=== PATIENT | female | born 1940 | race Caucasian/White ===

== ENCOUNTER 2018-07-15 16:09 | Inpatient (IN) ==
[2018-07-15] MEDS ORDERED: GLUCOSE 40% GEL 15 GM TUBE PO PRN (19:30)
[2018-07-15] MEDS ORDERED: GLUCAGON FOR INJ 1 MG VIAL IM PRN (19:30)
[2018-07-15] MEDS ORDERED: DEXTROSE 50% 50 ML SYRINGE IV PRN (19:30)
[2018-07-15] MEDS ORDERED: PATIENT'S ALLERGY INFO NEEDS ENTERED SCH (19:30)
[2018-07-15] MEDS ORDERED: PATIENT'S HEIGHT AND/OR WEIGHT NEEDED SCH (19:30)
[2018-07-15] MEDS ORDERED: GLUCOSE 10 TABS/TUBE PO PRN (19:30)
[2018-07-15] MEDS ORDERED: CARBOHYDRATES FOR HYPOGLYCEMIA PO PRN (19:30)
--- NOTE | 2018-07-15 19:50 | History & Physical Report ---
Date of Service July 15, 2018 Assessment & Plan (1) Shortness of breath: 78 y/o F Hx CKD V - recent fistula placement in prep for dialysis, IDDM, CAD, HTN, HLD, hypothyroid, GERD. She was evaluated at [facility] for SOB earlier in the day which was thought due to new onset of CHF or volume overload related to her renal status. She was declined admission to [facility] as they do not have a patients transporter press set up person, although it was not reported that her renal function had significantly changed. She is not anuric. The pt then arrives as a direct transfer from [facility]. She is mildly hypoxic, describes a cough, and was febrile with a temp of 37.6 on arrival to the telemetry floor. She denies any CP or rigors and was not aware that she had a fever. The pt had a fistula placed in her L arm 06/2018 in preparation for dialysis which has not matured yet. 1) SOB - this was suspected due to volume overload either due to CHF or related to her renal function. Due to her fever and cough and an exam that is not consistent with CHF, I currently suspect PNM. She will be sent for a CT chest without contrast as her CXR report was not helpful in this regard. I have started her on Doxy, 02 and PRN nebs. 2) CKD V - should it be determined that she has volume overload, an echo may be in order or a nephrology consult. We will monitor daily weights an I/O. 3) DM - placed on a SS 4) CAD - EKG shows a NSR - no evidence of ACS - cont ASA, plavix, carvedilol, Imdur, statin 5) GERD - cont Protonix, Famotidine Full code - Heparin prophylaxis Total time for this admit including review of labs, meds, imaging, records - discussion with pt and ER attending - 45 min Further evaluation to follow pending additional lab/imaging results Present on Admission?: Yes History of Present Illness Chief Complaint: Cough, SOB Primary Care Provider: NO PCP 78 y/o F Hx CKD V - recent fistula placement in prep for dialysis, IDDM, CAD, HTN, HLD, hypothyroid, GERD. She was evaluated at [facility] for SOB earlier in the day which was thought due to new onset of CHF or volume overload related to her renal status. She was declined admission to [facility] as they do not have a patients transporter press set up person, although it was not reported that her renal function had significantly changed. She is not anuric. The pt then arrives as a direct transfer from [facility]. She is mildly hypoxic, describes a cough, and was febrile with a temp of 37.6 on arrival to the telemetry floor. She denies any CP or rigors and was not aware that she had a fever. The pt had a fistula placed in her L arm 06/2018 in preparation for dialysis which has not matured yet. PMH: 1) CKD V - pre-dialysis 2) CAD - history of 3 stents 3) HTN 4) HLD 5) DM II 6) Hypothyroidism 7) GERD Surgical: Denies aside form dialysis and cardiac cath Social: No history of smoking or drinking Family: States that both parents due to "old age" Allergies Allergy/AdvReac Type Severity Reaction Status Date / Time amoxicillin Allergy Hives Verified 07/15/18 19:49 propofol AdvReac Nausea Verified 07/15/18 19:49 Home Medications Home Medications Medication Instructions Recorded Confirmed Type amlodipine 5 mg PO BID 07/15/18 07/15/18 History aspirin 81 mg PO DAILY 07/15/18 07/15/18 History carvedilol 6.25 mg PO BID 07/15/18 07/15/18 History clopidogrel 75 mg PO DAILY 07/15/18 07/15/18 History docusate sodium [Colace] 2 cap PO QAM PRN 07/15/18 07/15/18 History famotidine 20 mg PO BID 07/15/18 07/15/18 History ferrous sulfate 325 mg PO BID 07/15/18 07/15/18 History glimepiride 4 mg PO QAM 07/15/18 07/15/18 History hydralazine 25 mg PO BID 07/15/18 07/15/18 History insulin glargine [Lantus Solostar 18 unit SUBCUT DAILY 07/15/18 07/15/18 History U-100 Insulin] isosorbide mononitrate 60 mg PO DAILY 07/15/18 07/15/18 History levothyroxine 100 mcg PO QAM 07/15/18 07/15/18 History pantoprazole 40 mg PO DAILY 07/15/18 07/15/18 History pravastatin 10 mg PO DAILY 07/15/18 07/15/18 History psyllium husk [Metamucil] 0.4 g PO Q OTHER DAY 07/15/18 07/15/18 History Review of Systems Gen: Did not report fevers, night sweats, rigors, fatigue, malaise, weight loss/gain ENT: Denies congestion, throat pain, hearing loss Eyes: Denies acute visual changes CV: Denies CP, palpitations Pulmonary: SOB, productive cough GI: Denies N/V, diarrhea, constipation Neuro: Denies acute or unilateral weakness, acute gait impairment, headache or acute visual changes Musculoskeletal: Denies joint pain, inflammation Endocrine: Denies polydipsia, polyuria Skin: Denies acute rashes or ulcers Physical Exam Vital Signs (Past 24 Hours): Last Vital Signs Temp 37.6 C H 07/15/18 18:17 Pulse 81 07/15/18 18:41 Resp 22 07/15/18 18:17 BP 144/54 H 07/15/18 18:17 Pulse Ox 96 07/15/18 18:17 Physical Exam: General: AAO x 3, no distress ENT: No erythema or exudates, no thrush Eyes: VIN, EOMI Head and neck: Normocephalic, atraumatic, No JVD, neck is supple. Chest/heart: Nontender, S1,2, RRR, no murmurs, no gallops Lungs: CTAB - cannot hear any wheezing or crackles Abdomen: Nontender, nondistended, BS+ Neuro: AAO x 3, speech is clear, no unilateral weakness or loss of sensation, coordination intact Musculoskeletal: No joint inflammation, muscle tenderness, FROM Skin: No acute rashes or ulcers Extremities: No clubbing, cyanosis, edema - there is a fistula with sutures in the LUE
[2018-07-15] MEDS ORDERED: ALBUT/IPRATROP 3MG/0.5MG NEB 3 ML VIAL NEB PRN (20:01)
[2018-07-15 20:20] LABS: Basophils # (auto) 0.03 K/uL (0-0.2); Basophils % (auto) 0.2 %; Eosinophils # (auto) 0.07 K/uL (0-0.5); Eosinophils % (auto) 0.5 %; Hematocrit (blood only) 25.5 % (37-47); Hemoglobin 7.9 g/dL (12.0-16.0); Immature Granulocytes # (auto) 0.06 K/uL (0.00-0.02); Immature Granulocytes % (auto) 0.4 %; Lymphocytes # (auto) 1.34 K/uL (1.2-3.4); Lymphocytes % (auto) 9.5 %; Mean Platelet Volume 9.4 fL (7.4-10.4); Monocytes # (auto) 1.02 K/uL (0.11-0.59); Monocytes % (auto) 7.2 %; Neutrophils # (auto) 11.65 K/uL (1.4-6.5); Neutrophils % (auto) 82.2 %; Platelet Count 390 K/uL (130-400); RDW Coefficient of Variation 16.3 % (11.5-14.5); RDW Standard Deviation 49.4 fL (36.4-46.3); Red Blood Count 3.11 M/uL (4.2-5.4); White Blood Count 14.17 K/uL (4.8-10.8)
[2018-07-15 20:37] LABS: Hypochromasia Present
--- NOTE | 2018-07-15 20:37 | CT Scan Report ---
CT SCAN OF THE CHEST WITHOUT IV CONTRAST CLINICAL HISTORY: Dyspnea. COMPARISON STUDY: No priors. TECHNIQUE: CT scan of the thorax was performed from the thoracic inlet to the upper abdomen. Images are reviewed in the axial, sagittal, and coronal planes. IV contrast was not administered for this ex amination as per the referring clinician. A dose lowering technique was utilized adhering to the arthur Peralta. CT DOSE: 233.25 mGy.cm FINDINGS: Thyroid: Imaged portions of the thyroid gland are normal in size and heterogeneous in attenuation. Thoracic aorta: There is atherosclerotic calcification of the thoracic aorta, which is normal in demario jeanmarie and demonstrates bovine variant arch anatomy. Heart: The heart is enlarged and without pericardial effusion. The coronary arteries, aortic valve le aflets, and mitral annulus are densely calcified. Dilatation of the main pulmonary arteries suggests pulmonary artery hypertension. Lungs and pleural spaces: There are small to moderate pleural effusions with bibasilar consolidation. There is diffuse intralobular septal thickening indication of congestive failure. The trachea and c entral airways are clear. There are scattered calcified granulomas. Mediastinum: There are mildly enlarged mediastinal lymph nodes. A prevascular node on image #91 measu res 12 mm short axis. A pretracheal node on image #81 measures 15 mm short axis. Marivel: Not well assessed without IV contrast. Axillae: There is no axillary lymphadenopathy. Upper abdomen: There is a small to moderate hiatal hernia. Partially visualized upper abdominal visce ra is otherwise grossly unremarkable. Skeletal structures: The skeletal structures are osteopenic. Degenerative change and hyperkyphosis ar e noted in the thoracic spine. No lytic or blastic bony lesions are seen. IMPRESSION: 1. Cardiomegaly with evidence of congestive failure. Radiographic follow-up to resolution is recommen ded. 2. Small to moderate pleural effusions with bibasilar consolidation. This likely represents atelectas is. 3. Mildly enlarged mediastinal lymph nodes are nonspecific. 4. Hiatal hernia. 5. Additional findings as above. Electronically signed by: Josh Riley M.D. 07/15/2018 8:36 PM
[2018-07-15 20:41] LABS: BUN Creatinine Ratio 10.3 (10-20); Calcium 8.8 mg/dl (8.5-10.1); Creatinine Clr Calc Pharmacy 13.3 ml/min; Est GFR (African American) 16.1; Est GFR (Non-African American) 13.9; Potassium 4.3 mmol/L (3.5-5.1)
[2018-07-15] MEDS: INSULIN ASPART 100 UNITS/ML 3 ML PEN SC SCH (20:47)
[2018-07-15] MEDS: DOXYCYCLINE HYCLATE 100 MG in DEXTROSE 5% 100 ML IV SCH (21:46)
[2018-07-15] MEDS: FAMOTIDINE 20 MG TAB PO SCH (21:51)
[2018-07-15] MEDS: CARVEDILOL 6.25 MG TAB PO SCH (21:51)
[2018-07-16] MEDS: LEVOTHYROXINE SODIUM 100 MCG TABLET PO SCH (06:37)
[2018-07-16] MEDS: ASPIRIN 81 MG ECTAB PO SCH (08:30)
[2018-07-16] MEDS: CLOPIDOGREL BISULFATE 75 MG TAB PO SCH (08:30)
[2018-07-16] MEDS: ISOSORBIDE MONO EXTENDED REL 60 MG TABCR PO SCH (08:31)
[2018-07-16] MEDS: PANTOprazole 40 MG TAB PO SCH (08:31)
[2018-07-16] MEDS: AMLODIPINE BESYLATE 5 MG TAB PO SCH (08:32)
[2018-07-16] MEDS: CARVEDILOL 6.25 MG TAB PO SCH ×2 (08:32→20:38)
[2018-07-16] MEDS: EZETIMIBE 10 MG TABLET PO SCH (08:33)
[2018-07-16] MEDS: INSULIN ASPART 100 UNITS/ML 3 ML PEN SC SCH ×4 (08:33→20:50)
[2018-07-16] MEDS: DOXYCYCLINE HYCLATE 100 MG in DEXTROSE 5% 100 ML IV SCH ×2 (08:44→20:38)
[2018-07-16] MEDS ORDERED: FERROUS SULFATE 325 MG TAB PO SCH (08:45)
[2018-07-16 08:50] LABS: Basophils # (auto) 0.03 K/uL (0-0.2); Basophils % (auto) 0.2 %; Eosinophils # (auto) 0.24 K/uL (0-0.5); Eosinophils % (auto) 1.7 %; Hematocrit (blood only) 25.2 % (37-47); Hemoglobin 7.8 g/dL (12.0-16.0); Immature Granulocytes # (auto) 0.06 K/uL (0.00-0.02); Immature Granulocytes % (auto) 0.4 %; Lymphocytes # (auto) 1.47 K/uL (1.2-3.4); Lymphocytes % (auto) 10.4 %; Mean Corpuscular Volume 83.7 fL (80-100); Mean Platelet Volume 9.7 fL (7.4-10.4); Monocytes # (auto) 1.07 K/uL (0.11-0.59); Monocytes % (auto) 7.6 %; Neutrophils # (auto) 11.26 K/uL (1.4-6.5); Neutrophils % (auto) 79.7 %; Platelet Count 395 K/uL (130-400); RDW Coefficient of Variation 16.4 % (11.5-14.5); RDW Standard Deviation 50.4 fL (36.4-46.3); Red Blood Count 3.01 M/uL (4.2-5.4); White Blood Count 14.13 K/uL (4.8-10.8)
[2018-07-16 09:07] LABS: Anisocytosis Present
[2018-07-16 09:11] LABS: BUN Creatinine Ratio 10.6 (10-20); Calcium 8.6 mg/dl (8.5-10.1); Creatinine Clr Calc Pharmacy 12.3 ml/min; Est GFR (African American) 14.7; Est GFR (Non-African American) 12.7; Magnesium 2.1 mg/dl (1.8-2.4); Potassium 4.2 mmol/L (3.5-5.1)
[2018-07-16 09:20] LABS: Folate (Folic Acid) 15.39 ng/ml (>5.38)
[2018-07-16 09:22] LABS: Ferritin 467.2 ng/ml (8-388); Phosphorus 4.3 mg/dl (2.5-4.9)
[2018-07-16] MEDS ORDERED: EPOETIN ALFA 20,000 UNITS/ML VIAL SQ ONE (10:16)
--- NOTE | 2018-07-16 11:10 | Nephrology Consultation ---
Date of Consultation July 16, 2018 Assessment & Plan (1) Chronic kidney disease, stage IV (severe): Jessenia has stage 4/5 chronic kidney disease, baseline creatinine has been around 3, has left brachiocephalic AV fistula of, not ready yet. Admitted to the hospital with progressive dyspnea for 4 days, cough, fever and leukocytosis. Concern for acute congestive heart failure however clinically does not seem to be significantly volume overloaded, although she did receive 1 dose of diuretics in outside hospital. Dyspnea could be combination of pneumonia and volume overload which currently seems to be better. She has been non-oliguric. Creatinine slightly worsened to 3.4 however not significantly off from her baseline. Has metabolic acidosis. Has chronic anemia with iron deficiency. --recommend 2D echo to assess EF with prior history of coronary artery disease --no need for diuretics at this time as patient does not seem significantly volume overloaded on exam and there was slight change in creatinine since admission however considering advanced stage CKD, she may need some diuretics on going, if any sign of volume overload or patient have worsening shortness of breath would start on Bumex 1 milligram twice a day --start on Venofer and hold oral iron for now --give 1 dose of Epogen 34044 units x1 --start on sodium bicarbonate 650 milligram twice a day --no acute indication for dialysis at this time, monitor renal function closely while fistula is getting ready Will follow Thank you for allowing me to participate in your patient's care. It was a pleasure to see Jessenia (2) Metabolic acidosis: (3) Anemia: (4) Dyspnea: History of Present Illness Reason for Consultation: Evaluation management for advanced CKD, volume overload, metabolic acidosis. Attending Physician: Armida Lipscomb MD History of Present Illness Jessenia Ricci is a 78-year-old female with past medical history significant for stage IV CKD, hypertension, diabetes admitted to the hospital with pneumonia and possible CHF. Nephrology consult was requested to manage advanced CKD, electrolyte abnormality and volume overload. Electronic medical records are reviewed in detail during patient's visit. Patient's daughter was at bedside during the visit. Jessenia presented to [facility] yesterday with progressive shortness of breath over last few days. She was also having cough and low-grade fever at home. She was found to have a volume overload, pulmonary congestion and transferred to [facility] for further evaluation. She did receive 1 dose of Lasix at outside hospital. On admission CTA showed pulmonary vascular condition however clinically she was not significantly volume overloaded. Lab showed leukocytosis. Her blood pressure seems to be well controlled. Respiratory status seems to have improved. She was started on antibiotic empirically for possible pneumonia. She has stage 4 chronic kidney disease baseline creatinine has been around 3, she had left brachiocephalic AV fistula placement and at end of June in preparation for [facility] in near future. She has been non- oliguric. Has metabolic acidosis. Has anemia with no history of active bleeding, hemoglobin around 7.5-7.6, she has been on oral iron at home. On admission creatinine was 3.1 which is slightly worsened to 3.4 this morning. She has history of coronary artery disease, previously had PTCA and stent. No history of prior congestive heart failure or issues with volume overload. She has not been on diuretics at home. Shortness of breath seems to have improved, she is currently afebrile. The Allergies Allergy/AdvReac Type Severity Reaction Status Date / Time amoxicillin Allergy Hives Verified 07/15/18 19:49 propofol AdvReac Nausea Verified 07/15/18 19:49 Home Medications Home Medications Medication Instructions Recorded Confirmed Type amlodipine 5 mg PO BID 07/15/18 07/15/18 History aspirin 81 mg PO DAILY 07/15/18 07/15/18 History carvedilol 6.25 mg PO BID 07/15/18 07/15/18 History clopidogrel 75 mg PO DAILY 07/15/18 07/15/18 History docusate sodium [Colace] 2 cap PO QAM PRN 07/15/18 07/15/18 History famotidine 20 mg PO BID 07/15/18 07/15/18 History ferrous sulfate 325 mg PO BID 07/15/18 07/15/18 History glimepiride 4 mg PO QAM 07/15/18 07/15/18 History hydralazine 25 mg PO BID 07/15/18 07/15/18 History insulin glargine [Lantus Solostar 18 unit SUBCUT DAILY 07/15/18 07/15/18 History U-100 Insulin] isosorbide mononitrate 60 mg PO DAILY 07/15/18 07/15/18 History levothyroxine 100 mcg PO QAM 07/15/18 07/15/18 History pantoprazole 40 mg PO DAILY 07/15/18 07/15/18 History pravastatin 10 mg PO DAILY 07/15/18 07/15/18 History psyllium husk [Metamucil] 0.4 g PO Q OTHER DAY 07/15/18 07/15/18 History Patient History Medical History Chronic kidney disease Diabetes mellitus, type 2 Hypertension Hypothyroidism Surgical History History of heart artery stent History of vascular access device Social History Preferred Language: Sami Communication Ability: Effective [employer] Required: No Beliefs That Will Affect Care: Ep[employer]opalian Current Living Situation: Family Other Information That Helps Us Care for You: No Feels Safe at Home: Yes Safety Concerns: Feels Safe At This Time Smoking Status: Never smoker Hx Alcohol Use: No Hx Substance Use: No Review of Systems Detailed review of system was otherwise unremarkable except pertinent positive and negative findings mention above in history of present illness. Physical Exam Vital Signs (Past 24 Hours): Last Vital Signs Temp 36.9 C 07/16/18 07:12 Pulse 71 07/16/18 07:12 Resp 20 07/16/18 07:12 BP 130/57 L 07/16/18 07:12 Pulse Ox 92 07/16/18 07:12 Physical Exam: GENERAL: Elderly female, AAA x 3, pleasant, healthy-appearing, not in any distress. HEENT: Atraumatic, normocephalic. NECK: Supple, no JVD, no carotid bruit appreciated. ENT: No sinus tenderness MOUTH and THROAT: Moist oral mucosa, RESPIRATORY: Normal breathing efforts, clear to auscultation bilaterally, no wheezes or rales. CARDIOVASCULAR: S1, S2 normal, rate rhythm regular. ABDOMEN: Soft, nontender, positive bowel sound. MUSCULOSKELETAL: No CVA tenderness. No joint swelling, erythema or tenderness. Normal range of motion. SKIN: No skin rash EXTREMITY: Trace bilateral lower extremity edema NEURO: No gross focal neurological deficit, speech fluent. PSYCHIATRY: Normal mood and judgment
[2018-07-16] MEDS: IRON SUCROSE 100 MG in 0.9 % SODIUM CHLORIDE 100 ML IV SCH (11:43)
[2018-07-16] MEDS ORDERED: ONDANSETRON INJ 2 MG/ML 2 ML VIAL IV PRN (12:36)
[2018-07-16] MEDS ORDERED: ONDANSETRON INJ 2 MG/ML 2 ML VIAL ONE (12:50)
[2018-07-16] MEDS: CYANOCOBALAMIN 1000 MCG/ML VIAL IM SCH (13:41)
[2018-07-16] MEDS: PRAVASTATIN SOD 20 MG TAB PO SCH (17:38)
--- NOTE | 2018-07-16 18:32 | Hospitalist Progress Note ---
Date of Service July 16, 2018 Assessment & Plan (1) Shortness of breath: This patient is in 78 y/o F Hx CKD IV - recent fistula placement in prep for dialysis, IDDM, CAD, HTN, HLD, hypothyroid, GERD. She was evaluated at an outside hospital for SOB earlier in the day which was thought due to new onset of CHF or volume overload related to her renal status. She was declined admission to that hospital as they do not have a oracle database architect reconciliation clerk, although it was not reported that her renal function had significantly changed. She is not anuric. On arrival from outside hospital, she was mildly hypoxic, describes a cough, and was febrile with a temp of 37.6 on arrival to the telemetry floor. She denies any CP or rigors and was not aware that she had a fever. The pt had a fistula placed in her L arm 06/2018 in preparation for dialysis which has not matured yet. SOB -likely secondary to small to moderate bilateral pleural effusions likely to volume overload from renal failure -Check echocardiogram for LV function -No diuretics for now-appreciate nephrology recommendations CT of the chest shows congestive heart failure but no pneumonia But given low-grade temps and cough, will treat with Doxy for acute bronchitis -Continue supplemental 02 and PRN nebs (2) Acute respiratory failure with hypoxia: Secondary to pleural effusions and perhaps acute bronchitis -Supplemental O2 as needed to keep pulse ox greater than 90% -PRN nebulizers (3) Nausea vomiting and diarrhea: Possibly a viral gastroenteritis There is no abdominal pain, no evidence of obstruction She does have a leukocytosis that persist today at 14,000. She had low-grade fevers here -Continue antiemetics -Check C. difficile and if negative, can give loperamide as needed -will hold off on IV fluids given volume overload with CKD stage IV (4) Pleural effusion: Moderate effusions bilaterally, with cough and hypoxia -Consider thoracic surgery consultation in the morning to see about thoracentesis (5) Anemia: Severely anemic with hemoglobin 7.8, microcytic Iron studies today consistent with anemia of chronic disease, B12 severely low at 159, folate normal, TSH mildly elevated at 5.97 -Start B12 supplementation -Giving IV Venofer and holding oral iron as per nephrology -Giving erythropoietin (6) Metabolic acidosis: Bicarbonate down to 16, could be some GI losses from diarrhea but also from renal failure -Starting sodium bicarbonate tablets today as per nephrology -Follow BMP in the morning (7) Vitamin B12 deficiency (dietary) anemia: -Starting B12 1000 mcg IM once daily times 7 days, then once weekly, then once monthly (8) CAD (coronary artery disease), [place] coronary artery: With history of stents in the past - EKG shows a NSR - no evidence of ACS - cont ASA, plavix, carvedilol, Imdur, statin (9) Mediastinal lymphadenopathy: Unclear etiology, reactive versus autoimmune or lymphoma? -Consulting thoracic surgery in the morning (10) Diabetes mellitus: Blood sugars within normal limits here Hemoglobin A1c is pending Holding home glimepiride and Lantus -Sliding scale insulin as needed (11) HTN (hypertension), benign: Controlled -Continue hydralazine, amlodipine, carvedilol (12) Hyperlipidemia: -Continue pravastatin (13) Hypothyroidism: TSH mildly elevated here at 5.97 but is also acutely ill -Recommend following up with a repeat TSH in 3-4 weeks -Continue current dose of levothyroxine 100 mcg daily (14) GERD (gastroesophageal reflux disease): Stable -- cont Protonix, Famotidine (15) Sinus pause: Had a 2.2 and a 3.2-second sinus pauses on telemetry in the last 24 hours Is on carvedilol Could be vagal response to nausea and vomiting today -Continue monitoring on telemetry -Continue same dose of Coreg for now (16) Chronic kidney disease, stage IV (severe): Baseline creatinine around 3.0, mildly elevated today at 3.4 and did receive IV Lasix at the outside hospital prior to admission -Nephrology following -Renally dose medications -Avoid nephrotoxins -Starting sodium bicarbonate as above (17) DVT prophylaxis: We will add on heparin SQ Disposition-remain on telemetry Subjective Patient developed nausea and vomiting, as well as diarrhea today that is now somewhat relieved with Zofran. She denies blood in her vomit or stool. She denies abdominal pains. No further fevers today. She is still requiring 5 L of oxygen via mask. She denies any recent sick contacts. She reports that she has been feeling short of breath for about 3 days, then developed the fever on the day of admission. Telemetry with normal sinus rhythm with rates in the 70s with a 2.2-second pause overnight and another 3.2-second pause today on the setting of nausea and vomiting. Review of Systems All systems reviewed & are unremarkable except as noted in HPI & below (Denies chest pain, headache, sore throat) Physical Exam Vital Signs (Past 24 Hours): Last Vital Signs Temp 37.2 C 07/16/18 15:08 Pulse 76 07/16/18 16:00 Resp 20 07/16/18 15:08 BP 120/51 L 07/16/18 15:08 Pulse Ox 95 07/16/18 16:00 Constitutional: WD/WN, vitals as above Eyes: PERRL, conjunctivae normal, anicteric sclerae ENMT: external ear and nose normal, oropharynx normal Neck: trachea midline, no thyromegaly Respiratory: normal respiratory effort (With nasal cannula in place) Auscultation: + diminished lung sounds (Bibasilar); no wheezes Cardiovascular: RRR, no murmur, no edema Gastrointestinal (Abdomen): normal bowel sounds, soft, nontender, no hepatosplenomegaly Musculoskeletal: Extremities: extremities normal to inspection; no cyanosis and no clubbing Skin: no rashes, warm and dry Neurologic: moves all extremities and awake; no focal motor deficits Psychiatric: A+Ox3, euthymic affect Results & Data Laboratory Results 07/16/18 07/16/18 07/16/18 Range/Units 16:07 11:56 08:28 WBC (4.8-10.8) K/uL RBC (4.2-5.4) M/uL Hgb (12.0-16.0) g/dL Hct (37-47) % MCV (80-100) fL MCH (25-34) pg MCHC (32-36) g/dL RDW Std Deviation (36.4-46.3) fL RDW Coeff of Sathya (11.5-14.5) % Plt Count (130-400) K/uL MPV (7.4-10.4) fL Immature Gran % (Auto) % Neut % (Auto) % Lymph % (Auto) % [place] % (Auto) % Eos % (Auto) % Baso % (Auto) % Immature Gran # (Auto) (0.00-0.02) K/uL Neut # (Auto) (1.4-6.5) K/uL Lymph # (Auto) (1.2-3.4) K/uL [place] # (Auto) (0.11-0.59) K/uL Eos # (Auto) (0-0.5) K/uL Baso # (Auto) (0-0.2) K/uL Hypochromasia Anisocytosis Sodium (136-145) mmol/L Potassium (3.5-5.1) mmol/L Chloride (98-107) mmol/L Carbon Dioxide (21-32) mmol/L Anion Gap (3-11) BUN (7-18) mg/dl Creatinine (0.6-1.2) mg/dl Est Cr Clr Drug Dosing ml/min Est GFR ( Amer) Est GFR (Non-Af Amer) BUN/Creatinine Ratio (10-20) Glucose (70-99) mg/dl POC Glucose 97 89 (70-99) Estimat Average Glucose Hemoglobin A1c Calcium (8.5-10.1) mg/dl Phosphorus (2.5-4.9) mg/dl Magnesium (1.8-2.4) mg/dl Iron 20 L (35-150) mcg/dl TIBC (250-450) mcg/dl Transferrin (200-360) mg/dl Transferrin % Sat (15-50) % Ferritin (8-388) ng/ml Vitamin B12 (211-911) pg/ml Folate (>5.38) ng/ml TSH (0.300-4.500) uIu/ml 07/16/18 07/16/18 07/16/18 Range/Units 08:28 08:28 08:28 WBC 14.13 H (4.8-10.8) K/uL RBC 3.01 L (4.2-5.4) M/uL Hgb 7.8 L (12.0-16.0) g/dL Hct 25.2 L (37-47) % MCV 83.7 (80-100) fL MCH 25.9 (25-34) pg MCHC 31.0 L (32-36) g/dL RDW Std Deviation 50.4 H (36.4-46.3) fL RDW Coeff of Sathya 16.4 H (11.5-14.5) % Plt Count 395 (130-400) K/uL MPV 9.7 (7.4-10.4) fL Immature Gran % (Auto) 0.4 % Neut % (Auto) 79.7 % Lymph % (Auto) 10.4 % [place] % (Auto) 7.6 % Eos % (Auto) 1.7 % Baso % (Auto) 0.2 % Immature Gran # (Auto) 0.06 H (0.00-0.02) K/uL Neut # (Auto) 11.26 H (1.4-6.5) K/uL Lymph # (Auto) 1.47 (1.2-3.4) K/uL [place] # (Auto) 1.07 H (0.11-0.59) K/uL Eos # (Auto) 0.24 (0-0.5) K/uL Baso # (Auto) 0.03 (0-0.2) K/uL Hypochromasia Anisocytosis Present Sodium (136-145) mmol/L Potassium (3.5-5.1) mmol/L Chloride (98-107) mmol/L Carbon Dioxide (21-32) mmol/L Anion Gap (3-11) BUN (7-18) mg/dl Creatinine (0.6-1.2) mg/dl Est Cr Clr Drug Dosing ml/min Est GFR ( Amer) Est GFR (Non-Af Amer) BUN/Creatinine Ratio (10-20) Glucose (70-99) mg/dl POC Glucose (70-99) Estimat Average Glucose Pending Hemoglobin A1c Pending Calcium (8.5-10.1) mg/dl Phosphorus (2.5-4.9) mg/dl Magnesium (1.8-2.4) mg/dl Iron (35-150) mcg/dl TIBC (250-450) mcg/dl Transferrin (200-360) mg/dl Transferrin % Sat (15-50) % Ferritin (8-388) ng/ml Vitamin B12 159 L (211-911) pg/ml Folate 15.39 (>5.38) ng/ml TSH (0.300-4.500) uIu/ml 07/16/18 07/16/18 07/16/18 Range/Units 08:28 08:06 07:39 WBC (4.8-10.8) K/uL RBC (4.2-5.4) M/uL Hgb (12.0-16.0) g/dL Hct (37-47) % MCV (80-100) fL MCH (25-34) pg MCHC (32-36) g/dL RDW Std Deviation (36.4-46.3) fL RDW Coeff of Sathya (11.5-14.5) % Plt Count (130-400) K/uL MPV (7.4-10.4) fL Immature Gran % (Auto) % Neut % (Auto) % Lymph % (Auto) % [place] % (Auto) % Eos % (Auto) % Baso % (Auto) % Immature Gran # (Auto) (0.00-0.02) K/uL Neut # (Auto) (1.4-6.5) K/uL Lymph # (Auto) (1.2-3.4) K/uL [place] # (Auto) (0.11-0.59) K/uL Eos # (Auto) (0-0.5) K/uL Baso # (Auto) (0-0.2) K/uL Hypochromasia Anisocytosis Sodium 138 (136-145) mmol/L Potassium 4.2 (3.5-5.1) mmol/L Chloride 112 H (98-107) mmol/L Carbon Dioxide 16 L (21-32) mmol/L Anion Gap 11.0 (3-11) BUN 35 H (7-18) mg/dl Creatinine 3.27 H (0.6-1.2) mg/dl Est Cr Clr Drug Dosing 12.3 ml/min Est GFR ( Amer) 14.7 Est GFR (Non-Af Amer) 12.7 BUN/Creatinine Ratio 10.6 (10-20) Glucose 103 H (70-99) mg/dl POC Glucose 71 49 L* (70-99) Estimat Average Glucose Hemoglobin A1c Calcium 8.6 (8.5-10.1) mg/dl Phosphorus 4.3 (2.5-4.9) mg/dl Magnesium 2.1 (1.8-2.4) mg/dl Iron 19 L (35-150) mcg/dl TIBC 150 L (250-450) mcg/dl Transferrin 124 L (200-360) mg/dl Transferrin % Sat 11 L (15-50) % Ferritin 467.2 H (8-388) ng/ml Vitamin B12 (211-911) pg/ml Folate (>5.38) ng/ml TSH 5.790 H (0.300-4.500) uIu/ml 07/16/18 07/15/18 07/15/18 Range/Units 07:38 20:45 20:07 WBC (4.8-10.8) K/uL RBC (4.2-5.4) M/uL Hgb (12.0-16.0) g/dL Hct (37-47) % MCV (80-100) fL MCH (25-34) pg MCHC (32-36) g/dL RDW Std Deviation (36.4-46.3) fL RDW Coeff of Sathya (11.5-14.5) % Plt Count (130-400) K/uL MPV (7.4-10.4) fL Immature Gran % (Auto) % Neut % (Auto) % Lymph % (Auto) % [place] % (Auto) % Eos % (Auto) % Baso % (Auto) % Immature Gran # (Auto) (0.00-0.02) K/uL Neut # (Auto) (1.4-6.5) K/uL Lymph # (Auto) (1.2-3.4) K/uL [place] # (Auto) (0.11-0.59) K/uL Eos # (Auto) (0-0.5) K/uL Baso # (Auto) (0-0.2) K/uL Hypochromasia Anisocytosis Sodium 139 (136-145) mmol/L Potassium 4.3 (3.5-5.1) mmol/L Chloride 113 H (98-107) mmol/L Carbon Dioxide 17 L (21-32) mmol/L Anion Gap 10.0 (3-11) BUN 31 H (7-18) mg/dl Creatinine 3.03 H (0.6-1.2) mg/dl Est Cr Clr Drug Dosing 13.3 ml/min Est GFR ( Amer) 16.1 Est GFR (Non-Af Amer) 13.9 BUN/Creatinine Ratio 10.3 (10-20) Glucose 83 (70-99) mg/dl POC Glucose 50 L* 81 (70-99) Estimat Average Glucose Hemoglobin A1c Calcium 8.8 (8.5-10.1) mg/dl Phosphorus (2.5-4.9) mg/dl Magnesium (1.8-2.4) mg/dl Iron (35-150) mcg/dl TIBC (250-450) mcg/dl Transferrin (200-360) mg/dl Transferrin % Sat (15-50) % Ferritin (8-388) ng/ml Vitamin B12 (211-911) pg/ml Folate (>5.38) ng/ml TSH (0.300-4.500) uIu/ml 07/15/18 Range/Units 20:07 WBC (4.8-10.8) K/uL RBC (4.2-5.4) M/uL Hgb (12.0-16.0) g/dL Hct (37-47) % MCV (80-100) fL MCH (25-34) pg MCHC (32-36) g/dL RDW Std Deviation (36.4-46.3) fL RDW Coeff of Sathya (11.5-14.5) % Plt Count (130-400) K/uL MPV (7.4-10.4) fL Immature Gran % (Auto) % Neut % (Auto) % Lymph % (Auto) % [place] % (Auto) % Eos % (Auto) % Baso % (Auto) % Immature Gran # (Auto) (0.00-0.02) K/uL Neut # (Auto) (1.4-6.5) K/uL Lymph # (Auto) (1.2-3.4) K/uL [place] # (Auto) (0.11-0.59) K/uL Eos # (Auto) (0-0.5) K/uL Baso # (Auto) (0-0.2) K/uL Hypochromasia Present Anisocytosis Sodium (136-145) mmol/L Potassium (3.5-5.1) mmol/L Chloride (98-107) mmol/L Carbon Dioxide (21-32) mmol/L Anion Gap (3-11) BUN (7-18) mg/dl Creatinine (0.6-1.2) mg/dl Est Cr Clr Drug Dosing ml/min Est GFR ( Amer) Est GFR (Non-Af Amer) BUN/Creatinine Ratio (10-20) Glucose (70-99) mg/dl POC Glucose (70-99) Estimat Average Glucose Hemoglobin A1c Calcium (8.5-10.1) mg/dl Phosphorus (2.5-4.9) mg/dl Magnesium (1.8-2.4) mg/dl Iron (35-150) mcg/dl TIBC (250-450) mcg/dl Transferrin (200-360) mg/dl Transferrin % Sat (15-50) % Ferritin (8-388) ng/ml Vitamin B12 (211-911) pg/ml Folate (>5.38) ng/ml TSH (0.300-4.500) uIu/ml
[2018-07-16] MEDS: FAMOTIDINE 20 MG TAB PO SCH (20:39)
[2018-07-16] MEDS: SODIUM BICARBONATE 650 MG TAB PO SCH (20:39)
[2018-07-16 21:46] LABS: INR 1.1 (0.9-1.1)
[2018-07-16] MEDS: HEPARIN SOD 5,000 UNIT/0.5 ML VIAL SQ SCH (23:53)
[2018-07-17] MEDS: HEPARIN SOD 5,000 UNIT/0.5 ML VIAL SQ SCH ×3 (05:52→22:05)
[2018-07-17] MEDS: LEVOTHYROXINE SODIUM 100 MCG TABLET PO SCH (05:52)
[2018-07-17 07:08] LABS: Hematocrit (blood only) 25.4 % (37-47); Mean Corpuscular Hgb Conc 31.5 g/dL (32-36); Mean Corpuscular Volume 82.5 fL (80-100); Mean Platelet Volume 9.8 fL (7.4-10.4); Platelet Count 396 K/uL (130-400); RDW Coefficient of Variation 16.3 % (11.5-14.5); RDW Standard Deviation 48.7 fL (36.4-46.3); Red Blood Count 3.08 M/uL (4.2-5.4); White Blood Count 13.12 K/uL (4.8-10.8)
[2018-07-17 07:25] LABS: Estimated Average Glucose 177 mg/dl; Hemoglobin A1C 7.8 % (4.5-5.6)
[2018-07-17 07:27] LABS: Albumin Level 2.4 gm/dl (3.4-5.0); BUN Creatinine Ratio 10.5 (10-20); Calcium 8.5 mg/dl (8.5-10.1); Creatinine Clr Calc Pharmacy 10.1 ml/min; Est GFR (African American) 11.6; Phosphorus 4.6 mg/dl (2.5-4.9); Potassium 4.1 mmol/L (3.5-5.1)
[2018-07-17] MEDS: INSULIN ASPART 100 UNITS/ML 3 ML PEN SC SCH ×4 (08:00→22:06)
[2018-07-17] MEDS: DOXYCYCLINE HYCLATE 100 MG in DEXTROSE 5% 100 ML IV SCH (08:02)
[2018-07-17] MEDS: CLOPIDOGREL BISULFATE 75 MG TAB PO SCH (08:07)
[2018-07-17] MEDS: CARVEDILOL 6.25 MG TAB PO SCH (08:08)
[2018-07-17] MEDS: AMLODIPINE BESYLATE 5 MG TAB PO SCH (08:08)
[2018-07-17] MEDS: CYANOCOBALAMIN 1000 MCG/ML VIAL IM SCH (08:09)
[2018-07-17] MEDS: PANTOprazole 40 MG TAB PO SCH (08:09)
[2018-07-17] MEDS: ASPIRIN 81 MG ECTAB PO SCH (08:09)
[2018-07-17] MEDS: ISOSORBIDE MONO EXTENDED REL 60 MG TABCR PO SCH (08:09)
[2018-07-17] MEDS: SODIUM BICARBONATE 650 MG TAB PO SCH ×2 (08:09→22:04)
[2018-07-17] MEDS ORDERED: PERFLUTREN LIPID MICROSPHERE (DEFINITY) IV ONE (08:28)
[2018-07-17] MEDS: EZETIMIBE 10 MG TABLET PO SCH (09:50)
--- NOTE | 2018-07-17 09:56 | Nephrology Progress Note ---
Date of Service July 17, 2018 Assessment & Plan (1) Chronic kidney disease, stage IV (severe): -- Baseline creatinine ~3 mg/dL (CKD IV-V) -- Superimposed worsening noted -- Volume status noted -- No emergent need for PRESSURE STEAMER TENDER -- Medications appropriate for kidney function -- Symptoms improving -- Encourage oral fluids -- Document I/O's and repeat metabolic profile tomorrow AM -- Hold additional diuretics -- AVF not ready for use (2) Metabolic acidosis: -- NaHCO3 650 mg BID -- Repeat metabolic profile tomorrow AM (3) Anemia: -- Venofer 200 mg daily -- Epogen 86299 units provided yesterday (4) Dyspnea: -- Improving Subjective No acute events overnight. September is feeling slightly better this morning. Abdominal discomfort significant improved. Mild nausea persists. Loose bowel movement this morning but denies persistent diarrhea. No vomiting. No fevers or chills. Breathing comfortably. No cough. Appetite fair. Review of Systems All systems reviewed & are unremarkable except as noted in HPI & below Physical Exam Vital Signs (Past 24 Hours): Last Vital Signs Temp 36.9 C 07/17/18 07:30 Pulse 68 07/17/18 07:30 Resp 17 07/17/18 07:30 BP 120/62 07/17/18 07:30 Pulse Ox 93 07/17/18 07:30 Constitutional: well developed and + frail appearing; not ill appearing and not edematous Eyes: no scleral abnormality and no corneal abnormality ENMT: Mouth: no oral mucosal abnormality and oral mucous membranes not dry Neck: normal visual inspection and trachea midline Respiratory: no respiratory distress Auscultation: lungs clear to auscultation bilaterally and + diminished lung sounds; no rales and no rhonchi Cardiovascular: Heart Sounds: normal S1 and normal S2; no gallop and no cardiac rub Extremities: + AV fistula Gastrointestinal (Abdomen): Inspection/Auscultation: normal bowel sounds Percussion/Palpation: abdomen soft; abdomen nontender Musculoskeletal: Extremities: no cyanosis and no clubbing Skin: + turgor decreased; no rashes Neurologic: Motor/Sensory: no tremor and no asterixis Psychiatric: Affect: euthymic affect Results & Data Laboratory Results Laboratory Results - last 24 hr 07/16/18 07/16/18 07/16/18 08:28 11:56 16:07 WBC RBC Hgb Hct MCV MCH MCHC RDW Std Deviation RDW Coeff of Sathya Plt Count MPV PT INR Sodium Potassium Chloride Carbon Dioxide Anion Gap BUN Creatinine Est Cr Clr Drug Dosing Est GFR ( Amer) Est GFR (Non-Af Amer) BUN/Creatinine Ratio Glucose POC Glucose 89 97 Estimat Average Glucose 177 Hemoglobin A1c 7.8 H Calcium Phosphorus Albumin 07/16/18 07/16/18 07/17/18 20:11 20:54 06:07 WBC 13.12 H RBC 3.08 L Hgb 8.0 L Hct 25.4 L MCV 82.5 MCH 26.0 MCHC 31.5 L RDW Std Deviation 48.7 H RDW Coeff of Sathya 16.3 H Plt Count 396 MPV 9.8 PT 11.0 INR 1.1 Sodium Potassium Chloride Carbon Dioxide Anion Gap BUN Creatinine Est Cr Clr Drug Dosing Est GFR ( Amer) Est GFR (Non-Af Amer) BUN/Creatinine Ratio Glucose POC Glucose 110 H Estimat Average Glucose Hemoglobin A1c Calcium Phosphorus Albumin 07/17/18 07/17/18 06:07 07:46 WBC RBC Hgb Hct MCV MCH MCHC RDW Std Deviation RDW Coeff of Sathya Plt Count MPV PT INR Sodium 137 Potassium 4.1 Chloride 109 H Carbon Dioxide 20 L Anion Gap 8.0 BUN 42 H Creatinine 3.99 H D Est Cr Clr Drug Dosing 10.1 Est GFR ( Amer) 11.6 Est GFR (Non-Af Amer) 10.0 BUN/Creatinine Ratio 10.5 Glucose 80 POC Glucose 107 H Estimat Average Glucose Hemoglobin A1c Calcium 8.5 Phosphorus 4.6 Albumin 2.4 L
--- NOTE | 2018-07-17 10:05 | XRay Report ---
XR chest 1V portable CLINICAL HISTORY: Hypoxia, pleural effusions. COMPARISON STUDY: CT scan dated 07/15/2018 FINDINGS: The heart is enlarged. There is radiographic evidence of mild congestive failure/fluid over load. There are nonspecific left basilar opacities, statistically atelectatic. A superimposed infecti ous/inflammatory process could appear similar IMPRESSION: 1. Radiographic evidence of mild congestive failure/fluid overload 2. Nonspecific left basilar opacities, statistically atelectatic Electronically signed by: Abdulaziz Posey M.D. 07/17/2018 10:03 AM
--- NOTE | 2018-07-17 10:54 | Cardiology Consultation ---
Date of Consultation July 17, 2018 Assessment & Plan (1) Sinus pause: Mrs. Ricci is an 78 year old female with a history of Insulin Requiring Type 2 Diabetes Mellitus, CKD s/p AV Fistula Creation, Secondary Hyperparathyroidism, Hypertension, Dyslipidemia, Anemia, Hypothyroidism, and CAD s/p Intracoronary Stents x 2 in 2016 (details unknown) -- who was transferred to [facility] from [facility] for treatment of her suspected CHF / Management of Volume Status, and in case the initiation of dialysis was necessary (according to nephrology -- emergent hemodialysis is not needed currently). She has demonstrated Sinus Pauses with the longest pause being 3.7 seconds and several shorter pauses. Rod alvarez have been asymptomatic since being in our facility -- but she has been in bed. One episode of profound near syncope in recent months that she attributed to hypoglycemia -- but she has never had a syncopal event or loss of consciousness. She most likely has underlying Sinus Node Dysfunction -- but by the same token is on a negative chronotrope and is in a hypothyroid state. Recommend the following: -- Stop Carvedilol. -- Increase Levothyroxine dose. -- Continue telemetry monitoring for the next 24 to 48 hours to see if pauses resolve or improve. -- At some point the patient may require pacemaker placement. Present on Admission?: Yes (2) CAD (coronary artery disease), [place] coronary artery: Her CAD s/p Intracoronary Stents x 2 is asymptomatic. Continue the following: -- Aspirin 81 mg daily. -- Plavix 75 mg daily. -- Imdur 60 mg daily. -- Pravastatin 10 mg daily. -- Amlodipine 10 mg daily. Present on Admission?: Yes Supervising Physician Co-Signing Physician Notes Patient seen in examined. Agree with above. Reviewed with Jc Patel. Mian Carrasquillo MD History of Present Illness Reason for Consultation: -- Sinus Pauses up to 3.7 seconds. -- Sinus Node Dysfunction. Requesting Physician: Armida Lipscomb MD Attending Physician: Mian Carrasquillo MD History of Present Illness Mrs. Ricci is an 78 year old female with a history of Insulin Requiring Type 2 Diabetes Mellitus, CKD s/p AV Fistula Creation, Secondary Hyperparathyroidism, Hypertension, Dyslipidemia, Anemia, Hypothyroidism, and CAD s/p Intracoronary Stents x 2 in 2016 (details unknown) -- who presented to [facility] ER on 07/15/2018 with Increasing SOB, Malaise, and Chills without a reported fever. She was noted to have an elevated Pro-BNP, CHF pattern on CXR -- so she was transferred to [facility] 07/15/2018 for ongoing care and in case initiation of dialysis was necessary. Since she has been here -- she has had recurrent sinus pauses lasting up to 3.7 seconds and several shorter pauses. She admits to one episode of profound near syncope in the past which caused her to "go down" -- but she denies any history of syncope or loss of consciousness. She attributed this episode to hypoglycemia. Patient offers no other complaints. She is able to perform her usual ADL's without any exertional angina pectoris. She denies any exertional chest pain, heaviness, tightness, pressure, or discomfort. She denies any palpitations. No orthopnea or pnd. Thus far -- patient has no evidence of an acute coronary syndrome. Her CXR and Chest CT scan consistent with pulmonary edema and atelectasis. She is markedly anemic and has an elevated WBC count with a leftward shift. Additionally, her TSH is elevated which may indicated inadequate replacement therapy. Allergies Allergy/AdvReac Type Severity Reaction Status Date / Time amoxicillin Allergy Hives Verified 07/15/18 19:49 propofol AdvReac Nausea Verified 07/15/18 19:49 Home Medications Home Medications Medication Instructions Recorded Confirmed Type amlodipine 5 mg PO BID 07/15/18 07/15/18 History aspirin 81 mg PO DAILY 07/15/18 07/15/18 History carvedilol 6.25 mg PO BID 07/15/18 07/15/18 History clopidogrel 75 mg PO DAILY 07/15/18 07/15/18 History docusate sodium [Colace] 2 cap PO QAM PRN 07/15/18 07/15/18 History famotidine 20 mg PO BID 07/15/18 07/15/18 History ferrous sulfate 325 mg PO BID 07/15/18 07/15/18 History glimepiride 4 mg PO QAM 07/15/18 07/15/18 History hydralazine 25 mg PO BID 07/15/18 07/15/18 History insulin glargine [Lantus Solostar 18 unit SUBCUT DAILY 07/15/18 07/15/18 History U-100 Insulin] isosorbide mononitrate 60 mg PO DAILY 07/15/18 07/15/18 History levothyroxine 100 mcg PO QAM 07/15/18 07/15/18 History pantoprazole 40 mg PO DAILY 07/15/18 07/15/18 History pravastatin 10 mg PO DAILY 07/15/18 07/15/18 History psyllium husk [Metamucil] 0.4 g PO Q OTHER DAY 07/15/18 07/15/18 History Patient History Medical History Chronic kidney disease Diabetes mellitus, type 2 Hypertension Hypothyroidism Surgical History History of heart artery stent History of vascular access device Social History Preferred Language: Korean Beliefs That Will Affect Care: Congregational Current Living Situation: Family Other Information That Helps Us Care for You: No Feels Safe at Home: Yes Safety Concerns: Feels Safe At This Time Smoking Status: Never smoker Hx Alcohol Use: No Hx Substance Use: No Physical Exam Vital Signs (Past 24 Hours): Last Vital Signs Temp 36.9 C 07/17/18 07:30 Pulse 66 07/17/18 08:00 Resp 17 07/17/18 07:30 BP 120/62 07/17/18 07:30 Pulse Ox 93 07/17/18 07:30 Physical Exam: General: Patient in no acute distress, complexion is pale. HEENT: Head is atraumatic, normocephalic. EOMs intact. Sclerae anicteric. Facies symmetric. No perioral cyanosis. Neck: No JVD. Carotid upstrokes +2 bilaterally without obvious bruits. JVP is at the level of the clavicle sitting upright. Chest and Lungs: Decreased breath sounds in bilateral bases but clear. CVS: S1 and S2 are regular without obvious murmurs, gallops, or rubs. PMI is nondisplaced. No lifts, heaves, or thrills. No abdominal aortic or renal bruits. Abdominal Exam: Bowel sounds present. Extremities: No clubbing or cyanosis. No edema. Intact radial pulses bilaterally. LUE AV fistula is present. Neurologic Exam: Patient is awake, alert, and oriented. Pleasant and cooperative. Answers questions appropriately. Speech is clear. Results & Data Laboratory Results Laboratory Results - last 24 hr 07/16/18 07/16/18 07/16/18 08:28 11:56 16:07 WBC RBC Hgb Hct MCV MCH MCHC RDW Std Deviation RDW Coeff of Sathya Plt Count MPV PT INR Sodium Potassium Chloride Carbon Dioxide Anion Gap BUN Creatinine Est Cr Clr Drug Dosing Est GFR ( Amer) Est GFR (Non-Af Amer) BUN/Creatinine Ratio Glucose POC Glucose 89 97 Estimat Average Glucose 177 Hemoglobin A1c 7.8 H Calcium Phosphorus Albumin 07/16/18 07/16/18 07/17/18 20:11 20:54 06:07 WBC 13.12 H RBC 3.08 L Hgb 8.0 L Hct 25.4 L MCV 82.5 MCH 26.0 MCHC 31.5 L RDW Std Deviation 48.7 H RDW Coeff of Sathya 16.3 H Plt Count 396 MPV 9.8 PT 11.0 INR 1.1 Sodium Potassium Chloride Carbon Dioxide Anion Gap BUN Creatinine Est Cr Clr Drug Dosing Est GFR ( Amer) Est GFR (Non-Af Amer) BUN/Creatinine Ratio Glucose POC Glucose 110 H Estimat Average Glucose Hemoglobin A1c Calcium Phosphorus Albumin 07/17/18 07/17/18 06:07 07:46 WBC RBC Hgb Hct MCV MCH MCHC RDW Std Deviation RDW Coeff of Sathya Plt Count MPV PT INR Sodium 137 Potassium 4.1 Chloride 109 H Carbon Dioxide 20 L Anion Gap 8.0 BUN 42 H Creatinine 3.99 H D Est Cr Clr Drug Dosing 10.1 Est GFR ( Amer) 11.6 Est GFR (Non-Af Amer) 10.0 BUN/Creatinine Ratio 10.5 Glucose 80 POC Glucose 107 H Estimat Average Glucose Hemoglobin A1c Calcium 8.5 Phosphorus 4.6 Albumin 2.4 L Medications Administered Active Medications Generic Name Dose Route Start Last Admin Trade Name Freq PRN Reason Stop Dose Admin Albuterol 3 ml 07/15/18 20:01 Duoneb NEB 08/14/18 20:14 Q6H PRN shortness of breath Amlodipine Besylate 5 mg 07/16/18 09:00 07/17/18 08:08 Norvasc PO 08/15/18 08:59 5 mg QAM ALEX Administration Aspirin 81 mg 07/16/18 09:00 07/17/18 08:09 Ecotrin Ectab PO 08/15/18 08:59 81 mg QAM ALEX Administration Clopidogrel Bisulfate 75 mg 07/16/18 09:00 07/17/18 08:07 Plavix PO 08/15/18 08:59 75 mg QAM ALEX Administration Cyanocobalamin 1,000 mcg 07/16/18 12:45 07/17/18 08:09 Vitamin B-12 IM 08/15/18 12:44 1,000 mcg DAILY ALEX Administration Dextrose 25 - 50 ml 07/15/18 19:30 Dextrose 50% IV 08/14/18 19:29 UD PRN Hypoglycemia Protocol Protocol Ezetimibe 10 mg 07/16/18 09:00 07/17/18 09:50 Zetia PO 08/15/18 08:59 10 mg QAM ALEX Administration Famotidine 20 mg 07/15/18 21:00 07/16/18 20:39 Pepcid PO 08/14/18 20:59 20 mg HS ALEX Administration Glucagon 1 mg 07/15/18 19:30 Glucagen IM 08/14/18 19:29 UD PRN Hypoglycemia Protocol Protocol Glucose 15 - 30 gm 07/15/18 19:30 Glucose 40% PO 08/14/18 19:29 UD PRN Hypoglycemia Protocol Protocol Glucose 4 - 8 tabs 07/15/18 19:30 Dex4 Glucose PO 08/14/18 19:29 UD PRN Hypoglycemia Protocol Protocol Heparin Sodium (Porcine) 5,000 units 07/16/18 22:00 07/17/18 05:52 Heparin Sodium (Porcine) SQ 08/15/18 21:59 5,000 units Q8 ALEX Administration Hydralazine HCl 25 mg 07/15/18 21:00 07/17/18 08:07 Apresoline PO 08/14/18 20:59 25 mg BID ALEX Administration Doxycycline Hyclate 100 mg/ 110 mls @ 50 mls/hr 07/15/18 20:00 07/17/18 08:02 Dextrose IV 07/22/18 19:59 50 mls/hr Q12H ALEX Administration Iron Sucrose 100 mg/ Sodium 105 mls @ 420 mls/hr 07/16/18 11:00 07/16/18 12:00 Chloride IV 08/15/18 10:59 Infused DAILY ALEX Infusion Insulin Aspart 0 units 07/15/18 21:00 07/17/18 08:00 Novolog Flexpen SC 08/14/18 20:59 Not Given ACHS ALEX Isosorbide Mononitrate 60 mg 07/16/18 09:00 07/17/18 08:09 Imdur Extended Rel PO 08/15/18 08:59 60 mg QAM ALEX Administration Levothyroxine Sodium 100 mcg 07/16/18 06:30 07/17/18 05:52 Synthroid PO 08/15/18 06:29 100 mcg DAILYBB ALEX Administration Miscellaneous 15 - 30 gm 07/15/18 19:30 07/16/18 07:50 Carbohydrates For Hypoglycemia PO 08/14/18 19:29 15 gm UD PRN Administration Hypoglycemia Treatment Ondansetron HCl 4 mg 07/16/18 12:36 Zofran IV 08/15/18 12:35 Q6H PRN Nausea Pantoprazole Sodium 40 mg 07/16/18 09:00 07/17/18 08:09 Protonix PO 08/15/18 08:59 40 mg QAM ALEX Administration Pravastatin Sodium 20 mg 07/16/18 17:00 07/16/18 17:38 Pravachol PO 08/15/18 16:59 20 mg DAILY@1700 ALEX Administration Sodium Bicarbonate 650 mg 07/16/18 21:00 07/17/18 08:09 Sodium Bicarbonate PO 08/15/18 20:59 650 mg BID ALEX Administration
[2018-07-17] MEDS: IRON SUCROSE 100 MG in 0.9 % SODIUM CHLORIDE 100 ML IV SCH (11:05)
--- NOTE | 2018-07-17 14:27 | Hospitalist Progress Note ---
Date of Service July 17, 2018 Assessment & Plan (1) Shortness of breath: This patient is in 78 y/o F Hx CKD IV - recent fistula placement in prep for dialysis, IDDM, CAD, HTN, HLD, hypothyroid, GERD. She was evaluated at an outside hospital for SOB earlier in the day which was thought due to new onset of CHF or volume overload related to her renal status. She was declined admission to that hospital as they do not have a security systems integrator nutritional services cook, although it was not reported that her renal function had significantly changed. She is not anuric. On arrival from outside hospital, she was mildly hypoxic, describes a cough, and was febrile with a temp of 37.6 on arrival to the telemetry floor. She denies any CP or rigors and was not aware that she had a fever. The pt had a fistula placed in her L arm 06/2018 in preparation for dialysis which has not matured yet. SOB -likely secondary to small to moderate bilateral pleural effusions likely to volume overload from renal failure and acute on chronic diastolic CHF -Her echocardiogram is with normal LV function, but with grade 2 diastolic dysfunction, mild mitral stenosis -No diuretics for now-appreciate nephrology recommendations CT of the chest shows congestive heart failure but no pneumonia But given low-grade temps and cough, was initially treated with Doxy-given her previous history of vomiting and report of possibility of a side effect of doxycycline as per her son-in-law, will discontinue doxycycline at this time for acute bronchitis -Continue supplemental 02 and PRN nebs, wean down as tolerated (2) Acute respiratory failure with hypoxia: Secondary to pleural effusions and perhaps acute bronchitis although more likely due to acute on chronic diastolic CHF -Supplemental O2 as needed to keep pulse ox greater than 90% -PRN nebulizers doing-suspect she will need oxygen upon discharge home (3) Nausea vomiting and diarrhea: Possibly a viral gastroenteritis given leukocytosis There is no abdominal pain, no evidence of obstruction She does have a leukocytosis that is improving today down to 13,000. She had low-grade fevers here are now resolved Nausea vomiting diarrhea now completely resolved she is tolerating regular diet -Continue antiemetics as needed (4) Pleural effusion: Moderate effusions bilaterally, with cough and hypoxia -Consider thoracic surgery consultation if increased but chest x-ray today does not appear to require thoracentesis (5) Anemia: Severely anemic with hemoglobin 7.8-8.0, microcytic Iron studies here are consistent with anemia of chronic disease, B12 severely low at 159, folate normal, TSH mildly elevated at 5.97 -Start B12 supplementation with IM B12 supplementation 1000 mcg daily times 1 week, then once a week times 4 weeks, then once monthly -Giving IV Venofer and holding oral iron as per nephrology -Achieved 1 dose of erythropoietin here (6) Metabolic acidosis: Bicarbonate down to 16 upon admission and now improving to 20, could be some GI losses from diarrhea but also from renal failure -Continue sodium bicarbonate tablets today as per nephrology -Follow BMP in the morning (7) Vitamin B12 deficiency (dietary) anemia: -Starting B12 1000 mcg IM once daily times 7 days, then once weekly, then once monthly (8) CAD (coronary artery disease), [place] coronary artery: With history of stents in the past - EKG shows a NSR - no evidence of ACS - cont ASA, plavix, carvedilol, Imdur, statin (9) Mediastinal lymphadenopathy: Unclear etiology, reactive versus autoimmune or lymphoma? -She will need follow-up imaging on this in consultation with thoracic surgery or pulmonology if persists (10) Diabetes mellitus: Blood sugars within normal limits here has not eaten much until today Hemoglobin A1c is 7.8% Holding home glimepiride and Lantus -Sliding scale insulin as needed (11) HTN (hypertension), benign: Controlled -Continue hydralazine, amlodipine -Now holding carvedilol for bradycardia as below (12) Hyperlipidemia: -Continue pravastatin (13) Hypothyroidism: TSH mildly elevated here at 5.97 but is also acutely ill -Recommend following up with a repeat TSH in 3-4 weeks, but given bradycardia, will increase levothyroxine 112 mcg (14) GERD (gastroesophageal reflux disease): Stable -- cont Protonix, Famotidine (15) Sinus pause: Has had multiple 2-3.7 -second sinus pauses on telemetry that is been asymptomatic over the last 48 hours Is on carvedilol Could be vagal response to nausea and vomiting? Versus sick sinus syndrome -Appreciate cardiology consultation -Discontinue Coreg and continue to monitor on telemetry -May end up needing a pacemaker (16) Chronic kidney disease, stage IV (severe): With acute kidney injury on CKD stage IV Baseline creatinine around 3.0, mildly elevated today at 3.99 and did receive IV Lasix at the outside hospital prior to admission Other electrolytes acceptable except for bicarbonate low as above, mild volume overload -Nephrology following -Renally dose medications -Avoid nephrotoxins -Started sodium bicarbonate as above (17) Acute on chronic diastolic heart failure: With grade 2 diastolic dysfunction on echocardiogram and pleural effusions with CHF and hypoxia as above -With CKD stage IV with acute kidney injury as above also -No diuretics for now -Continue to monitor (18) DVT prophylaxis: heparin SQ Disposition-remain on telemetry Subjective Feeling much better today. No further nausea or vomiting is feeling hungry. Denies shortness of breath or chest pain. No abdominal pain. She is afebrile today She has not been out of bed much except to the bathroom and does feel fairly steady on her feet Her son-in-law at the bedside said that she always gets nauseated and vomits if she gets doxycycline even if it is IV She denies cough Telemetry with normal sinus rhythm with rates in the 60s, another 3.7-second pause, PACs Review of Systems All systems reviewed & are unremarkable except as noted in HPI & below Physical Exam Vital Signs (Past 24 Hours): Last Vital Signs Temp 36.8 C 07/17/18 11:00 Pulse 70 07/17/18 11:00 Resp 18 07/17/18 11:00 BP 138/63 07/17/18 11:00 Pulse Ox 95 07/17/18 11:00 Constitutional: WD/WN, vitals as above Eyes: PERRL, conjunctivae normal, anicteric sclerae Neck: trachea midline, no thyromegaly Respiratory: normal respiratory effort (With nasal cannula in place) Auscultation: + diminished lung sounds (Bibasilar); no wheezes Cardiovascular: RRR, no murmur, no edema Gastrointestinal (Abdomen): normal bowel sounds, soft, nontender, no hepatosplenomegaly Musculoskeletal: Extremities: extremities normal to inspection; no cyanosis and no clubbing Skin: no rashes, warm and dry Neurologic: moves all extremities and awake; no focal motor deficits Psychiatric: A+Ox3, euthymic affect Results & Data Laboratory Results 07/17/18 07/17/18 07/17/18 Range/Units 20:35 16:41 11:41 WBC (4.8-10.8) K/uL RBC (4.2-5.4) M/uL Hgb (12.0-16.0) g/dL Hct (37-47) % MCV (80-100) fL MCH (25-34) pg MCHC (32-36) g/dL RDW Std Deviation (36.4-46.3) fL RDW Coeff of Sathya (11.5-14.5) % Plt Count (130-400) K/uL MPV (7.4-10.4) fL Sodium (136-145) mmol/L Potassium (3.5-5.1) mmol/L Chloride (98-107) mmol/L Carbon Dioxide (21-32) mmol/L Anion Gap (3-11) BUN (7-18) mg/dl Creatinine (0.6-1.2) mg/dl Est Cr Clr Drug Dosing ml/min Est GFR ( Amer) Est GFR (Non-Af Amer) BUN/Creatinine Ratio (10-20) Glucose (70-99) mg/dl POC Glucose 199 H 201 H 175 H (70-99) Estimat Average Glucose mg/dl Hemoglobin A1c (4.5-5.6) % Calcium (8.5-10.1) mg/dl Phosphorus (2.5-4.9) mg/dl Albumin (3.4-5.0) gm/dl 07/17/18 07/17/18 07/17/18 Range/Units 07:46 06:07 06:07 WBC 13.12 H (4.8-10.8) K/uL RBC 3.08 L (4.2-5.4) M/uL Hgb 8.0 L (12.0-16.0) g/dL Hct 25.4 L (37-47) % MCV 82.5 (80-100) fL MCH 26.0 (25-34) pg MCHC 31.5 L (32-36) g/dL RDW Std Deviation 48.7 H (36.4-46.3) fL RDW Coeff of Sathya 16.3 H (11.5-14.5) % Plt Count 396 (130-400) K/uL MPV 9.8 (7.4-10.4) fL Sodium 137 (136-145) mmol/L Potassium 4.1 (3.5-5.1) mmol/L Chloride 109 H (98-107) mmol/L Carbon Dioxide 20 L (21-32) mmol/L Anion Gap 8.0 (3-11) BUN 42 H (7-18) mg/dl Creatinine 3.99 H D (0.6-1.2) mg/dl Est Cr Clr Drug Dosing 10.1 ml/min Est GFR ( Amer) 11.6 Est GFR (Non-Af Amer) 10.0 BUN/Creatinine Ratio 10.5 (10-20) Glucose 80 (70-99) mg/dl POC Glucose 107 H (70-99) Estimat Average Glucose mg/dl Hemoglobin A1c (4.5-5.6) % Calcium 8.5 (8.5-10.1) mg/dl Phosphorus 4.6 (2.5-4.9) mg/dl Albumin 2.4 L (3.4-5.0) gm/dl 07/16/18 Range/Units 08:28 WBC (4.8-10.8) K/uL RBC (4.2-5.4) M/uL Hgb (12.0-16.0) g/dL Hct (37-47) % MCV (80-100) fL MCH (25-34) pg MCHC (32-36) g/dL RDW Std Deviation (36.4-46.3) fL RDW Coeff of Sathya (11.5-14.5) % Plt Count (130-400) K/uL MPV (7.4-10.4) fL Sodium (136-145) mmol/L Potassium (3.5-5.1) mmol/L Chloride (98-107) mmol/L Carbon Dioxide (21-32) mmol/L Anion Gap (3-11) BUN (7-18) mg/dl Creatinine (0.6-1.2) mg/dl Est Cr Clr Drug Dosing ml/min Est GFR ( Amer) Est GFR (Non-Af Amer) BUN/Creatinine Ratio (10-20) Glucose (70-99) mg/dl POC Glucose (70-99) Estimat Average Glucose 177 mg/dl Hemoglobin A1c 7.8 H (4.5-5.6) % Calcium (8.5-10.1) mg/dl Phosphorus (2.5-4.9) mg/dl Albumin (3.4-5.0) gm/dl Diagnostic Findings Chest x-ray image personally reviewed by me and agree with the following report: XR chest 1V portable CLINICAL HISTORY: Hypoxia, pleural effusions. COMPARISON STUDY: CT scan dated 07/15/2018 FINDINGS: The heart is enlarged. There is radiographic evidence of mild congestive failure/fluid overload. There are nonspecific left basilar opacities, statistically atelectatic. A superimposed infectious/inflammatory process could appear similar IMPRESSION: 1. Radiographic evidence of mild congestive failure/fluid overload 2. Nonspecific left basilar opacities, statistically atelectatic
[2018-07-17] MEDS: SACCHAROMYCES BOULARDII 250 MG CAP PO SCH (16:48)
[2018-07-17] MEDS: PRAVASTATIN SOD 20 MG TAB PO SCH (16:49)
[2018-07-17] MEDS: FAMOTIDINE 20 MG TAB PO SCH (22:04)
[2018-07-18] MEDS: LEVOTHYROXINE SODIUM 112 MCG TABLET PO SCH (06:29)
[2018-07-18] MEDS: HEPARIN SOD 5,000 UNIT/0.5 ML VIAL SQ SCH ×3 (06:29→21:00)
[2018-07-18 08:16] LABS: Basophils # (auto) 0.03 K/uL (0-0.2); Basophils % (auto) 0.3 %; Eosinophils # (auto) 0.47 K/uL (0-0.5); Hematocrit (blood only) 24.3 % (37-47); Hemoglobin 7.7 g/dL (12.0-16.0); Immature Granulocytes # (auto) 0.19 K/uL (0.00-0.02); Immature Granulocytes % (auto) 1.6 %; Lymphocytes # (auto) 1.33 K/uL (1.2-3.4); Lymphocytes % (auto) 11.3 %; Mean Corpuscular Hgb Conc 31.7 g/dL (32-36); Mean Corpuscular Volume 83.5 fL (80-100); Mean Platelet Volume 10.2 fL (7.4-10.4); Monocytes # (auto) 0.83 K/uL (0.11-0.59); Neutrophils # (auto) 8.94 K/uL (1.4-6.5); Neutrophils % (auto) 75.8 %; Platelet Count 377 K/uL (130-400); RDW Coefficient of Variation 16.4 % (11.5-14.5); RDW Standard Deviation 50.3 fL (36.4-46.3); Red Blood Count 2.91 M/uL (4.2-5.4); White Blood Count 11.79 K/uL (4.8-10.8)
[2018-07-18 08:45] LABS: BUN Creatinine Ratio 10.7 (10-20); Calcium 8.8 mg/dl (8.5-10.1); Creatinine Clr Calc Pharmacy 9.5 ml/min; Est GFR (African American) 10.7; Est GFR (Non-African American) 9.2; Potassium 4.2 mmol/L (3.5-5.1)
[2018-07-18 08:58] LABS: RBC Morphology Unremarkable
--- NOTE | 2018-07-18 09:00 | Cardiology Progress Note ---
Date of Service July 18, 2018 Assessment & Plan (1) Sinus pause: Mrs. Ricci is an 78 year old female with a history of Insulin Requiring Type 2 Diabetes Mellitus, CKD s/p AV Fistula Creation, Secondary Hyperparathyroidism, Hypertension, Dyslipidemia, Anemia, Hypothyroidism, CAD s/p Intracoronary Stents x 2 in 2016, Grade II LV Diastolic Dysfunction, and Hyperdynamic LV Systolic Function (LVEF 65% to 70%) who was noted to have Sinus Pauses (longest pause 3.7 seconds on 07/17/2018 at 6:04 am). Therefore her Coreg was stopped on 07/17/2018 -- and she has not had any further sinus pauses, cardiac pauses, or any bradycardia. She is maintaining a normal sinus rhythm in the 60s and 70s. Recommend the following: -- Remain off of Carvedilol and other negative chronotropes. -- Consider increasing Levothyroxine dose. -- Her cardiac / sinus pauses have resolved off of Coreg. (2) CAD (coronary artery disease), upper [place] coronary artery: Her CAD s/p Intracoronary Stents x 2 is asymptomatic. Continue the following: -- Aspirin 81 mg daily. -- Plavix 75 mg daily. -- Imdur 60 mg daily. -- Pravastatin 10 mg daily. -- Amlodipine 10 mg daily. Supervising Physician Co-Signing Physician Notes Agree with above. Patient seen and examined. Improving with reduction in AV joon blockers. Mian Carrasquillo MD Subjective Mrs. Ricci is an 78 year old female with a history of Insulin Requiring Type 2 Diabetes Mellitus, CKD s/p AV Fistula Creation, Secondary Hyperparathyroidism, Hypertension, Dyslipidemia, Anemia, Hypothyroidism, CAD s/p Intracoronary Stents x 2 in 2016, Grade II LV Diastolic Dysfunction, and Hyperdynamic LV Systolic Function (LVEF 65% to 70%) who was noted to have Sinus Pauses (longest pause 3.7 seconds on 07/17/2018 at 6:04 am). This prompted us to stop her Coreg as of yesterday morning. Since that time, she has not had any further pauses, and her rate has been in the 60s and 70s overnight and so far today. From a respiratory standpoint, patient's symptoms are improving. Her breathing is still not baseline, but is better than was yesterday. She denies any chest pain, heaviness, tightness, pressure, or discomfort. She denies any exertional neck, jaw, back, or arm pain. No orthopnea. No PND. She denies any palpitations, syncope, or near syncope. Physical Exam Vital Signs (Past 24 Hours): Last Vital Signs Temp 36.5 C 07/18/18 07:10 Pulse 73 07/18/18 07:10 Resp 18 07/18/18 07:10 BP 144/65 H 07/18/18 07:10 Pulse Ox 97 07/18/18 07:10 Physical Exam: General: Patient in no acute distress, complexion is pale. HEENT: Head is atraumatic, normocephalic. EOMs intact. Sclerae anicteric. Facies symmetric. No perioral cyanosis. Neck: No JVD. Carotid upstrokes +2 bilaterally without obvious bruits. JVP is at the level of the clavicle sitting upright. Chest and Lungs: Improved breath sounds in bilateral bases, no crackles or rales. CVS: S1 and S2 are regular without obvious murmurs, gallops, or rubs. PMI is nondisplaced. No lifts, heaves, or thrills. No abdominal aortic or renal bruits. Abdominal Exam: Bowel sounds present. Extremities: No clubbing or cyanosis. No edema. Intact radial pulses bilaterally. LUE AV fistula is present. Neurologic Exam: Patient is awake, alert, and oriented. Pleasant and cooperative. Answers questions appropriately. Speech is clear. TELEMETRY: -- NSR with rates in the 60's and 70's overnight and today. -- No further sinus pauses or bradycardia noted. ECHOCARDIOGRAM 07/17/2018: -- Normal LV size and systolic function. -- LVEF 65% to 70%, No RWMA's. -- Mild MR and MS. -- Aortic valve sclerosis without stenosis. -- Grade II LV diastolic dysfunction. -- Normal RV size and systolic function. Results & Data Laboratory Results Laboratory Results - last 24 hr 07/17/18 07/17/18 07/17/18 11:41 16:41 20:35 WBC RBC Hgb Hct MCV MCH MCHC RDW Std Deviation RDW Coeff of Sathya Plt Count MPV Immature Gran % (Auto) Neut % (Auto) Lymph % (Auto) [place] % (Auto) Eos % (Auto) Baso % (Auto) Immature Gran # (Auto) Neut # (Auto) Lymph # (Auto) [place] # (Auto) Eos # (Auto) Baso # (Auto) RBC Morphology Sodium Potassium Chloride Carbon Dioxide Anion Gap BUN Creatinine Est Cr Clr Drug Dosing Est GFR ( Amer) Est GFR (Non-Af Amer) BUN/Creatinine Ratio Glucose POC Glucose 175 H 201 H 199 H Calcium 07/18/18 07/18/18 07/18/18 07:21 07:21 07:47 WBC 11.79 H RBC 2.91 L Hgb 7.7 L Hct 24.3 L MCV 83.5 MCH 26.5 MCHC 31.7 L RDW Std Deviation 50.3 H RDW Coeff of Sathya 16.4 H Plt Count 377 MPV 10.2 Immature Gran % (Auto) 1.6 Neut % (Auto) 75.8 Lymph % (Auto) 11.3 [place] % (Auto) 7.0 Eos % (Auto) 4.0 Baso % (Auto) 0.3 Immature Gran # (Auto) 0.19 H Neut # (Auto) 8.94 H Lymph # (Auto) 1.33 [place] # (Auto) 0.83 H Eos # (Auto) 0.47 Baso # (Auto) 0.03 RBC Morphology Unremarkable Sodium 136 Potassium 4.2 Chloride 109 H Carbon Dioxide 16 L Anion Gap 12.0 H BUN 46 H Creatinine 4.27 H Est Cr Clr Drug Dosing 9.5 Est GFR ( Amer) 10.7 Est GFR (Non-Af Amer) 9.2 BUN/Creatinine Ratio 10.7 Glucose 139 H POC Glucose 151 H Calcium 8.8 Medications Administered Active Medications Generic Name Dose Route Start Last Admin Trade Name Freq PRN Reason Stop Dose Admin Albuterol 3 ml 07/15/18 20:01 Duoneb NEB 08/14/18 20:14 Q6H PRN shortness of breath Amlodipine Besylate 5 mg 07/16/18 09:00 07/18/18 09:19 Norvasc PO 08/15/18 08:59 5 mg QAM ALEX Administration Aspirin 81 mg 07/16/18 09:00 07/18/18 09:20 Ecotrin Ectab PO 08/15/18 08:59 81 mg QAM ALEX Administration Clopidogrel Bisulfate 75 mg 07/16/18 09:00 07/18/18 09:20 Plavix PO 08/15/18 08:59 75 mg QAM ALEX Administration Cyanocobalamin 1,000 mcg 07/16/18 12:45 07/18/18 09:21 Vitamin B-12 IM 08/15/18 12:44 1,000 mcg DAILY ALEX Administration Dextrose 25 - 50 ml 07/15/18 19:30 Dextrose 50% IV 08/14/18 19:29 UD PRN Hypoglycemia Protocol Protocol Ezetimibe 10 mg 07/16/18 09:00 07/18/18 09:20 Zetia PO 08/15/18 08:59 10 mg QAM ALEX Administration Famotidine 20 mg 07/15/18 21:00 07/17/18 22:04 Pepcid PO 08/14/18 20:59 20 mg HS ALEX Administration Glucagon 1 mg 07/15/18 19:30 Glucagen IM 08/14/18 19:29 UD PRN Hypoglycemia Protocol Protocol Glucose 15 - 30 gm 07/15/18 19:30 Glucose 40% PO 08/14/18 19:29 UD PRN Hypoglycemia Protocol Protocol Glucose 4 - 8 tabs 07/15/18 19:30 Dex4 Glucose PO 08/14/18 19:29 UD PRN Hypoglycemia Protocol Protocol Heparin Sodium (Porcine) 5,000 units 07/16/18 22:00 07/18/18 06:29 Heparin Sodium (Porcine) SQ 08/15/18 21:59 5,000 units Q8 ALEX Administration Hydralazine HCl 25 mg 07/15/18 21:00 07/18/18 09:19 Apresoline PO 08/14/18 20:59 25 mg BID ALEX Administration Iron Sucrose 100 mg/ Sodium 105 mls @ 420 mls/hr 07/16/18 11:00 07/18/18 10:00 Chloride IV 08/15/18 10:59 Infused DAILY ALEX Infusion Insulin Aspart 0 units 07/15/18 21:00 07/18/18 09:18 Novolog Flexpen SC 08/14/18 20:59 Not Given ACHS ALEX Isosorbide Mononitrate 60 mg 07/16/18 09:00 07/18/18 09:19 Imdur Extended Rel PO 08/15/18 08:59 60 mg QAM ALEX Administration Levothyroxine Sodium 112 mcg 07/18/18 06:30 07/18/18 06:29 Synthroid PO 08/17/18 06:29 112 mcg DAILYBB ALEX Administration Miscellaneous 15 - 30 gm 07/15/18 19:30 07/16/18 07:50 Carbohydrates For Hypoglycemia PO 08/14/18 19:29 15 gm UD PRN Administration Hypoglycemia Treatment Ondansetron HCl 4 mg 07/16/18 12:36 Zofran IV 08/15/18 12:35 Q6H PRN Nausea Pantoprazole Sodium 40 mg 07/16/18 09:00 07/18/18 09:19 Protonix PO 08/15/18 08:59 40 mg QAM ALEX Administration Pravastatin Sodium 20 mg 07/16/18 17:00 07/17/18 16:49 Pravachol PO 08/15/18 16:59 20 mg DAILY@1700 ALEX Administration Saccharomyces Boulardii 250 mg 07/17/18 14:15 07/18/18 09:19 Florastor PO 08/16/18 14:14 250 mg DAILY ALEX Administration Sodium Bicarbonate 1,300 mg 07/18/18 21:00 Sodium Bicarbonate PO 08/17/18 20:59 BID ALEX
[2018-07-18] MEDS: INSULIN ASPART 100 UNITS/ML 3 ML PEN SC SCH ×4 (09:18→20:59)
[2018-07-18] MEDS: ISOSORBIDE MONO EXTENDED REL 60 MG TABCR PO SCH (09:19)
[2018-07-18] MEDS: SODIUM BICARBONATE 650 MG TAB PO SCH ×2 (09:19→20:57)
[2018-07-18] MEDS: AMLODIPINE BESYLATE 5 MG TAB PO SCH (09:19)
[2018-07-18] MEDS: PANTOprazole 40 MG TAB PO SCH (09:19)
[2018-07-18] MEDS: SACCHAROMYCES BOULARDII 250 MG CAP PO SCH (09:19)
[2018-07-18] MEDS: ASPIRIN 81 MG ECTAB PO SCH (09:20)
[2018-07-18] MEDS: CLOPIDOGREL BISULFATE 75 MG TAB PO SCH (09:20)
[2018-07-18] MEDS: EZETIMIBE 10 MG TABLET PO SCH (09:20)
[2018-07-18] MEDS: IRON SUCROSE 100 MG in 0.9 % SODIUM CHLORIDE 100 ML IV SCH (09:20)
[2018-07-18] MEDS: CYANOCOBALAMIN 1000 MCG/ML VIAL IM SCH (09:21)
--- NOTE | 2018-07-18 09:37 | Nephrology Progress Note ---
Date of Service July 18, 2018 Assessment & Plan (1) Chronic kidney disease, stage IV (severe): -- Baseline creatinine ~3 mg/dL (CKD IV-V) -- Superimposed worsening persists -- UOP not accurately documented -- Check UA/microscopy today -- Volume status acceptable at this time, defer additional diuretics -- No emergent need for [employer], unfortunately creatinine continues to rise and HCO3 remains low -- AVF not mature and will require transposition -- Discussed with vascular surgery possible TDC placement later this month -- Will ask that patient information be transmitted to [facility] for possible need for HD on discharge -- Medications appropriate for kidney function -- Encourage oral fluids -- Increase NaHCO3 to 1300 BID -- Document I/O's and repeat metabolic profile tomorrow AM (2) Metabolic acidosis: -- NaHCO3 increased to 1300 mg BID -- Repeat metabolic profile tomorrow AM (3) Anemia: -- Venofer 200 mg daily -- Epogen 66832 units provided 07/16/18 (4) Sinus pause: -- Carvedilol DC'd -- Improving Subjective No acute events overnight. Jessenia feels well this morning. Appetite is good. She is breathing comfortably. She denies chest pain or palpitations. She denies fevers or chills. No syncope or presyncope. No additional sinus pauses noted. Review of Systems All systems reviewed & are unremarkable except as noted in HPI & below Physical Exam Vital Signs (Past 24 Hours): Last Vital Signs Temp 36.5 C 07/18/18 07:10 Pulse 73 07/18/18 07:10 Resp 18 07/18/18 07:10 BP 144/65 H 07/18/18 07:10 Pulse Ox 97 07/18/18 07:10 Constitutional: well developed; not ill appearing and not edematous Eyes: no scleral abnormality and no corneal abnormality ENMT: Mouth: no oral mucosal abnormality and oral mucous membranes not dry Neck: normal visual inspection and trachea midline Respiratory: no respiratory distress Auscultation: lungs clear to auscultation bilaterally and + diminished lung sounds; no rales and no rhonchi Cardiovascular: Heart Sounds: normal S1 and normal S2; no gallop and no cardiac rub Extremities: + AV fistula Gastrointestinal (Abdomen): Inspection/Auscultation: normal bowel sounds Percussion/Palpation: abdomen soft; abdomen nontender Musculoskeletal: Extremities: no cyanosis and no clubbing Skin: + turgor decreased; no rashes Neurologic: Motor/Sensory: no tremor and no asterixis Psychiatric: Affect: euthymic affect Results & Data Laboratory Results Laboratory Results - last 24 hr 07/17/18 07/17/18 07/17/18 11:41 16:41 20:35 WBC RBC Hgb Hct MCV MCH MCHC RDW Std Deviation RDW Coeff of Sathya Plt Count MPV Immature Gran % (Auto) Neut % (Auto) Lymph % (Auto) [place] % (Auto) Eos % (Auto) Baso % (Auto) Immature Gran # (Auto) Neut # (Auto) Lymph # (Auto) [place] # (Auto) Eos # (Auto) Baso # (Auto) RBC Morphology Sodium Potassium Chloride Carbon Dioxide Anion Gap BUN Creatinine Est Cr Clr Drug Dosing Est GFR ( Amer) Est GFR (Non-Af Amer) BUN/Creatinine Ratio Glucose POC Glucose 175 H 201 H 199 H Calcium 07/18/18 07/18/18 07/18/18 07:21 07:21 07:47 WBC 11.79 H RBC 2.91 L Hgb 7.7 L Hct 24.3 L MCV 83.5 MCH 26.5 MCHC 31.7 L RDW Std Deviation 50.3 H RDW Coeff of Sathya 16.4 H Plt Count 377 MPV 10.2 Immature Gran % (Auto) 1.6 Neut % (Auto) 75.8 Lymph % (Auto) 11.3 [place] % (Auto) 7.0 Eos % (Auto) 4.0 Baso % (Auto) 0.3 Immature Gran # (Auto) 0.19 H Neut # (Auto) 8.94 H Lymph # (Auto) 1.33 [place] # (Auto) 0.83 H Eos # (Auto) 0.47 Baso # (Auto) 0.03 RBC Morphology Unremarkable Sodium 136 Potassium 4.2 Chloride 109 H Carbon Dioxide 16 L Anion Gap 12.0 H BUN 46 H Creatinine 4.27 H Est Cr Clr Drug Dosing 9.5 Est GFR ( Amer) 10.7 Est GFR (Non-Af Amer) 9.2 BUN/Creatinine Ratio 10.7 Glucose 139 H POC Glucose 151 H Calcium 8.8
--- NOTE | 2018-07-18 10:13 | Consultation ---
Date of Consultation July 18, 2018 Assessment & Plan (1) Chronic kidney disease, stage IV (severe): Pt with worsening renal fxn and with matured LUE AVF that will not be accessible until she undergoes her second stage transposition. Will plan for permcath insertion possibly later this week, if renal fxn continues to decline and HD is required. Will await final recs from nephrology before scheduling. Present on Admission?: Yes History of Present Illness Reason for Consultation: ESRD Attending Physician: Armida Lipscomb MD History of Present Illness 78 yo f with hx of CKD IV, HTN, DMII, hyperlipidemia, hypothyroidism, CAD, admitted with acute respiratory failure, hypoxia, and acute on chronic heart failure, seen in consultation today for permcath insertion d/t worsening renal fxn. Pt states she had a LUE AVF placed at [facility] by Dr Wong last month, but will require a second surgery before it will be usable. [facility] is scheduled for that second stage surgery on 08/08/18. States feeling significantly improved since admission, but remains fatigued. Per nephrology, Cr continues to rise. Pt admits ANDRADE and mild edema. Pt denies MEZA, fever, chills, chest pain, SOB at rest, abd pain, N/V presently, rest pain, claudication, other complaints. Allergies Allergy/AdvReac Type Severity Reaction Status Date / Time amoxicillin Allergy Hives Verified 07/15/18 19:49 propofol AdvReac Nausea Verified 07/15/18 19:49 Home Medications Home Medications Medication Instructions Recorded Confirmed Type amlodipine 5 mg PO BID 07/15/18 07/15/18 History aspirin 81 mg PO DAILY 07/15/18 07/15/18 History carvedilol 6.25 mg PO BID 07/15/18 07/15/18 History clopidogrel 75 mg PO DAILY 07/15/18 07/15/18 History docusate sodium [Colace] 2 cap PO QAM PRN 07/15/18 07/15/18 History famotidine 20 mg PO BID 07/15/18 07/15/18 History ferrous sulfate 325 mg PO BID 07/15/18 07/15/18 History glimepiride 4 mg PO QAM 07/15/18 07/15/18 History hydralazine 25 mg PO BID 07/15/18 07/15/18 History insulin glargine [Lantus Solostar 18 unit SUBCUT DAILY 07/15/18 07/15/18 History U-100 Insulin] isosorbide mononitrate 60 mg PO DAILY 07/15/18 07/15/18 History levothyroxine 100 mcg PO QAM 07/15/18 07/15/18 History pantoprazole 40 mg PO DAILY 07/15/18 07/15/18 History pravastatin 10 mg PO DAILY 07/15/18 07/15/18 History psyllium husk [Metamucil] 0.4 g PO Q OTHER DAY 07/15/18 07/15/18 History Patient History Medical History Chronic kidney disease Diabetes mellitus, type 2 Hypertension Hypothyroidism Surgical History History of heart artery stent History of vascular access device Social History Preferred Language: Yoruba Beliefs That Will Affect Care: Anabaptism Current Living Situation: Family Other Information That Helps Us Care for You: No Feels Safe at Home: Yes Safety Concerns: Feels Safe At This Time Smoking Status: Never smoker Hx Alcohol Use: No Hx Substance Use: No Review of Systems Constitutional: + fatigue and + malaise; no fever, no chills, no sweats and no weight loss Eyes: no blind spots and no problem reported Ear, Nose, Mouth, Throat: no hearing loss and no sore throat Respiratory: + dyspnea on exertion; no cough, no dyspnea and no hemoptysis Cardiovascular: + edema; no chest pain, no palpitations, no syncope, no claudication and no problem reported Gastrointestinal: no abdominal pain, no early satiety, no nausea, no vomiting, no cramping, no change in bowel habits, no diarrhea/loose stools and no blood in stools Musculoskeletal: no back pain, no joint pain, no swelling and no muscle weakness Integumentary: no rash, no non-healing lesions, no skin ulcer, no wounds and no erythema Neurologic: no localized weakness, no generalized weakness, no paralysis, no loss of sensation, no tingling, no numbness, no paresthesia, no seizure-like activity, no syncope, no headache(s) and no confusion Psychiatric: as per Subjective / HPI Hematologic / Lymphatic: no easy bleeding, no easy bruising, no coagulopathy, no night sweats and no unexplained weight loss Physical Exam Vital Signs (Past 24 Hours): Last Vital Signs Temp 36.5 C 07/18/18 07:10 Pulse 73 07/18/18 07:10 Resp 18 07/18/18 07:10 BP 144/65 H 07/18/18 07:10 Pulse Ox 97 07/18/18 07:10 Constitutional: WD/WN, vitals as above well developed, well nourished, + ill appearing (mildly), well groomed, cooperative and comfortable; not in distress Eyes: PERRL, conjunctivae normal, anicteric sclerae EOM intact bilaterally ENMT: external ear and nose normal, oropharynx normal Ears: no hearing impairment Nose: no nasal discharge Neck: trachea midline, no thyromegaly no tracheal deviation, no neck crepitus and neck nontender Respiratory: normal respiratory effort and able to speak in complete sentences; does not use accessory muscles, no cough, not tachypneic and no audible wheezes Auscultation: + diminished lung sounds and + crackles; no rhonchi and no wheezes Cardiovascular: Rate/Rhythm: regular rate and regular rhythm Heart Sounds: no gallop and no murmur Vessels: femoral pulses present, posterior tibial pulses present, dorsalis pedis pulses present, brachial pulses present and radial pulses present; no carotid bruit, no femoral bruit and + abnormal peripheral pulses Extremities: normal capillary refill, + pedal edema (trace), + edema (trace) and + AV fistula (LUE brachiobasilic AVF with + thrill/bruit, matured); no varicosities Chest (Breasts): Chest: normal inspection of chest Gastrointestinal (Abdomen): normal bowel sounds, soft, nontender, no hepatosplenomegaly Inspection/Auscultation: abdomen normal to inspection and normal bowel sounds; abdomen not distended Percussion/Palpation: abdomen soft; abdomen nontender, no guarding, abdomen not rigid and no abdominal mass Musculoskeletal: no cyanosis or clubbing, extremities motor strength 5/5 Head/Neck/Chest: normocephalic, head atraumatic and neck supple Extremities: extremities normal to inspection and strength 5/5 throughout; full ROM of extremities and no clubbing Skin: no rashes, warm and dry + incision (L AC incision C/D/I); no rashes, no lesions, no ulcers, no dry skin, no erythema, no excoriations and no mottling Neurologic: moves all extremities and awake; no focal motor deficits and not confused Speech / Cognition: no expressive aphasia and no receptive aphasia Motor/Sensory: no tremor and no sensory deficit Cranial Nerves: EOM intact bilaterally, normal facial strength and tongue midline Psychiatric: Orientation: alert, oriented x 3 and cooperative Apperance: appropriately dressed, appropriately groomed and appeared stated age Affect: euthymic affect and + anxious affect Thought Process: goal directed thought process, linear/logical thought process and clear/coherent thought process Cognition: recent memory grossly intact, remote memory grossly intact, attention grossly intact and language grossly intact Estimated Intelligence: average estimated intelligence
[2018-07-18] MEDS: PRAVASTATIN SOD 20 MG TAB PO SCH (17:33)
[2018-07-18] MEDS ORDERED: FUROSEMIDE 40 MG/4 ML VIAL IV STA (18:48)
[2018-07-18] MEDS ORDERED: FUROSEMIDE 40 MG in SYRINGE 0 ML IV STA (19:04)
--- NOTE | 2018-07-18 20:15 | Hospitalist Progress Note ---
Date of Service July 18, 2018 Assessment & Plan (1) Shortness of breath: This patient is in 78 y/o F Hx CKD IV - recent fistula placement in prep for dialysis, IDDM, CAD, HTN, HLD, hypothyroid, GERD. She was evaluated at an outside hospital for SOB earlier in the day which was thought due to new onset of CHF or volume overload related to her renal status. She was declined admission to that hospital as they do not have a product managent intern apron operator, although it was not reported that her renal function had significantly changed. She is not anuric. On arrival from outside hospital, she was mildly hypoxic, describes a cough, and was febrile with a temp of 37.6 on arrival to the telemetry floor. She denies any CP or rigors and was not aware that she had a fever. The pt had a fistula placed in her L arm 06/2018 in preparation for dialysis which has not matured yet. SOB -likely secondary to small to moderate bilateral pleural effusions likely to volume overload from renal failure and acute on chronic diastolic CHF -Her echocardiogram is with normal LV function, but with grade 2 diastolic dysfunction, mild mitral stenosis -Now we will likely add daily Lasix p.o. as per nephrology recommendations CT of the chest shows congestive heart failure but no pneumonia But given low-grade temps and cough, was initially treated with Doxy-given her previous history of vomiting and report of possibility of a side effect of doxycycline as per her son-in-law, the doxycycline was discontinued -Continue supplemental 02 as needed to keep pulse ox greater than 90% -Continue PRN nebs (2) Acute respiratory failure with hypoxia: Secondary to pleural effusions and perhaps acute bronchitis although more likely due to acute on chronic diastolic CHF and volume overload from renal failure -Supplemental O2 as needed to keep pulse ox greater than 90% -PRN nebulizers doing-suspect she will need oxygen upon discharge home (3) Nausea vomiting and diarrhea: Possibly a viral gastroenteritis given leukocytosis upon admission which is now resolving There is no abdominal pain, no evidence of obstruction She had low-grade fevers here are now resolved Nausea vomiting diarrhea now completely resolved she is tolerating regular diet (4) Pleural effusion: Moderate effusions bilaterally, with cough and hypoxia -Consider thoracic surgery consultation if increased but repeat chest x-ray does not appear to require thoracentesis -Starting diuretics (5) Anemia: Severely anemic with hemoglobin 7.8-8.0, microcytic Iron studies here are consistent with anemia of chronic disease, B12 severely low at 159, folate normal, TSH mildly elevated at 5.97 -Start B12 supplementation with IM B12 supplementation 1000 mcg daily times 1 w [place], then once a week times 4 weeks, then once monthly -Giving IV Venofer and holding oral iron as per nephrology -Achieved 1 dose of erythropoietin here (6) Metabolic acidosis: Bicarbonate again at 16 secondary to renal failure -Continue sodium bicarbonate tablets and increased dose today as per nephrology -Follow BMP in the morning (7) Vitamin B12 deficiency (dietary) anemia: -Starting B12 1000 mcg IM once daily times 7 days-today day #3, then once weekly, then once monthly (8) CAD (coronary artery disease), [place] coronary artery: With history of stents in the past - EKG shows a NSR - no evidence of ACS - cont ASA, plavix, Imdur, statin -Her carvedilol has been discontinued due to bradycardia (9) Mediastinal lymphadenopathy: Unclear etiology, reactive versus autoimmune or lymphoma? -She will need follow-up imaging on this in consultation with thoracic surgery or pulmonology if persists (10) Diabetes mellitus: Blood sugars within normal limits here Hemoglobin A1c is 7.8% Holding home glimepiride and Lantus -Sliding scale insulin as needed (11) HTN (hypertension), benign: Controlled -Continue hydralazine, amlodipine -Now holding carvedilol for bradycardia as below (12) Hyperlipidemia: -Continue pravastatin (13) Hypothyroidism: TSH mildly elevated here at 5.97 but is also acutely ill -Recommend following up with a repeat TSH in 3-4 weeks, but given bradycardia, did increase levothyroxine to 112 mcg (14) GERD (gastroesophageal reflux disease): Stable -- cont Protonix, Famotidine (15) Sinus pause: She had multiple 2-3.7 -second sinus pauses on telemetry that were asymptomatic over a 2-day. Here No further sinus pauses since being on carvedilol Could be vagal response to nausea and vomiting? Versus sick sinus syndrome -Appreciate cardiology consultation -continue to monitor on telemetry -Does not seem to need a pacemaker at this time is resolved with holding her AV joon blocking agent (16) Chronic kidney disease, stage IV (severe): With acute kidney injury on CKD stage IV Baseline creatinine around 3.0, further increased today at 4.2 Other electrolytes acceptable except for bicarbonate low as above, with volume overload with pleural effusions and abdominal distention -Nephrology following and considering starting dialysis this admission -Renally dose medications -Avoid nephrotoxins -Continue sodium bicarbonate as above -If renal failure continues to worsen, will place permanent tunneled cath for dialysis while here and plan on outpatient dialysis -Starting Lasix as per nephrology (17) Acute on chronic diastolic heart failure: With grade 2 diastolic dysfunction on echocardiogram and pleural effusions with CHF and hypoxia as above -With CKD stage IV with acute kidney injury as above also -Adding Lasix -Continue to monitor (18) DVT prophylaxis: heparin SQ Disposition-remain on telemetry Subjective Patient had her oxygen weaned off today but she is feeling short of breath again now. Denies chest pain. She ambulated around the halls 2 times today without oxygen but did feel short of breath with it. She denies any further nausea, vomiting, or diarrhea. She is having formed bowel movements. Telemetry with no further pauses or bradycardia Review of Systems All systems reviewed & are unremarkable except as noted in HPI & below Physical Exam Vital Signs (Past 24 Hours): Last Vital Signs Temp 36.5 C 07/18/18 19:42 Pulse 81 07/18/18 19:42 Resp 20 07/18/18 19:42 BP 165/67 H 07/18/18 19:42 Pulse Ox 90 07/18/18 19:42 Constitutional: WD/WN, vitals as above Eyes: PERRL, conjunctivae normal, anicteric sclerae ENMT: external ear and nose normal, oropharynx normal Neck: trachea midline, no thyromegaly Respiratory: normal respiratory effort Auscultation: + diminished lung sounds ([place]) and + crackles (In the middle lung brown bilaterally); no wheezes Cardiovascular: RRR, no murmur, no edema Gastrointestinal (Abdomen): normal bowel sounds, soft, nontender, no hepatosplenomegaly Musculoskeletal: Extremities: extremities normal to inspection; no cyanosis and no clubbing Skin: no rashes, warm and dry Neurologic: moves all extremities and awake; no focal motor deficits Psychiatric: A+Ox3, euthymic affect Results & Data Laboratory Results 07/19/18 07/19/18 07/18/18 Range/Units 02:45 02:45 21:10 WBC 12.11 H (4.8-10.8) K/uL RBC 2.98 L (4.2-5.4) M/uL Hgb 7.8 L (12.0-16.0) g/dL Hct 24.3 L (37-47) % MCV 81.5 (80-100) fL MCH 26.2 (25-34) pg MCHC 32.1 (32-36) g/dL RDW Std Deviation 48.3 H (36.4-46.3) fL RDW Coeff of Sathya 16.2 H (11.5-14.5) % Plt Count 405 H (130-400) K/uL MPV 10.0 (7.4-10.4) fL Immature Gran % (Auto) % Neut % (Auto) % Lymph % (Auto) % [place] % (Auto) % Eos % (Auto) % Baso % (Auto) % Immature Gran # (Auto) (0.00-0.02) K/uL Neut # (Auto) (1.4-6.5) K/uL Lymph # (Auto) (1.2-3.4) K/uL [place] # (Auto) (0.11-0.59) K/uL Eos # (Auto) (0-0.5) K/uL Baso # (Auto) (0-0.2) K/uL RBC Morphology Sodium (136-145) mmol/L Potassium (3.5-5.1) mmol/L Chloride (98-107) mmol/L Carbon Dioxide (21-32) mmol/L Anion Gap (3-11) BUN (7-18) mg/dl Creatinine (0.6-1.2) mg/dl Est Cr Clr Drug Dosing ml/min Est GFR ( Amer) Est GFR (Non-Af Amer) BUN/Creatinine Ratio (10-20) Glucose (70-99) mg/dl POC Glucose (70-99) Calcium (8.5-10.1) mg/dl Troponin I < 0.015 < 0.015 (0-0.045) ng/ml Urine Color Urine Appearance (Clear) Urine pH (4.5-7.5) Ur Specific [place] (1.000-1.030) Urine Protein (Negative) Urine Glucose (UA) (Negative) Urine Ketones (Negative) Urine Blood (Negative) Urine Nitrite (Negative) Urine Bilirubin (Negative) Urine Urobilinogen (Negative) Ur Leukocyte Esterase (Negative) Urine WBC (Auto) (0-5) /hpf Urine RBC (Auto) (0-4) /hpf U Hyaline Cast (Auto) (0-5) /lpf U Epithel Cells (Auto) (0-5) /lpf Urine Bacteria (Auto) (Negative) Stool Occult Bld Scrn Stl C. diff Tox B Gene 07/18/18 07/18/18 07/18/18 Range/Units 20:30 20:18 17:25 WBC (4.8-10.8) K/uL RBC (4.2-5.4) M/uL Hgb (12.0-16.0) g/dL Hct (37-47) % MCV (80-100) fL MCH (25-34) pg MCHC (32-36) g/dL RDW Std Deviation (36.4-46.3) fL RDW Coeff of Sathya (11.5-14.5) % Plt Count (130-400) K/uL MPV (7.4-10.4) fL Immature Gran % (Auto) % Neut % (Auto) % Lymph % (Auto) % [place] % (Auto) % Eos % (Auto) % Baso % (Auto) % Immature Gran # (Auto) (0.00-0.02) K/uL Neut # (Auto) (1.4-6.5) K/uL Lymph # (Auto) (1.2-3.4) K/uL [place] # (Auto) (0.11-0.59) K/uL Eos # (Auto) (0-0.5) K/uL Baso # (Auto) (0-0.2) K/uL RBC Morphology Sodium (136-145) mmol/L Potassium (3.5-5.1) mmol/L Chloride (98-107) mmol/L Carbon Dioxide (21-32) mmol/L Anion Gap (3-11) BUN (7-18) mg/dl Creatinine (0.6-1.2) mg/dl Est Cr Clr Drug Dosing ml/min Est GFR ( Amer) Est GFR (Non-Af Amer) BUN/Creatinine Ratio (10-20) Glucose (70-99) mg/dl POC Glucose 162 H (70-99) Calcium (8.5-10.1) mg/dl Troponin I (0-0.045) ng/ml Urine Color Yellow Urine Appearance Clear (Clear) Urine pH 5.0 (4.5-7.5) Ur Specific [place] 1.016 (1.000-1.030) Urine Protein 2+ H (Negative) Urine Glucose (UA) Negative (Negative) Urine Ketones Negative (Negative) Urine Blood Negative (Negative) Urine Nitrite Negative (Negative) Urine Bilirubin Negative (Negative) Urine Urobilinogen Negative (Negative) Ur Leukocyte Esterase Negative (Negative) Urine WBC (Auto) 1-5 (0-5) /hpf Urine RBC (Auto) 5-10 H (0-4) /hpf U Hyaline Cast (Auto) 1-5 (0-5) /lpf U Epithel Cells (Auto) >30 H (0-5) /lpf Urine Bacteria (Auto) Negative (Negative) Stool Occult Bld Scrn Stl C. diff Tox B Gene TNP 07/18/18 07/18/18 07/18/18 Range/Units 17:25 16:37 11:43 WBC (4.8-10.8) K/uL RBC (4.2-5.4) M/uL Hgb (12.0-16.0) g/dL Hct (37-47) % MCV (80-100) fL MCH (25-34) pg MCHC (32-36) g/dL RDW Std Deviation (36.4-46.3) fL RDW Coeff of Sathya (11.5-14.5) % Plt Count (130-400) K/uL MPV (7.4-10.4) fL Immature Gran % (Auto) % Neut % (Auto) % Lymph % (Auto) % [place] % (Auto) % Eos % (Auto) % Baso % (Auto) % Immature Gran # (Auto) (0.00-0.02) K/uL Neut # (Auto) (1.4-6.5) K/uL Lymph # (Auto) (1.2-3.4) K/uL [place] # (Auto) (0.11-0.59) K/uL Eos # (Auto) (0-0.5) K/uL Baso # (Auto) (0-0.2) K/uL RBC Morphology Sodium (136-145) mmol/L Potassium (3.5-5.1) mmol/L Chloride (98-107) mmol/L Carbon Dioxide (21-32) mmol/L Anion Gap (3-11) BUN (7-18) mg/dl Creatinine (0.6-1.2) mg/dl Est Cr Clr Drug Dosing ml/min Est GFR ( Amer) Est GFR (Non-Af Amer) BUN/Creatinine Ratio (10-20) Glucose (70-99) mg/dl POC Glucose 138 H 182 H (70-99) Calcium (8.5-10.1) mg/dl Troponin I (0-0.045) ng/ml Urine Color Urine Appearance (Clear) Urine pH (4.5-7.5) Ur Specific [place] (1.000-1.030) Urine Protein (Negative) Urine Glucose (UA) (Negative) Urine Ketones (Negative) Urine Blood (Negative) Urine Nitrite (Negative) Urine Bilirubin (Negative) Urine Urobilinogen (Negative) Ur Leukocyte Esterase (Negative) Urine WBC (Auto) (0-5) /hpf Urine RBC (Auto) (0-4) /hpf U Hyaline Cast (Auto) (0-5) /lpf U Epithel Cells (Auto) (0-5) /lpf Urine Bacteria (Auto) (Negative) Stool Occult Bld Scrn Cancelled Stl C. diff Tox B Gene 07/18/18 07/18/18 07/18/18 Range/Units 07:47 07:21 07:21 WBC 11.79 H (4.8-10.8) K/uL RBC 2.91 L (4.2-5.4) M/uL Hgb 7.7 L (12.0-16.0) g/dL Hct 24.3 L (37-47) % MCV 83.5 (80-100) fL MCH 26.5 (25-34) pg MCHC 31.7 L (32-36) g/dL RDW Std Deviation 50.3 H (36.4-46.3) fL RDW Coeff of Sathya 16.4 H (11.5-14.5) % Plt Count 377 (130-400) K/uL MPV 10.2 (7.4-10.4) fL Immature Gran % (Auto) 1.6 % Neut % (Auto) 75.8 % Lymph % (Auto) 11.3 % [place] % (Auto) 7.0 % Eos % (Auto) 4.0 % Baso % (Auto) 0.3 % Immature Gran # (Auto) 0.19 H (0.00-0.02) K/uL Neut # (Auto) 8.94 H (1.4-6.5) K/uL Lymph # (Auto) 1.33 (1.2-3.4) K/uL [place] # (Auto) 0.83 H (0.11-0.59) K/uL Eos # (Auto) 0.47 (0-0.5) K/uL Baso # (Auto) 0.03 (0-0.2) K/uL RBC Morphology Unremarkable Sodium 136 (136-145) mmol/L Potassium 4.2 (3.5-5.1) mmol/L Chloride 109 H (98-107) mmol/L Carbon Dioxide 16 L (21-32) mmol/L Anion Gap 12.0 H (3-11) BUN 46 H (7-18) mg/dl Creatinine 4.27 H (0.6-1.2) mg/dl Est Cr Clr Drug Dosing 9.5 ml/min Est GFR ( Amer) 10.7 Est GFR (Non-Af Amer) 9.2 BUN/Creatinine Ratio 10.7 (10-20) Glucose 139 H (70-99) mg/dl POC Glucose 151 H (70-99) Calcium 8.8 (8.5-10.1) mg/dl Troponin I (0-0.045) ng/ml Urine Color Urine Appearance (Clear) Urine pH (4.5-7.5) Ur Specific [place] (1.000-1.030) Urine Protein (Negative) Urine Glucose (UA) (Negative) Urine Ketones (Negative) Urine Blood (Negative) Urine Nitrite (Negative) Urine Bilirubin (Negative) Urine Urobilinogen (Negative) Ur Leukocyte Esterase (Negative) Urine WBC (Auto) (0-5) /hpf Urine RBC (Auto) (0-4) /hpf U Hyaline Cast (Auto) (0-5) /lpf U Epithel Cells (Auto) (0-5) /lpf Urine Bacteria (Auto) (Negative) Stool Occult Bld Scrn Stl C. diff Tox B Gene
[2018-07-18 20:54] LABS: Appearance Urine Clear (Clear); Bacteria Urine Automated Negative (Negative); Bilirubin Urine Negative (Negative); Blood Urine Negative (Negative); Color Urine Yellow; Epithelial Cell Urine Auto >30 /lpf (0-5); Glucose Urine UA Negative (Negative); Ketones Urine Negative (Negative); Leukocyte Esterase Urine Negative (Negative); Nitrite Urine Negative (Negative); Protein Urine 2+ (Negative); Specific Gravity Urine 1.016 (1.000-1.030); Urobilinogen Urine Negative (Negative)
[2018-07-18] MEDS: FAMOTIDINE 20 MG TAB PO SCH (20:57)
--- NOTE | 2018-07-18 21:02 | Progress Note ---
Date of Service July 18, 2018 Assessment & Plan (1) Chest heaviness: S; Patient had chest heaviness this evening. Occurred when trying to wean o2, sats at the time were below 90%. Occurred at rest in bed. Lasted 15 minutes and was relieved once O2 was increased back up. No radiation. The patient has known CAD s/p stents. Following increasing the O2 the patient was able to walk and use the bathroom without symptoms. O; vitals reviewed, stable. EKG reviewed, no acute changes AP; Angina sx, no EKG changes. Considering risk factors, will trend troponin. Text page with abnormal values. Physical Exam Vital Signs (Past 24 Hours): Last Vital Signs Temp 36.5 C 07/18/18 19:42 Pulse 81 07/18/18 19:42 Resp 20 07/18/18 19:42 BP 165/67 H 07/18/18 19:42 Pulse Ox 90 07/18/18 19:42
[2018-07-19 03:05] LABS: Hematocrit (blood only) 24.3 % (37-47); Hemoglobin 7.8 g/dL (12.0-16.0); Mean Corpuscular Hgb Conc 32.1 g/dL (32-36); Mean Corpuscular Volume 81.5 fL (80-100); Platelet Count 405 K/uL (130-400); RDW Coefficient of Variation 16.2 % (11.5-14.5); RDW Standard Deviation 48.3 fL (36.4-46.3); Red Blood Count 2.98 M/uL (4.2-5.4); White Blood Count 12.11 K/uL (4.8-10.8)
[2018-07-19] MEDS: LEVOTHYROXINE SODIUM 112 MCG TABLET PO SCH (05:30)
[2018-07-19] MEDS: HEPARIN SOD 5,000 UNIT/0.5 ML VIAL SQ SCH ×3 (05:31→21:13)
[2018-07-19 06:46] LABS: Albumin Level 2.4 gm/dl (3.4-5.0); BUN Creatinine Ratio 11.6 (10-20); Blood Urea Nitrogen 47 mg/dl (7-18); Calcium 8.5 mg/dl (8.5-10.1); Carbon Dioxide 19 mmol/L (21-32); Chloride 111 mmol/L (98-107); Est GFR (African American) 11.4; Est GFR (Non-African American) 9.8; Glucose 121 mg/dl (70-99); Potassium 4.1 mmol/L (3.5-5.1); Sodium 138 mmol/L (136-145)
[2018-07-19 06:51] LABS: Phosphorus 4.7 mg/dl (2.5-4.9); Troponin I < 0.015 ng/ml (0-0.045)
[2018-07-19] MEDS: CYANOCOBALAMIN 1000 MCG/ML VIAL IM SCH (08:15)
[2018-07-19] MEDS: INSULIN ASPART 100 UNITS/ML 3 ML PEN SC SCH ×4 (08:15→21:12)
[2018-07-19] MEDS: ISOSORBIDE MONO EXTENDED REL 60 MG TABCR PO SCH (08:16)
[2018-07-19] MEDS: ASPIRIN 81 MG ECTAB PO SCH (08:16)
[2018-07-19] MEDS: AMLODIPINE BESYLATE 5 MG TAB PO SCH (08:16)
[2018-07-19] MEDS: EZETIMIBE 10 MG TABLET PO SCH (08:16)
[2018-07-19] MEDS: PANTOprazole 40 MG TAB PO SCH (08:16)
[2018-07-19] MEDS: CLOPIDOGREL BISULFATE 75 MG TAB PO SCH (08:16)
[2018-07-19] MEDS: SODIUM BICARBONATE 650 MG TAB PO SCH ×2 (08:16→21:09)
[2018-07-19] MEDS: SACCHAROMYCES BOULARDII 250 MG CAP PO SCH (08:16)
[2018-07-19] MEDS: IRON SUCROSE 100 MG in 0.9 % SODIUM CHLORIDE 100 ML IV SCH (08:18)
--- NOTE | 2018-07-19 09:25 | Nephrology Progress Note ---
Date of Service July 19, 2018 Assessment & Plan (1) Chronic kidney disease, stage IV (severe): -- Baseline creatinine ~3 mg/dL (CKD IV-V) -- CAESAR seems to have plateaued with creatinine 4 mg this morning -- UOP not accurately documented but non-oliguric per report -- UA.micro yesterday without acute findings -- Additional 60 mg IV furosemide this AM -- No emergent need for PROBATION AGENT, will defer TDC placement at this time pending additional monitoring -- AVF not mature and will require transposition -- Appreciate vascular surgery consultation -- Medications appropriate for kidney function -- Encourage oral fluids -- Continue NaHCO3 1300 BID -- Document I/O's and repeat metabolic profile tomorrow AM (2) Metabolic acidosis: -- NaHCO3 1300 mg BID -- Repeat metabolic profile tomorrow AM (3) Anemia: -- Venofer 200 mg daily -- Epogen [id number] units provided 07/16/18 (4) Sinus pause: -- Carvedilol DC'd -- Cardiology following Subjective Review of Systems All systems reviewed & are unremarkable except as noted in HPI & below Jessenia experienced some chest heaviness overnight. No events on tele. Symptoms have resolved this AM. O2 was weaned off and restarted to aid in symptom control. She is breathing more comfortably this morning. Jessenia reports good urine output with IV furosemide overnight. She denies chest pain or palpitations this morning. She denies fevers or chills. No syncope or presyncope. Physical Exam Vital Signs (Past 24 Hours): Last Vital Signs Temp 36.4 C L 07/19/18 07:10 Pulse 75 07/19/18 07:33 Resp 18 07/19/18 07:10 BP 157/64 H 07/19/18 07:10 Pulse Ox 97 07/19/18 07:10 Constitutional: well developed; not ill appearing and not edematous Eyes: no scleral abnormality and no corneal abnormality ENMT: Mouth: no oral mucosal abnormality and oral mucous membranes not dry Neck: normal visual inspection and trachea midline Respiratory: no respiratory distress Auscultation: lungs clear to auscultation bilaterally and + diminished lung sounds; no rales and no rhonchi Cardiovascular: Heart Sounds: normal S1 and normal S2; no gallop and no cardiac rub Extremities: + AV fistula Gastrointestinal (Abdomen): Inspection/Auscultation: normal bowel sounds Percussion/Palpation: abdomen soft; abdomen nontender Musculoskeletal: Extremities: no cyanosis and no clubbing Skin: + turgor decreased; no rashes Neurologic: Motor/Sensory: no tremor and no asterixis Psychiatric: Affect: euthymic affect Results & Data Laboratory Results Laboratory Results - last 24 hr 07/18/18 07/18/18 07/18/18 11:43 16:37 17:25 WBC RBC Hgb Hct MCV MCH MCHC RDW Std Deviation RDW Coeff of Sathya Plt Count MPV Sodium Potassium Chloride Carbon Dioxide Anion Gap BUN Creatinine Est Cr Clr Drug Dosing Est GFR ( Amer) Est GFR (Non-Af Amer) BUN/Creatinine Ratio Glucose POC Glucose 182 H 138 H Calcium Phosphorus Troponin I Albumin Urine Color Urine Appearance Urine pH Ur Specific [place] Urine Protein Urine Glucose (UA) Urine Ketones Urine Blood Urine Nitrite Urine Bilirubin Urine Urobilinogen Ur Leukocyte Esterase Urine WBC (Auto) Urine RBC (Auto) U Hyaline Cast (Auto) U Epithel Cells (Auto) Urine Bacteria (Auto) Stool Occult Bld Scrn Cancelled Stl C. diff Tox B Gene 07/18/18 07/18/18 07/18/18 17:25 20:18 20:30 WBC RBC Hgb Hct MCV MCH MCHC RDW Std Deviation RDW Coeff of Sathya Plt Count MPV Sodium Potassium Chloride Carbon Dioxide Anion Gap BUN Creatinine Est Cr Clr Drug Dosing Est GFR ( Amer) Est GFR (Non-Af Amer) BUN/Creatinine Ratio Glucose POC Glucose 162 H Calcium Phosphorus Troponin I Albumin Urine Color Yellow Urine Appearance Clear Urine pH 5.0 Ur Specific [place] 1.016 Urine Protein 2+ H Urine Glucose (UA) Negative Urine Ketones Negative Urine Blood Negative Urine Nitrite Negative Urine Bilirubin Negative Urine Urobilinogen Negative Ur Leukocyte Esterase Negative Urine WBC (Auto) 1-5 Urine RBC (Auto) 5-10 H U Hyaline Cast (Auto) 1-5 U Epithel Cells (Auto) >30 H Urine Bacteria (Auto) Negative Stool Occult Bld Scrn Stl C. diff Tox B Gene TNP 07/18/18 07/19/18 07/19/18 21:10 02:45 02:45 WBC 12.11 H RBC 2.98 L Hgb 7.8 L Hct 24.3 L MCV 81.5 MCH 26.2 MCHC 32.1 RDW Std Deviation 48.3 H RDW Coeff of Sathya 16.2 H Plt Count 405 H MPV 10.0 Sodium Potassium Chloride Carbon Dioxide Anion Gap BUN Creatinine Est Cr Clr Drug Dosing Est GFR ( Amer) Est GFR (Non-Af Amer) BUN/Creatinine Ratio Glucose POC Glucose Calcium Phosphorus Troponin I < 0.015 < 0.015 Albumin Urine Color Urine Appearance Urine pH Ur Specific [place] Urine Protein Urine Glucose (UA) Urine Ketones Urine Blood Urine Nitrite Urine Bilirubin Urine Urobilinogen Ur Leukocyte Esterase Urine WBC (Auto) Urine RBC (Auto) U Hyaline Cast (Auto) U Epithel Cells (Auto) Urine Bacteria (Auto) Stool Occult Bld Scrn Stl C. diff Tox B Gene 07/19/18 07/19/18 06:05 07:54 WBC RBC Hgb Hct MCV MCH MCHC RDW Std Deviation RDW Coeff of Sathya Plt Count MPV Sodium 138 Potassium 4.1 Chloride 111 H Carbon Dioxide 19 L Anion Gap 8.0 BUN 47 H Creatinine 4.04 H Est Cr Clr Drug Dosing 10.0 Est GFR ( Amer) 11.4 Est GFR (Non-Af Amer) 9.8 BUN/Creatinine Ratio 11.6 Glucose 121 H POC Glucose 133 H Calcium 8.5 Phosphorus 4.7 Troponin I < 0.015 Albumin 2.4 L Urine Color Urine Appearance Urine pH Ur Specific [place] Urine Protein Urine Glucose (UA) Urine Ketones Urine Blood Urine Nitrite Urine Bilirubin Urine Urobilinogen Ur Leukocyte Esterase Urine WBC (Auto) Urine RBC (Auto) U Hyaline Cast (Auto) U Epithel Cells (Auto) Urine Bacteria (Auto) Stool Occult Bld Scrn Stl C. diff Tox B Gene
[2018-07-19] MEDS ORDERED: FUROSEMIDE 60 MG in SYRINGE 0 ML IV ONE (09:30)
--- NOTE | 2018-07-19 16:33 | Cardiology Progress Note ---
Date of Service July 19, 2018 Assessment & Plan (1) Chest heaviness: She was having some chest discomfort and she does have these, it is conceivable this was anginal. If this continues we could consider going up on her antianginals, avoiding beta blockade if possible. If we have to use beta blockade will have to deal with her bradycardia. (2) CAD (coronary artery disease), [place] coronary artery: She has known coronary artery disease although I am not sure that these current symptoms are due to her coronary disease. She should remain on risk factor modification and antianginals. (3) Sinus pause: She has had no further pauses off of beta-blockade. If we have to put her back on beta-blockade for her coronary artery disease we may be forced to consider pacemaker implantation. (4) HTN (hypertension), benign: She does have hypertension, it has trended up the last day or 2. It would probably be a good idea to try to get her blood pressure under control, if possible without using beta-blockade or Cardizem or verapamil. Subjective She was having some chest discomfort yesterday, I am not sure it was anginal although it is possible, today she is not having symptoms. Physical Exam Physical Exam: Constitutional: Alert, cooperative and in no distress. Pulmonary: Clear to auscultation bilaterally. Cardiac: Regular rhythm with no murmur, gallop or rub. Abdomen: Soft, nontender with normal bowel sounds. Extremities: No edema. Skin: No rash, ecchymoses or petechiae. Results & Data Vital Signs (Past 12 Hours) Vital Signs Temp Pulse Pulse Resp BP BP Pulse Ox 07/19/18 15:09 37.1 C 74 18 151/63 H 94 07/19/18 10:59 36.9 C 74 18 148/57 H 96 07/19/18 07:33 75 07/19/18 07:10 36.4 C L 72 18 157/64 H 97 07/19/18 04:51 37 C 79 18 157/66 H 96 Diagnostic Findings Telemetry: Sinus rhythm with a well-controlled heart rate, no significant tachycardia. Frequent premature ventricular beats.
[2018-07-19] MEDS: PRAVASTATIN SOD 20 MG TAB PO SCH (17:32)
[2018-07-19] MEDS: FAMOTIDINE 20 MG TAB PO SCH (21:09)
--- NOTE | 2018-07-19 21:11 | Hospitalist Progress Note ---
Date of Service July 19, 2018 Assessment & Plan (1) Shortness of breath: This patient is in 78 y/o F Hx CKD IV - recent fistula placement in prep for dialysis, IDDM, CAD, HTN, HLD, hypothyroid, GERD. She was evaluated at an outside hospital for SOB earlier in the day which was thought due to new onset of CHF or volume overload related to her renal status. 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 She is not anuric. On arrival from outside hospital, she was mildly hypoxic, describes a cough, and was febrile with a temp of 37.6 on arrival to the telemetry floor. She denies any CP or rigors and was not aware that she had a fever. The pt had a fistula placed in her L arm 06/2018 in preparation for dialysis which has not matured yet. SOB -likely secondary to small to moderate bilateral pleural effusions likely to volume overload from renal failure and acute on chronic diastolic CHF -Her echocardiogram is with normal LV function, but with grade 2 diastolic dysfunction, mild mitral stenosis Improved now with IV diuresis and improvement of renal function CT of the chest shows congestive heart failure and effusions but no pneumonia But given low-grade temps and cough, was initially treated with Doxy-but then discontinued as I do not believe she has an infectious bronchitis -Continue supplemental 02 as needed to keep pulse ox greater than 90%-add humidification for dry cough to see if helps -Continue PRN nebs (2) Acute respiratory failure with hypoxia: Secondary to pleural effusions and acute on chronic diastolic CHF and volume overload from renal failure -Continue supplemental O2 as needed to keep pulse ox greater than 90% -PRN nebulizers doing-suspect she will need oxygen upon discharge home (3) Nausea vomiting and diarrhea: Possibly a viral gastroenteritis given leukocytosis upon admission which is now completely resolved There is no abdominal pain, no evidence of obstruction She had low-grade fevers here are now resolved (4) Pleural effusion: Moderate effusions bilaterally, with cough and hypoxia -Consider thoracic surgery consultation if increased but repeat chest x-ray does not appear to require thoracentesis -Shortness of breath is improving now with IV diuresis -Follow chest x-ray in the morning (5) Anemia: Severely anemic with hemoglobin 7.8-8.0, microcytic but stable from previous Iron studies here are consistent with anemia of chronic disease, B12 severely low at 159, folate normal, TSH mildly elevated at 5.97 -Started B12 supplementation with IM B12 supplementation 1000 mcg daily times 1 week, then once a week times 4 weeks, then once monthly -Continue IV Venofer-has received 4 doses so far -holding oral iron as per nephrology -Received 1 dose of erythropoietin here on 07/16 (6) Metabolic acidosis: Bicarb improved today to 19, metabolic acidosis secondary to renal failure -Continue sodium bicarbonate tablets 1300 mg p.o. twice daily -Follow BMP in the morning (7) Vitamin B12 deficiency (dietary) anemia: -Continue B12 1000 mcg IM once daily times 7 days-today day #4, then once weekly, then once monthly (8) CAD (coronary artery disease), [place] coronary artery: With history of stents in the past. With chest pressure last night but troponin negative x2 afterwards and ECG without ischemic changes. 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 -She will need follow-up imaging on this in consultation with thoracic surgery or pulmonology if persists (10) Diabetes mellitus: Blood sugars are well controlled here Hemoglobin A1c is 7.8% Holding home glimepiride and Lantus -Sliding scale insulin as needed (11) HTN (hypertension), benign: Controlled -Continue hydralazine, amlodipine -Now holding carvedilol for bradycardia as below (12) Hyperlipidemia: -Continue pravastatin (13) Hypothyroidism: TSH mildly elevated here at 5.97 but was acutely ill when the level was checked -Given her bradycardia, did increase levothyroxine 112 mcg -Recommend following up with a repeat TSH in 3-4 weeks (14) GERD (gastroesophageal reflux disease): Stable -- cont Protonix, Famotidine (15) Sinus pause: She had multiple 2-3.7 -second sinus pauses on telemetry that were asymptomatic over a 2-day period No further sinus pauses since being off carvedilol, rhythm is now normal sinus with rates in the 70s-80s Could have been a vagal response to nausea and vomiting at the time it occurred? Versus sick sinus syndrome -Appreciate cardiology consultation -continue to monitor on telemetry -Does not seem to need a pacemaker at this time is resolved with holding her AV joon blocking agent (16) Chronic kidney disease, stage IV (severe): With acute kidney injury on CKD stage IV Baseline creatinine around 3.0, peaked at 4.2 and is finally now improving today to 4.04, metabolic acidosis is also improving as above -With volume overload with pleural effusions and abdominal distention now improving with IV Lasix -Nephrology following and considering starting dialysis this admission, although will likely hold off for now as renal function seems to be improving -Renally dose medications -Avoid nephrotoxins -Continue sodium bicarbonate as above -If renal failure continues to worsen, will place permanent tunneled cath for dialysis while here and plan on outpatient dialysis -Dosing Lasix day by day-has now received a dose on 07/18 and 07/19 -Document I's and O's, daily weights (17) Acute on chronic diastolic heart failure: With grade 2 diastolic dysfunction on echocardiogram and pleural effusions with CHF and hypoxia as above -With CKD stage IV with acute kidney injury as above also -Now dosing IV Lasix on a day by day basis -Continue to monitor I's and O's, daily weights (18) DVT prophylaxis: heparin SQ Disposition-remain on telemetry Subjective Patient had chest pressure last night that was relieved with putting her oxygen back on. She has not had a recurrence since then. She is actually feeling much better today, less short of breath. She is making plenty of urine. She is ambulating around the room without difficulty. She does still complain of a dry cough and wonders if it is from the oxygen. Telemetry with normal sinus rhythm with rates in the 70s-80s. Review of Systems Review of Systems: All systems reviewed & are unremarkable except as noted in HPI & below Physical Exam Constitutional: WD/WN, vitals as above Eyes: PERRL, conjunctivae normal, anicteric sclerae Neck: trachea midline, no thyromegaly Respiratory: normal respiratory effort Auscultation: + diminished lung sounds (Bibasilar but improved from yesterday); no crackles and no wheezes Cardiovascular: RRR, no murmur, no edema Gastrointestinal (Abdomen): normal bowel sounds, soft, nontender, no hepatosplenomegaly Musculoskeletal: Extremities: extremities normal to inspection; no cyanosis and no clubbing Skin: no rashes, warm and dry Neurologic: moves all extremities and awake; no focal motor deficits Psychiatric: A+Ox3, euthymic affect Results & Data Vital Signs (Past 12 Hours) Vital Signs Temp Pulse Pulse Resp BP Pulse Ox 07/19/18 19:54 36.8 C 80 18 155/67 H 94 07/19/18 16:00 75 07/19/18 15:09 37.1 C 74 18 151/63 H 94 07/19/18 10:59 36.9 C 74 18 148/57 H 96 Laboratory Results 07/19/18 07/19/18 07/19/18 Range/Units 18:45 11:43 07:54 WBC (4.8-10.8) K/uL RBC (4.2-5.4) M/uL Hgb (12.0-16.0) g/dL Hct (37-47) % MCV (80-100) fL MCH (25-34) pg MCHC (32-36) g/dL RDW Std Deviation (36.4-46.3) fL RDW Coeff of Sathya (11.5-14.5) % Plt Count (130-400) K/uL MPV (7.4-10.4) fL Sodium (136-145) mmol/L Potassium (3.5-5.1) mmol/L Chloride (98-107) mmol/L Carbon Dioxide (21-32) mmol/L Anion Gap (3-11) BUN (7-18) mg/dl Creatinine (0.6-1.2) mg/dl Est Cr Clr Drug Dosing ml/min Est GFR ( Amer) Est GFR (Non-Af Amer) BUN/Creatinine Ratio (10-20) Glucose (70-99) mg/dl POC Glucose 159 H 133 H (70-99) Calcium (8.5-10.1) mg/dl Phosphorus (2.5-4.9) mg/dl Troponin I (0-0.045) ng/ml Albumin (3.4-5.0) gm/dl Stool Occult Bld Scrn Negative (Negative) 07/19/18 07/19/18 07/19/18 Range/Units 06:05 02:45 02:45 WBC 12.11 H (4.8-10.8) K/uL RBC 2.98 L (4.2-5.4) M/uL Hgb 7.8 L (12.0-16.0) g/dL Hct 24.3 L (37-47) % MCV 81.5 (80-100) fL MCH 26.2 (25-34) pg MCHC 32.1 (32-36) g/dL RDW Std Deviation 48.3 H (36.4-46.3) fL RDW Coeff of Sathya 16.2 H (11.5-14.5) % Plt Count 405 H (130-400) K/uL MPV 10.0 (7.4-10.4) fL Sodium 138 (136-145) mmol/L Potassium 4.1 (3.5-5.1) mmol/L Chloride 111 H (98-107) mmol/L Carbon Dioxide 19 L (21-32) mmol/L Anion Gap 8.0 (3-11) BUN 47 H (7-18) mg/dl Creatinine 4.04 H (0.6-1.2) mg/dl Est Cr Clr Drug Dosing 10.0 ml/min Est GFR ( Amer) 11.4 Est GFR (Non-Af Amer) 9.8 BUN/Creatinine Ratio 11.6 (10-20) Glucose 121 H (70-99) mg/dl POC Glucose (70-99) Calcium 8.5 (8.5-10.1) mg/dl Phosphorus 4.7 (2.5-4.9) mg/dl Troponin I < 0.015 < 0.015 (0-0.045) ng/ml Albumin 2.4 L (3.4-5.0) gm/dl Stool Occult Bld Scrn (Negative) 07/18/18 Range/Units 21:10 WBC (4.8-10.8) K/uL RBC (4.2-5.4) M/uL Hgb (12.0-16.0) g/dL Hct (37-47) % MCV (80-100) fL MCH (25-34) pg MCHC (32-36) g/dL RDW Std Deviation (36.4-46.3) fL RDW Coeff of Sathya (11.5-14.5) % Plt Count (130-400) K/uL MPV (7.4-10.4) fL Sodium (136-145) mmol/L Potassium (3.5-5.1) mmol/L Chloride (98-107) mmol/L Carbon Dioxide (21-32) mmol/L Anion Gap (3-11) BUN (7-18) mg/dl Creatinine (0.6-1.2) mg/dl Est Cr Clr Drug Dosing ml/min Est GFR ( Amer) Est GFR (Non-Af Amer) BUN/Creatinine Ratio (10-20) Glucose (70-99) mg/dl POC Glucose (70-99) Calcium (8.5-10.1) mg/dl Phosphorus (2.5-4.9) mg/dl Troponin I < 0.015 (0-0.045) ng/ml Albumin (3.4-5.0) gm/dl Stool Occult Bld Scrn (Negative)
[2018-07-20] MEDS: HEPARIN SOD 5,000 UNIT/0.5 ML VIAL SQ SCH ×3 (05:53→22:20)
[2018-07-20] MEDS: LEVOTHYROXINE SODIUM 112 MCG TABLET PO SCH (05:54)
[2018-07-20 07:05] LABS: Albumin Level 2.4 gm/dl (3.4-5.0); BUN Creatinine Ratio 11.6 (10-20); Calcium 8.9 mg/dl (8.5-10.1); Creatinine Clr Calc Pharmacy 10.4 ml/min; Est GFR (Non-African American) 10.3; Potassium 4.1 mmol/L (3.5-5.1)
[2018-07-20 07:11] LABS: Phosphorus 3.9 mg/dl (2.5-4.9)
[2018-07-20] MEDS: PANTOprazole 40 MG TAB PO SCH (08:05)
[2018-07-20] MEDS: ISOSORBIDE MONO EXTENDED REL 60 MG TABCR PO SCH (08:05)
[2018-07-20] MEDS: SACCHAROMYCES BOULARDII 250 MG CAP PO SCH (08:05)
[2018-07-20] MEDS: SODIUM BICARBONATE 650 MG TAB PO SCH ×2 (08:06→20:02)
[2018-07-20] MEDS: CYANOCOBALAMIN 1000 MCG/ML VIAL IM SCH (08:06)
[2018-07-20] MEDS: AMLODIPINE BESYLATE 5 MG TAB PO SCH (08:06)
[2018-07-20] MEDS: ASPIRIN 81 MG ECTAB PO SCH (08:06)
[2018-07-20] MEDS: EZETIMIBE 10 MG TABLET PO SCH (08:06)
[2018-07-20] MEDS: CLOPIDOGREL BISULFATE 75 MG TAB PO SCH (08:06)
[2018-07-20] MEDS: INSULIN ASPART 100 UNITS/ML 3 ML PEN SC SCH ×4 (08:07→22:23)
[2018-07-20] MEDS: IRON SUCROSE 100 MG in 0.9 % SODIUM CHLORIDE 100 ML IV SCH (08:12)
--- NOTE | 2018-07-20 08:15 | XRay Report ---
XR chest 1V portable HISTORY: Follow-up pleural effusions COMPARISON: Chest 07/17/2018. FINDINGS: The heart remains mildly enlarged. Mild interstitial pulmonary edema persists. No pneumotho rax. Small bilateral pleural effusions and left basilar densities remain unchanged. Surgical clips ag ain noted within the right neck base. IMPRESSION: No change in the mild pulmonary edema, small bilateral pleural effusions, and left basilar densities. Electronically signed by: Harry Mccann M.D. 07/20/2018 8:14 AM
--- NOTE | 2018-07-20 09:41 | Nephrology Progress Note ---
Date of Service July 20, 2018 Assessment & Plan (1) Chronic kidney disease, stage IV (severe): -- Baseline creatinine ~3 mg/dL (CKD IV-V) -- CAESAR seems to have plateaued with creatinine slightly improved at 3.8 mg/dL this morning -- UOP not accurately documented but non-oliguric per report -- Furosemide 40 mg PO provided this morning -- No emergent need for INTERNIST, will defer TDC placement -- Medications appropriate for kidney function -- Encourage nutrition -- Continue NaHCO3 1300 BID -- Document I/O's and repeat metabolic profile tomorrow AM (2) Metabolic acidosis: -- NaHCO3 1300 mg BID -- Repeat metabolic profile tomorrow AM (3) Anemia: -- Venofer 200 mg daily -- Epogen 25184 units provided 07/16/18 (4) Sinus pause: -- Carvedilol DC'd -- Cardiology following (5) HTN (hypertension), benign: -- BP remains elevated despite staring Imdur, amlodipine, and hydralazine -- Amlodipine increased to 10 mg daily pending cardiology input Subjective No acute events overnight. Jessenia feels well this morning. No chest pain, chest heaviness, dyspnea, or palpitations. Ambulating in room. No lightheadedness or dizziness. Activity tolerance fair. Appetite decreased. No constipation. Denies nausea. Review of Systems Review of Systems: All systems reviewed & are unremarkable except as noted in HPI & below Physical Exam Constitutional: well developed; not ill appearing and not edematous Eyes: no scleral abnormality and no corneal abnormality ENMT: Mouth: no oral mucosal abnormality and oral mucous membranes not dry Neck: normal visual inspection and trachea midline Respiratory: no respiratory distress Auscultation: lungs clear to auscultation bilaterally and + diminished lung sounds; no rales and no rhonchi Cardiovascular: Heart Sounds: normal S1 and normal S2; no gallop and no cardiac rub Extremities: + AV fistula Gastrointestinal (Abdomen): Inspection/Auscultation: normal bowel sounds Percussion/Palpation: abdomen soft; abdomen nontender Musculoskeletal: Extremities: no cyanosis and no clubbing Skin: + turgor decreased; no rashes Neurologic: Motor/Sensory: no tremor and no asterixis Psychiatric: Affect: euthymic affect Results & Data Vital Signs (Past 12 Hours) Vital Signs Temp Pulse Pulse Resp BP Pulse Ox 07/20/18 07:17 77 07/20/18 07:03 37.2 C 64 16 160/54 H 95 07/20/18 04:00 36.8 C 78 20 147/55 H 92 07/20/18 00:00 86 07/19/18 23:44 37.1 C 87 24 188/73 H 93 Laboratory Results Laboratory Results - last 24 hr 07/19/18 07/19/18 07/19/18 11:43 16:54 18:45 Sodium Potassium Chloride Carbon Dioxide Anion Gap BUN Creatinine Est Cr Clr Drug Dosing Est GFR ( Amer) Est GFR (Non-Af Amer) BUN/Creatinine Ratio Glucose POC Glucose 159 H 153 H Calcium Phosphorus Albumin Stool Occult Bld Scrn Negative 07/19/18 07/20/18 07/20/18 20:06 06:28 07:37 Sodium 140 Potassium 4.1 Chloride 110 H Carbon Dioxide 19 L Anion Gap 11.0 BUN 45 H Creatinine 3.88 H Est Cr Clr Drug Dosing 10.4 Est GFR ( Amer) 12.0 Est GFR (Non-Af Amer) 10.3 BUN/Creatinine Ratio 11.6 Glucose 140 H POC Glucose 185 H 150 H Calcium 8.9 Phosphorus 3.9 Albumin 2.4 L Stool Occult Bld Scrn
[2018-07-20] MEDS: FUROSEMIDE 40 MG TAB PO SCH (10:50)
--- NOTE | 2018-07-20 11:20 | Hospitalist Progress Note ---
Date of Service July 20, 2018 Assessment & Plan (1) Shortness of breath: This patient is in 78 y/o F Hx CKD IV - recent fistula placement in prep for dialysis, IDDM, CAD, HTN, HLD, hypothyroid, GERD. She was evaluated at an outside hospital for SOB earlier in the day which was thought due to new onset of CHF or volume overload related to her renal status. 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 She is not anuric. On arrival from outside hospital, she was mildly hypoxic, describes a cough, and was febrile with a temp of 37.6 on arrival to the telemetry floor. She denies any CP or rigors and was not aware that she had a fever. The pt had a fistula placed in her L arm 06/2018 in preparation for dialysis which has not matured yet. SOB -likely secondary to small to moderate bilateral pleural effusions likely to volume overload from renal failure and acute on chronic diastolic CHF -Her echocardiogram is with normal LV function, but with grade 2 diastolic dysfunction, mild mitral stenosis Is significantly improved now with IV diuresis and improvement of renal function CT of the chest shows congestive heart failure and effusions but no pneumonia But given low-grade temps and cough, was initially treated with Doxy-but then discontinued as I do not believe she has an infectious bronchitis -Continue supplemental 02 as needed to keep pulse ox greater than 90%-added humidification for dry cough to see if helps -Continue PRN nebs (2) Acute respiratory failure with hypoxia: Secondary to pleural effusions and acute on chronic diastolic CHF and volume overload from renal failure- improving -Continue supplemental O2 as needed to keep pulse ox greater than 90% -PRN nebulizers doing-suspect she will need oxygen upon discharge home (3) Nausea vomiting and diarrhea: Possibly a viral gastroenteritis given leukocytosis upon admission which is now completely resolved There is no abdominal pain, no evidence of obstruction She had low-grade fevers here which are now resolved (4) Pleural effusion: Moderate effusions bilaterally, with cough and hypoxia, secondary to volume overload as above Repeat chest x-ray on 07/20 and significantly improved with decreased size of effusions after IV diuresis (5) Anemia: Severely anemic with hemoglobin 7.8-8.0, microcytic but stable from previous Iron studies here are consistent with anemia of chronic disease, B12 severely low at 159, folate normal, TSH mildly elevated at 5.97 -Started B12 supplementation with IM B12 supplementation 1000 mcg daily times 1 week, then once a week times 4 weeks, then once monthly -Continue IV Venofer-has received 5 doses so far -holding oral iron as per nephrology -Received 1 dose of erythropoietin here on 07/16 (6) Metabolic acidosis: Bicarb improved and stable today and 19, metabolic acidosis secondary to renal failure -Continue sodium bicarbonate tablets 1300 mg p.o. twice daily -Follow BMP in the morning (7) Vitamin B12 deficiency (dietary) anemia: -Continue B12 1000 mcg IM once daily times 7 days-today day #5, then once weekly, then once monthly (8) CAD (coronary artery disease), [place] coronary artery: With history of stents in the past. With chest pressure on one evening here, but troponin negative x2 afterwards and ECG without ischemic changes. 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 -She will need follow-up imaging on this in consultation with thoracic surgery or pulmonology if persists (10) Diabetes mellitus: Blood sugars are well controlled here Hemoglobin A1c is 7.8% Holding home glimepiride and Lantus -Sliding scale insulin as needed (11) HTN (hypertension), benign: Blood pressure is elevated here now that carvedilol has been discontinued -Continue hydralazine 25 mg p.o. twice daily, isosorbide 60 mg once daily, amlodipine and increased today to 10 mg daily -Started furosemide 40 mg daily as per nephrology -Discontinued carvedilol for bradycardia as below (12) Hyperlipidemia: -Continue pravastatin, Zetia (13) Hypothyroidism: TSH mildly elevated here at 5.97 but was acutely ill when the level was checked -Given her bradycardia, did increase levothyroxine 112 mcg -Recommend following up with a repeat TSH in 3-4 weeks (14) GERD (gastroesophageal reflux disease): Stable -- cont Protonix, Famotidine (15) Sinus pause: She had multiple 2-3.7 -second sinus pauses on telemetry that were asymptomatic over a 2-day period No further sinus pauses since being off carvedilol, rhythm continues to be normal sinus with rates in the 70s-80s Could have been a vagal response to nausea and vomiting at the time it occurred? Versus sick sinus syndrome -Appreciate cardiology consultation -continue to monitor on telemetry -Does not seem to need a pacemaker at this time is resolved with holding her AV joon blocking agent (16) Chronic kidney disease, stage IV (severe): With acute kidney injury on CKD stage IV Baseline creatinine around 3.0, peaked at 4.2 and is finally continues to improve today to 3.88, metabolic acidosis is also improved and stable -With volume overload with pleural effusions and abdominal distention now much improved with IV Lasix -Nephrology following and was previously considering starting dialysis this admission, although will likely hold off for now as renal function seems to be improving -Renally dose medications -Avoid nephrotoxins -Continue sodium bicarbonate as above -Now started on Lasix 40 mg once daily -Document I's and O's, daily weights (17) Acute on chronic diastolic heart failure: With grade 2 diastolic dysfunction on echocardiogram and pleural effusions with CHF and hypoxia as above -With CKD stage IV with acute kidney injury as above also -P.o. Lasix 40 mg daily -Continue to monitor I's and O's, daily weights (18) DVT prophylaxis: heparin SQ Disposition-remain on telemetry, improved, if renal function and volume overload continues to improve, could likely DC home the next 1 to 2 days Subjective Patient feeling much better today, less short of breath. No further nausea but does feel like her appetite is not 100%. No diarrhea. Telemetry with normal sinus rhythm, rates in the 70s to 80s, PACs and PVCs Review of Systems Review of Systems: All systems reviewed & are unremarkable except as noted in HPI & below Physical Exam Constitutional: WD/WN, vitals as above Eyes: PERRL, conjunctivae normal, anicteric sclerae ENMT: external ear and nose normal, oropharynx normal Neck: trachea midline, no thyromegaly Respiratory: normal respiratory effort Auscultation: + diminished lung sounds (Bibasilar but improved from yesterday); no crackles and no wheezes Cardiovascular: RRR, no murmur, no edema Gastrointestinal (Abdomen): normal bowel sounds, soft, nontender, no hepatosplenomegaly Musculoskeletal: Extremities: extremities normal to inspection; no cyanosis and no clubbing Skin: no rashes, warm and dry Neurologic: moves all extremities and awake; no focal motor deficits Psychiatric: A+Ox3, euthymic affect Results & Data Vital Signs (Past 12 Hours) Vital Signs Temp Pulse Pulse Resp BP Pulse Ox 07/20/18 07:17 77 07/20/18 07:03 37.2 C 64 16 160/54 H 95 07/20/18 04:00 36.8 C 78 20 147/55 H 92 07/20/18 00:00 86 07/19/18 23:44 37.1 C 87 24 188/73 H 93 Laboratory Results 07/20/18 07/20/18 07/20/18 Range/Units 16:56 12:00 07:37 Sodium (136-145) mmol/L Potassium (3.5-5.1) mmol/L Chloride (98-107) mmol/L Carbon Dioxide (21-32) mmol/L Anion Gap (3-11) BUN (7-18) mg/dl Creatinine (0.6-1.2) mg/dl Est Cr Clr Drug Dosing ml/min Est GFR ( Amer) Est GFR (Non-Af Amer) BUN/Creatinine Ratio (10-20) Glucose (70-99) mg/dl POC Glucose 161 H 146 H 150 H (70-99) Calcium (8.5-10.1) mg/dl Phosphorus (2.5-4.9) mg/dl Albumin (3.4-5.0) gm/dl Stool Occult Bld Scrn (Negative) 07/20/18 07/19/18 07/19/18 Range/Units 06:28 20:06 18:45 Sodium 140 (136-145) mmol/L Potassium 4.1 (3.5-5.1) mmol/L Chloride 110 H (98-107) mmol/L Carbon Dioxide 19 L (21-32) mmol/L Anion Gap 11.0 (3-11) BUN 45 H (7-18) mg/dl Creatinine 3.88 H (0.6-1.2) mg/dl Est Cr Clr Drug Dosing 10.4 ml/min Est GFR ( Amer) 12.0 Est GFR (Non-Af Amer) 10.3 BUN/Creatinine Ratio 11.6 (10-20) Glucose 140 H (70-99) mg/dl POC Glucose 185 H (70-99) Calcium 8.9 (8.5-10.1) mg/dl Phosphorus 3.9 (2.5-4.9) mg/dl Albumin 2.4 L (3.4-5.0) gm/dl Stool Occult Bld Scrn Negative (Negative) 07/19/18 Range/Units 16:54 Sodium (136-145) mmol/L Potassium (3.5-5.1) mmol/L Chloride (98-107) mmol/L Carbon Dioxide (21-32) mmol/L Anion Gap (3-11) BUN (7-18) mg/dl Creatinine (0.6-1.2) mg/dl Est Cr Clr Drug Dosing ml/min Est GFR ( Amer) Est GFR (Non-Af Amer) BUN/Creatinine Ratio (10-20) Glucose (70-99) mg/dl POC Glucose 153 H (70-99) Calcium (8.5-10.1) mg/dl Phosphorus (2.5-4.9) mg/dl Albumin (3.4-5.0) gm/dl Stool Occult Bld Scrn (Negative) Diagnostic Findings Chest x-ray image personally reviewed by me and agree with the following report: XR chest 1V portable HISTORY: Follow-up pleural effusions COMPARISON: Chest 07/17/2018. FINDINGS: The heart remains mildly enlarged. Mild interstitial pulmonary edema persists. No pneumothorax. Small bilateral pleural effusions and left basilar densities remain unchanged. Surgical clips again noted within the right neck base. IMPRESSION: No change in the mild pulmonary edema, small bilateral pleural effusions, and left basilar densities.
--- NOTE | 2018-07-20 17:07 | Cardiology Progress Note ---
Date of Service July 20, 2018 Assessment & Plan (1) Chest heaviness: She has not been having difficulty with chest discomfort recently, she is relatively inactive and her blood pressure remains elevated as does her pulse at times. She may need an increase in her antianginals blood pressure medications. (2) CAD (coronary artery disease), [place] coronary artery: She has known coronary artery disease although I am not sure that these current symptoms are due to her coronary disease. She should remain on risk factor modification and antianginals. (3) Sinus pause: She has had no further pauses off of beta-blockade. If we have to put her back on beta-blockade for her coronary artery disease we may be forced to consider pacemaker implantation. (4) HTN (hypertension), benign: She does have hypertension, it has fluctuated quite a bit over the last several days being high at times in normal to slightly low at other times. Subjective She is currently feeling well, she denies chest discomfort today and has no shortness of breath, lightheadedness or dizziness. Physical Exam Physical Exam: Constitutional: Alert, cooperative and in no distress. Pulmonary: Clear to auscultation bilaterally. Cardiac: Regular rhythm with no murmur, gallop or rub. Abdomen: Soft, nontender with normal bowel sounds. Extremities: No edema. Skin: No rash, ecchymoses or petechiae. Results & Data Vital Signs (Past 12 Hours) Vital Signs Temp Pulse Pulse Resp BP Pulse Ox 07/20/18 16:00 37.3 C 96 H 21 153/71 H 96 07/20/18 11:44 36.6 C 77 16 148/68 H 97 07/20/18 07:17 77 07/20/18 07:03 37.2 C 64 16 160/54 H 95 Diagnostic Findings Telemetry: Sinus rhythm, no significant bradycardia.
[2018-07-20] MEDS: PRAVASTATIN SOD 20 MG TAB PO SCH (17:18)
[2018-07-20] MEDS: FAMOTIDINE 20 MG TAB PO SCH (20:03)
[2018-07-21] MEDS: HEPARIN SOD 5,000 UNIT/0.5 ML VIAL SQ SCH ×2 (05:32→12:10)
[2018-07-21] MEDS: LEVOTHYROXINE SODIUM 112 MCG TABLET PO SCH (05:33)
[2018-07-21 06:25] LABS: Albumin Level 2.5 gm/dl (3.4-5.0); BUN Creatinine Ratio 11.8 (10-20); Calcium 8.5 mg/dl (8.5-10.1); Creatinine Clr Calc Pharmacy 11.2 ml/min; Est GFR (Non-African American) 11.2; Potassium 3.8 mmol/L (3.5-5.1)
[2018-07-21 06:29] LABS: Phosphorus 3.3 mg/dl (2.5-4.9)
[2018-07-21] MEDS: PANTOprazole 40 MG TAB PO SCH (07:48)
[2018-07-21] MEDS: EZETIMIBE 10 MG TABLET PO SCH (07:48)
[2018-07-21] MEDS: CLOPIDOGREL BISULFATE 75 MG TAB PO SCH (07:48)
[2018-07-21] MEDS: FUROSEMIDE 40 MG TAB PO SCH (07:49)
[2018-07-21] MEDS: CYANOCOBALAMIN 1000 MCG/ML VIAL IM SCH (07:49)
[2018-07-21] MEDS: IRON SUCROSE 100 MG in 0.9 % SODIUM CHLORIDE 100 ML IV SCH (07:49)
[2018-07-21] MEDS: SACCHAROMYCES BOULARDII 250 MG CAP PO SCH (07:49)
[2018-07-21] MEDS: ISOSORBIDE MONO EXTENDED REL 60 MG TABCR PO SCH (07:49)
[2018-07-21] MEDS: ASPIRIN 81 MG ECTAB PO SCH (07:49)
[2018-07-21] MEDS: SODIUM BICARBONATE 650 MG TAB PO SCH (07:50)
[2018-07-21] MEDS: INSULIN ASPART 100 UNITS/ML 3 ML PEN SC SCH ×2 (08:00→12:10)
[2018-07-21] MEDS ORDERED: AMLODIPINE BESYLATE 5 MG TAB PO SCH (09:00)
--- NOTE | 2018-07-21 09:35 | Nephrology Progress Note ---
Date of Service July 21, 2018 Assessment & Plan (1) Chronic kidney disease, stage IV (severe): -- Baseline creatinine ~3 mg/dL (CKD IV-V) -- CAESAR seems to have plateaued with creatinine slightly improved at 3.6 mg/dL this morning -- Continue Furosemide 40 mg PO daily -- No emergent need for FORGING ENGINEER -- AVF maturing - transposition scheduled for August [address] Wong -- Medications appropriate for kidney function -- Continue NaHCO3 1300 BID -- Repeat metabolic profile next week (fax results to my office at [phone]) -- I will arrange follow up in the nephrology clinic with me in the next 2 weeks (likely July 31 at [facility]) (2) Metabolic acidosis: -- NaHCO3 1300 mg BID -- Repeat metabolic profile tomorrow AM (3) Anemia: -- Venofer 200 mg daily completed today -- Epogen 71414 units provided 07/16/18 (4) Sinus pause: -- Carvedilol DC'd -- Cardiology following (5) HTN (hypertension), benign: -- Amlodipine increased to 10 mg daily yesterday Subjective No acute events overnight. Jessenia feels well this morning. She is breathing comfortably. Activity tolerance continues to improve. Appetite remains fair. No other GI symptoms at this time. Review of Systems Review of Systems: All systems reviewed & are unremarkable except as noted in HPI & below Physical Exam Constitutional: well developed; not ill appearing and not edematous Eyes: no scleral abnormality and no corneal abnormality ENMT: Mouth: no oral mucosal abnormality and oral mucous membranes not dry Neck: normal visual inspection and trachea midline Respiratory: no respiratory distress Auscultation: lungs clear to auscultation bilaterally and + diminished lung sounds; no rales and no rhonchi Cardiovascular: Heart Sounds: normal S1 and normal S2; no gallop and no cardiac rub Extremities: + AV fistula Gastrointestinal (Abdomen): Inspection/Auscultation: normal bowel sounds Percussion/Palpation: abdomen soft; abdomen nontender Musculoskeletal: Extremities: no cyanosis and no clubbing Skin: + turgor decreased; no rashes Neurologic: Motor/Sensory: no tremor and no asterixis Psychiatric: Affect: euthymic affect Results & Data Vital Signs (Past 12 Hours) Vital Signs Temp Pulse Pulse Resp BP Pulse Ox 07/21/18 07:28 36.9 C 82 18 167/62 H 96 07/21/18 04:00 36.9 C 83 18 174/62 H 94 07/21/18 00:53 90 Laboratory Results Laboratory Results - last 24 hr 07/20/18 07/20/18 07/20/18 12:00 16:56 22:22 Sodium Potassium Chloride Carbon Dioxide Anion Gap BUN Creatinine Est Cr Clr Drug Dosing Est GFR ( Amer) Est GFR (Non-Af Amer) BUN/Creatinine Ratio Glucose POC Glucose 146 H 161 H 163 H Calcium Phosphorus Albumin 07/21/18 07/21/18 05:31 07:56 Sodium 139 Potassium 3.8 Chloride 109 H Carbon Dioxide 23 Anion Gap 7.0 BUN 43 H Creatinine 3.62 H Est Cr Clr Drug Dosing 11.2 Est GFR ( Amer) 13.0 Est GFR (Non-Af Amer) 11.2 BUN/Creatinine Ratio 11.8 Glucose 148 H POC Glucose 151 H Calcium 8.5 Phosphorus 3.3 Albumin 2.5 L
--- NOTE | 2018-07-27 04:42 | Discharge Summary ---
Date of Service date of admission - July 16, 2018 date of discharge - July 21, 2018 Admission HPI Per Admitting Provider 78 y/o female with history of CKD V - recent fistula placement in prep for dialysis - T2DM, CAD, HTN, hypothyroidism, GERD. She was evaluated at [facility] for SOB earlier in the day which was thought due to new onset of CHF or volume overload related to her renal status. She was declined admission to [facility] as they do not have a law firm partner chief information officer, although it was not reported that her renal function had significantly changed. She is not anuric. The pt was then transferred from [facility] as a direct admission. She was mildly hypoxic, described a cough, and was febrile with a temp of 37.6 on arrival to the telemetry floor. She denied any CP or rigors and was not aware that she had a fever. The pt had a fistula placed in her L arm 06/2018 in preparation for dialysis which has not matured yet. Principal Diagnosis volume overload 2nd to CKD stage 5 Discharge Exam Constitutional well developed and well nourished; no acute distress ENMT external ear and nose normal, oropharynx normal Respiratory normal respiratory effort, lungs clear to auscultation Cardiovascular Rate/Rhythm: regular rate and regular rhythm Heart Sounds: normal S1, normal S2 and + murmur (1/6 WEN LSB) Vessels: posterior tibial pulses present and dorsalis pedis pulses present; no JVD Extremities: + AV fistula (left arm - with bruit/thrill); no edema Gastrointestinal (Abdomen) normal bowel sounds, soft, nontender, no hepatosplenomegaly Psychiatric A+Ox3, euthymic affect Discharge Data Allergies Allergy/AdvReac Type Severity Reaction Status Date / Time amoxicillin Allergy Hives Verified 07/15/18 19:49 propofol AdvReac Nausea Verified 07/15/18 19:49 Consultations Nephrology - Sharon Casas MD Cardiology - Mian Carrasquillo MD Vascular Surgery - John Musa MD PT, OT Ordered Studies 1. CT chest: IMPRESSION: 1. Cardiomegaly with evidence of congestive failure. Radiographic follow-up to resolution is recommended. 2. Small to moderate pleural effusions with bibasilar consolidation. This likely represents atelectasis. 3. Mildly enlarged mediastinal lymph nodes are nonspecific. 4. Hiatal hernia. 2. echocardiogram: * EF 65-70% * grade 2 diastolic dysfunction * mild mitral stenosis * other valves within normal limits Hospital Course (1) Volume overload: The patient's presenting symptoms/signs were consistent with volume overload in the setting of CKD stage 5, acute kidney injury, +/- chronic diastolic CHF. She was seen in consult by nephrology and cardiology and was diuresed. At discharge she will take 40mg of lasix daily. Close outpatient follow-up with nephrology and cardiology was advised. She will need repeat BMP to ensure stability of creatinine. (2) Acute kidney injury: Creatinine upon admission was 3, rising to 4.2, then falling to 3.6 at discharge. She will need a repeat BMP within 1 week of discharge to ensure stability. She will likely have this drawn at [facility] with results to her PCP and [facility]. (3) Chronic kidney disease, stage V: Baseline CrCl is <15 with baseline creatinine about 3. She was initiated on bicarbonate therapy and will take such at home. (4) Acute respiratory failure with hypoxia: 2nd to volume overload. Improved, and O2 sats stable in room air at rest & with walking on day of discharge. (5) Acute on chronic diastolic heart failure: Most of her volume overload was felt to be due to her advanced CKD but difficult to determine if her chronic diastolic CHF plays a role as well. (6) Sinus pause: The patient had sinus pauses on telemetry monitoring. Seen by drywall applicator Dr Mian Carrasquillo who advised discontinuation of her COREG. After coreg was stopped she did not have recurrent pauses. (7) Mediastinal lymphadenopathy: Uncertain etiology. Seen on CT chest. Advise repeat chest CT in 6 weeks to ensure the lymphadenopathy has resolved. (8) CAD (coronary artery disease), [place] coronary artery: No evidence of ACS while here. She will continue regimen of aspirin, plavix, imdur, and statin. Again her coreg was stopped. (9) Vitamin B12 deficiency (dietary) anemia: Vitamin B12 level was 159. She received several IM injections while here and was asked to take oral B12 1000mcg daily after discharge. She will need repeat level in a few weeks to ensure the level is improving. Admission hemoglobin was 7.8. Discharge hemoglobin was 7.9. In addition to vitamin B12 she received at least 3 doses of IV venofer (iron). When she has BMP within 1 week advise repeat CBC at that time for stability. (10) Diabetes mellitus: Well-controlled during the stay. In light of CKD stage 5 and risk of hypoglycemia we recommended she STOP her sulfonylurea. We also reduced her dose of lantus while here. (11) HTN (hypertension), benign: Labile during her admission but readings largely acceptable on home medication regimen. (12) Hyperlipidemia: Continue statin therapy. (13) Hypothyroidism: TSH was 5.7. Levothyroxine dose was increased from 100mcg daily to 112mcg daily. Repeat TSH in 6 weeks advised. (14) GERD (gastroesophageal reflux disease): Continue PPI. (15) Nausea vomiting and diarrhea: Patient developed these symptoms mid-way through the stay. Etiology was not certain. Symptoms were quite transient as symptoms stopped quite quickly. She was eating/drinking fine without any GI symptoms prior to discharge. Total Time Total Time Spent Total Time Spent (In Minutes): 50 Total Time Includes: Examination of the Patient, Discharge Planning, Medication Reconciliation and Communication With Other Providers Discharge Plan Discharge Items Patient Disposition: Home - Self-Care Reason For Visit: shortness of breath due to volume overload Discharge Diagnosis: shortness of breath due to volume overload (excess fluid in the lungs due to kidney disease and congestive heart failure) -- improved. Discharge Goals: Diagnostic testing and Therapeutic intervention Activity: Resume your previous activity Non-emergency contact: Primary Care Provider and Practice Director Call non-emergency contact if: you have any medication questions, your symptoms worsen and your temperature is above 100.5 Follow-up/Referrals: Antelmo Beltran DO [Physician Medical Planner] - (Please, follow up with Dr. Beltran. A nurse from this office will call you with the appointment information. *If you have any questions, call the office at [phone].) Duy Lang [Primary Care Provider] - (Please, follow up with Dr. Lang. A nurse from this office will call you to coordinate this appointment. *If you have any questions, call the office at [phone].) Diet: Carb Consistent or DM2 and Dialysis Renal Fluids: 1800ml (7 cups) Other Ambulatory Orders: Basic Metabolic Panel (Routine) Timeframe: 5 Days Location: Determined by Patient Ordered By: Earle Robertson Complete Blood Count no Diff (Routine) Timeframe: 5 Days Location: Determined by Patient Ordered By: Earle Robertson Addtl Provider Instructions: From Earle Robertson - Hospitalist: You were admitted for shortness of breath. Your chest x-rays along with CAT scan of the lungs showed fluid retention. This was due to your kidney disease as well as a form of congestive heart failure. You improved with diuretics (water pills) and your oxygen was weaned off during the stay. We made several adjustments/changes in your medications as follows - 1. please start furosemide (this is a water pill) 40mg once daily; take every morning. Start the AM of 07/22/18. 2. STOP your coreg (carvedilol). 3. STOP your glimepiride diabetes pill. 4. LOWER your lantus to 10 units once a day. 5. ADD sodium bicarbonate 1300mg twice a day every day. 6. INCREASE your levothyroxine to 112mcg once daily. Start this TOMORROW morning. Please obtain a repeat thyroid blood test (TSH) in 6 weeks. 7. START vitamin b12 (cyanocobalamin) 1000mcg once daily for your vitamin B12 deficiency. Your family doctor may elect to put you on shots as well. 8. Please go to [facility] in about 5 days to have blood work. Take the blood order sheets with you. These results will need to go to Dr. Beltran for his review. 9. Please restrict your salt and potassium consumption in your diet. Limit salt intake to no more than 2 grams a day. Limit fluid intake to about 1800cc each day (a little less than 2 literss per day). 10. Weight yourself every morning on the same scale. If you gain more than 2-3 pounds in 1-2 days please call your doctors right away as this may be a sign of fluid retention. 11. follow-up - * see Dr. Lang within 5-7 days * see Dr. Beltran, [facility], in 1-2 weeks 12. Return to any hospital if - * you have fevers over 100.5 degrees * you are having worsening shortness of breath * you are concerned about fluid retention * any other concerns 13. Other - * your CAT scan of the lungs showed mildly swollen glands in the chest * I would suggest a repeat CAT scan of the lungs in 2-3 months to ensure that the swollen glands have resolved Call 911 and go to the Emergency Room if: * You have tightness or pain in your chest that does not go away with rest or Nitroglycerin * You are very short of breath even with rest Call your doctor if any of the following symptoms or problems start or get worse: * Shortness of breath or difficulty breathing * Wake up at night short of breath * Chest pain * Cough * Swelling of your hands, fee, or legs * More fatigued or tired with your normal activity * Palpitations - sudden fast heart beats WEIGHT * Weigh yourself every morning after using the bathroom. * Use the same scale. * Wear the same amount of clothing. * Write your weight down on your chart. * Call your doctor if you gain more than 2-3 pounds in 1-2 days. MEDICATIONS * Use this discharge instruction sheet for instructions. * Take your medications at the time your doctor ordered. * Do not skip a dose of your medicines. * If you miss a dose of medicine, take as soon as possible, but DO NOT DOUBLE A DOSE. * Read your medicine information when you get home. * Know all of the side effects of your medicine. * Call your doctor's office if you have any side effects. * Be sure all of your doctors know what medicine and herbs you take (including cold, flu, and herbal medicine). * Pain Medicine: If you do not get relief from your pain, please call your doctor for help. Take the following with you to your follow-up doctor appointments: * Weight Chart * Medication List * List of questions Do not drink excessive alcohol, beer or wine. Prescriptions: New sodium bicarbonate 650 mg Tablet 1,300 mg PO BID Qty: 120 RF: 2 furosemide 40 mg Tablet 40 mg PO QAM Qty: 30 RF: 5 cyanocobalamin (vitamin B-12) 1,000 mcg tablet 1,000 mcg PO DAILY Qty: 90 RF: 3 levothyroxine 112 mcg capsule 112 mcg PO QAM Qty: 30 RF: 5 Continued hydralazine 25 mg tablet 25 mg PO BID RF: 0 clopidogrel 75 mg tablet 75 mg PO DAILY RF: 0 amlodipine 5 mg tablet 5 mg PO BID RF: 0 aspirin 81 mg Tablet,Delayed Release (Dr/Ec) 81 mg PO DAILY RF: 0 isosorbide mononitrate 60 mg tablet extended release 24 hr 60 mg PO DAILY RF: 0 pravastatin 10 mg tablet 10 mg PO DAILY RF: 0 pantoprazole 40 mg Tablet,Delayed Release (Dr/Ec) 40 mg PO DAILY RF: 0 ferrous sulfate 325 mg (65 mg iron) tablet 325 mg PO BID RF: 0 docusate sodium [Colace] 100 mg Capsule 2 cap PO QAM PRN (Reason: Constipation) RF: 0 psyllium husk [Metamucil] 0.4 gram Capsule 0.4 g PO Q OTHER DAY RF: 0 Changed famotidine 20 mg tablet 20 mg PO HS Qty: 30 RF: 0 Lantus Solostar U-100 Insulin 100 unit/mL (3 mL) insulin pen 10 unit subcut DAILY Qty: 1 RF: 0 Discontinued carvedilol 6.25 mg tablet 6.25 mg PO BID RF: 0 glimepiride 4 mg tablet 4 mg PO QAM RF: 0 Stand-Alone Forms: [facility] Discharge Orders: Discharge Order (Routine); Ordered 07/21/18 Ordered By: Earle Robertson Admission Data Admit Date/Time: 07/15/18 18:15 Attending Provider: Earle Robertson Admit Provider: Mejia Peacock Primary Care Provider: Duy Lang Other Providers: Sharon Casas ; John Musa ; Mian Carrasquillo Service: Telemetry Medical Other Interventions: Discharge Summary Assessment (RN) Last Done: 07/21/18 12:30 Pending Studies at Discharge: No DC Date/Time DO NOT enter until pt leaves facility: 07/21/18 14:50
== END 2018-07-21 14:50 | disposition home or self-care (01) | DRG 291 ==
LOC: 2N 18:15 → SUATTDRO 18:15
DX: J96.01 Acute respiratory failure with hypoxia; Z79.82 Long term (current) use of aspirin; E87.2 Acidosis; J20.9 Acute bronchitis, unspecified; Z79.899 Other long term (current) drug therapy; D63.8 Anemia in other chronic diseases classified elsewhere; E78.5 Hyperlipidemia, unspecified; I13.2 Hypertensive heart and chronic kidney disease with heart failure and with stage 5 chronic kidney disease, or end stage renal disease; E11.22 Type 2 diabetes mellitus with diabetic chronic kidney disease; E03.9 Hypothyroidism, unspecified; A08.4 Viral intestinal infection, unspecified; I50.33 Acute on chronic diastolic (congestive) heart failure; I25.10 Atherosclerotic heart disease of native coronary artery without angina pectoris; K21.9 Gastro-esophageal reflux disease without esophagitis; I49.5 Sick sinus syndrome; E53.8 Deficiency of other specified B group vitamins; N18.5 Chronic kidney disease, stage 5; N17.9 Acute kidney failure, unspecified; R59.0 Localized enlarged lymph nodes; Z79.4 Long term (current) use of insulin

== ENCOUNTER 2018-11-18 18:07 | Inpatient (IN) ==
[2018-11-18 21:27] LABS: Basophils # (auto) 0.02 K/uL (0-0.2); Basophils % (auto) 0.1 %; Eosinophils # (auto) 0.02 K/uL (0-0.5); Eosinophils % (auto) 0.1 %; Hematocrit (blood only) 28.4 % (37-47); Hemoglobin 9.2 g/dL (12.0-16.0); Immature Granulocytes # (auto) 0.12 K/uL (0.00-0.02); Immature Granulocytes % (auto) 0.7 %; Lymphocytes # (auto) 2.01 K/uL (1.2-3.4); Lymphocytes % (auto) 11.3 %; Mean Corpuscular Hemoglobin 27.3 pg (25-34); Mean Corpuscular Volume 84.3 fL (80-100); Mean Platelet Volume 9.7 fL (7.4-10.4); Monocytes # (auto) 1.86 K/uL (0.11-0.59); Monocytes % (auto) 10.4 %; Neutrophils # (auto) 13.83 K/uL (1.4-6.5); Neutrophils % (auto) 77.4 %; Platelet Count 378 K/uL (130-400); RDW Coefficient of Variation 16.2 % (11.5-14.5); RDW Standard Deviation 49.6 fL (36.4-46.3); Red Blood Count 3.37 M/uL (4.2-5.4); White Blood Count 17.86 K/uL (4.8-10.8)
[2018-11-18 21:31] LABS: Mean Corpuscular Hgb Conc 32.4 g/dL (32-36)
[2018-11-18] MEDS ORDERED: DOCUSATE SODIUM 100 MG CAP PO PRN (21:36)
[2018-11-18 21:39] LABS: Partial Thromboplastin Time 25.9 Seconds (21.0-31.0); Prothrombin Time 10.6 Seconds (9.0-12.0)
[2018-11-18 21:44] LABS: BUN Creatinine Ratio 13.1 (10-20); Blood Urea Nitrogen 50 mg/dl (7-18); Carbon Dioxide 23 mmol/L (21-32); Chloride 105 mmol/L (98-107); Creatinine Clr Calc Pharmacy 10.6 ml/min; Est GFR (African American) 12.2; Est GFR (Non-African American) 10.6; Glucose 163 mg/dl (70-99); Potassium 4.5 mmol/L (3.5-5.1); Sodium 136 mmol/L (136-145)
[2018-11-18 21:49] LABS: Troponin I < 0.015 ng/ml (0-0.045)
[2018-11-18] MEDS ORDERED: Heparin IV Standard *NO* Bolus IV ONE (21:56)
[2018-11-18] MEDS ORDERED: DEXTROSE 50% 50 ML SYRINGE IV PRN (21:59)
[2018-11-18] MEDS ORDERED: GLUCAGON FOR INJ 1 MG VIAL SQ PRN (21:59)
[2018-11-18] MEDS ORDERED: CARBOHYDRATES FOR HYPOGLYCEMIA PO PRN (21:59)
[2018-11-18] MEDS ORDERED: GLUCOSE 40% GEL 15 GM TUBE PO PRN (21:59)
[2018-11-18] MEDS ORDERED: GLUCOSE 10 TABS/TUBE PO PRN (21:59)
[2018-11-18] MEDS ORDERED: HEPARIN SODIUM/DEXTROSE 25,000 UNITS/500 ML BAG IV SCH (22:00)
[2018-11-18] MEDS ORDERED: PSYLLIUM 58.6% POWDER PACKET PO PRN (22:00)
[2018-11-18] MEDS ORDERED: ALBUTEROL 0.083% NEBU SOLN 3 ML VIAL NEB PRN (22:03)
[2018-11-18] MEDS: MoRPHine SULFATE 2 MG/ML CARP IV PRN (23:01)
--- NOTE | 2018-11-18 23:31 | History & Physical Report ---
Date of Service November 18, 2018 Assessment & Plan (1) Chest heaviness: 78-year-old female was admitted as a direct transfer from [facility] (i.e. OSH) for further evaluation of her chest pain. Chest pain, history of CAD with stents: Central chest heaviness radiating to her back with associated SOB. On arrival here, patient was on nitroglycerin paste and heparin drip. She states that her pain has been resolved since transfer around 7 PM. - At OSH, WBC 21. Hemoglobin 9.7. Troponin at 1450 was negative. EKG was NSR with rate of 100. Two view chest x-ray read as no acute process. Looks like she was switched from pravastatin 10 mg to atorvastatin 20 mg. - On arrival here, afebrile, not tachycardic or hypertensive, with 97% SpO2 on 2 L nasal cannula. WBC 17. Troponin negative. EKG NSR 79, sinus arrhythmia. - Will consult cardiology. Recheck troponin and EKG in the morning. Keep on heparin. Nitropaste ongoing. Continue home medications with exception of home imdur while on NTG paste. CKD stage IV: At OSH creatinine 3.9. Patient was seen by nephrology. They noted she has CKD stage 45 and may need hemodialysis if she undergoes a cardiac cath. They also noted mild anemia so checked iron studies, B12, and folate levels. Finally, they noted she was mildly acidotic (anion gap 16) and was started on sodium bicarb orally. - On arrival here, BUN 50, creatinine 3.1. Anion gap of 9. - Will consult nephrology. Kept on oral sodium bicarb. Question of UTI: Though it is unclear, patient seems to have been placed on cefepime 1 gm daily for possible UTI. Patient says she had a recent fever but denies any abdominal pain, dysuria, or hematuria. OSH 17Aug urine and blood cultures are pending (after calling their lab this evening). - Ordered repeat UA on arrival here. Holding on antibiotics for now. Ongoing medical issues: - Hypertension, hyperlipidemia: Continue home amlodipine, aspirin, Coreg, Plavix, hydralazine, Imdur. - Insulin-dependent type 2 diabetes: Last reported A1c was 8.7. At home is on glimepiride and Lantus 18 units in the evening. --- Will continue her Lantus and add insulin sliding scale. - Hypothyroidism: Continue home levothyroxine. - CHF: OSH record said "echo done recently showed preserved EF". OSH BNP 512. July 2018 echo here was EF 65-70% with mild valve issues (see full report). - GERD: Continue home pantoprazole and famotidine. - Iron deficiency anemia: On admit here hemoglobin 9.2. At OSH, TIBC was 195 and ferritin was 915. OSH Stool occult blood pending. Continue home iron. Code status: Patient wishes to have CPR and other ACLS therapies but does not wish to be intubated. Diet: Renal. DVT prophy: On heparin drip. PT/OT: Ordered. Disbo: Admit to [facility]. (2) CAD (coronary artery disease): (3) Chronic kidney disease, stage IV (severe): (4) HTN (hypertension), benign: (5) Hyperlipidemia: (6) Diabetes mellitus: (7) Hypothyroidism: (8) CHF (congestive heart failure): (9) GERD (gastroesophageal reflux disease): (10) Iron deficiency anemia: History of Present Illness Primary Care Provider: Duy Lang 78-year-old female was transferred from [facility] this evening for chest pain. On arrival, the patient seems quite tired but is quickly and easily arousable, answers questions clearly and appropriately, but quickly seems to want to go back to sleep. Therefore the majority of the history comes from her outside record. At present, she denies any plaints at all to include any chest pain, difficulty breathing, abdominal pain, or other acute concerns. She does mention that she thinks the morphine helped more with her chest pain and the nitroglycerin. She also notes she has a history of frequent UTIs but denies any urinary symptoms recently. She does think that she has had a fever recently but timing and severity is unclear. Per outside records, patient woke up around 5 AM earlier today with central chest heaviness that radiated towards her back. Associated shortness of breath, diaphoresis, and nausea without vomiting. She tried some nitroglycerin at home without any relief. She was transferred via EMS to [facility] where she underwent her initial evaluation and admission. At that time her symptoms seem to improve more with morphine than nitroglycerin. However, the patient was then transferred here because of the patient's cardiac care is apparently through this facility. - Past medical history includes hypertension, hyperlipidemia, insulin-dependent diabetes, CKD stage IV-V, GERD, Hypothyroidism, CAD, carotid stenosis, iron deficiency anemia, diverticulitis. - Past surgical history includes coronary stents x2, tonsillectomy, carotid endarterectomy in April 2018. - Social history includes denying previous tobacco use. Denies alcohol use. Lives at home with her son. Allergies Allergy/AdvReac Type Severity Reaction Status Date / Time amoxicillin Allergy Hives Verified 07/15/18 19:49 propofol AdvReac Nausea Verified 07/15/18 19:49 Home Medications Home Medications Medication Instructions Recorded Confirmed Type amlodipine 5 mg PO BID 07/15/18 11/18/18 History aspirin 81 mg PO DAILY 07/15/18 11/18/18 History clopidogrel 75 mg PO DAILY 07/15/18 11/18/18 History docusate sodium [Colace] 2 cap PO QAM PRN 07/15/18 11/18/18 History ferrous sulfate 325 mg PO BID 07/15/18 11/18/18 History hydralazine 25 mg PO BID 07/15/18 11/18/18 History isosorbide mononitrate 60 mg PO DAILY 07/15/18 11/18/18 History pantoprazole 40 mg PO DAILY 07/15/18 11/18/18 History pravastatin 10 mg PO DAILY 07/15/18 11/18/18 History psyllium husk [Metamucil] 1 g PO Q OTHER DAY PRN 07/15/18 11/18/18 History famotidine 20 mg PO HS #30 tab 07/21/18 11/18/18 Rx gabapentin 100 mg capsule 300 mg PO HS #30 cap 11/13/18 11/13/18 History Lantus Solostar U-100 Insulin 18 unit SUBCUT HS 11/18/18 11/18/18 History carvedilol 6.25 mg PO BID 11/18/18 11/18/18 History glimepiride 4 mg PO DAILY 11/18/18 11/18/18 History levothyroxine 100 mcg PO QAM 11/18/18 11/18/18 History nitroglycerin [Nitrostat] 0.4 mg SUBLINGUAL ONCE PRN 11/18/18 11/18/18 History Past Med/Surg History Social History Preferred Language: Frisian Communication Ability: Effective Business Office Director Required: No Beliefs That Will Affect Care: None Current Living Situation: Family Other Information That Helps Us Care for You: No Feels Safe at Home: Yes Safety Concerns: Feels Safe At This Time Smoking Status: Never smoker Second Hand Exposure: No ; Hx Alcohol Use: No Hx Substance Use: No Review of Systems Review of Systems: ROS presently limited due to the patient's fatigue. However, she denies any present chest pain, shortness of breath, abdominal pain, recent nausea or vomiting, dysuria, hematuria, or difficulty with urination. Physical Exam Physical Exam: GENERAL: Appears overall somnolent, however awakes easily to voice, easily conversational, and does not appear in any acute distress. HENT: Normocephalic, atraumatic. Oropharynx unremarkable. EYES: Normal conjunctiva. Sclera non-icteric. NECK: Inspection normal. Supple. No nuchal rigidity. CARDIAC: +S1S2 RRR, 2/6 systolic murmur. Nitropaste on chest. Has a left AV fistula. RESPIRATORY: Clear to auscultation. No wheezes or rales. Normal respiratory effort. Nasal cannula oxygen in place. GI: +BS, soft, non-distended. No tenderness to palpation. No rebound or guarding. EXTREMITIES: No pedal edema or calf tenderness. NEURO: No gross neuro deficits. Results & Data Vital Signs (Past 12 Hours) Vital Signs Temp Pulse Resp BP Pulse Ox 11/18/18 23:16 36.9 C 83 18 107/52 L 95 11/18/18 20:45 36.9 C 85 18 111/55 L 97 Laboratory Results 11/18/18 11/18/18 11/18/18 Range/Units 21:21 21:17 21:15 WBC (4.8-10.8) K/uL RBC (4.2-5.4) M/uL Hgb (12.0-16.0) g/dL Hct (37-47) % MCV (80-100) fL MCH (25-34) pg MCHC (32-36) g/dL RDW Std Deviation (36.4-46.3) fL RDW Coeff of Sathya (11.5-14.5) % Plt Count (130-400) K/uL MPV (7.4-10.4) fL Immature Gran % (Auto) % Neut % (Auto) % Lymph % (Auto) % [place] % (Auto) % Eos % (Auto) % Baso % (Auto) % Immature Gran # (Auto) (0.00-0.02) K/uL Neut # (Auto) (1.4-6.5) K/uL Lymph # (Auto) (1.2-3.4) K/uL [place] # (Auto) (0.11-0.59) K/uL Eos # (Auto) (0-0.5) K/uL Baso # (Auto) (0-0.2) K/uL PT 10.6 (9.0-12.0) Seconds INR 1.0 (0.9-1.1) APTT 25.9 (21.0-31.0) Seconds PTT Ratio 1.0 Sodium 136 (136-145) mmol/L Potassium 4.5 (3.5-5.1) mmol/L Chloride 105 (98-107) mmol/L Carbon Dioxide 23 (21-32) mmol/L Anion Gap 9.0 (3-11) BUN 50 H (7-18) mg/dl Creatinine 3.81 H (0.6-1.2) mg/dl Est Cr Clr Drug Dosing 10.6 ml/min Est GFR ( Amer) 12.2 Est GFR (Non-Af Amer) 10.6 BUN/Creatinine Ratio 13.1 (10-20) Glucose 163 H (70-99) mg/dl POC Glucose 154 H (70-99) Calcium 9.0 (8.5-10.1) mg/dl Troponin I < 0.015 (0-0.045) ng/ml 11/18/18 Range/Units 21:15 WBC 17.86 H (4.8-10.8) K/uL RBC 3.37 L (4.2-5.4) M/uL Hgb 9.2 L (12.0-16.0) g/dL Hct 28.4 L (37-47) % MCV 84.3 (80-100) fL MCH 27.3 (25-34) pg MCHC 32.4 (32-36) g/dL RDW Std Deviation 49.6 H (36.4-46.3) fL RDW Coeff of Sathya 16.2 H (11.5-14.5) % Plt Count 378 (130-400) K/uL MPV 9.7 (7.4-10.4) fL Immature Gran % (Auto) 0.7 % Neut % (Auto) 77.4 % Lymph % (Auto) 11.3 % [place] % (Auto) 10.4 % Eos % (Auto) 0.1 % Baso % (Auto) 0.1 % Immature Gran # (Auto) 0.12 H (0.00-0.02) K/uL Neut # (Auto) 13.83 H (1.4-6.5) K/uL Lymph # (Auto) 2.01 (1.2-3.4) K/uL [place] # (Auto) 1.86 H (0.11-0.59) K/uL Eos # (Auto) 0.02 (0-0.5) K/uL Baso # (Auto) 0.02 (0-0.2) K/uL PT (9.0-12.0) Seconds INR (0.9-1.1) APTT (21.0-31.0) Seconds PTT Ratio Sodium (136-145) mmol/L Potassium (3.5-5.1) mmol/L Chloride (98-107) mmol/L Carbon Dioxide (21-32) mmol/L Anion Gap (3-11) BUN (7-18) mg/dl Creatinine (0.6-1.2) mg/dl Est Cr Clr Drug Dosing ml/min Est GFR ( Amer) Est GFR (Non-Af Amer) BUN/Creatinine Ratio (10-20) Glucose (70-99) mg/dl POC Glucose (70-99) Calcium (8.5-10.1) mg/dl Troponin I (0-0.045) ng/ml Medications Administered Heparin Sodium/Dextrose (Heparin Sodium/Dextrose) 25,000 units in 500 mls @ 20 mls/hr IV .Q24H [facility]; Protocol Stop: 12/18/18 21:59 Last Admin: 11/18/18 22:31 Dose: 1,000 units/hr, 20 mls/hr Documented by: [id number] Cosigned by: [id number] Morphine Sulfate (Morphine Sulfate) 2 mg IV Q2H PRN PRN Reason: Chest Pain Stop: 12/02/18 21:42 Last Admin: 11/18/18 23:01 Dose: 2 mg Documented by: [id number] Discontinued Medications Heparin Sodium/Dextrose () 1 ea IV ONE ONE; Protocol Stop: 11/18/18 21:57 Last Admin: 11/18/18 22:33 Dose: 1 ea Documented by: [id number] Code Status & VTE Plan Code Status Patient wishes to have CPR and other ACLS therapies but does not wish to be intubated. VTE Prophylaxis Plan VTE Prophylaxis will be ordered: Yes Supervising Physician Co-Signing Physician Notes Pt seen/examined following resident MD Lazaro Lyons. Orders and plan of admission formulated with resident. Orders and plan of admission formulated with resident. 78 y/o F Hx CAD, ESRD - pre-dialysis, anemia, HTN, HLD, hypothyroidism. The pt was transferred from [facility] due to persistent CP. She had been evaluated by nephrology and they were of the opinion that if she required a catheterization, she may need dialysis. Transfer was then requested as her lap layer is at [facility]. OE: Eldelry F who c/o CP, AAO x 3 S1,2 Irr CTAB NT, ND + edema No deficits P: Persistent pain may be noncardiac and she does state that she recently had shingles in the same area. She willl be evaluated by cardiology - cont ASA, Plavix, statin, Coreg - NTG or morphine for CP. Placed on a SS for DM Cont home meds as prescribed ESRD - cont PG Care Time/CCT Total # of Minutes Spent Total Time Spent with Patient: Total time spent is greater than 50% in coordin ation of care (as documented) at patient's floor/unit and/or counseling patient: Resident Activity Tracking Resident Involvement: Resident Care Provided Care Provided: Adult Hospital Medicine
[2018-11-19] MEDS: NITROGLYCERIN 2% OINTMENT 30GM TUBE EXT SCH ×3 (00:34→12:34)
[2018-11-19 05:02] LABS: Basophils # (auto) 0.02 K/uL (0-0.2); Basophils % (auto) 0.1 %; Eosinophils # (auto) 0.06 K/uL (0-0.5); Eosinophils % (auto) 0.4 %; Hematocrit (blood only) 29.6 % (37-47); Hemoglobin 9.6 g/dL (12.0-16.0); Immature Granulocytes % (auto) 0.7 %; Lymphocytes # (auto) 1.62 K/uL (1.2-3.4); Lymphocytes % (auto) 10.6 %; Mean Corpuscular Hemoglobin 27.4 pg (25-34); Mean Corpuscular Hgb Conc 32.4 g/dL (32-36); Mean Corpuscular Volume 84.6 fL (80-100); Mean Platelet Volume 10.1 fL (7.4-10.4); Monocytes # (auto) 1.76 K/uL (0.11-0.59); Monocytes % (auto) 11.6 %; Neutrophils # (auto) 11.66 K/uL (1.4-6.5); Neutrophils % (auto) 76.6 %; Platelet Count 362 K/uL (130-400); RDW Coefficient of Variation 16.3 % (11.5-14.5); RDW Standard Deviation 50.4 fL (36.4-46.3); White Blood Count 15.22 K/uL (4.8-10.8)
[2018-11-19 05:21] LABS: Partial Thromboplastin Ratio 2.2
[2018-11-19 05:23] LABS: Partial Thromboplastin Time 59.8 Seconds (21.0-31.0)
[2018-11-19 05:25] LABS: Magnesium 2.2 mg/dl (1.8-2.4); Phosphorus 6.3 mg/dl (2.5-4.9); Troponin I < 0.015 ng/ml (0-0.045)
[2018-11-19] MEDS: ONDANSETRON INJ 2 MG/ML 2 ML VIAL IV PRN ×2 (05:39→14:44)
[2018-11-19] MEDS: MoRPHine SULFATE 2 MG/ML CARP IV PRN (06:02)
[2018-11-19 06:10] LABS: Appearance Urine Cloudy (Clear); Bacteria Urine Automated Negative (Negative); Bilirubin Urine Negative (Negative); Blood Urine Negative (Negative); Color Urine Yellow; Epithelial Cell Urine Auto >30 /lpf (0-5); Glucose Urine UA Negative (Negative); Ketones Urine Negative (Negative); Leukocyte Esterase Urine 1+ (Negative); Nitrite Urine Negative (Negative); Protein Urine 2+ (Negative); RBC Urine Automated 0-4 /hpf (0-4); Specific Gravity Urine 1.021 (1.000-1.030); Urobilinogen Urine Negative (Negative)
[2018-11-19 06:22] LABS: Renal Epithelial Cells Urine 0-5 /lpf (0-5)
[2018-11-19] MEDS: INSULIN ASPART 100 UNITS/ML 3 ML PEN SC SCH ×4 (08:03→20:48)
[2018-11-19] MEDS: LEVOTHYROXINE SODIUM 100 MCG TABLET PO SCH (08:03)
[2018-11-19] MEDS ORDERED: AMLODIPINE BESYLATE 5 MG TAB PO SCH (09:00)
[2018-11-19] MEDS ORDERED: ISOSORBIDE MONO EXTENDED REL 60 MG TABCR PO SCH (09:00)
[2018-11-19] MEDS ORDERED: CARVEDILOL 6.25 MG TAB PO SCH (09:00)
[2018-11-19] MEDS ORDERED: SODIUM CHLORIDE 0.9% 1000ML 1,000 ML IV SCH ×2 (09:15→18:15)
[2018-11-19] MEDS: PANTOprazole 40 MG TAB PO SCH (10:08)
[2018-11-19] MEDS: SODIUM BICARBONATE 650 MG TAB PO SCH ×3 (10:09→20:52)
[2018-11-19] MEDS: CLOPIDOGREL BISULFATE 75 MG TAB PO SCH (10:09)
[2018-11-19] MEDS: ASPIRIN 81 MG ECTAB PO SCH (10:09)
[2018-11-19] MEDS: ATORVASTATIN 20 MG TAB PO SCH (10:09)
[2018-11-19] MEDS: FERROUS SULFATE 325 MG TAB PO SCH ×2 (10:10→18:01)
--- NOTE | 2018-11-19 10:50 | Nephrology Consultation ---
Date of Consultation November 19, 2018 Assessment & Plan (1) Chronic kidney disease, stage IV (severe): -- AVF mature for use -- No emergent indication to start dialysis at this time -- Electrolytes acceptable -- Volume status controlled -- Medications are appropriately dosed for kidney function (2) Chest heaviness: -- Cardiology consult pending -- Troponin negative -- CXR without acute abnormality -- EKG without acute changes -- Remains on tele monitor -- No obvious signs of pericarditis and symptoms atypical -- Suspect at least a component of MSK etiology and post-herpetic neuralgia (3) CAD (coronary artery disease): (4) HTN (hypertension), benign: (5) Diabetes mellitus: (6) CHF (congestive heart failure): -- Appears slightly dry on exam -- Diuretics held -- Encourage oral fluids -- Renal diet (7) Iron deficiency anemia: -- Iron profile acceptable -- Chronic, stable -- Once ACS protocol complete, Epogen can be provided History of Present Illness Reason for Consultation: CKD Requesting Physician: Milana Albert DO Attending Physician: Milana Albert DO History of Present Illness Mrs. Jessenia Ricci is an 78-year-old female with CKD IV-V A3 who I follow in the nephrology clinic in [place]. I recently saw Jessenia in the clinic on October 12. Jessenia has undergone preparations for dialysis but thankfully has not required the treatment for management of her kidney dysfunction. She is interested in in-center hemodialysis at the [facility] unit in [facility]. Jessenia completed pre-dialysis TOPS education. AVF placement was performed by Dr. Wong. Pre operative cardiac clearance notable for significant carotid stenosis. Endarterectomy was performed on the right in April 2017. AVF transposition was performed by Dr. Wong on August 07. There were no complications. Within 1 week, she developed shingles involving the left arm. She was started on Valcyte and prednisone. Jessenia was then admitted to [facility] with a UTI. Culture notable for ESBL E coli. Symptoms inlcuded confusion. She was discharged within 48 hours. Jessenia was admitted to [facility] July 15- with volume overload. She was discharged on furosemide 40 mg daily. Volume status has been managed with this medication. She was also started on NaHCO3 650 mg BID and an iron supplement. Medical history is notable for an atrophic right kidney. 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 Medical history is notable for longstanding arterial hypertension, diabetes mellitus II, coronary artery disease, carotid artery disease, chronic anemia and chronic kidney disease. Jessenia has a history of metabolic acidosis. She was previously maintained on NaHCO3 but stopped the medication when metabolic acidosis improved. She has had hyperkalemia which she manages with diet. She has not been able to tolerate EDIE/ARB due to high potassium. She has secondary hyperparathyroidism and was on calcitriol in the past. The medication was stopped several months ago. Jessenia was hospitalized at [facility] in June with UTI, C Diff colitis and pneumonia. Blood pressure has been well controlled by patient's home assessment. She does monitor infrequently at home. She denies any edema of fluid retention. She does have a history of CHF. Appetite is fair. Weight remains stable. Activity tolerance is fair. She denies any anginal symptoms. Diabetes mellitus was initially diagnosed 8 years ago. The patient does not have associated nephropathy or retinopathy. She is tolerating insulin well. She denies any significant hypoglycemic events. She monitors blood glucose twice daily. Jessenia follows with DAIJA Walton in the gastroenterology clinic regarding chronic anemia. Prior evaluation has not documented a specific source of GI blood loss. She follows with Dr. Villeda in the cardiology clinic in [place]. Dr. Villeda placed 2 stents in 2016. Jessenia presented to [facility] yesterday with sudden onset of chest heaviness that started at rest. She describes pressure through her chest to her back. Symptoms lasted for >30 minutes. She did not experience relief with NTG SL. She has not had similar symptoms in the past. She has had some persistent chest tenderness and discomfort attributed to recent shingles. She was managing this pain with gabapentin but stopped the medication because it was causing her to become increasingly sleepy. Evaluation did not reveal any elevation of troponin or acute EKG changes. Pain control has been provided with morphine. She continues to experience intermittent symptoms of chest pressure. She is breathing comfortable. The discomfort is not positional. Allergies Allergy/AdvReac Type Severity Reaction Status Date / Time amoxicillin Allergy Hives Verified 07/15/18 19:49 propofol AdvReac Nausea Verified 07/15/18 19:49 Home Medications Home Medications Medication Instructions Recorded Confirmed Type amlodipine 5 mg PO BID 07/15/18 11/18/18 History aspirin 81 mg PO DAILY 07/15/18 11/18/18 History clopidogrel 75 mg PO DAILY 07/15/18 11/18/18 History docusate sodium [Colace] 2 cap PO QAM PRN 07/15/18 11/18/18 History ferrous sulfate 325 mg PO BID 07/15/18 11/18/18 History hydralazine 25 mg PO BID 07/15/18 11/18/18 History isosorbide mononitrate 60 mg PO DAILY 07/15/18 11/18/18 History pantoprazole 40 mg PO DAILY 07/15/18 11/18/18 History pravastatin 10 mg PO DAILY 07/15/18 11/18/18 History psyllium husk [Metamucil] 1 g PO Q OTHER DAY PRN 07/15/18 11/18/18 History famotidine 20 mg PO HS #30 tab 07/21/18 11/18/18 Rx gabapentin 100 mg capsule 300 mg PO HS #30 cap 11/13/18 11/13/18 History Lantus Solostar U-100 Insulin 18 unit SUBCUT HS 11/18/18 11/18/18 History carvedilol 6.25 mg PO BID 11/18/18 11/18/18 History glimepiride 4 mg PO DAILY 11/18/18 11/18/18 History levothyroxine 100 mcg PO QAM 11/18/18 11/18/18 History nitroglycerin [Nitrostat] 0.4 mg SUBLINGUAL ONCE PRN 11/18/18 11/18/18 History Patient History Medical History Chronic kidney disease Diabetes mellitus, type 2 Hypertension Hypothyroidism Surgical History History of heart artery stent History of vascular access device Social History Preferred Language: Mauritanian Communication Ability: Effective Roll On Worker Required: No Beliefs That Will Affect Care: None Current Living Situation: Family Other Information That Helps Us Care for You: No Feels Safe at Home: Yes Safety Concerns: Feels Safe At This Time Smoking Status: Never smoker Second Hand Exposure: No ; Hx Alcohol Use: No Hx Substance Use: No Review of Systems Review of Systems: All systems reviewed & are unremarkable except as noted in HPI & below Physical Exam Constitutional: Appears slightly uncomfortable but not in acute distress. Elderly but not frail appearing. Eyes: no scleral abnormality and no corneal abnormality ENMT: Mouth: + dry oral mucous membranes; no oral mucosal abnormality Neck: normal visual inspection and trachea midline Respiratory: normal respiratory effort; no labored breathing Auscultation: + rales (few basilar) Cardiovascular: Heart Sounds: normal S1, normal S2 and + murmur; no cardiac rub Extremities: + AV fistula; no edema Chest (Breasts): Additional Comments: mild tenderness along the sternum to palpation Gastrointestinal (Abdomen): Percussion/Palpation: abdomen soft; abdomen nontender Musculoskeletal: Extremities: no cyanosis and no clubbing Skin: normal turgor; no rashes Neurologic: Motor/Sensory: no tremor and no asterixis Psychiatric: Orientation: alert and oriented x 3 Results & Data Vital Signs (Past 12 Hours) Vital Signs Temp Pulse Pulse Resp BP Pulse Ox 11/19/18 10:19 69 11/19/18 07:28 36.5 C 73 16 105/56 L 94 11/19/18 06:38 89/46 L 11/19/18 06:02 105/50 L 11/19/18 03:42 36.6 C 71 17 131/50 L 97 11/18/18 23:16 36.9 C 83 18 107/52 L 95 11/18/18 22:46 85 Laboratory Results Laboratory Results - last 24 hr 11/18/18 11/18/18 11/18/18 21:15 21:15 21:17 WBC 17.86 H RBC 3.37 L Hgb 9.2 L Hct 28.4 L MCV 84.3 MCH 27.3 MCHC 32.4 RDW Std Deviation 49.6 H RDW Coeff of Sathya 16.2 H Plt Count 378 MPV 9.7 Immature Gran % (Auto) 0.7 Neut % (Auto) 77.4 Lymph % (Auto) 11.3 [place] % (Auto) 10.4 Eos % (Auto) 0.1 Baso % (Auto) 0.1 Immature Gran # (Auto) 0.12 H Neut # (Auto) 13.83 H Lymph # (Auto) 2.01 [place] # (Auto) 1.86 H Eos # (Auto) 0.02 Baso # (Auto) 0.02 PT 10.6 INR 1.0 APTT 25.9 PTT Ratio 1.0 Sodium 136 Potassium 4.5 Chloride 105 Carbon Dioxide 23 Anion Gap 9.0 BUN 50 H Creatinine 3.81 H Est Cr Clr Drug Dosing 10.6 Est GFR ( Amer) 12.2 Est GFR (Non-Af Amer) 10.6 BUN/Creatinine Ratio 13.1 Glucose 163 H POC Glucose Calcium 9.0 Phosphorus Magnesium Troponin I < 0.015 Urine Color Urine Appearance Urine pH Ur Specific [place] Urine Protein Urine Glucose (UA) Urine Ketones Urine Blood Urine Nitrite Urine Bilirubin Urine Urobilinogen Ur Leukocyte Esterase Urine WBC (Auto) Urine RBC (Auto) U Hyaline Cast (Auto) U Epithel Cells (Auto) Urine Bacteria (Auto) Ur Renal Epithelial Cell Urine Yeast 11/18/18 11/19/18 11/19/18 21:21 04:18 04:18 WBC RBC Hgb Hct MCV MCH MCHC RDW Std Deviation RDW Coeff of Sathya Plt Count MPV Immature Gran % (Auto) Neut % (Auto) Lymph % (Auto) [place] % (Auto) Eos % (Auto) Baso % (Auto) Immature Gran # (Auto) Neut # (Auto) Lymph # (Auto) [place] # (Auto) Eos # (Auto) Baso # (Auto) PT INR APTT 59.8 H* PTT Ratio 2.2 Sodium Potassium Chloride Carbon Dioxide Anion Gap BUN Creatinine Est Cr Clr Drug Dosing Est GFR ( Amer) Est GFR (Non-Af Amer) BUN/Creatinine Ratio Glucose POC Glucose 154 H Calcium Phosphorus 6.3 H Magnesium 2.2 Troponin I < 0.015 Urine Color Urine Appearance Urine pH Ur Specific [place] Urine Protein Urine Glucose (UA) Urine Ketones Urine Blood Urine Nitrite Urine Bilirubin Urine Urobilinogen Ur Leukocyte Esterase Urine WBC (Auto) Urine RBC (Auto) U Hyaline Cast (Auto) U Epithel Cells (Auto) Urine Bacteria (Auto) Ur Renal Epithelial Cell Urine Yeast 11/19/18 11/19/18 11/19/18 04:18 05:35 07:30 WBC 15.22 H RBC 3.50 L Hgb 9.6 L Hct 29.6 L MCV 84.6 MCH 27.4 MCHC 32.4 RDW Std Deviation 50.4 H RDW Coeff of Sathya 16.3 H Plt Count 362 MPV 10.1 Immature Gran % (Auto) 0.7 Neut % (Auto) 76.6 Lymph % (Auto) 10.6 [place] % (Auto) 11.6 Eos % (Auto) 0.4 Baso % (Auto) 0.1 Immature Gran # (Auto) 0.10 H Neut # (Auto) 11.66 H Lymph # (Auto) 1.62 [place] # (Auto) 1.76 H Eos # (Auto) 0.06 Baso # (Auto) 0.02 PT INR APTT PTT Ratio Sodium Potassium Chloride Carbon Dioxide Anion Gap BUN Creatinine Est Cr Clr Drug Dosing Est GFR ( Amer) Est GFR (Non-Af Amer) BUN/Creatinine Ratio Glucose POC Glucose 203 H Calcium Phosphorus Magnesium Troponin I Urine Color Yellow Urine Appearance Cloudy A Urine pH 5.0 Ur Specific [place] 1.021 Urine Protein 2+ H Urine Glucose (UA) Negative Urine Ketones Negative Urine Blood Negative Urine Nitrite Negative Urine Bilirubin Negative Urine Urobilinogen Negative Ur Leukocyte Esterase 1+ H Urine WBC (Auto) 10-30 H Urine RBC (Auto) 0-4 U Hyaline Cast (Auto) 1-5 U Epithel Cells (Auto) >30 H Urine Bacteria (Auto) Negative Ur Renal Epithelial Cell 0-5 Urine Yeast Not Reportable PG Care Time/CCT Total # of Minutes Spent Total Time Spent with Patient: Total time spent is greater than 50% in coordination of care (as documented) at patient's floor/unit and/or counseling patient: 45 minutes
--- NOTE | 2018-11-19 14:52 | Cardiology Consultation ---
Date of Consultation November 19, 2018 Assessment & Plan (1) Chest heaviness: According to the daughter, the patient has been experiencing chest discomfort since yesterday morning at 7 a.m.. Fortunately, there are no acute changes on her EKG, and her troponin I levels were undetectable. Her symptoms do not represent coronary ischemia. Other etiologies such as musculoskeletal discomfort and a post herpetic neuralgia could be considered. (2) CAD (coronary artery disease): The patient has a history of 2 intracoronary stents placed in 2016. Details are not known. (3) Chronic diastolic CHF (congestive heart failure): Diuretic management per Dr. Beltran. (4) Mitral valve disorder: Echocardiogram in July 2018 noted mild mitral regurgitation and mild mitral stenosis. (5) Hyperlipidemia: Continue pravastatin. History of Present Illness Attending Physician: Milana Albert DO History of Present Illness Mrs. Ricci is an 78-year-old female transferred from [facility] yesterday with a chest pain syndrome. This consultation was ordered to assist in her management. Of note, the patient was followed by Dr. Carrasquillo during her hospitalization in July. Unfortunately, the patient is quite somnolent today. Her history was obtained from her daughter who is at the bedside. The patient is currently living with her daughter and son-in-law. The patient awoke her daughter approximately 7 a.m. yesterday complaining of chest discomfort radiating to her back, shortness of breath, nausea, and diaphoresis. She presented to the emergency room at [facility] receive sublingual nitroglycerin with no effect. She was then given intravenous morphine and improved. 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 According to the daughter, the patient's discomfort has been persistent since yesterday. She does get relief with intravenous morphine, however, becomes quite somnolent. Of note, she has recently recovered from a bout of shingles involving her left shoulder. She was hospitalized back in July in seen by Jc Patel PA-C and Dr. Carrasquillo. She was experiencing significant pauses on the monitor. Her carvedilol was discontinued and her sinus pauses resolved. She was eventually started on low- dose carvedilol. She does carry a cardiac history in that 2 intracoronary stents replaced in 2015 in [place]. Unfortunately, details are not available. Currently, patient is resting in bed and appears comfortable. Past medical and surgical history 1. Coronary artery disease-see above 2. Hypertension 3. Hypercholesterolemia 4. Mild mitral regurgitation-July 2018 5. Mild mitral stenosis-July 2018 6. Diabetes mellitus 7. Chronic renal failure 8. Left upper extremity AV fistula-June 2018 9. Hypothyroidism 10. Chronic UTIs Social history , lives with her daughter and son-in-law No tobacco or alcohol. Family history Noncontributory Review of systems A 10 point review of systems was negative except for that described above. Allergies Allergy/AdvReac Type Severity Reaction Status Date / Time amoxicillin Allergy Hives Verified 07/15/18 19:49 propofol AdvReac Nausea Verified 07/15/18 19:49 Home Medications Home Medications Medication Instructions Recorded Confirmed Type amlodipine 5 mg PO BID 07/15/18 11/18/18 History aspirin 81 mg PO DAILY 07/15/18 11/18/18 History clopidogrel 75 mg PO DAILY 07/15/18 11/18/18 History docusate sodium [Colace] 2 cap PO QAM PRN 07/15/18 11/18/18 History ferrous sulfate 325 mg PO BID 07/15/18 11/18/18 History hydralazine 25 mg PO BID 07/15/18 11/18/18 History isosorbide mononitrate 60 mg PO DAILY 07/15/18 11/18/18 History pantoprazole 40 mg PO DAILY 07/15/18 11/18/18 History pravastatin 10 mg PO DAILY 07/15/18 11/18/18 History psyllium husk [Metamucil] 1 g PO Q OTHER DAY PRN 07/15/18 11/18/18 History famotidine 20 mg PO HS #30 tab 07/21/18 11/18/18 Rx gabapentin 100 mg capsule 300 mg PO HS #30 cap 11/13/18 11/13/18 History Lantus Solostar U-100 Insulin 18 unit SUBCUT HS 11/18/18 11/18/18 History carvedilol 6.25 mg PO BID 11/18/18 11/18/18 History glimepiride 4 mg PO DAILY 11/18/18 11/18/18 History levothyroxine 100 mcg PO QAM 11/18/18 11/18/18 History nitroglycerin [Nitrostat] 0.4 mg SUBLINGUAL ONCE PRN 11/18/18 11/18/18 History Patient History Medical History Chronic kidney disease Diabetes mellitus, type 2 Hypertension Hypothyroidism Surgical History History of heart artery stent History of vascular access device Social History Preferred Language: Korean Communication Ability: Effective Spinning Doffer Required: No Beliefs That Will Affect Care: None Current Living Situation: Family Other Information That Helps Us Care for You: No Feels Safe at Home: Yes Safety Concerns: Feels Safe At This Time Smoking Status: Never smoker Second Hand Exposure: No ; Hx Alcohol Use: No Hx Substance Use: No Physical Exam Physical Exam: In general is well-developed well-nourished white female no acute distress. HEENT exam is negative. Neck is supple with full carotid upstrokes. No obvious bruits. Jugular venous pressure is difficult to assess. Cardiovascular exam reveals a regular rhythm with a normal S1 and S2. Prominent opening snap is noted. There are no murmurs. Lungs are clear without rales, rhonchi, wheezes. Abdomen is soft without bruits. Extremities reveal a left upper extremity fistula with associated thrill and bruit. There is no peripheral edema. Results & Data Vital Signs (Past 12 Hours) Vital Signs Temp Pulse Pulse Resp BP Pulse Ox 11/19/18 11:56 36.6 C 63 16 93/48 L 96 11/19/18 10:19 69 11/19/18 07:28 36.5 C 73 16 105/56 L 94 11/19/18 06:38 89/46 L 11/19/18 06:02 105/50 L 11/19/18 03:42 36.6 C 71 17 131/50 L 97 Laboratory Results CBC notes hemoglobin of 9.6, hematocrit 29.6, white count 15.2, and platelet count of 422623. Electrolytes notice sodium 136, potassium 4.5, chloride 105, bicarb 23, BUN 50, creatinine 3.3, glucose of 163. Two troponin I levels are undetectable less than 0.015. Diagnostic Findings EKG notes normal sinus rhythm and left ventricular hypertrophy by voltage criteria. desk monitor is benign. Chest x-ray shows cardiomegaly and mild congestive changes. PG Care Time/CCT Total # of Minutes Spent Total Time Spent with Patient: Total time spent is greater than 50% in coordination of care (as documented) at patient's floor/unit and/or counseling patient:
[2018-11-19] MEDS ORDERED: PROMETHAZINE HCL INJ 25 MG/ML 1 ML VIAL IM ONE (16:27)
[2018-11-19] MEDS ORDERED: MoRPHine SULFATE 2 MG/ML CARP IV PRN (16:29)
[2018-11-19] MEDS ORDERED: IMIPENEM/CILASTATIN SODIUM 500 MG in DEXTROSE 5% 100 ML IV SCH (16:30)
--- NOTE | 2018-11-19 16:35 | Family Medicine Progress Note ---
Date of Service November 19, 2018 Assessment & Plan (1) Complicated UTI (urinary tract infection): Hx of ESBL E. Coli, treating with Ertapenem 500 mg IV Q24 H while waiting for cultures to grow, per pharmacy recommendations and following renal dosing precautions. Pt denies burning with urination, pain or irritation, but has been extremely nauseous requiring zofran and phenergan. UA showed cloudy urine with 2+ protein, 1+ LE, 10-30 WBC, >30 epithelium. Culture ordered 11/19 here, pending. Culture done on 11/18 at OSH, will need to contact tomorrow regarding growth and retrieval of records for prior ESBL infection. Present on Admission?: Yes (2) Chest heaviness: Presenting complaint to [facility]. Cardiac workup including multiple EKGs and troponins negative for cardiac origin of pain per cardiology consult. Likely secondary to MSK etiology vs post-herpetic neuralgia (had zoster of the left arm/shoulder in June) Present on Admission?: Yes (3) CAD (coronary artery disease): Hx CAD with 2 stents placed Maintained on aspirin 81mg and clopidogrel 75 mg. Present on Admission?: Yes (4) Chronic kidney disease, stage V: Not yet qualified for hemodialysis but may in near future. Follows with Dr. Beltran. Per his note, Cr and electrolytes currently stable. Received 1 unit of NS fluids. (5) Chronic diastolic CHF (congestive heart failure): Echo in 07/2018 showed LVEF 65-70%, mod pulm regurg, mod bruno regurg, Grade II diastolic dysfunction. Aortic atherosclerosis without stenosis. Present on Admission?: Yes (6) HTN (hypertension), benign: Pt has had runs of hypotension during stay here. Hydralazine dose of 25 mg TID cut in half to 12.5 mg TID. Held amlodipine. Will hold carvedilol if pressures continue to stay low. Present on Admission?: Yes (7) Anemia of chronic disease: Consider EPO once complicated UTI and kidney function stabilize. OSH iron studies show TIBC of 195, Ferritin 915. patient's RBC # and Hg have been low here, with a normal MCV and elevated RDW. Consider B12 and folate levels to assess mixed iron deficiency/ACD. Present on Admission?: Yes (8) GERD (gastroesophageal reflux disease): Continue on home pantoprazole and famotidine. (9) Hyperlipidemia: continue atorvastatin Present on Admission?: Yes (10) Hypothyroidism: continue levothyroxine Present on Admission?: Yes Supervising Physician Co-Signing Physician Notes Patient seen and examined with PGY-1 Dr. Patel. Agree with history, exam findings, assessment and plan of care as outlined with the following updates: In brief, Ms. Ricci is an 78 year old female with hx of HFpEF (Echo in July with EF 65-70%), CAD with stents x 2, CKD with anemia, HTN and DM on insulin transferred from an outside hospital for ongoing chest pain at the request of the family. 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 Chest pain: EKGs are reassuring and serial troponin are negative. Chest pain is reproducible with palpation to the sternum and costochondral junctions bilaterally. With zoster on the left shoulder/arm in june, ? post-herpetic neuralgia. Started low dose gabapentin for possible post-herpetic neuralgia. D/c'ed heparin gtt and nitro paste. Spaced out morphine. Continue home ASA and plavix. Urinary tract infection. Received cefepime at OSH, but antibiotics were not continued here. UA here is dirty appearing. She has a hx of ESBL at other facilities. Started ertapenem with renal dosing. Appreciate ID and pharmacy assistance with antibiotic management and dosing. A culture is pending at [facility]. No report available today. Will need to call again tomorrow to follow up on culture. In the meantime, a culture is pending here as well. Blood cultures x 2 were ordered here. Hypotension. She has had soft BPs since this morning but still received amlodipine, hydralazine, and her coreg. We have d/c'ed the amlodipine and coreg. Decreased the dose of hydralazine, but included parameters for administration. Suspect that she is becoming septic. Lactate pending. And starting NS boluses. Continue tele monitoring. If she does not respond to fluid boluses, will need to transfer to ICU for pressors. Altered mental status. Slightly more lethargic in the late afternoon compared to early this morning when she was first seen. Neuro exam is nonfocal although she appears to have pinpoint pupils despite only one dose of morphine at 6am (12 hours ago) on re-examination. Cranial nerves are in tact and speech is clear, although she needs encouragement to keep her eyes open. Head CT obtained--no signs of bleed. CKD. Appreciate nephrology recommendations. At this point, we will need to watch her renal function carefully with her hypotension. She does have a fistula in the event that she requires dialysis. HTN. Holding antihypertensives due to low blood pressures. Anemia. Anemia of chronic disease, likely from CKD. hgb 9.6 today. Monitor. Dispo: pending clinical improvement. Subjective 78 yo F w/ extensive cardiac hx including CAD with stent placement x2, CHF with Stage 2 diastolic dysfunction, CKD stage 4, HTN, HLD, hypothyroidism, recurrent UTIs who was transferred here last night after presenting to [facility] for chest pain. EKG and troponins were negative for acute myocardial process. Pt endorses chest pain whenever morphine wears off. Described symptoms of chest pain and shortness of breath while exercising and gardening the day before admission to the ED. Also is recently recovering from a shingles infection. Denied any symptoms of frequency of urination, pain or burning with urination. Per daughter, has frequent UTIs, every other month or so and they are usually asymptomatic. Last infection was in August 2018 and was ESBL E. Coli. Review of Systems Constitutional: no fever, no chills, no body aches and no fatigue Respiratory: no cough and no dyspnea Cardiovascular: + chest pain and + chest pain at rest; no dyspnea and no edema Gastrointestinal: + nausea and + vomiting; no abdominal pain, no constipation and no diarrhea/loose stools Genitourinary: no dysuria, no urinary frequency and no urinary urgency Physical Exam Constitutional: + acute distress, + thin, + frail appearing, cooperative and + lethargic; not ill appearing Tired appearing but A&Ox3 Neck: normal visual inspection Respiratory: normal respiratory effort and able to speak in complete sentences; no respiratory distress, no labored breathing, no retractions, no cough and no audible wheezes Auscultation: lungs clear to auscultation bilaterally; no crackles, no rales, no rhonchi and no wheezes Cardiovascular: Rate/Rhythm: regular rate and regular rhythm Heart Sounds: normal S1 and normal S2; no gallop, no murmur and no cardiac rub Vessels: no JVD Extremities: no calf tenderness, no pedal edema and no edema Gastrointestinal (Abdomen): Inspection/Auscultation: abdomen normal to inspection and normal bowel sounds; abdomen not distended Percussion/Palpation: abdomen soft; abdomen nontender, no guarding, abdomen not rigid and no abdominal mass Musculoskeletal: Tender to palpation of costochondral and costosternal junct ions on both left and right sides. Skin: + turgor decreased and + dry skin Results & Data Vital Signs (Past 12 Hours) Vital Signs Temp Pulse Pulse Resp BP Pulse Ox 11/19/18 11:56 36.6 C 63 16 93/48 L 96 11/19/18 10:19 69 11/19/18 07:28 36.5 C 73 16 105/56 L 94 11/19/18 06:38 89/46 L 11/19/18 06:02 105/50 L Laboratory Results WBC 15.22 K/uL (4.8-10.8) H 11/19/18 04:18 RBC 3.50 M/uL (4.2-5.4) L 11/19/18 04:18 Hgb 9.6 g/dL (12.0-16.0) L 11/19/18 04:18 Hct 29.6 % (37-47) L 11/19/18 04:18 MCV 84.6 fL (80-100) 11/19/18 04:18 MCH 27.4 pg (25-34) 11/19/18 04:18 MCHC 32.4 g/dL (32-36) 11/19/18 04:18 RDW Std Deviation 50.4 fL (36.4-46.3) H 11/19/18 04:18 RDW Coeff of Sathya 16.3 % (11.5-14.5) H 11/19/18 04:18 Plt Count 362 K/uL (130-400) 11/19/18 04:18 MPV 10.1 fL (7.4-10.4) 11/19/18 04:18 Immature Gran % (Auto) 0.7 % 11/19/18 04:18 Neut % (Auto) 76.6 % 11/19/18 04:18 Lymph % (Auto) 10.6 % 11/19/18 04:18 [place] % (Auto) 11.6 % 11/19/18 04:18 Eos % (Auto) 0.4 % 11/19/18 04:18 Baso % (Auto) 0.1 % 11/19/18 04:18 Immature Gran # (Auto) 0.10 K/uL (0.00-0.02) H 11/19/18 04:18 Neut # (Auto) 11.66 K/uL (1.4-6.5) H 11/19/18 04:18 Lymph # (Auto) 1.62 K/uL (1.2-3.4) 11/19/18 04:18 [place] # (Auto) 1.76 K/uL (0.11-0.59) H 11/19/18 04:18 Eos # (Auto) 0.06 K/uL (0-0.5) 11/19/18 04:18 Baso # (Auto) 0.02 K/uL (0-0.2) 11/19/18 04:18 PT 10.6 Seconds (9.0-12.0) 11/18/18 21:17 INR 1.0 (0.9-1.1) 11/18/18 21:17 APTT 59.8 Seconds (21.0-31.0) H* 11/19/18 04:18 PTT Ratio 2.2 11/19/18 04:18 Sodium 136 mmol/L (136-145) 11/18/18 21:15 Potassium 4.5 mmol/L (3.5-5.1) 11/18/18 21:15 Chloride 105 mmol/L (98-107) 11/18/18 21:15 Carbon Dioxide 23 mmol/L (21-32) 11/18/18 21:15 Anion Gap 9.0 (3-11) 11/18/18 21:15 BUN 50 mg/dl (7-18) H 11/18/18 21:15 Creatinine 3.81 mg/dl (0.6-1.2) H 11/18/18 21:15 Est Cr Clr Drug Dosing 10.6 ml/min 11/18/18 21:15 Est GFR ( Amer) 12.2 11/18/18 21:15 Est GFR (Non-Af Amer) 10.6 11/18/18 21:15 BUN/Creatinine Ratio 13.1 (10-20) 11/18/18 21:15 Glucose 163 mg/dl (70-99) H 11/18/18 21:15 POC Glucose 195 (70-99) H 11/19/18 16:04 Calcium 9.0 mg/dl (8.5-10.1) 11/18/18 21:15 Phosphorus 6.3 mg/dl (2.5-4.9) H 11/19/18 04:18 Magnesium 2.2 mg/dl (1.8-2.4) 11/19/18 04:18 Troponin I < 0.015 ng/ml (0-0.045) 11/19/18 04:18 Urine Color Yellow 11/19/18 05:35 Urine Appearance Cloudy (Clear) A 11/19/18 05:35 Urine pH 5.0 (4.5-7.5) 11/19/18 05:35 Ur Specific [place] 1.021 (1.000-1.030) 11/19/18 05:35 Urine Protein 2+ (Negative) H 11/19/18 05:35 Urine Glucose (UA) Negative (Negative) 11/19/18 05:35 Urine Ketones Negative (Negative) 11/19/18 05:35 Urine Blood Negative (Negative) 11/19/18 05:35 Urine Nitrite Negative (Negative) 11/19/18 05:35 Urine Bilirubin Negative (Negative) 11/19/18 05:35 Urine Urobilinogen Negative (Negative) 11/19/18 05:35 Ur Leukocyte Esterase 1+ (Negative) H 11/19/18 05:35 Urine WBC (Auto) 10-30 /hpf (0-5) H 11/19/18 05:35 Urine RBC (Auto) 0-4 /hpf (0-4) 11/19/18 05:35 U Hyaline Cast (Auto) 1-5 /lpf (0-5) 11/19/18 05:35 U Epithel Cells (Auto) >30 /lpf (0-5) H 11/19/18 05:35 Urine Bacteria (Auto) Negative (Negative) 11/19/18 05:35 Ur Renal Epithelial Cell 0-5 /lpf (0-5) 11/19/18 05:35 Urine Yeast Not Reportable 11/19/18 05:35 PG Care Time/CCT Total # of Minutes Spent Total Time Spent with Patient: Total time spent is greater than 50% in coordination of care (as documented) at patient's floor/unit and/or counseling patient: Resident Activity Tracking Resident Involvement: Resident Care Provided Care Provided: Adult [facility]
[2018-11-19] MEDS ORDERED: PROMETHAZINE HCL 25 MG in SODIUM CHLORIDE 0.9% 50 ML IV PRN (16:50)
[2018-11-19] MEDS ORDERED: PROMETHAZINE HCL 25 MG in SODIUM CHLORIDE 0.9% 50 ML IV ONE (17:00)
[2018-11-19] MEDS: ERTAPENEM SODIUM 500 MG in SODIUM CHLORIDE 0.9% 50 ML IV SCH (17:59)
--- NOTE | 2018-11-19 18:19 | CT Scan Report ---
CT head/brain wo con CT DOSE: 818.51 mGy.cm HISTORY: Mental status change. Visual change. pinpoint pupils, GCS 8 TECHNIQUE: Multiaxial CT images of the head were performed without the use of intravenous contrast. A dose lowering technique was utilized adhering to the principles of ALARA. Comparison: None. Findings: The paranasal sinuses and mastoid air cells are clear. The calvarium and skull base are int act. The ventricles and sulci are within normal limits. There is no mass, hematoma, midline shift, or acute infarct. Impression: No acute intracranial abnormality. The above report was generated using voice recognition software. It may contain grammatical, syntax or spelling errors. Electronically signed by: Oscar Izaguirre M.D. 11/19/2018 6:18 PM
[2018-11-19] MEDS: INSULIN GLARGINE SOLOSTAR 100 UNITS/ML 3 ML PEN SQ SCH (20:49)
[2018-11-19] MEDS: FAMOTIDINE 20 MG TAB PO SCH (20:52)
[2018-11-19] MEDS ORDERED: GABAPENTIN 100 MG CAP PO SCH (21:00)
[2018-11-20 05:39] LABS: Basophils # (auto) 0.03 K/uL (0-0.2); Basophils % (auto) 0.2 %; Eosinophils # (auto) 0.13 K/uL (0-0.5); Eosinophils % (auto) 1.1 %; Hematocrit (blood only) 23.5 % (37-47); Hemoglobin 7.6 g/dL (12.0-16.0); Immature Granulocytes # (auto) 0.06 K/uL (0.00-0.02); Immature Granulocytes % (auto) 0.5 %; Lymphocytes # (auto) 2.19 K/uL (1.2-3.4); Lymphocytes % (auto) 18.1 %; Mean Corpuscular Hemoglobin 27.3 pg (25-34); Mean Corpuscular Hgb Conc 32.3 g/dL (32-36); Mean Corpuscular Volume 84.5 fL (80-100); Mean Platelet Volume 9.9 fL (7.4-10.4); Monocytes % (auto) 9.9 %; Neutrophils # (auto) 8.48 K/uL (1.4-6.5); Neutrophils % (auto) 70.2 %; Platelet Count 339 K/uL (130-400); RDW Coefficient of Variation 16.6 % (11.5-14.5); RDW Standard Deviation 51.1 fL (36.4-46.3); Red Blood Count 2.78 M/uL (4.2-5.4); White Blood Count 12.09 K/uL (4.8-10.8)
[2018-11-20 06:01] LABS: RBC Morphology Unremarkable
[2018-11-20] MEDS: LEVOTHYROXINE SODIUM 100 MCG TABLET PO SCH (06:11)
[2018-11-20 06:16] LABS: Albumin Globulin Ratio 0.6 (0.9-2); Albumin Level 2.2 gm/dl (3.4-5.0); BUN Creatinine Ratio 13.9 (10-20); Bilirubin,Total 0.7 mg/dl (0.2-1); Calcium 8.1 mg/dl (8.5-10.1); Est GFR (African American) 10.1; Est GFR (Non-African American) 8.7; Globulin 3.8 gm/dl (2.5-4.0); Potassium 4.6 mmol/L (3.5-5.1); Thyroid Stimulating Hormone 0.295 uIu/ml (0.300-4.500)
[2018-11-20 06:34] LABS: Lyme Ab IgG w/WB Rflx Negative (Negative); Lyme Ab IgM w/WB Rflx Negative (Negative)
[2018-11-20] MEDS: INSULIN ASPART 100 UNITS/ML 3 ML PEN SC SCH ×4 (08:10→21:14)
[2018-11-20] MEDS: PANTOprazole 40 MG TAB PO SCH (08:16)
[2018-11-20] MEDS: ATORVASTATIN 20 MG TAB PO SCH (08:17)
[2018-11-20] MEDS: CLOPIDOGREL BISULFATE 75 MG TAB PO SCH (08:18)
[2018-11-20] MEDS: SODIUM BICARBONATE 650 MG TAB PO SCH ×3 (08:20→20:14)
[2018-11-20] MEDS: ASPIRIN 81 MG ECTAB PO SCH (08:20)
[2018-11-20] MEDS: FERROUS SULFATE 325 MG TAB PO SCH ×2 (08:21→16:22)
[2018-11-20] MEDS: SODIUM CHLORIDE 0.9% 1000ML 1,000 ML IV SCH (08:21)
[2018-11-20] MEDS ORDERED: SODIUM CHLORIDE 0.9% 250 ML IV PRN (09:41)
--- NOTE | 2018-11-20 09:52 | Nephrology Progress Note ---
Date of Service November 20, 2018 Assessment & Plan (1) Chronic kidney disease, stage IV (severe): -- AVF mature for use -- I discussed indications for initiation of dialysis in detail with Jessenia today and she is agreeable once discussion with her daughter -- Volume status controlled, NS@60 ml/hr started today -- Medications are appropriately dosed for kidney function (2) Chest heaviness: -- Plan of care discussed with Dr. Godoy -- Suspect this is non cardiac -- Suspect at least a component of MSK etiology and post-herpetic neuralgia (3) CAD (coronary artery disease): (4) HTN (hypertension), benign: (5) Diabetes mellitus: (6) CHF (congestive heart failure): -- Appears slightly dry on exam -- Diuretics held -- Encourage oral fluids -- Renal diet (7) Iron deficiency anemia: -- H/H dropped notably overnight -- No evidence of GI bleed -- Consent for PRBC obtained today, plan 2 units today -- Chronic, stable Subjective No acute events overnight. Pain improved. Appetite is poor. Noted constipation. Some nausea overnight. Treated with Phenergan. Remains somnolent from medications. BP acceptable. Breathing comfortably. Review of Systems Review of Systems: All systems reviewed & are unremarkable except as noted in HPI & below Physical Exam Eyes: no scleral abnormality and no corneal abnormality ENMT: Mouth: + dry oral mucous membranes; no oral mucosal abnormality Neck: normal visual inspection and trachea midline Respiratory: normal respiratory effort; no labored breathing Auscultation: + rales (few basilar) Cardiovascular: Heart Sounds: normal S1, normal S2 and + murmur; no cardiac rub Extremities: + AV fistula; no edema Gastrointestinal (Abdomen): Percussion/Palpation: abdomen soft; abdomen nontender Musculoskeletal: Extremities: no cyanosis and no clubbing Skin: normal turgor; no rashes Neurologic: Motor/Sensory: no tremor and no asterixis Psychiatric: Orientation: alert and oriented x 3 Results & Data Vital Signs (Past 12 Hours) Vital Signs Temp Pulse Pulse Resp BP Pulse Ox 11/20/18 08:01 36.6 C 58 L 19 127/51 L 94 11/20/18 02:52 36.6 C 63 18 112/51 L 93 11/19/18 23:34 36.4 C L 58 L 16 102/44 L 93 11/19/18 22:48 60 Laboratory Results Laboratory Results - last 24 hr 11/19/18 11/19/18 11/19/18 11:22 16:04 18:40 WBC RBC Hgb Hct MCV MCH MCHC RDW Std Deviation RDW Coeff of Sathya Plt Count MPV Immature Gran % (Auto) Neut % (Auto) Lymph % (Auto) [place] % (Auto) Eos % (Auto) Baso % (Auto) Immature Gran # (Auto) Neut # (Auto) Lymph # (Auto) [place] # (Auto) Eos # (Auto) Baso # (Auto) RBC Morphology Sodium Potassium Chloride Carbon Dioxide Anion Gap BUN Creatinine Est Cr Clr Drug Dosing Est GFR ( Amer) Est GFR (Non-Af Amer) BUN/Creatinine Ratio Glucose POC Glucose 224 H 195 H Lactate 1.2 Calcium Total Bilirubin AST ALT Alkaline Phosphatase Total Protein Albumin Globulin Albumin/Globulin Ratio TSH Anaplasma Smear Lyme Disease IgG Ab Lyme Disease IgM Ab 11/19/18 11/20/18 11/20/18 20:13 05:23 05:23 WBC 12.09 H RBC 2.78 L Hgb 7.6 L Hct 23.5 L MCV 84.5 MCH 27.3 MCHC 32.3 RDW Std Deviation 51.1 H RDW Coeff of Sathya 16.6 H Plt Count 339 MPV 9.9 Immature Gran % (Auto) 0.5 Neut % (Auto) 70.2 Lymph % (Auto) 18.1 [place] % (Auto) 9.9 Eos % (Auto) 1.1 Baso % (Auto) 0.2 Immature Gran # (Auto) 0.06 H Neut # (Auto) 8.48 H Lymph # (Auto) 2.19 [place] # (Auto) 1.20 H Eos # (Auto) 0.13 Baso # (Auto) 0.03 RBC Morphology Unremarkable Sodium 137 Potassium 4.6 Chloride 105 Carbon Dioxide 20 L Anion Gap 12.0 H BUN 62 H Creatinine 4.48 H D Est Cr Clr Drug Dosing 9.0 Est GFR ( Amer) 10.1 Est GFR (Non-Af Amer) 8.7 BUN/Creatinine Ratio 13.9 Glucose 109 H POC Glucose 192 H Lactate Calcium 8.1 L Total Bilirubin 0.7 AST 5 L ALT 8 L Alkaline Phosphatase 89 Total Protein 6.0 L Albumin 2.2 L Globulin 3.8 Albumin/Globulin Ratio 0.6 L TSH 0.295 L Anaplasma Smear See Comment Lyme Disease IgG Ab Lyme Disease IgM Ab 11/20/18 11/20/18 11/20/18 05:23 05:23 05:23 WBC RBC Hgb Hct MCV MCH MCHC RDW Std Deviation RDW Coeff of Sathya Plt Count MPV Immature Gran % (Auto) Neut % (Auto) Lymph % (Auto) [place] % (Auto) Eos % (Auto) Baso % (Auto) Immature Gran # (Auto) Neut # (Auto) Lymph # (Auto) [place] # (Auto) Eos # (Auto) Baso # (Auto) RBC Morphology Sodium Potassium Chloride Carbon Dioxide Anion Gap BUN Creatinine Est Cr Clr Drug Dosing Est GFR ( Amer) Est GFR (Non-Af Amer) BUN/Creatinine Ratio Glucose POC Glucose Lactate 0.4 Calcium Total Bilirubin AST ALT Alkaline Phosphatase Total Protein Albumin Globulin Albumin/Globulin Ratio TSH Anaplasma Smear Cancelled Lyme Disease IgG Ab Negative Lyme Disease IgM Ab Negative 11/20/18 07:42 WBC RBC Hgb Hct MCV MCH MCHC RDW Std Deviation RDW Coeff of Sathya Plt Count MPV Immature Gran % (Auto) Neut % (Auto) Lymph % (Auto) [place] % (Auto) Eos % (Auto) Baso % (Auto) Immature Gran # (Auto) Neut # (Auto) Lymph # (Auto) [place] # (Auto) Eos # (Auto) Baso # (Auto) RBC Morphology Sodium Potassium Chloride Carbon Dioxide Anion Gap BUN Creatinine Est Cr Clr Drug Dosing Est GFR ( Amer) Est GFR (Non-Af Amer) BUN/Creatinine Ratio Glucose POC Glucose 126 H Lactate Calcium Total Bilirubin AST ALT Alkaline Phosphatase Total Protein Albumin Globulin Albumin/Globulin Ratio TSH Anaplasma Smear Lyme Disease IgG Ab Lyme Disease IgM Ab PG Care Time/CCT Total # of Minutes Spent Total Time Spent with Patient: Total time spent is greater than 50% in coordination of care (as documented) at patient's floor/unit and/or counseling patient:
[2018-11-20] MEDS ORDERED: SODIUM CHLORIDE 0.9% 1000ML 1,000 ML IV PRN (10:19)
--- NOTE | 2018-11-20 11:00 | Infectious Disease Consult ---
Date of Consultation November 20, 2018 Assessment & Plan (1) Complicated UTI (urinary tract infection): await culture results, continue abx. will follow results. History of Present Illness Attending Physician: Du Barney DO pt transferred from [facility] due to cp, cardio following. denies cp on my exam. states she is feeling better. She was placed on IV abx at [facility] for concern of uti, she denies any gu symptoms. Upon transfer she was placed on Ertapenem, ID was consulted for abx approval. she denies cp, sob, cough, perez, no abd pain, no n/v/d. eating well. tolerating abx. UA 10-30 wbc, no bacteria, >30 ep cells. wbc was 17, now 12. creat elevated at 4. Allergies Allergy/AdvReac Type Severity Reaction Status Date / Time amoxicillin Allergy Intermediate Hives Verified 11/19/18 19:35 propofol AdvReac Mild Nausea Verified 11/19/18 19:35 Home Medications Home Medications Medication Instructions Recorded Confirmed Type amlodipine 5 mg PO BID 07/15/18 11/18/18 History aspirin 81 mg PO DAILY 07/15/18 11/18/18 History clopidogrel 75 mg PO DAILY 07/15/18 11/18/18 History docusate sodium [Colace] 2 cap PO QAM PRN 07/15/18 11/18/18 History ferrous sulfate 325 mg PO BID 07/15/18 11/18/18 History hydralazine 25 mg PO BID 07/15/18 11/18/18 History isosorbide mononitrate 60 mg PO DAILY 07/15/18 11/18/18 History pantoprazole 40 mg PO DAILY 07/15/18 11/18/18 History pravastatin 10 mg PO DAILY 07/15/18 11/18/18 History psyllium husk [Metamucil] 1 g PO Q OTHER DAY PRN 07/15/18 11/18/18 History famotidine 20 mg PO HS #30 tab 07/21/18 11/18/18 Rx gabapentin 100 mg capsule 300 mg PO HS #30 cap 11/13/18 11/13/18 History Lantus Solostar U-100 Insulin 18 unit SUBCUT HS 11/18/18 11/18/18 History carvedilol 6.25 mg PO BID 11/18/18 11/18/18 History glimepiride 4 mg PO DAILY 11/18/18 11/18/18 History levothyroxine 100 mcg PO QAM 11/18/18 11/18/18 History nitroglycerin [Nitrostat] 0.4 mg SUBLINGUAL ONCE PRN 11/18/18 11/18/18 History Patient History Medical History Chronic kidney disease Diabetes mellitus, type 2 Hypertension Hypothyroidism Surgical History History of heart artery stent History of vascular access device Social History Preferred Language: Citizen Of [place] Communication Ability: Effective Resource Conservation Specialist Required: No Beliefs That Will Affect Care: None Current Living Situation: Family Other Information That Helps Us Care for You: No Feels Safe at Home: Yes Safety Concerns: Feels Safe At This Time Smoking Status: Never smoker Second Hand Exposure: No ; Hx Alcohol Use: No Hx Substance Use: No Review of Systems Review of Systems: All systems reviewed & are unremarkable except as noted in HPI & below Physical Exam Constitutional: WD/WN, vitals as above Eyes: PERRL, conjunctivae normal, anicteric sclerae ENMT: external ear and nose normal, oropharynx normal Neck: trachea midline, no thyromegaly Respiratory: normal respiratory effort, lungs clear to auscultation Cardiovascular: RRR, no murmur, no edema Gastrointestinal (Abdomen): normal bowel sounds, soft, nontender, no hepatosplenomegaly Musculoskeletal: no cyanosis or clubbing, extremities motor strength 5/5 Skin: no rashes, warm and dry Psychiatric: A+Ox3, euthymic affect Results & Data Vital Signs (Past 12 Hours) Vital Signs Temp Pulse Pulse Resp BP Pulse Ox 11/20/18 09:41 85 11/20/18 08:01 36.6 C 58 L 19 127/51 L 94 11/20/18 02:52 36.6 C 63 18 112/51 L 93 11/19/18 23:34 36.4 C L 58 L 16 102/44 L 93 PG Care Time/CCT Total # of Minutes Spent Total Time Spent with Patient: Total time spent is greater than 50% in coordination of care (as documented) at patient's floor/unit and/or counseling patient:
[2018-11-20 11:06] LABS: Hepatitis B Surface Ab Quant < 3.10 mIU/mL (>or=10mIU/mL Immune); Hepatitis B Surface Antibody Non-Immune
[2018-11-20 11:17] LABS: Hepatitis B Surface Antigen Neg (Neg)
--- NOTE | 2018-11-20 13:52 | Family Medicine Progress Note ---
Date of Service November 20, 2018 Assessment & Plan (1) Complicated UTI (urinary tract infection): Hx of ESBL E. Coli, treating with Ertapenem 500 mg IV Q24 H while waiting for cultures to grow, per pharmacy recommendations and following renal dosing precautions. Pt denies burning with urination, pain or irritation, but has been extremely nauseous requiring zofran and phenergan. UA showed cloudy urine with 2+ protein, 1+ LE, 10-30 WBC, >30 epithelium. Culture ordered 11/19 here, pending. Culture done on 11/18 at OSH, will need to contact tomorrow regarding growth and retrieval of records for prior ESBL infection. (2) Chest heaviness: Presenting complaint to [facility]. Cardiac workup including multiple EKGs and troponins negative for cardiac origin of pain per cardiology consult. (3) CAD (coronary artery disease): Hx CAD with 2 stents placed Maintained on aspirin 81mg and clopidogrel 75 mg. (4) Chronic kidney disease, stage V: Not yet qualified for hemodialysis but may in near future. Follows with Dr. Beltran. Per his note, Cr and electrolytes currently stable. Received 1 unit of NS fluids. (5) Chronic diastolic CHF (congestive heart failure): Echo in 07/2018 showed LVEF 65-70%, mod pulm regurg, mod bruno regurg, Grade II diastolic dysfunction. Aortic atherosclerosis without stenosis. (6) Atrial fibrillation, new onset: -start Coumadin (7) HTN (hypertension), benign: Pt has had runs of hypotension during stay here. Hydralazine dose of 25 mg TID cut in half to 12.5 mg TID. Held amlodipine. Will hold carvedilol if pressures continue to stay low. (8) Anemia of chronic disease: Consider EPO once complicated UTI and kidney function stabilize. OSH iron studies show TIBC of 195, Ferritin 915. patient's RBC # and Hg have been low here, with a normal MCV and elevated RDW. Consider B12 and folate levels to assess mixed iron deficiency/ACD. (9) GERD (gastroesophageal reflux disease): Continue on home pantoprazole and famotidine. (10) Hyperlipidemia: continue atorvastatin (11) Hypothyroidism: continue levothyroxine Supervising Physician Co-Signing Physician Notes I personally examined the patient and verified all munson points of history and exam, discussed case, and agree with decision making with Dr Sykes. Patient seen twice today. This morning she is very sedated, she will interact and answer appropriately but falls asleep even midsentence. This afternoon on revisit she is much more awake alert and interactive. Family is present as well. She denies any urinary symptoms now or prior to admission. She notes that her main presenting problems at [facility] were chest pain that is now gone. This morning she notes, and then this afternoon the family reiterates that her oral intake has not been very good recently, and has gone [id number] with about a 12 pound weight loss over the last month. This afternoon she went into A. fib with RVR, and then later a little bit of bradycardia, she was completely asymptomatic the entire time. No chest pain no pressure no shortness of breath no weak no lightheaded Vitals noted, in general she is awake and alert pleasant no distress. HEENT normocephalic atraumatic mucous membranes moist. Breathing unlabored no accessory muscle use good effort. Abdomen is soft nondistended nontender no masses organomegaly. Extremities show no cyanosis. No focal neuro deficits. On the monitor she is a fib initially up to 120s, then later has a brief run of bradycardia in the high 30s. She then stabilizes in the mid 70s. Chest painappears to have been noncardiac. Question of urinary tract infectionwill await the final culture from [facility], but given her lack of other significant septic signs or symptoms, and given her abject lack of urinary symptoms, I am more suspicious that her abnormal urine is due to her end-stage renal disease, and if she has a positive culture is probably more likely asymptomatic bacteriuria. Low threshold to DC ertapenem, follow into tomorrow. Metabolic encephalopathyappears to been due to uremia, and today a bit of effects from Phenergan. Seems to be improving. New onset atrial fibrillationrate control goal, will need to be anticoagulated (more than likely with Coumadin) (follow hemoglobin into tomorrow) DVT prophylaxiswill be starting anticoagulation once is clear her anemia is stable. Anemiamore than likely related to her end-stage renal disease, no signs or symptoms of bleeding. Continue to follow. Subjective Patient feels like her pain has improved, appetite remains poor, with some additional nausea overnight. BP acceptable. Breathing comfortably. Following dialysis became tachycardic, and had episodes of atrial fibrillation requiring PO 25mg lopressor due to loss of IV access. Review of Systems Constitutional: no fever, no chills and no sweats Respiratory: no cough and no dyspnea Cardiovascular: no chest pain, no dyspnea and no palpitations Gastrointestinal: + nausea and + constipation; no abdominal pain Genitourinary: + urinary frequency; no difficulty urinating, no urinary urgency and no urinary incontinence Physical Exam Constitutional: well developed, well nourished and + lethargic Eyes: PERRL Respiratory: normal respiratory effort and + respiratory distress Auscultation: lungs clear to auscultation bilaterally; no crackles, no rales and no wheezes Cardiovascular: Rate/Rhythm: regular rate and regular rhythm (Atrial fibrillation s/p dialysis) Heart Sounds: normal S1 and normal S2; no gallop, no murmur and no cardiac rub Gastrointestinal (Abdomen): Inspection/Auscultation: abdomen normal to inspection, + abdomen distended and normal bowel sounds Percussion/Palpation: abdomen soft, + hepatosplenomegaly and + abdominal mass; abdomen nontender and no guarding Results & Data Vital Signs (Past 12 Hours) Vital Signs Temp Pulse Pulse Resp BP BP Pulse Ox 11/20/18 13:30 102 H 141/70 H 11/20/18 13:15 111 H 130/51 L 11/20/18 13:00 36.7 C 113 H 16 131/61 100 11/20/18 12:45 36.7 C 74 16 106/43 L 100 11/20/18 12:30 36.6 C 65 16 130/52 L 100 11/20/18 12:15 36.6 C 54 L 16 119/41 L 100 11/20/18 12:05 36.6 C 55 L 11/20/18 11:39 36.5 C 51 L 19 106/58 L 96 11/20/18 09:41 85 11/20/18 08:01 36.6 C 58 L 19 127/51 L 94 11/20/18 02:52 36.6 C 63 18 112/51 L 93 Laboratory Results 11/20/18 11/20/18 11/20/18 Range/Units 16:20 11:29 09:58 WBC (4.8-10.8) K/uL RBC (4.2-5.4) M/uL Hgb (12.0-16.0) g/dL Hct (37-47) % MCV (80-100) fL MCH (25-34) pg MCHC (32-36) g/dL RDW Std Deviation (36.4-46.3) fL RDW Coeff of Sathya (11.5-14.5) % Plt Count (130-400) K/uL MPV (7.4-10.4) fL Immature Gran % (Auto) % Neut % (Auto) % Lymph % (Auto) % [place] % (Auto) % Eos % (Auto) % Baso % (Auto) % Immature Gran # (Auto) (0.00-0.02) K/uL Neut # (Auto) (1.4-6.5) K/uL Lymph # (Auto) (1.2-3.4) K/uL [place] # (Auto) (0.11-0.59) K/uL Eos # (Auto) (0-0.5) K/uL Baso # (Auto) (0-0.2) K/uL RBC Morphology Sodium (136-145) mmol/L Potassium (3.5-5.1) mmol/L Chloride (98-107) mmol/L Carbon Dioxide (21-32) mmol/L Anion Gap (3-11) BUN (7-18) mg/dl Creatinine (0.6-1.2) mg/dl Est Cr Clr Drug Dosing ml/min Est GFR ( Amer) Est GFR (Non-Af Amer) BUN/Creatinine Ratio (10-20) Glucose (70-99) mg/dl POC Glucose 78 141 H (70-99) Lactate (0.4-2.0) mmol/L Calcium (8.5-10.1) mg/dl Total Bilirubin (0.2-1) mg/dl AST (15-37) U/L ALT (12-78) U/L Alkaline Phosphatase (45-117) U/L Total Protein (6.4-8.2) gm/dl Albumin (3.4-5.0) gm/dl Globulin (2.5-4.0) gm/dl Albumin/Globulin Ratio (0.9-2) TSH (0.300-4.500) uIu/ml Anaplasma Smear Lyme Disease IgG Ab (Negative) Lyme Disease IgM Ab (Negative) Hep Bs Antigen Neg (Neg) Hep Bs Antibody Non-Immune Hep Bs Antibody, Quant < 3.10 L (>or=10mIU/mL Immune) mIU/mL Blood Type Blood Type Recheck Antibody Screen Crossmatch 11/20/18 11/20/18 11/20/18 Range/Units 09:58 07:42 05:23 WBC (4.8-10.8) K/uL RBC (4.2-5.4) M/uL Hgb (12.0-16.0) g/dL Hct (37-47) % MCV (80-100) fL MCH (25-34) pg MCHC (32-36) g/dL RDW Std Deviation (36.4-46.3) fL RDW Coeff of Sathya (11.5-14.5) % Plt Count (130-400) K/uL MPV (7.4-10.4) fL Immature Gran % (Auto) % Neut % (Auto) % Lymph % (Auto) % [place] % (Auto) % Eos % (Auto) % Baso % (Auto) % Immature Gran # (Auto) (0.00-0.02) K/uL Neut # (Auto) (1.4-6.5) K/uL Lymph # (Auto) (1.2-3.4) K/uL [place] # (Auto) (0.11-0.59) K/uL Eos # (Auto) (0-0.5) K/uL Baso # (Auto) (0-0.2) K/uL RBC Morphology Sodium (136-145) mmol/L Potassium (3.5-5.1) mmol/L Chloride (98-107) mmol/L Carbon Dioxide (21-32) mmol/L Anion Gap (3-11) BUN (7-18) mg/dl Creatinine (0.6-1.2) mg/dl Est Cr Clr Drug Dosing ml/min Est GFR ( Amer) Est GFR (Non-Af Amer) BUN/Creatinine Ratio (10-20) Glucose (70-99) mg/dl POC Glucose 126 H (70-99) Lactate (0.4-2.0) mmol/L Calcium (8.5-10.1) mg/dl Total Bilirubin (0.2-1) mg/dl AST (15-37) U/L ALT (12-78) U/L Alkaline Phosphatase (45-117) U/L Total Protein (6.4-8.2) gm/dl Albumin (3.4-5.0) gm/dl Globulin (2.5-4.0) gm/dl Albumin/Globulin Ratio (0.9-2) TSH (0.300-4.500) uIu/ml Anaplasma Smear Lyme Disease IgG Ab Negative (Negative) Lyme Disease IgM Ab Negative (Negative) Hep Bs Antigen (Neg) Hep Bs Antibody Hep Bs Antibody, Quant (>or=10mIU/mL Immune) mIU/mL Blood Type A Negative Blood Type Recheck Antibody Screen NEGATIVE Crossmatch See Detail 11/20/18 11/20/18 11/20/18 Range/Units 05:23 05:23 05:23 WBC (4.8-10.8) K/uL RBC (4.2-5.4) M/uL Hgb (12.0-16.0) g/dL Hct (37-47) % MCV (80-100) fL MCH (25-34) pg MCHC (32-36) g/dL RDW Std Deviation (36.4-46.3) fL RDW Coeff of Sathya (11.5-14.5) % Plt Count (130-400) K/uL MPV (7.4-10.4) fL Immature Gran % (Auto) % Neut % (Auto) % Lymph % (Auto) % [place] % (Auto) % Eos % (Auto) % Baso % (Auto) % Immature Gran # (Auto) (0.00-0.02) K/uL Neut # (Auto) (1.4-6.5) K/uL Lymph # (Auto) (1.2-3.4) K/uL [place] # (Auto) (0.11-0.59) K/uL Eos # (Auto) (0-0.5) K/uL Baso # (Auto) (0-0.2) K/uL RBC Morphology Sodium 137 (136-145) mmol/L Potassium 4.6 (3.5-5.1) mmol/L Chloride 105 (98-107) mmol/L Carbon Dioxide 20 L (21-32) mmol/L Anion Gap 12.0 H (3-11) BUN 62 H (7-18) mg/dl Creatinine 4.48 H D (0.6-1.2) mg/dl Est Cr Clr Drug Dosing 9.0 ml/min Est GFR ( Amer) 10.1 Est GFR (Non-Af Amer) 8.7 BUN/Creatinine Ratio 13.9 (10-20) Glucose 109 H (70-99) mg/dl POC Glucose (70-99) Lactate 0.4 (0.4-2.0) mmol/L Calcium 8.1 L (8.5-10.1) mg/dl Total Bilirubin 0.7 (0.2-1) mg/dl AST 5 L (15-37) U/L ALT 8 L (12-78) U/L Alkaline Phosphatase 89 (45-117) U/L Total Protein 6.0 L (6.4-8.2) gm/dl Albumin 2.2 L (3.4-5.0) gm/dl Globulin 3.8 (2.5-4.0) gm/dl Albumin/Globulin Ratio 0.6 L (0.9-2) TSH 0.295 L (0.300-4.500) uIu/ml Anaplasma Smear Cancelled Lyme Disease IgG Ab (Negative) Lyme Disease IgM Ab (Negative) Hep Bs Antigen (Neg) Hep Bs Antibody Hep Bs Antibody, Quant (>or=10mIU/mL Immune) mIU/mL Blood Type Blood Type Recheck Antibody Screen Crossmatch 11/20/18 11/19/18 11/19/18 Range/Units 05:23 20:13 18:40 WBC 12.09 H (4.8-10.8) K/uL RBC 2.78 L (4.2-5.4) M/uL Hgb 7.6 L (12.0-16.0) g/dL Hct 23.5 L (37-47) % MCV 84.5 (80-100) fL MCH 27.3 (25-34) pg MCHC 32.3 (32-36) g/dL RDW Std Deviation 51.1 H (36.4-46.3) fL RDW Coeff of Sathya 16.6 H (11.5-14.5) % Plt Count 339 (130-400) K/uL MPV 9.9 (7.4-10.4) fL Immature Gran % (Auto) 0.5 % Neut % (Auto) 70.2 % Lymph % (Auto) 18.1 % [place] % (Auto) 9.9 % Eos % (Auto) 1.1 % Baso % (Auto) 0.2 % Immature Gran # (Auto) 0.06 H (0.00-0.02) K/uL Neut # (Auto) 8.48 H (1.4-6.5) K/uL Lymph # (Auto) 2.19 (1.2-3.4) K/uL [place] # (Auto) 1.20 H (0.11-0.59) K/uL Eos # (Auto) 0.13 (0-0.5) K/uL Baso # (Auto) 0.03 (0-0.2) K/uL RBC Morphology Unremarkable Sodium (136-145) mmol/L Potassium (3.5-5.1) mmol/L Chloride (98-107) mmol/L Carbon Dioxide (21-32) mmol/L Anion Gap (3-11) BUN (7-18) mg/dl Creatinine (0.6-1.2) mg/dl Est Cr Clr Drug Dosing ml/min Est GFR ( Amer) Est GFR (Non-Af Amer) BUN/Creatinine Ratio (10-20) Glucose (70-99) mg/dl POC Glucose 192 H (70-99) Lactate 1.2 (0.4-2.0) mmol/L Calcium (8.5-10.1) mg/dl Total Bilirubin (0.2-1) mg/dl AST (15-37) U/L ALT (12-78) U/L Alkaline Phosphatase (45-117) U/L Total Protein (6.4-8.2) gm/dl Albumin (3.4-5.0) gm/dl Globulin (2.5-4.0) gm/dl Albumin/Globulin Ratio (0.9-2) TSH (0.300-4.500) uIu/ml Anaplasma Smear See Comment Lyme Disease IgG Ab (Negative) Lyme Disease IgM Ab (Negative) Hep Bs Antigen (Neg) Hep Bs Antibody Hep Bs Antibody, Quant (>or=10mIU/mL Immune) mIU/mL Blood Type Blood Type Recheck Antibody Screen Crossmatch 11/19/18 Range/Units 04:18 WBC (4.8-10.8) K/uL RBC (4.2-5.4) M/uL Hgb (12.0-16.0) g/dL Hct (37-47) % MCV (80-100) fL MCH (25-34) pg MCHC (32-36) g/dL RDW Std Deviation (36.4-46.3) fL RDW Coeff of Sathya (11.5-14.5) % Plt Count (130-400) K/uL MPV (7.4-10.4) fL Immature Gran % (Auto) % Neut % (Auto) % Lymph % (Auto) % [place] % (Auto) % Eos % (Auto) % Baso % (Auto) % Immature Gran # (Auto) (0.00-0.02) K/uL Neut # (Auto) (1.4-6.5) K/uL Lymph # (Auto) (1.2-3.4) K/uL [place] # (Auto) (0.11-0.59) K/uL Eos # (Auto) (0-0.5) K/uL Baso # (Auto) (0-0.2) K/uL RBC Morphology Sodium (136-145) mmol/L Potassium (3.5-5.1) mmol/L Chloride (98-107) mmol/L Carbon Dioxide (21-32) mmol/L Anion Gap (3-11) BUN (7-18) mg/dl Creatinine (0.6-1.2) mg/dl Est Cr Clr Drug Dosing ml/min Est GFR ( Amer) Est GFR (Non-Af Amer) BUN/Creatinine Ratio (10-20) Glucose (70-99) mg/dl POC Glucose (70-99) Lactate (0.4-2.0) mmol/L Calcium (8.5-10.1) mg/dl Total Bilirubin (0.2-1) mg/dl AST (15-37) U/L ALT (12-78) U/L Alkaline Phosphatase (45-117) U/L Total Protein (6.4-8.2) gm/dl Albumin (3.4-5.0) gm/dl Globulin (2.5-4.0) gm/dl Albumin/Globulin Ratio (0.9-2) TSH (0.300-4.500) uIu/ml Anaplasma Smear Lyme Disease IgG Ab (Negative) Lyme Disease IgM Ab (Negative) Hep Bs Antigen (Neg) Hep Bs Antibody Hep Bs Antibody, Quant (>or=10mIU/mL Immune) mIU/mL Blood Type Blood Type Recheck A Negative Antibody Screen Crossmatch Medications Administered Current Inpatient Medications Albuterol (Ventolin 0.083% 2.5mg/3ml) 2.5 mg NEB Q6R PRN PRN Reason: Shortness Of Breath Stop: 12/18/18 22:02 Aspirin (Ecotrin Ectab) 81 mg PO DAILY ALEX Stop: 12/19/18 08:59 Last Admin: 11/20/18 08:20 Dose: 81 mg Documented by: Atorvastatin Calcium (Lipitor) 20 mg PO QAM ALEX Stop: 12/19/18 08:59 Last Admin: 11/20/18 08:17 Dose: 20 mg Documented by: Clopidogrel Bisulfate (Plavix) 75 mg PO DAILY ALEX Stop: 12/19/18 08:59 Last Admin: 11/20/18 08:18 Dose: 75 mg Documented by: Dextrose (Dextrose 50%) 25 - 50 ml IV UD PRN; Protocol PRN Reason: Hypoglycemia Protocol Stop: 12/18/18 21:58 Docusate Sodium (Colace) 200 mg PO QAM PRN PRN Reason: Constipation Stop: 12/18/18 21:35 Epoetin Gilberto (Procrit) 10,000 units IV TODAY@0700 ALEX Stop: 11/21/18 16:00 Famotidine (Pepcid) 20 mg PO HS ALEX Stop: 12/19/18 20:59 Last Admin: 11/19/18 20:52 Dose: Not Given Documented by: Ferrous Sulfate (Feosol) 325 mg PO BIDM ALEX Stop: 12/19/18 07:59 Last Admin: 11/20/18 16:22 Dose: 325 mg Documented by: Glucagon (Glucagen) 1 mg SQ UD PRN; Protocol PRN Reason: Hypoglycemia Protocol Stop: 12/18/18 21:58 Glucose (Glucose 40%) 15 - 30 gm PO UD PRN; Protocol PRN Reason: Hypoglycemia Protocol Stop: 12/18/18 21:58 Glucose (Dex4 Glucose) 4 - 8 tabs PO UD PRN; Protocol PRN Reason: Hypoglycemia Protocol Stop: 12/18/18 21:58 Promethazine HCl 25 mg/ Sodium (Chloride) 51 mls @ 204 mls/hr IV Q6H PRN; Protocol PRN Reason: Nausea And Vomiting Stop: 12/19/18 16:49 Ertapenem 500 mg/ Sodium (Chloride) 55 mls @ 100 mls/hr IV Q24H ALEX; Protocol Stop: 11/29/18 17:59 Last Infusion: 11/19/18 18:51 Dose: Infused Documented by: Sodium Chloride (Nss 1000ml) 1,000 mls @ 60 mls/hr IV .[id number] [facility] Stop: 12/20/18 06:59 Last Admin: 11/20/18 08:21 Dose: 60 mls/hr Documented by: Sodium Chloride (Nss) 250 mls @ 15 mls/hr IV .[id number] PRN PRN Reason: For Transfusion Stop: 12/20/18 09:40 Sodium Chloride (Nss 1000ml) 1,000 mls @ 0 mls/hr IV .Q0M PRN PRN Reason: For Hemodialysis Use ONLY Stop: 11/21/18 12:59 Insulin Aspart (Novolog Flexpen) 0 units SC ACHS [facility] Stop: 12/19/18 07:29 Last Admin: 11/20/18 17:42 Dose: Not Given Documented by: Insulin Glargine (Lantus Solostar Pen) 18 units SQ HS [facility] Stop: 12/19/18 20:59 Last Admin: 11/19/18 20:49 Dose: 18 units Documented by: Levothyroxine Sodium (Synthroid) 100 mcg PO DAILYBB [facility] Stop: 12/19/18 06:29 Last Admin: 11/20/18 06:11 Dose: 100 mcg Documented by: Miscellaneous (Carbohydrates For Hypoglycemia) 15 - 30 gm PO UD PRN PRN Reason: Hypoglycemia Treatment Stop: 12/18/18 21:58 Morphine Sulfate (Morphine Sulfate) 2 mg IV Q6H PRN PRN Reason: Chest Pain Stop: 12/03/18 16:28 Ondansetron HCl (Zofran) 4 mg IV Q4H PRN PRN Reason: Nausea Stop: 12/18/18 21:42 Last Admin: 11/19/18 14:44 Dose: 4 mg Documented by: Pantoprazole Sodium (Protonix) 40 mg PO DAILY ALEX Stop: 12/19/18 08:59 Last Admin: 11/20/18 08:16 Dose: 40 mg Documented by: Psyllium Hydrophilic Mucilloid (Metamucil) 1 pkt PO Q48H PRN PRN Reason: CONSTIPATION Stop: 12/18/18 21:59 Sodium Bicarbonate (Sodium Bicarbonate) 650 mg PO TID ALEX Stop: 12/19/18 08:59 Last Admin: 11/20/18 14:52 Dose: 650 mg Documented by: PG Care Time/CCT Total # of Minutes Spent Total Time Spent with Patient: Total time spent is greater than 50% in coordination of care (as documented) at patient's floor/unit and/or counseling patient: Resident Activity Tracking Resident Involvement: Resident Care Provided Care Provided: Adult Hospital Medicine
[2018-11-20] MEDS ORDERED: METOPROLOL TARTRATE 1 MG/ML VIAL IV ONE (15:45)
[2018-11-20] MEDS ORDERED: METOPROLOL TARTRATE 25 MG TAB PO ONE (16:30)
[2018-11-20] MEDS ORDERED: WARFARIN SOD 5 MG TAB PO ONE (18:38)
[2018-11-20] MEDS ORDERED: ONDANSETRON 4 MG OD TAB PO PRN (20:07)
[2018-11-20] MEDS: FAMOTIDINE 20 MG TAB PO SCH (20:14)
[2018-11-20] MEDS: ERTAPENEM SODIUM 500 MG in SODIUM CHLORIDE 0.9% 50 ML IV SCH (20:18)
--- NOTE | 2018-11-20 20:23 | Progress Note ---
Date of Service November 20, 2018 On turnover this evening, received report that the patient does not have peripheral IV access. - I discussed the situation with the patient's bedside nurse. Multiple attempts to find peripheral access including in her feet were unsuccessful. She is not a candidate for a PICC line due to having a left upper extremity AV fistula for dialysis purposes. - I discussed the situation (on the phone) with the patient's daytime attending, Dr. Barney. Patient has been noted to be remarkably more alert throughout the day. She did have an episode of new onset A. fib with RVR followed by bradycardia. She was treated with p.o. metoprolol. Her blood pressures have actually been running more in the hypertensive range. She also underwent dialysis earlier today. There was discussion on the risks and benefits of placement of a central line, although it likely would need for a very short period of time. Ultimately no line was placed during the day. Furthermore, patient's only current IV medications are ertapenem and as needed Zofran. It was decided that the patient does not need to be on antibiotics at present, so this will be discontinued. Zofran can be transitioned to p.o. prn. - I discussed the situation with the evening sleep lab technician, Dr. Rojas, and provided an update regarding the above. Ultimately it was decided that no central line would be placed this evening proactively. In the case of decompensation, we will place an IO. - I then discussed the situation with the patient's bedside nurse again. She states that after contacting the IV team that they have IO devices on their IV carts. It seems that if the patient were to decompensate a code purple would need to be called. She also requested an order in the record for "okay not to have a PIV". - I briefly met with the patient this evening. She is far more alert than she was yesterday. She says that dialysis went well and that she presently has no complaints to include any chest pain, shortness of breath, abdominal pain, fistula concerns, or any other concerns. She hopes that she can be discharged home tomorrow. Current vitals as below. Will continue to monitor overnight. Lazaro Lowery, PGY3 Overnight call Results & Data Vital Signs (Past 12 Hours) Vital Signs Temp Pulse Pulse Resp BP BP Pulse Ox 11/20/18 19:14 36.9 C 75 18 154/65 H 94 11/20/18 15:59 36.7 C 92 H 18 124/64 97 11/20/18 14:10 36.6 C 107 H 140/66 11/20/18 14:00 103 H 144/52 H 11/20/18 13:45 97 H 133/67 11/20/18 13:30 102 H 141/70 H 11/20/18 13:15 111 H 130/51 L 11/20/18 13:00 36.7 C 113 H 16 131/61 100 11/20/18 12:45 36.7 C 74 16 106/43 L 100 11/20/18 12:30 36.6 C 65 16 130/52 L 100 11/20/18 12:15 36.6 C 54 L 16 119/41 L 100 11/20/18 12:05 36.6 C 55 L 11/20/18 11:39 36.5 C 51 L 19 106/58 L 96 11/20/18 09:41 85
[2018-11-20] MEDS ORDERED: INSULIN GLARGINE SOLOSTAR 100 UNITS/ML 3 ML PEN SC STA (21:07)
[2018-11-20] MEDS: INSULIN GLARGINE SOLOSTAR 100 UNITS/ML 3 ML PEN SQ SCH (21:14)
[2018-11-21 05:53] LABS: Basophils # (auto) 0.03 K/uL (0-0.2); Basophils % (auto) 0.2 %; Eosinophils % (auto) 1.5 %; Hematocrit (blood only) 30.5 % (37-47); Hemoglobin 10.4 g/dL (12.0-16.0); Immature Granulocytes # (auto) 0.09 K/uL (0.00-0.02); Immature Granulocytes % (auto) 0.7 %; Lymphocytes # (auto) 2.26 K/uL (1.2-3.4); Lymphocytes % (auto) 17.4 %; Mean Corpuscular Hemoglobin 28.7 pg (25-34); Mean Corpuscular Hgb Conc 34.1 g/dL (32-36); Mean Platelet Volume 9.8 fL (7.4-10.4); Monocytes % (auto) 8.5 %; Neutrophils # (auto) 9.31 K/uL (1.4-6.5); Neutrophils % (auto) 71.7 %; Platelet Count 367 K/uL (130-400); RDW Coefficient of Variation 16.1 % (11.5-14.5); RDW Standard Deviation 49.8 fL (36.4-46.3); Red Blood Count 3.63 M/uL (4.2-5.4); White Blood Count 12.99 K/uL (4.8-10.8)
[2018-11-21] MEDS: LEVOTHYROXINE SODIUM 100 MCG TABLET PO SCH (05:58)
[2018-11-21 06:00] LABS: Prothrombin Time 10.5 Seconds (9.0-12.0)
[2018-11-21 06:20] LABS: BUN Creatinine Ratio 12.7 (10-20); Calcium 8.5 mg/dl (8.5-10.1); Creatinine Clr Calc Pharmacy 12.1 ml/min; Est GFR (African American) 14.3; Est GFR (Non-African American) 12.3
[2018-11-21 06:27] LABS: T4 Free Thyroxine 1.32 ng/dl (0.8-1.6)
[2018-11-21 06:28] LABS: Potassium 3.7 mmol/L (3.5-5.1)
[2018-11-21] MEDS ORDERED: EPOETIN ALFA 10,000 UNITS/ML VIAL IV SCH (07:00)
[2018-11-21] MEDS ORDERED: SODIUM CHLORIDE 0.9% 1000ML 1,000 ML IV PRN (07:00)
--- NOTE | 2018-11-21 07:09 | Family Medicine Progress Note ---
Date of Service November 21, 2018 Assessment & Plan (1) Complicated UTI (urinary tract infection): -Hx of ESBL E. Coli, treating with Ertapenem 500 mg IV Q24 H while waiting for cultures to grow; held antibiotics due to loss of peripheral IV -Pt denies burning with urination, pain or irritation, but has been extremely nauseous requiring zofran and phenergan. -UA showed cloudy urine with 2+ protein, 1+ LE, 10-30 WBC, >30 epithelium. -Culture done on 11/18 at OSH, final culture grew Strep agalactiae group B -Consider IO if patient decompensates (2) Chest heaviness: -Presenting complaint to [facility]. -Cardiac workup including multiple EKGs and troponins negative for cardiac origin of pain per cardiology consult. -no subsequent episodes/events (3) CAD (coronary artery disease): -Hx CAD with 2 stents placed -Maintained on aspirin 81mg and clopidogrel 75 mg. (4) Chronic kidney disease, stage V: -Not yet qualified for hemodialysis but may in near future. -Follows with Dr. Beltran. Per his note, Cr and electrolytes currently stable. -Received 1 unit of NS fluids. (5) Chronic diastolic CHF (congestive heart failure): -Echo in 07/2018 showed LVEF 65-70%, mod pulm regurg, mod bruno regurg, Grade II diastolic dysfunction -Aortic atherosclerosis without stenosis. (6) Atrial fibrillation, new onset: -continue Coumadin 5mg daily -recheck INR in AM (7) HTN (hypertension), benign: -Pt has had runs of hypotension during stay here. -Held hydralazine, amlodipine, and carvedilol (8) Anemia of chronic disease: -Consider EPO once complicated UTI and kidney function stabilize. -Consider B12 and folate levels to assess mixed iron deficiency/ACD. (9) GERD (gastroesophageal reflux disease): -Continue on home pantoprazole and famotidine. (10) Hyperlipidemia: -continue atorvastatin (11) Hypothyroidism: -continue levothyroxine Supervising Physician Co-Signing Physician Notes I personally examined the patient and verified all munson points of history and exam, discussed case, and agree with decision making with Dr Sykes. Feeling a little bit tired but otherwise no new problems. Discussed extensively with patient and family, later discussed with dietitian, in regards to concern on patient's oral intake. Discussed also the role potentially for an appetite stimulant down the road. Vitals noted, in general she is awake and alert pleasant no distress. HEENT normocephalic atraumatic mucous membranes moist. Breathing unlabored no accessory muscle use good effort. Abdomen is soft nondistended nontender no masses organomegaly. Extremities show no cyanosis. No focal neuro deficits. Chest painappears to have been noncardiac. End-stage renal disease and uremiaappears to be the main problem currently, has been initiated on dialysis, this will continue. Poor oral intake/concern on acute protein/calorie malnutritionencouraged oral intake, as dietitian for suggestions, especially given the narrow window of what we can safely use as supplements given her end-stage renal disease and diabetes. Also discussed with patient and family that if she is not showing improvement in a week or 2 it would be quite reasonable to give trial to an appetite stimulant. (Did not initiate now, as she is just getting started with trying to improve her oral intake, and the concern would be that given her overall baseline of being fairly tired any sedation from a medicine could cause more harm than good, therefore we will hold off until it is clearly needed) Question of urinary tract infectiongrew a common pelvic floor christel, no urinary symptoms, no clear septic signs or symptoms. Abnormal urine almost certainly related to end-stage renal disease, cultures are just a colonization/pelvic floor bacteria. No further antibiotics. Metabolic encephalopathyappears to been due to uremia predominantly, as well as just an overall fatigue. Does seem to be overall improved New onset atrial fibrillationrate controlled, continue Coumadin. Gentle rate control. DVT prophylaxisinitiating anticoagulation Anemiamore than likely related to her end-stage renal disease, no signs or symptoms of bleeding. Continue to follow. Subjective Pt is continuing to not have any urinary symptoms or chest pain. Overnight did pretty well, but was not able to eat throughout the day yesterday, or this morning. She continues to not want to eat. and is unsure a what point this would have started given initial lethargy upon presentation. Is a little lethargic this morning; had some low glucose this morning responded to glucopaste, had no symptomatic developement of these low sugars. Has had maintained rates in the mid 70s without prolonged relapses into Atrial fibrillation Review of Systems Constitutional: + daytime sleepiness; no fever, no sweats and no weakness Respiratory: no cough, no chest congestion and no dyspnea Cardiovascular: no chest pain, no dyspnea on exertion, no palpitations and no edema Gastrointestinal: + constipation; no abdominal pain, no nausea and no vomiting Genitourinary: + urinary hesitancy; no dysuria, no nocturia and no hematuria Physical Exam Constitutional: well developed, well nourished, + frail appearing and + lethargic Eyes: PERRL and EOM intact bilaterally Respiratory: normal respiratory effort; no respiratory distress Auscultation: lungs clear to auscultation bilaterally; no crackles, no rales and no wheezes Cardiovascular: Rate/Rhythm: regular rate; + abnormal rhythm (consistently in Afib, with rate in the 70s) Heart Sounds: normal S1 and normal S2; no gallop, no murmur and no cardiac rub Extremities: no pedal edema Gastrointestinal (Abdomen): Inspection/Auscultation: abdomen normal to inspection; abdomen not distended Percussion/Palpation: abdomen soft; abdomen nontender, no guarding and no hepatosplenomegaly Results & Data Vital Signs (Past 12 Hours) Vital Signs Temp Pulse Pulse Resp BP Pulse Ox 11/21/18 06:52 36.6 C 69 19 157/58 H 97 11/21/18 03:40 36.5 C 71 18 134/54 L 97 11/20/18 23:19 37.1 C 71 17 143/58 H 95 11/20/18 22:21 76 11/20/18 19:14 36.9 C 75 18 154/65 H 94 Laboratory Results 11/21/18 11/21/18 11/21/18 Range/Units 06:45 06:29 06:11 WBC (4.8-10.8) K/uL RBC (4.2-5.4) M/uL Hgb (12.0-16.0) g/dL Hct (37-47) % MCV (80-100) fL MCH (25-34) pg MCHC (32-36) g/dL RDW Std Deviation (36.4-46.3) fL RDW Coeff of Sathya (11.5-14.5) % Plt Count (130-400) K/uL MPV (7.4-10.4) fL Immature Gran % (Auto) % Neut % (Auto) % Lymph % (Auto) % [place] % (Auto) % Eos % (Auto) % Baso % (Auto) % Immature Gran # (Auto) (0.00-0.02) K/uL Neut # (Auto) (1.4-6.5) K/uL Lymph # (Auto) (1.2-3.4) K/uL [place] # (Auto) (0.11-0.59) K/uL Eos # (Auto) (0-0.5) K/uL Baso # (Auto) (0-0.2) K/uL PT (9.0-12.0) Seconds INR (0.9-1.1) Sodium (136-145) mmol/L Potassium (3.5-5.1) mmol/L Chloride (98-107) mmol/L Carbon Dioxide (21-32) mmol/L Anion Gap (3-11) BUN (7-18) mg/dl Creatinine (0.6-1.2) mg/dl Est Cr Clr Drug Dosing ml/min Est GFR ( Amer) Est GFR (Non-Af Amer) BUN/Creatinine Ratio (10-20) Glucose (70-99) mg/dl POC Glucose 102 H 66 L* 58 L* (70-99) Calcium (8.5-10.1) mg/dl Free T4 (0.8-1.6) ng/dl Hep Bs Antigen (Neg) Hep Bs Antibody Hep Bs Antibody, Quant (>or=10mIU/mL Immune) mIU/mL Blood Type Blood Type Recheck Antibody Screen Crossmatch 11/21/18 11/21/18 11/21/18 Range/Units 05:52 05:17 05:17 WBC 12.99 H (4.8-10.8) K/uL RBC 3.63 L (4.2-5.4) M/uL Hgb 10.4 L (12.0-16.0) g/dL Hct 30.5 L (37-47) % MCV 84.0 (80-100) fL MCH 28.7 (25-34) pg MCHC 34.1 (32-36) g/dL RDW Std Deviation 49.8 H (36.4-46.3) fL RDW Coeff of Sathya 16.1 H (11.5-14.5) % Plt Count 367 (130-400) K/uL MPV 9.8 (7.4-10.4) fL Immature Gran % (Auto) 0.7 % Neut % (Auto) 71.7 % Lymph % (Auto) 17.4 % [place] % (Auto) 8.5 % Eos % (Auto) 1.5 % Baso % (Auto) 0.2 % Immature Gran # (Auto) 0.09 H (0.00-0.02) K/uL Neut # (Auto) 9.31 H (1.4-6.5) K/uL Lymph # (Auto) 2.26 (1.2-3.4) K/uL [place] # (Auto) 1.10 H (0.11-0.59) K/uL Eos # (Auto) 0.20 (0-0.5) K/uL Baso # (Auto) 0.03 (0-0.2) K/uL PT 10.5 (9.0-12.0) Seconds INR 1.0 (0.9-1.1) Sodium (136-145) mmol/L Potassium (3.5-5.1) mmol/L Chloride (98-107) mmol/L Carbon Dioxide (21-32) mmol/L Anion Gap (3-11) BUN (7-18) mg/dl Creatinine (0.6-1.2) mg/dl Est Cr Clr Drug Dosing ml/min Est GFR ( Amer) Est GFR (Non-Af Amer) BUN/Creatinine Ratio (10-20) Glucose (70-99) mg/dl POC Glucose 53 L* (70-99) Calcium (8.5-10.1) mg/dl Free T4 (0.8-1.6) ng/dl Hep Bs Antigen (Neg) Hep Bs Antibody Hep Bs Antibody, Quant (>or=10mIU/mL Immune) mIU/mL Blood Type Blood Type Recheck Antibody Screen Crossmatch 11/21/18 11/20/18 11/20/18 Range/Units 05:17 20:29 16:20 WBC (4.8-10.8) K/uL RBC (4.2-5.4) M/uL Hgb (12.0-16.0) g/dL Hct (37-47) % MCV (80-100) fL MCH (25-34) pg MCHC (32-36) g/dL RDW Std Deviation (36.4-46.3) fL RDW Coeff of Sathya (11.5-14.5) % Plt Count (130-400) K/uL MPV (7.4-10.4) fL Immature Gran % (Auto) % Neut % (Auto) % Lymph % (Auto) % [place] % (Auto) % Eos % (Auto) % Baso % (Auto) % Immature Gran # (Auto) (0.00-0.02) K/uL Neut # (Auto) (1.4-6.5) K/uL Lymph # (Auto) (1.2-3.4) K/uL [place] # (Auto) (0.11-0.59) K/uL Eos # (Auto) (0-0.5) K/uL Baso # (Auto) (0-0.2) K/uL PT (9.0-12.0) Seconds INR (0.9-1.1) Sodium 139 (136-145) mmol/L Potassium 3.7 D (3.5-5.1) mmol/L Chloride 106 (98-107) mmol/L Carbon Dioxide 23 (21-32) mmol/L Anion Gap 10.0 (3-11) BUN 43 H (7-18) mg/dl Creatinine 3.35 H D (0.6-1.2) mg/dl Est Cr Clr Drug Dosing 12.1 ml/min Est GFR ( Amer) 14.3 Est GFR (Non-Af Amer) 12.3 BUN/Creatinine Ratio 12.7 (10-20) Glucose 54 L (70-99) mg/dl POC Glucose 86 78 (70-99) Calcium 8.5 (8.5-10.1) mg/dl Free T4 1.32 (0.8-1.6) ng/dl Hep Bs Antigen (Neg) Hep Bs Antibody Hep Bs Antibody, Quant (>or=10mIU/mL Immune) mIU/mL Blood Type Blood Type Recheck Antibody Screen Crossmatch 11/20/18 11/20/18 11/20/18 Range/Units 11:29 09:58 09:58 WBC (4.8-10.8) K/uL RBC (4.2-5.4) M/uL Hgb (12.0-16.0) g/dL Hct (37-47) % MCV (80-100) fL MCH (25-34) pg MCHC (32-36) g/dL RDW Std Deviation (36.4-46.3) fL RDW Coeff of Sathya (11.5-14.5) % Plt Count (130-400) K/uL MPV (7.4-10.4) fL Immature Gran % (Auto) % Neut % (Auto) % Lymph % (Auto) % [place] % (Auto) % Eos % (Auto) % Baso % (Auto) % Immature Gran # (Auto) (0.00-0.02) K/uL Neut # (Auto) (1.4-6.5) K/uL Lymph # (Auto) (1.2-3.4) K/uL [place] # (Auto) (0.11-0.59) K/uL Eos # (Auto) (0-0.5) K/uL Baso # (Auto) (0-0.2) K/uL PT (9.0-12.0) Seconds INR (0.9-1.1) Sodium (136-145) mmol/L Potassium (3.5-5.1) mmol/L Chloride (98-107) mmol/L Carbon Dioxide (21-32) mmol/L Anion Gap (3-11) BUN (7-18) mg/dl Creatinine (0.6-1.2) mg/dl Est Cr Clr Drug Dosing ml/min Est GFR ( Amer) Est GFR (Non-Af Amer) BUN/Creatinine Ratio (10-20) Glucose (70-99) mg/dl POC Glucose 141 H (70-99) Calcium (8.5-10.1) mg/dl Free T4 (0.8-1.6) ng/dl Hep Bs Antigen Neg (Neg) Hep Bs Antibody Non-Immune Hep Bs Antibody, Quant < 3.10 L (>or=10mIU/mL Immune) mIU/mL Blood Type A Negative Blood Type Recheck Antibody Screen NEGATIVE Crossmatch See Detail 11/20/18 11/19/18 Range/Units 07:42 04:18 WBC (4.8-10.8) K/uL RBC (4.2-5.4) M/uL Hgb (12.0-16.0) g/dL Hct (37-47) % MCV (80-100) fL MCH (25-34) pg MCHC (32-36) g/dL RDW Std Deviation (36.4-46.3) fL RDW Coeff of Sathya (11.5-14.5) % Plt Count (130-400) K/uL MPV (7.4-10.4) fL Immature Gran % (Auto) % Neut % (Auto) % Lymph % (Auto) % [place] % (Auto) % Eos % (Auto) % Baso % (Auto) % Immature Gran # (Auto) (0.00-0.02) K/uL Neut # (Auto) (1.4-6.5) K/uL Lymph # (Auto) (1.2-3.4) K/uL [place] # (Auto) (0.11-0.59) K/uL Eos # (Auto) (0-0.5) K/uL Baso # (Auto) (0-0.2) K/uL PT (9.0-12.0) Seconds INR (0.9-1.1) Sodium (136-145) mmol/L Potassium (3.5-5.1) mmol/L Chloride (98-107) mmol/L Carbon Dioxide (21-32) mmol/L Anion Gap (3-11) BUN (7-18) mg/dl Creatinine (0.6-1.2) mg/dl Est Cr Clr Drug Dosing ml/min Est GFR ( Amer) Est GFR (Non-Af Amer) BUN/Creatinine Ratio (10-20) Glucose (70-99) mg/dl POC Glucose 126 H (70-99) Calcium (8.5-10.1) mg/dl Free T4 (0.8-1.6) ng/dl Hep Bs Antigen (Neg) Hep Bs Antibody Hep Bs Antibody, Quant (>or=10mIU/mL Immune) mIU/mL Blood Type Blood Type Recheck A Negative Antibody Screen Crossmatch Medications Administered Current Inpatient Medications Albuterol (Ventolin 0.083% 2.5mg/3ml) 2.5 mg NEB Q6R PRN PRN Reason: Shortness Of Breath Stop: 12/18/18 22:02 Aspirin (Ecotrin Ectab) 81 mg PO DAILY [facility] Stop: 12/19/18 08:59 Last Admin: 11/20/18 08:20 Dose: 81 mg Documented by: Atorvastatin Calcium (Lipitor) 20 mg PO QAM [facility] Stop: 12/19/18 08:59 Last Admin: 11/20/18 08:17 Dose: 20 mg Documented by: Clopidogrel Bisulfate (Plavix) 75 mg PO DAILY [facility] Stop: 12/19/18 08:59 Last Admin: 11/20/18 08:18 Dose: 75 mg Documented by: Dextrose (Dextrose 50%) 25 - 50 ml IV UD PRN; Protocol PRN Reason: Hypoglycemia Protocol Stop: 12/18/18 21:58 Docusate Sodium (Colace) 200 mg PO QAM PRN PRN Reason: Constipation Stop: 12/18/18 21:35 Epoetin Gilberto (Procrit) 10,000 units IV TODAY@0700 [facility] Stop: 11/21/18 16:00 Famotidine (Pepcid) 20 mg PO HS [facility] Stop: 12/19/18 20:59 Last Admin: 11/20/18 20:14 Dose: 20 mg Documented by: Ferrous Sulfate (Feosol) 325 mg PO BIDM [facility] Stop: 12/19/18 07:59 Last Admin: 11/20/18 16:22 Dose: 325 mg Documented by: Glucagon (Glucagen) 1 mg SQ UD PRN; Protocol PRN Reason: Hypoglycemia Protocol Stop: 12/18/18 21:58 Last Admin: 11/21/18 06:33 Dose: 1 mg Documented by: Glucose (Glucose 40%) 15 - 30 gm PO UD PRN; Protocol PRN Reason: Hypoglycemia Protocol Stop: 12/18/18 21:58 Last Admin: 11/21/18 06:14 Dose: 15 gm Documented by: Glucose (Dex4 Glucose) 4 - 8 tabs PO UD PRN; Protocol PRN Reason: Hypoglycemia Protocol Stop: 12/18/18 21:58 Sodium Chloride (Nss 1000ml) 1,000 mls @ 60 mls/hr IV .[id number] [facility] Stop: 12/20/18 06:59 Last Infusion: 11/20/18 15:00 Dose: 0 mls/hr Documented by: Sodium Chloride (Nss) 250 mls @ 15 mls/hr IV .[id number] PRN PRN Reason: For Transfusion Stop: 12/20/18 09:40 Sodium Chloride (Nss 1000ml) 1,000 mls @ 0 mls/hr IV .Q0M PRN PRN Reason: For Hemodialysis Use ONLY Stop: 11/21/18 12:59 Insulin Aspart (Novolog Flexpen) 0 units SC ACHS [facility] Stop: 12/19/18 07:29 Last Admin: 11/20/18 21:14 Dose: Not Given Documented by: Insulin Glargine (Lantus Solostar Pen) 18 units SQ HS [facility] Stop: 12/21/18 20:59 Levothyroxine Sodium (Synthroid) 100 mcg PO DAILYBB [facility] Stop: 12/19/18 06:29 Last Admin: 11/21/18 05:58 Dose: 100 mcg Documented by: Miscellaneous (Carbohydrates For Hypoglycemia) 15 - 30 gm PO UD PRN PRN Reason: Hypoglycemia Treatment Stop: 12/18/18 21:58 Last Admin: 11/21/18 05:56 Dose: 30 gm Documented by: Morphine Sulfate (Morphine Sulfate) 2 mg IV Q6H PRN PRN Reason: Chest Pain Stop: 12/03/18 16:28 Ondansetron HCl (Zofran) 4 mg IV Q4H PRN PRN Reason: Nausea Stop: 12/18/18 21:42 Last Admin: 11/19/18 14:44 Dose: 4 mg Documented by: Ondansetron HCl (Zofran Odt) 4 mg PO Q4H PRN PRN Reason: Nausea Stop: 12/20/18 20:06 Pantoprazole Sodium (Protonix) 40 mg PO DAILY [facility] Stop: 12/19/18 08:59 Last Admin: 11/20/18 08:16 Dose: 40 mg Documented by: Psyllium Hydrophilic Mucilloid (Metamucil) 1 pkt PO Q48H PRN PRN Reason: CONSTIPATION Stop: 12/18/18 21:59 Sodium Bicarbonate (Sodium Bicarbonate) 650 mg PO TID [facility] Stop: 12/19/18 08:59 Last Admin: 11/20/18 20:14 Dose: 650 mg Documented by: PG Care Time/CCT Total # of Minutes Spent Total Time Spent with Patient: Total time spent is greater than 50% in coordination of care (as documented) at patient's floor/unit and/or counseling patient: Resident Activity Tracking Resident Involvement: Resident Care Provided Care Provided: Adult [facility] Medicine
[2018-11-21] MEDS: PANTOprazole 40 MG TAB PO SCH (08:12)
[2018-11-21] MEDS: SODIUM BICARBONATE 650 MG TAB PO SCH (08:12)
[2018-11-21] MEDS: CLOPIDOGREL BISULFATE 75 MG TAB PO SCH (08:13)
[2018-11-21] MEDS: ASPIRIN 81 MG ECTAB PO SCH (08:13)
[2018-11-21] MEDS: ATORVASTATIN 20 MG TAB PO SCH (08:13)
[2018-11-21] MEDS: INSULIN ASPART 100 UNITS/ML 3 ML PEN SC SCH ×4 (08:14→20:54)
[2018-11-21] MEDS: FERROUS SULFATE 325 MG TAB PO SCH (08:14)
[2018-11-21] MEDS: SODIUM CHLORIDE 0.9% 1000ML 1,000 ML IV SCH (09:25)
--- NOTE | 2018-11-21 09:26 | Nephrology Progress Note ---
Date of Service November 21, 2018 Assessment & Plan (1) Chronic kidney disease, stage IV (severe): -- 1st HD treatment completed yesterday without complications -- Orders for second treatment have been entered into the EMR for today -- AVF with Qb 200 yesterday, access pressure acceptable -- Volume status acceptable -- Medications are appropriately dosed for kidney function (2) CAD (coronary artery disease): (3) HTN (hypertension), benign: (4) Diabetes mellitus: (5) CHF (congestive heart failure): -- Volume status appears acceptable -- Diuretics held -- Renal diet (6) Iron deficiency anemia: -- No signs of bleeding -- Adequate response to PRBC x 2 yesterday -- Epogen with HD today Subjective No acute events overnight. Jessenia was sleeping comfortably in bed this morning. She tolerated HD without complications. AF with RVR observed on tele following treatment. Jessenia denies any associated symptoms. She feels well this morning. Appetite remains poor. Review of Systems Review of Systems: All systems reviewed & are unremarkable except as noted in HPI & below Physical Exam Constitutional: + frail appearing; no acute distress Eyes: no scleral abnormality and no corneal abnormality ENMT: Mouth: no oral mucosal abnormality and oral mucous membranes not dry Neck: normal visual inspection and trachea midline Respiratory: normal respiratory effort; no labored breathing Cardiovascular: Heart Sounds: normal S1, normal S2 and + murmur; no cardiac rub Extremities: + AV fistula; no edema Gastrointestinal (Abdomen): Percussion/Palpation: abdomen soft; abdomen nontender Musculoskeletal: Extremities: no cyanosis and no clubbing Skin: normal turgor; no rashes Neurologic: Motor/Sensory: no tremor and no asterixis Psychiatric: Orientation: alert and oriented x 3 Results & Data Vital Signs (Past 12 Hours) Vital Signs Temp Pulse Pulse Resp BP Pulse Ox 11/21/18 06:52 36.6 C 69 19 157/58 H 97 11/21/18 03:40 36.5 C 71 18 134/54 L 97 11/20/18 23:19 37.1 C 71 17 143/58 H 95 11/20/18 22:21 76 Laboratory Results Laboratory Results - last 24 hr 11/19/18 11/20/18 11/20/18 04:18 09:58 09:58 WBC RBC Hgb Hct MCV MCH MCHC RDW Std Deviation RDW Coeff of Sathya Plt Count MPV Immature Gran % (Auto) Neut % (Auto) Lymph % (Auto) [place] % (Auto) Eos % (Auto) Baso % (Auto) Immature Gran # (Auto) Neut # (Auto) Lymph # (Auto) [place] # (Auto) Eos # (Auto) Baso # (Auto) PT INR Sodium Potassium Chloride Carbon Dioxide Anion Gap BUN Creatinine Est Cr Clr Drug Dosing Est GFR ( Amer) Est GFR (Non-Af Amer) BUN/Creatinine Ratio Glucose POC Glucose Calcium Free T4 Hep Bs Antigen Neg Hep Bs Antibody Non-Immune Hep Bs Antibody, Quant < 3.10 L Blood Type A Negative Blood Type Recheck A Negative Antibody Screen NEGATIVE Crossmatch See Detail 11/20/18 11/20/18 11/20/18 11:29 16:20 20:29 WBC RBC Hgb Hct MCV MCH MCHC RDW Std Deviation RDW Coeff of Sathya Plt Count MPV Immature Gran % (Auto) Neut % (Auto) Lymph % (Auto) [place] % (Auto) Eos % (Auto) Baso % (Auto) Immature Gran # (Auto) Neut # (Auto) Lymph # (Auto) [place] # (Auto) Eos # (Auto) Baso # (Auto) PT INR Sodium Potassium Chloride Carbon Dioxide Anion Gap BUN Creatinine Est Cr Clr Drug Dosing Est GFR ( Amer) Est GFR (Non-Af Amer) BUN/Creatinine Ratio Glucose POC Glucose 141 H 78 86 Calcium Free T4 Hep Bs Antigen Hep Bs Antibody Hep Bs Antibody, Quant Blood Type Blood Type Recheck Antibody Screen Crossmatch 11/21/18 11/21/18 11/21/18 05:17 05:17 05:17 WBC 12.99 H RBC 3.63 L Hgb 10.4 L Hct 30.5 L MCV 84.0 MCH 28.7 MCHC 34.1 RDW Std Deviation 49.8 H RDW Coeff of Sathya 16.1 H Plt Count 367 MPV 9.8 Immature Gran % (Auto) 0.7 Neut % (Auto) 71.7 Lymph % (Auto) 17.4 [place] % (Auto) 8.5 Eos % (Auto) 1.5 Baso % (Auto) 0.2 Immature Gran # (Auto) 0.09 H Neut # (Auto) 9.31 H Lymph # (Auto) 2.26 [place] # (Auto) 1.10 H Eos # (Auto) 0.20 Baso # (Auto) 0.03 PT 10.5 INR 1.0 Sodium 139 Potassium 3.7 D Chloride 106 Carbon Dioxide 23 Anion Gap 10.0 BUN 43 H Creatinine 3.35 H D Est Cr Clr Drug Dosing 12.1 Est GFR ( Amer) 14.3 Est GFR (Non-Af Amer) 12.3 BUN/Creatinine Ratio 12.7 Glucose 54 L POC Glucose Calcium 8.5 Free T4 1.32 Hep Bs Antigen Hep Bs Antibody Hep Bs Antibody, Quant Blood Type Blood Type Recheck Antibody Screen Crossmatch 11/21/18 11/21/18 11/21/18 05:52 06:11 06:29 WBC RBC Hgb Hct MCV MCH MCHC RDW Std Deviation RDW Coeff of Sathya Plt Count MPV Immature Gran % (Auto) Neut % (Auto) Lymph % (Auto) [place] % (Auto) Eos % (Auto) Baso % (Auto) Immature Gran # (Auto) Neut # (Auto) Lymph # (Auto) [place] # (Auto) Eos # (Auto) Baso # (Auto) PT INR Sodium Potassium Chloride Carbon Dioxide Anion Gap BUN Creatinine Est Cr Clr Drug Dosing Est GFR ( Amer) Est GFR (Non-Af Amer) BUN/Creatinine Ratio Glucose POC Glucose 53 L* 58 L* 66 L* Calcium Free T4 Hep Bs Antigen Hep Bs Antibody Hep Bs Antibody, Quant Blood Type Blood Type Recheck Antibody Screen Crossmatch 11/21/18 11/21/18 06:45 07:33 WBC RBC Hgb Hct MCV MCH MCHC RDW Std Deviation RDW Coeff of Sathya Plt Count MPV Immature Gran % (Auto) Neut % (Auto) Lymph % (Auto) [place] % (Auto) Eos % (Auto) Baso % (Auto) Immature Gran # (Auto) Neut # (Auto) Lymph # (Auto) [place] # (Auto) Eos # (Auto) Baso # (Auto) PT INR Sodium Potassium Chloride Carbon Dioxide Anion Gap BUN Creatinine Est Cr Clr Drug Dosing Est GFR ( Amer) Est GFR (Non-Af Amer) BUN/Creatinine Ratio Glucose POC Glucose 102 H 152 H Calcium Free T4 Hep Bs Antigen Hep Bs Antibody Hep Bs Antibody, Quant Blood Type Blood Type Recheck Antibody Screen Crossmatch PG Care Time/CCT Total # of Minutes Spent Total Time Spent with Patient: Total time spent is greater than 50% in coordination of care (as documented) at patient's floor/unit and/or counseling patient:
[2018-11-21] MEDS ORDERED: EPOETIN ALFA 4,000 UNIT/ML VIAL IV SCH (10:00)
[2018-11-21] MEDS ORDERED: WARFARIN SOD 5 MG TAB PO SCH (16:00)
--- NOTE | 2018-11-21 17:14 | Cardiology Progress Note ---
Date of Service November 21, 2018 Assessment & Plan (1) Atrial fibrillation, new onset: Based on her son's description she likely had atrial fibrillation prior to her presentation at [facility] but it was not documented, probably converting before evaluation. Now she has had recurrence which is well documented. It is still relatively brief (2-1/2 hours) but it is fairly rapid even though asymptomatic. These episodes are conceivably related to her illness, although the recurrence is worrisome and she may have paroxysmal atrial fibrillation. Since she is asymptomatic we may not be aware of it even if she has had it historically. We may have to consider anticoagulation. I would continue to monitor for now, we are going to have to be careful with rate control since she had bradycardia before. (2) CAD (coronary artery disease): She does have coronary artery disease, she probably should be treated with platelet inhibitors but with dialysis the role of aspirin, Plavix and a anticoagulant she is not having needs to be evaluated carefully. Symptoms suggestive of ischemia. (3) SSS (sick sinus syndrome): She has sick sinus syndrome with atrial fibrillation with rapid heart rates and sinus pauses, off of negative chronotropic medications her sinus rate is adequate. If we need to use much in way of rate controlling medications for her atrial fibrillation we will likely need a pacemaker as back-up. Hopefully we can avoid it. I would continue to observe. Subjective Yesterday after dialysis she had about 2-1/2 hours of atrial fibrillation with a rapid heart rate. She then converted back to sinus rhythm and has remained. In talking to her son her heart was fast and irregular prior to her arrival in the hospital and she likely had atrial fibrillation then but I do not believe it was documented. Her and her family they are not aware of her carrying that diagnosis. She is feeling well now at the time of my evaluation and was not aware of the arrhythmia. Physical Exam Physical Exam: Constitutional: Alert, cooperative and in no distress. HEENT: Unremarkable Neck: No jugular venous distention, carotid pulses are normal and equal bilaterally without bruits. Pulmonary: Clear to auscultation bilaterally. Cardiac: Regular rhythm with no murmur, gallop or rub. Abdomen: Soft, nontender with normal bowel sounds. Extremities: No edema. Distal pulses intact. Left hemodialysis site patent. Neurologic: No focal findings. Gait is steady. Skin: No rash, ecchymoses or petechiae. Results & Data Vital Signs (Past 12 Hours) Vital Signs Temp Pulse Pulse Pulse Resp BP BP 11/21/18 15:28 36.6 C 77 18 163/50 H 11/21/18 13:25 36.5 C 78 152/71 H 11/21/18 12:40 74 148/70 H 11/21/18 12:20 63 156/65 H 11/21/18 12:00 72 131/62 11/21/18 11:40 72 141/61 H 11/21/18 11:20 72 147/59 H 11/21/18 11:00 70 139/53 L 11/21/18 10:40 69 140/61 11/21/18 10:20 69 124/57 L 11/21/18 10:03 69 122/56 L 11/21/18 09:58 36.4 C L 70 11/21/18 06:52 36.6 C 69 19 157/58 H Pulse Ox 11/21/18 15:28 97 11/21/18 13:25 11/21/18 12:40 11/21/18 12:20 11/21/18 12:00 11/21/18 11:40 11/21/18 11:20 11/21/18 11:00 11/21/18 10:40 11/21/18 10:20 11/21/18 10:03 11/21/18 09:58 11/21/18 06:52 97 Diagnostic Findings Telemetry: 2-1/2 hours of atrial fibrillation identified with rapid heart rate, averaging around 120 bpm. It started prior to being put back on telemetry (I believe right after dialysis), it terminated with a pause. PG Care Time/CCT Total # of Minutes Spent Total Time Spent with Patient: Total time spent is greater than 50% in coordination of care (as documented) at patient's floor/unit and/or counseling patient:
[2018-11-21] MEDS: FAMOTIDINE 20 MG TAB PO SCH (20:55)
[2018-11-21] MEDS ORDERED: INSULIN GLARGINE SOLOSTAR 100 UNITS/ML 3 ML PEN SQ SCH (21:00)
[2018-11-22] MEDS ORDERED: CLINDAMYCIN 600 MG/54 ML BAG IV SCH (06:00)
[2018-11-22 06:21] LABS: Basophils # (auto) 0.03 K/uL (0-0.2); Basophils % (auto) 0.3 %; Eosinophils # (auto) 0.22 K/uL (0-0.5); Eosinophils % (auto) 2.2 %; Hematocrit (blood only) 35.1 % (37-47); Hemoglobin 11.4 g/dL (12.0-16.0); Immature Granulocytes # (auto) 0.06 K/uL (0.00-0.02); Immature Granulocytes % (auto) 0.6 %; Lymphocytes # (auto) 1.71 K/uL (1.2-3.4); Lymphocytes % (auto) 16.9 %; Mean Corpuscular Hemoglobin 27.7 pg (25-34); Mean Corpuscular Hgb Conc 32.5 g/dL (32-36); Mean Corpuscular Volume 85.4 fL (80-100); Mean Platelet Volume 10.2 fL (7.4-10.4); Monocytes # (auto) 1.01 K/uL (0.11-0.59); Neutrophils # (auto) 7.09 K/uL (1.4-6.5); Platelet Count 357 K/uL (130-400); RDW Coefficient of Variation 15.9 % (11.5-14.5); RDW Standard Deviation 49.8 fL (36.4-46.3); Red Blood Count 4.11 M/uL (4.2-5.4); White Blood Count 10.12 K/uL (4.8-10.8)
[2018-11-22] MEDS ORDERED: METOPROLOL TARTRATE 25 MG TAB PO STA (06:22)
[2018-11-22 06:27] LABS: INR 1.1 (0.9-1.1); Prothrombin Time 11.1 Seconds (9.0-12.0)
[2018-11-22] MEDS: LEVOTHYROXINE SODIUM 100 MCG TABLET PO SCH (06:51)
[2018-11-22] MEDS ORDERED: SODIUM CHLORIDE 0.9% 1000ML 1,000 ML IV PRN (07:00)
[2018-11-22 07:06] LABS: BUN Creatinine Ratio 9.4 (10-20); Calcium 8.4 mg/dl (8.5-10.1); Creatinine Clr Calc Pharmacy 16.8 ml/min; Est GFR (African American) 21.4; Est GFR (Non-African American) 18.4; Potassium 3.7 mmol/L (3.5-5.1)
[2018-11-22] MEDS: ATORVASTATIN 20 MG TAB PO SCH (07:41)
[2018-11-22] MEDS: PANTOprazole 40 MG TAB PO SCH (07:41)
[2018-11-22] MEDS: CLOPIDOGREL BISULFATE 75 MG TAB PO SCH (07:42)
[2018-11-22] MEDS: ASPIRIN 81 MG ECTAB PO SCH (07:42)
[2018-11-22] MEDS: INSULIN ASPART 100 UNITS/ML 3 ML PEN SC SCH ×4 (07:43→20:44)
--- NOTE | 2018-11-22 10:44 | Nephrology Progress Note ---
Date of Service November 22, 2018 Assessment & Plan (1) Chronic kidney disease, stage IV (severe): -- 1st HD treatment completed 11/20/18 without complications -- 2nd treatment completed yesterday -- Jessenia is tolerating her 3rd treatment today, next treatment is scheduled for Tuesday (she has a chair time for outpatient if discharged) -- AVF with Qb which is acceptable, access pressures are acceptable -- Volume status appropriate -- Medications are appropriately dosed for kidney function (2) CAD (coronary artery disease): (3) HTN (hypertension), benign: (4) Diabetes mellitus: (5) CHF (congestive heart failure): -- Volume status appears acceptable -- Diuretics held -- Renal diet (6) Iron deficiency anemia: -- No signs of bleeding -- Adequate response to PRBC x 2 11/20 -- Epogen with HD yesterday (7) Atrial fibrillation, new onset: -- Coumadin started this admission -- Cardiology following -- Patient states that she has been asymptomatic Subjective Continue to have episodes of AF/RVR followed by some pauses on tele overnight. September states that she has been asymptomatic. She feels reasonably well. She was seen and evaluated during hemodiaylsis today. She is tolerating treatment well. Appetite slightly improved but remains poor. Review of Systems Review of Systems: All systems reviewed & are unremarkable except as noted in HPI & below Physical Exam Constitutional: + frail appearing; no acute distress Eyes: no scleral abnormality and no corneal abnormality ENMT: Mouth: no oral mucosal abnormality and oral mucous membranes not dry Neck: normal visual inspection and trachea midline Respiratory: normal respiratory effort; no labored breathing Auscultation: + rales (few basilar) Cardiovascular: Heart Sounds: normal S1, normal S2 and + murmur; no cardiac rub Extremities: + AV fistula; no edema Gastrointestinal (Abdomen): Percussion/Palpation: abdomen soft; abdomen nontender Musculoskeletal: Extremities: no cyanosis and no clubbing Skin: normal turgor; no rashes Neurologic: Motor/Sensory: no tremor and no asterixis Psychiatric: Orientation: alert and oriented x 3 Results & Data Vital Signs (Past 12 Hours) Vital Signs Temp Pulse Pulse Pulse Resp BP BP 11/22/18 10:20 94 H 121/62 11/22/18 10:00 83 133/56 L 11/22/18 09:40 86 135/56 L 11/22/18 09:20 100 H 136/70 11/22/18 09:02 37.0 C 82 82 149/66 H 11/22/18 07:14 36.6 C 84 17 135/64 11/22/18 06:15 36.8 C 129 H 18 158/77 H 11/22/18 03:31 37.0 C 76 17 160/53 H 11/21/18 23:55 37.0 C 78 18 153/45 H Pulse Ox 11/22/18 10:20 11/22/18 10:00 11/22/18 09:40 11/22/18 09:20 11/22/18 09:02 11/22/18 07:14 96 11/22/18 06:15 94 11/22/18 03:31 95 11/21/18 23:55 92 Laboratory Results Laboratory Results - last 24 hr 11/21/18 11/21/18 11/21/18 11:23 16:24 20:10 WBC RBC Hgb Hct MCV MCH MCHC RDW Std Deviation RDW Coeff of Sathya Plt Count MPV Immature Gran % (Auto) Neut % (Auto) Lymph % (Auto) [place] % (Auto) Eos % (Auto) Baso % (Auto) Immature Gran # (Auto) Neut # (Auto) Lymph # (Auto) [place] # (Auto) Eos # (Auto) Baso # (Auto) PT INR Sodium Potassium Chloride Carbon Dioxide Anion Gap BUN Creatinine Est Cr Clr Drug Dosing Est GFR ( Amer) Est GFR (Non-Af Amer) BUN/Creatinine Ratio Glucose POC Glucose 125 H 86 118 H Calcium 11/22/18 11/22/18 11/22/18 03:34 06:03 06:03 WBC 10.12 RBC 4.11 L Hgb 11.4 L Hct 35.1 L MCV 85.4 MCH 27.7 MCHC 32.5 RDW Std Deviation 49.8 H RDW Coeff of Sathya 15.9 H Plt Count 357 MPV 10.2 Immature Gran % (Auto) 0.6 Neut % (Auto) 70.0 Lymph % (Auto) 16.9 Riley % (Auto) 10.0 Eos % (Auto) 2.2 Baso % (Auto) 0.3 Immature Gran # (Auto) 0.06 H Neut # (Auto) 7.09 H Lymph # (Auto) 1.71 Riley # (Auto) 1.01 H Eos # (Auto) 0.22 Baso # (Auto) 0.03 PT INR Sodium 140 Potassium 3.7 Chloride 107 Carbon Dioxide 27 Anion Gap 6.0 BUN 23 H Creatinine 2.40 H D Est Cr Clr Drug Dosing 16.8 Est GFR ( Amer) 21.4 Est GFR (Non-Af Amer) 18.4 BUN/Creatinine Ratio 9.4 L Glucose 101 H POC Glucose 111 H Calcium 8.4 L 11/22/18 11/22/18 11/22/18 06:03 06:17 07:27 WBC RBC Hgb Hct MCV MCH MCHC RDW Std Deviation RDW Coeff of Sathya Plt Count MPV Immature Gran % (Auto) Neut % (Auto) Lymph % (Auto) [place] % (Auto) Eos % (Auto) Baso % (Auto) Immature Gran # (Auto) Neut # (Auto) Lymph # (Auto) [place] # (Auto) Eos # (Auto) Baso # (Auto) PT 11.1 INR 1.1 Sodium Potassium Chloride Carbon Dioxide Anion Gap BUN Creatinine Est Cr Clr Drug Dosing Est GFR ( Amer) Est GFR (Non-Af Amer) BUN/Creatinine Ratio Glucose POC Glucose 93 97 Calcium PG Care Time/CCT Total # of Minutes Spent Total Time Spent with Patient: Total time spent is greater than 50% in coordination of care (as documented) at patient's floor/unit and/or counseling patient:
--- NOTE | 2018-11-22 17:21 | Family Medicine Progress Note ---
Date of Service November 22, 2018 Assessment & Plan (1) Complicated UTI (urinary tract infection): was probably never true infection - hindsight suggests that AMS was uremia mediated (plus or minus effects of tachybrady) off abx doing well (2) Chest heaviness: -Presenting complaint to [facility]. -Cardiac workup including multiple EKGs and troponins negative for cardiac origin of pain per cardiology consult. -no subsequent episodes/events (3) CAD (coronary artery disease): -Hx CAD with 2 stents placed -Maintained on aspirin 81mg and clopidogrel 75 mg. (4) Chronic kidney disease, stage V: -Not yet qualified for hemodialysis but may in near future. -Follows with Dr. Beltran. Per his note, Cr and electrolytes currently stable. (5) Chronic diastolic CHF (congestive heart failure): -Echo in 07/2018 showed LVEF 65-70%, mod pulm regurg, mod bruno regurg, Grade II diastolic dysfunction -Aortic atherosclerosis without stenosis. (6) Atrial fibrillation, new onset: -recurrent episode this AM, received 25mg of metoprolol; had three episodes of greater than 3 sec pauses of electrical activity -cardiology placing pacemaker in AM -holding Coumadin 5mg daily for pacemaker placement in AM (7) HTN (hypertension), benign: -Pt has had runs of hypotension during stay here. -Held hydralazine, amlodipine, and carvedilol (8) Anemia of chronic disease: -Consider EPO once complicated UTI and kidney function stabilize. -Consider B12 and folate levels to assess mixed iron deficiency/ACD. (9) GERD (gastroesophageal reflux disease): -Continue on home pantoprazole and famotidine. (10) Hyperlipidemia: -continue atorvastatin (11) Hypothyroidism: -continue levothyroxine Supervising Physician Co-Signing Physician Notes I personally examined the patient and verified all munson points of history and exam, discussed case, and agree with decision making with Dr Sykes. feeling good overall. d/w cardiology and agree pacer tomorrow appears warranted Vitals noted, in general she is awake and alert pleasant no distress. HEENT normocephalic atraumatic mucous membranes moist. Breathing unlabored no accessory muscle use good effort. Abdomen is soft nondistended nontender no masses organomegaly. Extremities show no cyanosis. No focal neuro deficits. Chest painappears to have been noncardiac. End-stage renal disease and uremiaappears to be the main problem currently, doing well w initial run of HD Poor oral intake/concern on acute protein/calorie malnutritionencouraged oral intake, cow rider consult, low threshold to start appetite stimulant if intake doesn't improve in next ~1-2wks Question of urinary tract infectiongrew a common pelvic floor christel, no urinary symptoms, no clear septic signs or symptoms. Abnormal urine almost certainly r elated to end-stage renal disease, cultures are just a colonization/pelvic floor bacteria. No further antibiotics. 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 Does seem to be overall improved New onset atrial fibrillationsee above. for pacer, which will facilitate easier rate control without risk of ellie/pauses. DVT prophylaxisinitiating anticoagulation for afib Anemiamore than likely related to her end-stage renal disease, no signs or symptoms of bleeding. Continue to follow. Subjective Pt had recurrence of A. fib this AM, received metoprolol with return to baseline; subsequently had three episodes of greater than 3sec pauses of electrical activity, but remained asymptomatic throughout these episodes. Feels like she is doing well, and has had some increased appetite over this time. Review of Systems Constitutional: no fever, no chills and no sweats Eyes: no diplopia, no eye pain and no loss of peripheral vision Respiratory: no cough, no dyspnea and no snoring Cardiovascular: no chest pain, no palpitations, no syncope and no edema Gastrointestinal: no abdominal pain, no nausea, no vomiting and no change in bowel habits Physical Exam Constitutional: well developed, well nourished, + frail appearing and + lethargic Eyes: PERRL and EOM intact bilaterally Respiratory: normal respiratory effort; no respiratory distress Auscultation: lungs clear to auscultation bilaterally; no crackles, no rales and no wheezes Cardiovascular: Rate/Rhythm: regular rate; + abnormal rhythm (consistently in Afib, with rate in the 70s) Heart Sounds: normal S1 and normal S2; no gallop, no murmur and no cardiac rub Extremities: no pedal edema Gastrointestinal (Abdomen): Inspection/Auscultation: abdomen normal to inspection and normal bowel sounds; abdomen not distended Percussion/Palpation: abdomen soft and + abdominal mass; abdomen nontender, no guarding and no hepatosplenomegaly Results & Data Vital Signs (Past 12 Hours) Vital Signs Temp Pulse Pulse Pulse Pulse Pulse Pulse 11/22/18 16:40 89 11/22/18 15:41 36.7 C 74 11/22/18 13:38 77 71 72 11/22/18 12:07 37.1 C 89 89 11/22/18 12:00 92 H 11/22/18 11:40 85 11/22/18 11:20 92 H 11/22/18 11:00 82 11/22/18 10:40 82 11/22/18 10:20 94 H 11/22/18 10:00 83 11/22/18 09:40 86 11/22/18 09:20 100 H 11/22/18 09:02 37.0 C 82 82 11/22/18 07:14 36.6 C 84 11/22/18 06:15 36.8 C 129 H Resp Resp Resp Resp BP BP Pulse Ox 11/22/18 16:40 11/22/18 15:41 18 148/60 H 93 11/22/18 13:38 18 16 16 11/22/18 12:07 131/64 131/64 11/22/18 12:00 135/52 L 11/22/18 11:40 139/71 11/22/18 11:20 145/57 H 11/22/18 11:00 113/42 L 11/22/18 10:40 124/56 L 11/22/18 10:20 121/62 11/22/18 10:00 133/56 L 11/22/18 09:40 135/56 L 11/22/18 09:20 136/70 11/22/18 09:02 149/66 H 11/22/18 07:14 17 135/64 96 11/22/18 06:15 18 158/77 H 94 Pulse Ox Pulse Ox Pulse Ox 11/22/18 16:40 11/22/18 15:41 11/22/18 13:38 95 95 95 11/22/18 12:07 11/22/18 12:00 11/22/18 11:40 11/22/18 11:20 11/22/18 11:00 11/22/18 10:40 11/22/18 10:20 11/22/18 10:00 11/22/18 09:40 11/22/18 09:20 11/22/18 09:02 11/22/18 07:14 11/22/18 06:15 Laboratory Results 11/22/18 11/22/18 11/22/18 Range/Units 16:29 07:27 06:17 WBC (4.8-10.8) K/uL RBC (4.2-5.4) M/uL Hgb (12.0-16.0) g/dL Hct (37-47) % MCV (80-100) fL MCH (25-34) pg MCHC (32-36) g/dL RDW Std Deviation (36.4-46.3) fL RDW Coeff of Sathya (11.5-14.5) % Plt Count (130-400) K/uL MPV (7.4-10.4) fL Immature Gran % (Auto) % Neut % (Auto) % Lymph % (Auto) % [place] % (Auto) % Eos % (Auto) % Baso % (Auto) % Immature Gran # (Auto) (0.00-0.02) K/uL Neut # (Auto) (1.4-6.5) K/uL Lymph # (Auto) (1.2-3.4) K/uL [place] # (Auto) (0.11-0.59) K/uL Eos # (Auto) (0-0.5) K/uL Baso # (Auto) (0-0.2) K/uL PT (9.0-12.0) Seconds INR (0.9-1.1) Sodium (136-145) mmol/L Potassium (3.5-5.1) mmol/L Chloride (98-107) mmol/L Carbon Dioxide (21-32) mmol/L Anion Gap (3-11) BUN (7-18) mg/dl Creatinine (0.6-1.2) mg/dl Est Cr Clr Drug Dosing ml/min Est GFR ( Amer) Est GFR (Non-Af Amer) BUN/Creatinine Ratio (10-20) Glucose (70-99) mg/dl POC Glucose 182 H 97 93 (70-99) Calcium (8.5-10.1) mg/dl 11/22/18 11/22/18 11/22/18 Range/Units 06:03 06:03 06:03 WBC 10.12 (4.8-10.8) K/uL RBC 4.11 L (4.2-5.4) M/uL Hgb 11.4 L (12.0-16.0) g/dL Hct 35.1 L (37-47) % MCV 85.4 (80-100) fL MCH 27.7 (25-34) pg MCHC 32.5 (32-36) g/dL RDW Std Deviation 49.8 H (36.4-46.3) fL RDW Coeff of Sathya 15.9 H (11.5-14.5) % Plt Count 357 (130-400) K/uL MPV 10.2 (7.4-10.4) fL Immature Gran % (Auto) 0.6 % Neut % (Auto) 70.0 % Lymph % (Auto) 16.9 % [place] % (Auto) 10.0 % Eos % (Auto) 2.2 % Baso % (Auto) 0.3 % Immature Gran # (Auto) 0.06 H (0.00-0.02) K/uL Neut # (Auto) 7.09 H (1.4-6.5) K/uL Lymph # (Auto) 1.71 (1.2-3.4) K/uL [place] # (Auto) 1.01 H (0.11-0.59) K/uL Eos # (Auto) 0.22 (0-0.5) K/uL Baso # (Auto) 0.03 (0-0.2) K/uL PT 11.1 (9.0-12.0) Seconds INR 1.1 (0.9-1.1) Sodium 140 (136-145) mmol/L Potassium 3.7 (3.5-5.1) mmol/L Chloride 107 (98-107) mmol/L Carbon Dioxide 27 (21-32) mmol/L Anion Gap 6.0 (3-11) BUN 23 H (7-18) mg/dl Creatinine 2.40 H D (0.6-1.2) mg/dl Est Cr Clr Drug Dosing 16.8 ml/min Est GFR ( Amer) 21.4 Est GFR (Non-Af Amer) 18.4 BUN/Creatinine Ratio 9.4 L (10-20) Glucose 101 H (70-99) mg/dl POC Glucose (70-99) Calcium 8.4 L (8.5-10.1) mg/dl 11/22/18 11/21/18 Range/Units 03:34 20:10 WBC (4.8-10.8) K/uL RBC (4.2-5.4) M/uL Hgb (12.0-16.0) g/dL Hct (37-47) % MCV (80-100) fL MCH (25-34) pg MCHC (32-36) g/dL RDW Std Deviation (36.4-46.3) fL RDW Coeff of Sathya (11.5-14.5) % Plt Count (130-400) K/uL MPV (7.4-10.4) fL Immature Gran % (Auto) % Neut % (Auto) % Lymph % (Auto) % [place] % (Auto) % Eos % (Auto) % Baso % (Auto) % Immature Gran # (Auto) (0.00-0.02) K/uL Neut # (Auto) (1.4-6.5) K/uL Lymph # (Auto) (1.2-3.4) K/uL [place] # (Auto) (0.11-0.59) K/uL Eos # (Auto) (0-0.5) K/uL Baso # (Auto) (0-0.2) K/uL PT (9.0-12.0) Seconds INR (0.9-1.1) Sodium (136-145) mmol/L Potassium (3.5-5.1) mmol/L Chloride (98-107) mmol/L Carbon Dioxide (21-32) mmol/L Anion Gap (3-11) BUN (7-18) mg/dl Creatinine (0.6-1.2) mg/dl Est Cr Clr Drug Dosing ml/min Est GFR ( Amer) Est GFR (Non-Af Amer) BUN/Creatinine Ratio (10-20) Glucose (70-99) mg/dl POC Glucose 111 H 118 H (70-99) Calcium (8.5-10.1) mg/dl Medications Administered Current Inpatient Medications Albuterol (Ventolin 0.083% 2.5mg/3ml) 2.5 mg NEB Q6R PRN PRN Reason: Shortness Of Breath Stop: 12/18/18 22:02 Aspirin (Ecotrin Ectab) 81 mg PO DAILY [facility] Stop: 12/19/18 08:59 Last Admin: 11/22/18 07:42 Dose: 81 mg Documented by: Atorvastatin Calcium (Lipitor) 20 mg PO QAM [facility] Stop: 12/19/18 08:59 Last Admin: 11/22/18 07:41 Dose: 20 mg Documented by: Clopidogrel Bisulfate (Plavix) 75 mg PO DAILY [facility] Stop: 12/19/18 08:59 Last Admin: 11/22/18 07:42 Dose: 75 mg Documented by: Dextrose (Dextrose 50%) 25 - 50 ml IV UD PRN; Protocol PRN Reason: Hypoglycemia Protocol Stop: 12/18/18 21:58 Docusate Sodium (Colace) 200 mg PO QAM PRN PRN Reason: Constipation Stop: 12/18/18 21:35 Famotidine (Pepcid) 20 mg PO HS [facility] Stop: 12/19/18 20:59 Last Admin: 11/21/18 20:55 Dose: 20 mg Documented by: Ferrous Sulfate (Feosol) 325 mg PO BIDM [facility] Stop: 12/19/18 07:59 Last Admin: 11/21/18 08:14 Dose: 325 mg Documented by: Glucagon (Glucagen) 1 mg SQ UD PRN; Protocol PRN Reason: Hypoglycemia Protocol Stop: 12/18/18 21:58 Last Admin: 11/21/18 06:33 Dose: 1 mg Documented by: Glucose (Glucose 40%) 15 - 30 gm PO UD PRN; Protocol PRN Reason: Hypoglycemia Protocol Stop: 12/18/18 21:58 Last Admin: 11/21/18 06:14 Dose: 15 gm Documented by: Glucose (Dex4 Glucose) 4 - 8 tabs PO UD PRN; Protocol PRN Reason: Hypoglycemia Protocol Stop: 12/18/18 21:58 Sodium Chloride (Nss) 250 mls @ 15 mls/hr IV .[id number] PRN PRN Reason: For Transfusion Stop: 12/20/18 09:40 Insulin Aspart (Novolog Flexpen) 0 units SC ACHS [facility] Stop: 12/19/18 07:29 Last Admin: 11/22/18 14:06 Dose: Not Given Documented by: Insulin Glargine (Lantus Solostar Pen) 18 units SQ HS [facility] Stop: 12/21/18 20:59 Last Admin: 11/21/18 20:51 Dose: 18 units Documented by: Levothyroxine Sodium (Synthroid) 100 mcg PO DAILYBB [facility] Stop: 12/19/18 06:29 Last Admin: 11/22/18 06:51 Dose: 100 mcg Documented by: Miscellaneous (Carbohydrates For Hypoglycemia) 15 - 30 gm PO UD PRN PRN Reason: Hypoglycemia Treatment Stop: 12/18/18 21:58 Last Admin: 11/21/18 05:56 Dose: 30 gm Documented by: Morphine Sulfate (Morphine Sulfate) 2 mg IV Q6H PRN PRN Reason: Chest Pain Stop: 12/03/18 16:28 Ondansetron HCl (Zofran) 4 mg IV Q4H PRN PRN Reason: Nausea Stop: 12/18/18 21:42 Last Admin: 11/19/18 14:44 Dose: 4 mg Documented by: Ondansetron HCl (Zofran Odt) 4 mg PO Q4H PRN PRN Reason: Nausea Stop: 12/20/18 20:06 Pantoprazole Sodium (Protonix) 40 mg PO DAILY [facility] Stop: 12/19/18 08:59 Last Admin: 11/22/18 07:41 Dose: 40 mg Documented by: Psyllium Hydrophilic Mucilloid (Metamucil) 1 pkt PO Q48H PRN PRN Reason: CONSTIPATION Stop: 12/18/18 21:59 Warfarin Sodium (Coumadin) 5 mg PO DAILY@1600 [facility] Stop: 12/21/18 15:59 Last Admin: 11/21/18 16:53 Dose: 5 mg Documented by: PG Care Time/CCT Total # of Minutes Spent Total Time Spent with Patient: Total time spent is greater than 50% in coordination of care (as documented) at patient's floor/unit and/or counseling patient: Resident Activity Tracking Resident Involvement: Resident Care Provided Care Provided: Adult Hospital Medicine
[2018-11-22] MEDS ORDERED: LACTATED RINGER'S 1,000 ML IV SCH (17:45)
--- NOTE | 2018-11-22 18:06 | Cardiology Progress Note ---
Date of Service November 22, 2018 Assessment & Plan (1) Atrial fibrillation, new onset: Based on her son's description she likely had atrial fibrillation prior to her presentation at [facility] but it was not documented, it probably converting before evaluation. Now she has had recurrence which is well documented. It is was relatively brief several days ago was but it is fairly rapid even though asymptomatic. These episodes are conceivably related to her illness, although the recurrence is worrisome and I suspect she has paroxysmal atrial fibrillation other times. Since she is asymptomatic we may not be aware of it even if she has had it historically. We need to consider anticoagulation. The rate is fast enough we are going to have to increase her rate controlling medications which will most likely cause bradycardia as she already has pauses and has had bradycardia in the past. (2) CAD (coronary artery disease): She does have coronary artery disease, she probably should be treated with platelet inhibitors but with dialysis the role of aspirin, Plavix and a anticoagulant needs to be evaluated carefully. She does not have symptoms suggestive of ischemia. (3) SSS (sick sinus syndrome): She has sick sinus syndrome with atrial fibrillation with rapid heart rates and sinus pauses, off of negative chronotropic medications her sinus rate is adequate. At this point with recurrent atrial fibrillation at rapid heart rates and the need for additional rate controlling medications I think we need bradycardia back-up. She will need a pacemaker. I discussed the indications, procedure, risks and alternatives with her and her family who are present at the bedside this evening. They understand and she agrees to proceed. Consent obtained. I also discussed sedation with her and she agrees. Consent obtained. Subjective She feels well and has no complaints today. When I came by earlier today she was in dialysis, this evening she is back from dialysis and although she was in atrial fibrillation today does not recall it and evidently did not feel it. Physical Exam Physical Exam: Constitutional: Alert, cooperative and in no distress. HEENT: Unremarkable Neck: No jugular venous distention, carotid pulses are normal and equal bilaterally without bruits. Pulmonary: Clear to auscultation bilaterally. Cardiac: Regular rhythm with no murmur, gallop or rub. Abdomen: Soft, nontender with normal bowel sounds. Extremities: No edema. Distal pulses intact. Left hemodialysis site patent. Neurologic: No focal findings. Gait is steady. Skin: No rash, ecchymoses or petechiae. Results & Data Vital Signs (Past 12 Hours) Vital Signs Temp Pulse Pulse Pulse Pulse Pulse Pulse 11/22/18 16:40 89 11/22/18 15:41 36.7 C 74 11/22/18 13:38 77 71 72 11/22/18 12:07 37.1 C 89 89 11/22/18 12:00 92 H 11/22/18 11:40 85 11/22/18 11:20 92 H 11/22/18 11:00 82 11/22/18 10:40 82 11/22/18 10:20 94 H 11/22/18 10:00 83 11/22/18 09:40 86 11/22/18 09:20 100 H 11/22/18 09:02 37.0 C 82 82 11/22/18 07:14 36.6 C 84 11/22/18 06:15 36.8 C 129 H Resp Resp Resp Resp BP BP Pulse Ox 11/22/18 16:40 11/22/18 15:41 18 148/60 H 93 11/22/18 13:38 18 16 16 11/22/18 12:07 131/64 131/64 11/22/18 12:00 135/52 L 11/22/18 11:40 139/71 11/22/18 11:20 145/57 H 11/22/18 11:00 113/42 L 11/22/18 10:40 124/56 L 11/22/18 10:20 121/62 11/22/18 10:00 133/56 L 11/22/18 09:40 135/56 L 11/22/18 09:20 136/70 11/22/18 09:02 149/66 H 11/22/18 07:14 17 135/64 96 11/22/18 06:15 18 158/77 H 94 Pulse Ox Pulse Ox Pulse Ox 11/22/18 16:40 11/22/18 15:41 11/22/18 13:38 95 95 95 11/22/18 12:07 11/22/18 12:00 11/22/18 11:40 11/22/18 11:20 11/22/18 11:00 11/22/18 10:40 11/22/18 10:20 11/22/18 10:00 11/22/18 09:40 11/22/18 09:20 11/22/18 09:02 11/22/18 07:14 11/22/18 06:15 Diagnostic Findings Telemetry: She developed atrial fibrillation at around 6 AM, this continued through dialysis (I assume, she was off of the monitor) and afterwards went back on the monitor until around 1 PM today. The rate was rapid, around 120 bpm. There were also pauses when she converted from atrial fibrillation approaching about 4 seconds in duration and this occurred several times. PG Care Time/CCT Total # of Minutes Spent Total Time Spent with Patient: Total time spent is greater than 50% in coordination of care (as documented) at patient's floor/unit and/or counseling patient:
[2018-11-22] MEDS: INSULIN GLARGINE SOLOSTAR 100 UNITS/ML 3 ML PEN SC SCH (20:43)
[2018-11-22] MEDS: FAMOTIDINE 20 MG TAB PO SCH (20:45)
[2018-11-23] MEDS: LACTATED RINGER'S 1,000 ML IV SCH (05:31)
[2018-11-23] MEDS: LEVOTHYROXINE SODIUM 100 MCG TABLET PO SCH (05:31)
[2018-11-23] MEDS ORDERED: CLINDAMYCIN 600 MG in DEXTROSE 5% 50 ML IV SCH (06:00)
[2018-11-23] MEDS ORDERED: fentaNYL citrate 100 MCG/2 ML VIAL ONE (07:44)
[2018-11-23] MEDS ORDERED: MIDAZOLAM HCL 5 MG/ML 1 ML VIAL ONE (07:45)
[2018-11-23] MEDS: ONDANSETRON INJ 2 MG/ML 2 ML VIAL IV PRN (07:52)
[2018-11-23] MEDS: INSULIN ASPART 100 UNITS/ML 3 ML PEN SC SCH ×4 (07:52→20:42)
--- NOTE | 2018-11-23 07:55 | History & Physical Bridge Note ---
Date of Service November 23, 2018 History & Physical Bridge Note I have examined the patient, reviewed the History & Physical and in the interval since the performance of the History & Physical I have noted the following changes of clinical significance: no changes noted.
--- NOTE | 2018-11-23 07:58 | Pre Anesthesia Assessment ---
Date of Service November 23, 2018 Pre Sedation Assessment Vital Signs Temp Pulse Pulse Pulse Pulse Pulse Pulse 11/23/18 07:47 36.9 C 100 H 11/23/18 03:50 37.1 C 78 11/22/18 23:21 37.2 C 73 11/22/18 19:39 37.2 C 75 11/22/18 16:40 89 11/22/18 15:41 36.7 C 74 11/22/18 13:38 77 71 72 11/22/18 12:07 37.1 C 89 89 11/22/18 12:00 92 H 11/22/18 11:40 85 11/22/18 11:20 92 H 11/22/18 11:00 82 11/22/18 10:40 82 11/22/18 10:20 94 H 11/22/18 10:00 83 11/22/18 09:40 86 11/22/18 09:20 100 H 11/22/18 09:02 37.0 C 82 82 Resp Resp Resp Resp BP BP Pulse Ox 11/23/18 07:47 18 182/75 H 97 11/23/18 03:50 18 184/65 H 94 11/22/18 23:21 18 160/54 H 94 11/22/18 19:39 16 178/61 H 91 11/22/18 16:40 11/22/18 15:41 18 148/60 H 93 11/22/18 13:38 18 16 16 11/22/18 12:07 131/64 131/64 11/22/18 12:00 135/52 L 11/22/18 11:40 139/71 11/22/18 11:20 145/57 H 11/22/18 11:00 113/42 L 11/22/18 10:40 124/56 L 11/22/18 10:20 121/62 11/22/18 10:00 133/56 L 11/22/18 09:40 135/56 L 11/22/18 09:20 136/70 11/22/18 09:02 149/66 H Pulse Ox Pulse Ox Pulse Ox 11/23/18 07:47 11/23/18 03:50 11/22/18 23:21 11/22/18 19:39 11/22/18 16:40 11/22/18 15:41 11/22/18 13:38 95 95 95 11/22/18 12:07 11/22/18 12:00 11/22/18 11:40 11/22/18 11:20 11/22/18 11:00 11/22/18 10:40 11/22/18 10:20 11/22/18 10:00 11/22/18 09:40 11/22/18 09:20 11/22/18 09:02 Cardiovascular + regular rhythm Respiratory normal respiratory effort, lungs clear to auscultation Pre-Sedation Airway Assessment Smoking Status: Never smoker Hx Sleep Apnea: No Hx Difficult Intubation: No Short, Thick Neck: No Thyromental Distance: < 3.5 Finger Breadths Mallampati Class: II ASA: ASA3 NPO Status Date of Last Intake of Fluids: 11/22/18 Date of Last Intake of Solid Food: 11/22/18 Procedure Planning Contraindications for Sedation: none Current Medications Reviewed: Yes Notes The planned sedation has been discussed with the patient. Informed Consent was obtained. I have identified the patient, determined the appropriateness of sedation and have assessed the patient immediately prior to the procedure. All medicine(s) and interventions are by my order.
[2018-11-23] MEDS ORDERED: LIDOCAINE HCL 1% 20 ML VIAL ONE (08:59)
[2018-11-23] MEDS ORDERED: BACITRACIN OINT 0.9 GM PKT ONE ×3 (09:50→16:11)
[2018-11-23] MEDS ORDERED: ACETAMINOPHEN 325 MG TAB PO PRN (10:15)
[2018-11-23] MEDS ORDERED: ACETAMINOPHEN W/CODEINE #3 1 TAB PO PRN (10:15)
--- NOTE | 2018-11-23 10:15 | Operative Report ---
Post Operative Report Pre & Post Diagnosis Operation Date: 11/23/18 08:00 Preoperative diagnosis: Sick sinus syndrome Postoperative diagnosis: Same Procedure Operation Date: 11/23/18 08:00 Actual Procedures p Pacer with A/V Leads (Dual) - Mian Carrasquillo MD Surgeon Mian Carrasquillo MD Sales Lead None Estimated Blood Loss 30 Findings Consistent with Post-Op Diagnosis Specimens None Anesthesia Type Local Complications none Description of Procedure After obtaining informed consent for the procedure, the patient was brought to the laboratory and prepped and draped in the standard sterile manner. The right prepectoral region was anesthetized with 1% lidocaine local anesthetic and right axillary venipuncture was performed by percutaneous technique and a guidewire placed through the right subclavian vein into the superior vena cava. The area was further infiltrated with 1% lidocaine local anesthetic and a 5 cm incision was made parallel to the right clavicle and 2 cm below it and carried down to the anterior pectoralis fascia. A pacemaker pocket was formed by blunt dissection anterior to the pectoralis fascia and a bacitracin-soaked sponge (50,000 units in 50 cc normal saline solution) was placed in the pocket. An 8 [place] Medtronic lead introducer was placed over the guidewire into the right subclavian vein, the dilator and guidewire were removed and a bipolar active fixation steroid tipped ventricular lead was advanced through the introducer into the superior vena cava. A guidewire was placed through the introducer and the introducer was stripped from the lead and guidewire. Another 8 [place] Medtronic lead introducer was placed over the guidewire into the right subclavian vein, the dilator and guidewire were removed and a bipolar active fixation steroid tipped atrial lead was advanced through the introducer into the superior vena cava. A guidewire was placed back through the introducer and the introducer was stripped from the lead and guidewire. Using a curved stylette the ventricular lead was advanced through the right ventricular outflow tract into the pulmonary artery and then using a straight st ylette was positioned in the right ventricular apex. The screw was extended fixing the lead in position. Pacing and sensing thresholds were evaluated in bipolar configuration and are recorded on the implant data sheet. Using a curved stylette the atrial lead was positioned in the region of the atrial appendage and the screw extended fixing the lead in position. Pacing and sensing thresholds were evaluated in bipolar configuration and are recorded on the implant data sheet. Once the leads were in position they were attached to the anterior pectoralis fascia using 2 sutures of 2-0 silk around each lead collar. The bacitracin- soaked sponge was removed from the pocket, hemostasis was obtained including the use of Fadi in the pocket, the pacemaker was attached to the leads and placed in the pocket with the leads coiled beneath it and inside a Tyrx pouch. The incision was closed with a running double subcutaneous closure of 3-0 V-Lock absorbable suture, followed by running subcuticular skin closure of 4-0 V-Lock absorbable suture. Bacitracin ointment was placed on the incision and a pressure dressing applied. I attest to the content of the Intraoperative Record and any orders documented therein. Any exceptions are noted below.
--- NOTE | 2018-11-23 10:22 | Post Anesthesia Assessment ---
Date of Service November 23, 2018 Post Sedation Assessment Vital Signs Temp Pulse Pulse Pulse Pulse Pulse Pulse 11/23/18 07:47 36.9 C 100 H 11/23/18 03:50 37.1 C 78 11/22/18 23:21 37.2 C 73 11/22/18 19:39 37.2 C 75 11/22/18 16:40 89 11/22/18 15:41 36.7 C 74 11/22/18 13:38 77 71 72 11/22/18 12:07 37.1 C 89 89 11/22/18 12:00 92 H 11/22/18 11:40 85 11/22/18 11:20 92 H 11/22/18 11:00 82 11/22/18 10:40 82 Resp Resp Resp Resp BP BP Pulse Ox 11/23/18 07:47 18 182/75 H 97 11/23/18 03:50 18 184/65 H 94 11/22/18 23:21 18 160/54 H 94 11/22/18 19:39 16 178/61 H 91 11/22/18 16:40 11/22/18 15:41 18 148/60 H 93 11/22/18 13:38 18 16 16 11/22/18 12:07 131/64 131/64 11/22/18 12:00 135/52 L 11/22/18 11:40 139/71 11/22/18 11:20 145/57 H 11/22/18 11:00 113/42 L 11/22/18 10:40 124/56 L Pulse Ox Pulse Ox Pulse Ox 11/23/18 07:47 11/23/18 03:50 11/22/18 23:21 11/22/18 19:39 11/22/18 16:40 11/22/18 15:41 11/22/18 13:38 95 95 95 11/22/18 12:07 11/22/18 12:00 11/22/18 11:40 11/22/18 11:20 11/22/18 11:00 11/22/18 10:40 Recovery Score Activity: Moves 4 extremities Consciousness: Fully Awake Oxygen Saturation: > 92% On Room Air Discharge Sedation Level of Care: Fast Track Phase II Post Sedation Plan On clinical assessment, the patient appears to have tolerated the sedation without complications. Patient is recovering as anticipated. Patient will continue to be monitored by nursing and may be discharged when sedation discharge criteria are met per below protocol. Upon Completions of procedure and additional 15 minutes continue every 5 minute vital signs and the P.A.R. score; then discharge to a Phase I or Fast Track to Phase II per the following guidelines: * Discharge Patient to appropriate Phase II area if PAR is 8 or greater or return to pre- procedure baseline. The post - procedure orders will be as directed. * If PAR score is less than 8 or not return to pre-procedure baseline then patient will follow Phase I monitoring till PAR is reached for Phase II. The Phase I may be done in procedure room or may call to secure a Phase I area. * If naloxone or flumazenil are used for reversal, hold in Phase I for continued monitoring from when last reversal dose was given for a minimum of 60 minutes or longer pending the nurse and/or physician discretion of patient condition before discharge to Phase II. Please call the Sedation Physician to re-evaluate and complete post-note for discharge to Phase II area. Do NOT discharge from procedure sedation or Phase 1 until post- sedation neva luation note is complete by procedure /sedation MD Sedation Discharge Instructions to be given to the patient at discharge to home.
[2018-11-23] MEDS: CARVEDILOL 12.5 MG TAB PO SCH ×2 (10:57→20:43)
[2018-11-23] MEDS: PANTOprazole 40 MG TAB PO SCH (10:57)
[2018-11-23] MEDS: ASPIRIN 81 MG ECTAB PO SCH (10:57)
[2018-11-23] MEDS: ATORVASTATIN 20 MG TAB PO SCH (10:58)
[2018-11-23] MEDS: CLOPIDOGREL BISULFATE 75 MG TAB PO SCH (10:58)
--- NOTE | 2018-11-23 12:11 | Nephrology Progress Note ---
Date of Service November 23, 2018 Assessment & Plan (1) Chronic kidney disease, stage IV (severe): End-stage renal disease, new start on hemodialysis 1st dialysis treatment was on 11/20/18 without complications. Had 3rd treatment on 11/22/2018. She was found to have sick sinus syndrome and getting pacemaker on 11/23/2018. -- hemodialysis tomorrow, (she has a chair time for outpatient dialysis at [facility] if discharged) -- AVF with Qb which is acceptable, access pressures are acceptable -- Volume status appropriate -- Medications are appropriately dosed for kidney function Will follow (2) CAD (coronary artery disease): (3) HTN (hypertension), benign: (4) Diabetes mellitus: (5) CHF (congestive heart failure): -- Volume status appears acceptable -- Diuretics held -- Renal diet (6) Iron deficiency anemia: -- No signs of bleeding -- Adequate response to PRBC x 2 11/20 -- Epogen with HD yesterday (7) Atrial fibrillation, new onset: -- Coumadin started this admission -- Cardiology following -- Patient states that she has been asymptomatic Subjective Patient left for pacemaker placement. Labs and vital signs are reviewed, discussed with patient's nurse. Results & Data Vital Signs (Past 12 Hours) Vital Signs Temp Pulse Pulse Resp BP Pulse Ox 11/23/18 11:00 69 16 154/60 H 96 11/23/18 10:45 69 16 154/56 H 96 11/23/18 10:30 36.6 C 71 16 140/55 L 93 11/23/18 07:47 36.9 C 100 H 18 182/75 H 97 11/23/18 03:50 37.1 C 78 18 184/65 H 94 PG Care Time/CCT Total # of Minutes Spent Total Time Spent with Patient: Total time spent is greater than 50% in coordination of care (as documented) at patient's floor/unit and/or counseling patient:
--- NOTE | 2018-11-23 13:19 | Family Medicine Progress Note ---
Date of Service November 23, 2018 Assessment & Plan (1) Complicated UTI (urinary tract infection): with hindsight, likely no infections at play whatsoever (2) Chest heaviness: -Presenting complaint to [facility]. -Cardiac workup including multiple EKGs and troponins negative for cardiac origin of pain per cardiology consult. -no subsequent episodes/events (3) CAD (coronary artery disease): -Hx CAD with 2 stents placed -Maintained on aspirin 81mg and clopidogrel 75 mg. (4) Chronic kidney disease, stage V: -Not yet qualified for hemodialysis but may in near future. -Follows with Dr. Beltran. Per his note, Cr and electrolytes currently stable. (5) Chronic diastolic CHF (congestive heart failure): -Echo in 07/2018 showed LVEF 65-70%, mod pulm regurg, mod bruno regurg, Grade II diastolic dysfunction -Aortic atherosclerosis without stenosis. (6) Atrial fibrillation, new onset: -recurrent episode this AM, received 25mg of metoprolol; had three episodes of greater than 3 sec pauses of electrical activity -holding Coumadin 5mg daily at this time -pacemaker placed 11/23 (7) HTN (hypertension), benign: -Pt has had runs of hypotension during stay here. -Held hydralazine, amlodipine, and carvedilol (8) Anemia of chronic disease: -Consider EPO once complicated UTI and kidney function stabilize. -Consider B12 and folate levels to assess mixed iron deficiency/ACD. (9) GERD (gastroesophageal reflux disease): -Continue on home pantoprazole and famotidine. (10) Hyperlipidemia: -continue atorvastatin (11) Hypothyroidism: -continue levothyroxine Supervising Physician Co-Signing Physician Notes I personally examined the patient and verified all munson points of history and exam, discussed case, and agree with decision making with Dr Sykes. sleeping comfortably. d/w cardiology through the day Vitals noted, in general she is in no distress. HEENT normocephalic atraumatic mucous membranes moist. Breathing unlabored no accessory muscle use good effort. No focal neuro deficits at rest Chest painappears to have been noncardiac. End-stage renal disease and uremiadoing well w HD. next treatment tomorrow. Poor oral intake/concern on acute protein/calorie malnutritionongoing attempts to bolster PO intake, low threshold to start appetite stimulant if intake doesn't improve in next ~1-2wks Question of urinary tract infectiongrew a common pelvic floor christel, no urinary symptoms, no clear septic signs or symptoms. Abnormal urine almost certainly related to end-stage renal disease, cultures are just a colonization/pelvic floor bacteria. No further antibiotics. 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 Does seem to be overall improved New onset atrial fibrillationnow s/p pacer, continue rate control DVT prophylaxisinitiating anticoagulation for afib Anemiamore than likely related to her end-stage renal disease, no signs or symptoms of bleeding. Continue to follow. Subjective Pt is feeling much better today following placement of her pacemaker; looking forward to going home when she is cleared. Family at bedside, aware that she will need to be monitored for changes overnight given the pacemaker. Wanting to undergo dialysis here tomorrow since her first appointment with outpatient is early tomorrow and she would not be able to make it to that appointment in time, given the needed time for observation here tonight before discharge. Review of Systems Constitutional: no fever, no chills and no weakness Eyes: no diplopia and no worsening vision Respiratory: no cough, no dyspnea and no pain on inspiration Cardiovascular: no chest pain, no palpitations, no lightheadedness, no syncope and no edema Gastrointestinal: + nausea and + constipation; no abdominal pain and no vomiting Genitourinary: + decreased urination; no hematuria Physical Exam Constitutional: well developed, well nourished, + frail appearing and + lethargic Eyes: PERRL and EOM intact bilaterally Respiratory: normal respiratory effort; no respiratory distress Auscultation: lungs clear to auscultation bilaterally; no crackles, no rales and no wheezes Cardiovascular: Rate/Rhythm: regular rate and + tachycardic (in sinus tach overnight per telemetry) Heart Sounds: normal S1 and normal S2; no gallop, no murmur and no cardiac rub Extremities: no pedal edema Results & Data Vital Signs (Past 12 Hours) Vital Signs Temp Pulse Pulse Resp BP Pulse Ox 11/23/18 12:30 58 L 16 130/57 L 98 11/23/18 12:00 65 16 131/58 L 98 11/23/18 11:30 67 16 151/58 H 97 11/23/18 11:00 69 16 154/60 H 96 11/23/18 10:45 69 16 154/56 H 96 11/23/18 10:30 36.6 C 71 16 140/55 L 93 11/23/18 07:47 36.9 C 100 H 18 182/75 H 97 11/23/18 03:50 37.1 C 78 18 184/65 H 94 Laboratory Results 11/23/18 11/23/18 11/23/18 Range/Units 11:40 07:14 03:49 POC Glucose 152 H 149 H 165 H (70-99) 11/22/18 11/22/18 Range/Units 20:43 16:29 POC Glucose 138 H 182 H (70-99) Medications Administered Current Inpatient Medications Acetaminophen (Tylenol) 650 mg PO Q4H PRN PRN Reason: Mild pain (rating 1,2,3) Stop: 12/23/18 10:14 Acetaminophen/Codeine Phosphate (Tylenol W/Codeine #3) 1 - 2 tab PO Q4H PRN PRN Reason: Moderate-Severe Pain Stop: 12/23/18 10:14 Albuterol (Ventolin 0.083% 2.5mg/3ml) 2.5 mg NEB Q6R PRN PRN Reason: Shortness Of Breath Stop: 12/18/18 22:02 Aspirin (Ecotrin Ectab) 81 mg PO DAILY [facility] Stop: 12/19/18 08:59 Last Admin: 11/23/18 10:57 Dose: 81 mg Documented by: Atorvastatin Calcium (Lipitor) 20 mg PO QAM [facility] Stop: 12/19/18 08:59 Last Admin: 11/23/18 10:58 Dose: 20 mg Documented by: Carvedilol (Coreg) 12.5 mg PO BID [facility] Stop: 12/23/18 10:29 Last Admin: 11/23/18 10:57 Dose: 12.5 mg Documented by: Clopidogrel Bisulfate (Plavix) 75 mg PO DAILY [facility] Stop: 12/19/18 08:59 Last Admin: 11/23/18 10:58 Dose: 75 mg Documented by: Dextrose (Dextrose 50%) 25 - 50 ml IV UD PRN; Protocol PRN Reason: Hypoglycemia Protocol Stop: 12/18/18 21:58 Docusate Sodium (Colace) 200 mg PO QAM PRN PRN Reason: Constipation Stop: 12/18/18 21:35 Famotidine (Pepcid) 20 mg PO HS [facility] Stop: 12/19/18 20:59 Last Admin: 11/22/18 20:45 Dose: 20 mg Documented by: Ferrous Sulfate (Feosol) 325 mg PO BIDM [facility] Stop: 12/19/18 07:59 Last Admin: 11/21/18 08:14 Dose: 325 mg Documented by: Glucagon (Glucagen) 1 mg SQ UD PRN; Protocol PRN Reason: Hypoglycemia Protocol Stop: 12/18/18 21:58 Last Admin: 11/21/18 06:33 Dose: 1 mg Documented by: Glucose (Glucose 40%) 15 - 30 gm PO UD PRN; Protocol PRN Reason: Hypoglycemia Protocol Stop: 12/18/18 21:58 Last Admin: 11/21/18 06:14 Dose: 15 gm Documented by: Glucose (Dex4 Glucose) 4 - 8 tabs PO UD PRN; Protocol PRN Reason: Hypoglycemia Protocol Stop: 12/18/18 21:58 Sodium Chloride (Nss) 250 mls @ 15 mls/hr IV .[id number] PRN PRN Reason: For Transfusion Stop: 12/20/18 09:40 Lactated Ringer's (Lr) 1,000 mls @ 15 mls/hr IV .Q24H [facility] Stop: 11/26/18 00:39 Last Admin: 11/23/18 05:31 Dose: 15 mls/hr Documented by: Clindamycin Phosphate 600 mg/ (Dextrose) 54 mls @ 108 mls/hr IV PREOP [facility] Stop: 11/23/18 15:00 Last Infusion: 11/23/18 09:35 Dose: Infused Documented by: Insulin Aspart (Novolog Flexpen) 0 units SC ACHS [facility] Stop: 12/19/18 07:29 Last Admin: 11/23/18 12:21 Dose: 1 units Documented by: Insulin Glargine (Lantus Solostar Pen) 10 units SC HS [facility]LEX Stop: 12/22/18 20:59 Last Admin: 11/22/18 20:43 Dose: 10 units Documented by: Levothyroxine Sodium (Synthroid) 100 mcg PO DAILYBB [facility] Stop: 12/19/18 06:29 Last Admin: 11/23/18 05:31 Dose: 100 mcg Documented by: Miscellaneous (Carbohydrates For Hypoglycemia) 15 - 30 gm PO UD PRN PRN Reason: Hypoglycemia Treatment Stop: 12/18/18 21:58 Last Admin: 11/21/18 05:56 Dose: 30 gm Documented by: Morphine Sulfate (Morphine Sulfate) 2 mg IV Q6H PRN PRN Reason: Chest Pain Stop: 12/03/18 16:28 Ondansetron HCl (Zofran) 4 mg IV Q4H PRN PRN Reason: Nausea Stop: 12/18/18 21:42 Last Admin: 11/23/18 07:52 Dose: 4 mg Documented by: Ondansetron HCl (Zofran Odt) 4 mg PO Q4H PRN PRN Reason: Nausea Stop: 12/20/18 20:06 Pantoprazole Sodium (Protonix) 40 mg PO DAILY [facility] Stop: 12/19/18 08:59 Last Admin: 11/23/18 10:57 Dose: 40 mg Documented by: Psyllium Hydrophilic Mucilloid (Metamucil) 1 pkt PO Q48H PRN PRN Reason: CONSTIPATION Stop: 12/18/18 21:59 Warfarin Sodium (Coumadin) 5 mg PO DAILY@1600 [facility] Stop: 12/21/18 15:59 Last Admin: 11/21/18 16:53 Dose: 5 mg Documented by: PG Care Time/CCT Total # of Minutes Spent Total Time Spent with Patient: Total time spent is greater than 50% in coordination of care (as documented) at patient's floor/unit and/or counseling patient: Resident Activity Tracking Resident Involvement: Resident Care Provided Care Provided: Adult Hospital Medicine
[2018-11-23] MEDS: INSULIN GLARGINE SOLOSTAR 100 UNITS/ML 3 ML PEN SC SCH (20:43)
[2018-11-23] MEDS: FAMOTIDINE 20 MG TAB PO SCH (20:44)
[2018-11-24] MEDS: PANTOprazole 40 MG TAB PO SCH (05:44)
[2018-11-24] MEDS: LEVOTHYROXINE SODIUM 100 MCG TABLET PO SCH (05:44)
[2018-11-24] MEDS ORDERED: AMLODIPINE BESYLATE 5 MG TAB PO ONE (06:51)
--- NOTE | 2018-11-24 07:20 | XRay Report ---
XR chest 2V routine CLINICAL HISTORY: EXACT TIME ORDERED Evaluate for pneumothorax and l COMPARISON STUDY: No previous studies for comparison. FINDINGS: Bipolar cardiac pacemaker. No evidence for pneumothorax. Minimal bibasilar atelectasis. IMPRESSION: Cardiac pacemaker in good position. No evidence for pneumothorax. The above report was generated using voice recognition software. It may contain grammatical, syntax or spelling errors. Electronically signed by: Oscar Izaguirre M.D. 11/24/2018 7:19 AM
[2018-11-24] MEDS: LACTATED RINGER'S 1,000 ML IV SCH (08:04)
[2018-11-24] MEDS: INSULIN ASPART 100 UNITS/ML 3 ML PEN SC SCH ×3 (08:05→17:23)
[2018-11-24] MEDS: ASPIRIN 81 MG ECTAB PO SCH (08:06)
[2018-11-24] MEDS: ATORVASTATIN 20 MG TAB PO SCH (08:07)
[2018-11-24] MEDS: CLOPIDOGREL BISULFATE 75 MG TAB PO SCH (08:07)
--- NOTE | 2018-11-24 08:24 | Nephrology Progress Note ---
Date of Service November 24, 2018 Assessment & Plan (1) End stage renal disease on dialysis: Jessenia Ricci is a 78-year-old female with end-stage renal disease started on dialysis during this admission. She had her 3rd dialysis treatment and av on stay and schedule for dialysis today. She was also found to have sick sinus syndrome and had pacemaker placed on 11/23/2018. --plan for dialysis today with 3 K bath via AV fistula, aim for 2 L 1 L UF. --dose medications for GFR less than 10 --Epogen with dialysis --continue on Nephrocaps and phosphate binder with meal --she has chsir time at [facility] whenever she is discharged, please notify [facility] upon discharge Will follow (2) HTN (hypertension), benign: (3) Anemia of chronic disease: (4) SSS (sick sinus syndrome): Mauricio Ruelas was seen and examined in her room this morning. She had a permanent pacemaker placed yesterday, currently feeling well except some soreness at the incision site. Blood pressure, volume status acceptable. She is due for dialysis today. Denies shortness of breath or chest pain. Appetite has been decent. Review of Systems Review of Systems: All systems reviewed & are unremarkable except as noted in HPI & below Physical Exam Constitutional: WD/WN, vitals as above no acute distress Respiratory: normal respiratory effort, lungs clear to auscultation Cardiovascular: RRR, no murmur, no edema Neurologic: moves all extremities and awake; not confused Psychiatric: A+Ox3, euthymic affect Results & Data Vital Signs (Past 12 Hours) Vital Signs Temp Pulse Pulse Pulse Resp BP Pulse Ox 11/24/18 07:25 37.0 C 64 18 150/63 H 93 11/24/18 04:00 36.8 C 71 17 166/62 H 95 11/24/18 00:00 69 11/23/18 23:40 36.6 C 70 18 158/63 H 98 11/23/18 22:45 37.3 C 72 19 183/60 H 98 PG Care Time/CCT Total # of Minutes Spent Total Time Spent with Patient: Total time spent is greater than 50% in coordination of care (as documented) at patient's floor/unit and/or counseling patient:
[2018-11-24] MEDS: CARVEDILOL 12.5 MG TAB PO SCH (12:34)
--- NOTE | 2018-11-24 13:40 | Discharge Summary ---
Date of Service November 24, 2018 Admission HPI Per Admitting Provider 78-year-old female was transferred from [facility] this evening for chest pain. On arrival, the patient seems quite tired but is quickly and easily arousable, answers questions clearly and appropriately, but quickly seems to want to go back to sleep. Therefore the majority of the history comes from her outside record. At present, she denies any plaints at all to include any chest pain, difficulty breathing, abdominal pain, or other acute concerns. She does mention that she thinks the morphine helped more with her chest pain and the nitroglycerin. She also notes she has a history of frequent UTIs but denies any urinary symptoms recently. She does think that she has had a fever recently but timing and severity is unclear. Per outside records, patient woke up around 5 AM earlier today with central chest heaviness that radiated towards her back. Associated shortness of breath, diaphoresis, and nausea without vomiting. She tried some nitroglycerin at home without any relief. She was transferred via EMS to [facility] where she underwent her initial evaluation and admission. At that time her symptoms seem to improve more with morphine than nitroglycerin. However, the patient was then transferred here because of the patient's cardiac care is apparently through this facility. - Past medical history includes hypertension, hyperlipidemia, insulin-dependent diabetes, CKD stage IV-V, GERD, Hypothyroidism, CAD, carotid stenosis, iron deficiency anemia, diverticulitis. - Past surgical history includes coronary stents x2, tonsillectomy, carotid endarterectomy in April 2018. - Social history includes denying previous tobacco use. Denies alcohol use. Lives at home with her son. Admission Exam (Per Admitting) Constitutional well developed, well nourished, + frail appearing and + lethargic Eyes PERRL and EOM intact bilaterally Respiratory normal respiratory effort; no respiratory distress Auscultation: lungs clear to auscultation bilaterally; no crackles, no rales and no wheezes Cardiovascular Rate/Rhythm: regular rate and + tachycardic (in sinus tach overnight per telemetry) Heart Sounds: normal S1 and normal S2; no gallop, no murmur and no cardiac rub Extremities: no pedal edema Gastrointestinal (Abdomen) Inspection/Auscultation: abdomen normal to inspection and normal bowel sounds; abdomen not distended Percussion/Palpation: abdomen soft and + abdominal mass; abdomen nontender, no guarding and no hepatosplenomegaly Discharge Data Consultations 11/18/18 23:06 Consult Cardiology Routine Consult Nephrology Routine 11/19/18 16:23 Consult Infectious Diseases Routine Procedures Performed Operation Date: 11/23/18 08:00 Actual Procedures p Pacer with A/V Leads (Dual) - Mian Carrasquillo MD Hospital Course (1) Complicated UTI (urinary tract infection): -Culture done on 11/18 at OSH, final culture grew Strep agalactiae group B, determined likely normal christel. -no antibiotics need continued (2) Chest heaviness: -Cardiac workup including multiple EKGs and troponins negative for cardiac origin of pain per cardiology consult. -no subsequent episodes/events (3) CAD (coronary artery disease): -Hx CAD with 2 stents placed -Maintained on aspirin 81mg and clopidogrel 75 mg. (4) Chronic kidney disease, stage V: -Not yet qualified for hemodialysis but may in near future. -Follows with Dr. Beltran. Per his note, Cr and electrolytes currently stable. -established outpatient dialysis (5) Chronic diastolic CHF (congestive heart failure): -Echo in 07/2018 showed LVEF 65-70%, mod pulm regurg, mod bruno regurg, Grade II diastolic dysfunction -Aortic atherosclerosis without stenosis. (6) Atrial fibrillation, new onset: -recurrent episode this AM, received 25mg of metoprolol; had three episodes of greater than 3 sec pauses of electrical activity -started Coumadin 5mg daily at this time -INR check on 11/27 for continued dosing requirements -pacemaker placed 11/23 (7) HTN (hypertension), benign: -restarted home anti-hypertensives (8) Anemia of chronic disease: -Consider EPO once kidney function stabilize. -Consider B12 and folate levels to assess mixed iron deficiency/ACD. (9) GERD (gastroesophageal reflux disease): -Continue on home pantoprazole and famotidine. (10) Hyperlipidemia: -continue atorvastatin (11) Hypothyroidism: -continue levothyroxine Supervising Physician Co-Signing Physician Notes I personally examined the patient and verified all munson points of history and exam, discussed case, and agree with decision making with Dr Sykes. Feeling good. Wants to go home. No further questions. Vitals noted, in general she is in no distress. HEENT normocephalic atraumatic mucous membranes moist. Breathing unlabored no accessory muscle use good effort. No focal neuro deficits at rest Chest painresolved. Nonischemic, may have related to A. fib. Otherwise may have been noncardiac. End-stage renal disease and uremiadoing well w HD. Stable for ongoing dialysis as an outpatient. Poor oral intake/concern on acute protein/calorie malnutritionongoing attempts to bolster PO intake at home, low threshold to start appetite stimulant if intake doesn't improve in next ~1-2wks Question of urinary tract infectiongrew a common pelvic floor christel, no urinary symptoms, no clear septic signs or symptoms. Abnormal urine almost certainly related to end-stage renal disease, cultures are just a colonization/pelvic floor bacteria. No further antibiotics. 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 Improved New onset atrial fibrillationnow s/p pacer, continue rate control and anticoagulation. Next INR needs to be checked on 11/27. Anemiamore than likely related to her end-stage renal disease, no signs or symptoms of bleeding. Continue to follow as outpatient. Resident Activity Tracking Resident Involvement: Resident Care Provided Care Provided: Adult Hospital Medicine
--- NOTE | 2018-11-24 13:54 | Cardiology Progress Note ---
Date of Service November 24, 2018 Assessment & Plan (1) Status post cardiac pacemaker procedure: She is doing well post pacemaker implantation, the device is working well and leads are in good position. She does not have a pneumothorax and the site looks good. She should be stable for discharge. She needs to make an appointment with her local lozenge maker helper in [place] for pacemaker follow-up. Subjective She is feeling well from the cardiac standpoint and has minimal incisional discomfort. Physical Exam Physical Exam: The incision is clean and dry, no bleeding. Minimal erythema. Results & Data Vital Signs (Past 12 Hours) Vital Signs Temp Pulse Pulse Pulse Resp BP BP 11/24/18 12:00 37.0 C 67 18 152/58 H 11/24/18 11:50 36.9 C 71 71 149/64 H 149/64 H 11/24/18 11:40 69 113/51 L 11/24/18 11:20 69 121/52 L 11/24/18 11:00 71 139/56 L 11/24/18 10:40 71 153/60 H 11/24/18 10:20 71 145/60 H 11/24/18 10:00 69 132/56 L 11/24/18 09:40 70 126/58 L 11/24/18 09:20 71 115/56 L 11/24/18 09:00 70 131/56 L 11/24/18 08:48 37.2 C 71 71 154/58 H 11/24/18 07:25 37.0 C 64 18 150/63 H 11/24/18 04:00 36.8 C 71 17 166/62 H Pulse Ox 11/24/18 12:00 96 11/24/18 11:50 11/24/18 11:40 11/24/18 11:20 11/24/18 11:00 11/24/18 10:40 11/24/18 10:20 11/24/18 10:00 11/24/18 09:40 11/24/18 09:20 11/24/18 09:00 11/24/18 08:48 11/24/18 07:25 93 11/24/18 04:00 95 Diagnostic Findings Telemetry: Normal pacemaker function Pacemaker evaluation: The pacemaker is functioning well with good thresholds Chest x-ray: Good lead position, no pneumothorax PG Care Time/CCT Total # of Minutes Spent Total Time Spent with Patient: Total time spent is greater than 50% in coordination of care (as documented) at patient's floor/unit and/or counseling patient:
[2018-11-24] MEDS ORDERED: WARFARIN SOD 5 MG TAB PO ONE (16:07)
== END 2018-11-24 18:36 | disposition home or self-care (01) | DRG 242 ==
LOC: 2S → SUATTDRO 21:02

== ENCOUNTER 2024-10-22 14:02 | Inpatient (IN) ==
[2024-10-22 14:53] LABS: Hematocrit (blood only) 40.5 % (37.0-47.0); Hemoglobin 13.1 g/dl (12.0-16.0); Immature Granulocytes # (auto) 0.02 K/uL (0.01-0.20); Immature Granulocytes % (auto) 0.3 %; Mean Corpuscular Hemoglobin 28.6 pg (25.0-34.0); Mean Corpuscular Volume 88.4 fL (80.0-100.0); Platelet Count 329 K/uL (130-400); RDW Standard Deviation 53.5 fL (36.4-46.3); Red Blood Count 4.58 M/uL (4.20-5.40); White Blood Count 5.77 K/ul (4.8-10.8)
--- NOTE | 2024-10-22 15:00 | XRay Report ---
XR chest 1V portable CLINICAL HISTORY: Chest pain, nonspecific COMPARISON STUDY: 11/24/2018 FINDINGS: Stable chest port. Stable moderate cardiomegaly with mild pulmonary vascular congestion. Th ere is an interval moderate to large right pleural effusion and associated right lower lung consolida tion. No pneumothorax. IMPRESSION: CHF with right pleural effusion. ACT 112: Negative or not required by law. Electronically signed by: Atilio Mccoy M.D. 10/22/2024 2:58 PM
[2024-10-22 15:30] LABS: Alanine Aminotransferase 9 U/L (7-52); Albumin Globulin Ratio 1.0 (0.9-2); Alkaline Phosphatase 109 U/L (34-104); Anion Gap 9 (3-11); Bilirubin,Total 1.4 mg/dl (0.2-1.0); Blood Urea Nitrogen 22 mg/dl (6-23); Calcium 8.5 mg/dl (8.6-10.3); Carbon Dioxide 35 mmol/L (21-32); Chloride 94 mmol/L (98-107); Globulin 3.5 gm/dl (2.5-4.0); Glucose 138 mg/dl (70-99(Fasting)); Potassium 4.2 mmol/L (3.5-5.1); Sodium 138 mmol/L (136-145); Total Protein 7.1 gm/dl (6.0-8.3)
--- NOTE | 2024-10-22 16:20 | Emergency Department Note ---
Impression & Plan Hypotension, Pleural effusion, Volume overload, CKD (chronic kidney disease) ED Provider Note ED Provider Note NAME: ILIANA ORTEGA AGE:84 SEX: Female : 1940 ARRIVES VIA: private vehicle INFORMANT: Patient ED PROVIDER(s): Carlene Connor DO CHIEF COMPLAINT: fatigue, hypotension, volume overload HPI: This is an 84 yo female who presents to the ER with concern for persistent volume overload despite HD. Patient states she was instructed to come here by Dr. Beltran's library serials assistant at HD today. Patient has been on HD for 7 years, no longer makes urine. She states she has fatigue and has had low blood pressure at home even when she is not at HD. No recent fevers/chills. The low blood pressure has been going on for 2 months. Family states they had discontinued her BP meds including amlodipine and metoprolol. PAST MEDICAL HISTORY:See Below PAST SURGICAL HISTORY:See Below FAMILY HISTORY:See Below SOCIAL HISTORY:See Below HOME MEDICATIONS:See Below ALLERGIES:See Below VITALS:See Below PHYSICAL EXAMINATION: GENERAL: alert, well appearing, well nourished, no distress, non-toxic EYE EXAM: normal conjunctiva, PERRL and EOM's grossly intact OROPHARYNX: no exudate, no erythema, lips, buccal mucosa, and tongue normal and mucous membranes are moist NECK: supple, no nuchal rigidity, no adenopathy, non-tender LUNGS: Clear to auscultation. Normal chest wall mechanics, no w/r/r HEART: no murmurs, S1 normal and S2 normal ABDOMEN: abdomen soft, non-tender, normo-active bowel sounds, no masses, no rebound or guarding. BACK: Back is symmetrical on inspection and there is no deformity, no midline tenderness, no CVA tenderness. SKIN: no rashes, petechiae, orbruising UPPER EXTREMITIES: upper extremities are grossly normal. FROM, nml pulses b/l. LOWER EXTREMITIES: No pitting edema. FROM, nml pulses b/l. NEURO EXAM: Normal sensorium, cranial nerves II-XII grossly intact, normal speech, no facial droop,nogross weakness of arms, no gross weakness of legs. Gross sensation intact. No ataxia. Vital Signs: reviewed and remarkable Differential Diagnosis: CHF, occult infection, dehydration, medication ADR, dysrhythmia, side effect of hemodialysis, electrolyte abnormality, as well as others were considered. MEDICAL DECISION MAKING: This is a 84-year-old female who presents emergency department after she states she was instructed to come here from the [place] with pain in her dialysis clinic after they spoke with her community health advisor. Patient afebrile on arrival, was noted to be hypotensive, however only complaint was of fatigue. Family bedside states this is ongoing in part of her recent hypotension despite discontinuing several of her blood pressure medications. Patient did go to dialysis today per normal. Labs drawn and sent, IV established, EKG and chest ray performed at bedside and interpreted by me and patient monitored on telemetry. I did reach out to patient's community health advisor, Dr. Beltran. He would like the patient to be admitted for further management and plans to try and take more fluid off of her tomorrow with dialysis. States she may need further intervention regarding the right pleural effusion again. He states this is not new but recurrent. Patient and family updated at bedside, verbalized understanding, and all agreement. Case discussed with the hospitalist team. Consultation(s): 1530: Discussed with Dr. Beltran, nephrology. He recommends admission and plans to try and pull more fluid off her tomorrow during HD. 1546: Discussed with hospitalist team for further evaluation. ER Treatment Provided: See below Diagnostics Interpreted By Me: -ECG: a.fib at 90, left axis, PVC, nml intervals, no acute ST/T wave changes -Cardiac Monitoring: An order was placed for continuous cardiac monitoring. The monitor shows a rate of 96 with a.fib rhythm. -Laboratory studies: As stated above and show below. -Imaging studies: cxr: CM noted, large right pleural effusion, no wide mediastinum Triage Nursing Note Reviewed Prior/Outside Records Reviewed - prior cxr reviewed Past Med/Surg History Problem List (Updated 10/22/24 @ 19:49 by Carlene Connor DO) CKD (chronic kidney disease) (Acute) Type 2 diabetes mellitus Chronic atrial fibrillation Recurrent right pleural effusion Hypotension Volume overload (Acute) Pleural effusion (Acute) Hypotension (Acute) Status post cardiac pacemaker procedure End stage renal disease on dialysis SSS (sick sinus syndrome) Atrial fibrillation, new onset Complicated UTI (urinary tract infection) Anemia of chronic disease Mitral valve disorder Chronic diastolic CHF (congestive heart failure) Iron deficiency anemia CHF (congestive heart failure) CAD (coronary artery disease) Acute kidney injury Chronic kidney disease, stage V Volume overload Chest heaviness Acute on chronic diastolic heart failure Acute respiratory failure with hypoxia Sinus pause Nausea vomiting and diarrhea GERD (gastroesophageal reflux disease) Hypothyroidism Hyperlipidemia HTN (hypertension), benign Diabetes mellitus Pleural effusion Mediastinal lymphadenopathy CAD (coronary artery disease), [place] coronary artery DVT prophylaxis Vitamin B12 deficiency (dietary) anemia Dyspnea Anemia Metabolic acidosis Chronic kidney disease, stage IV (severe) Shortness of breath Medical History (Updated 10/22/24 @ 19:49 by Carlene Connor DO) Hypertension Chronic kidney disease Hypothyroidism Diabetes mellitus, type 2 Surgical History (Updated 11/24/18 @ 13:52 by Mian Carrasquillo MD) History of vascular access device History of heart artery stent Social History Smoking Status: Unknown if ever smoked Second Hand Exposure: No; Do You Dip or Chew Tobacco: No; Hx Alcohol Use: No Hx Substance Use: No Preferred Language: Ukrainian Communication Ability: Effective Pig Farmer Required: No Beliefs That Will Affect Care: None marital status: / Current Living Situation: Family Feels Safe at Home: Yes Assistive Devices: None and Glasses Allergies Allergies Allergy/AdvReac Type Severity Reaction Status Date / Time amoxicillin Allergy Intermediate Hives Verified 10/22/24 16:38 propofol AdvReac Mild Nausea Verified 10/22/24 16:38 Home Meds Home Medications Medication Instructions Recorded Confirmed aspirin 81 mg tablet,delayed 81 mg PO DAILY 07/15/18 10/22/24 release insulin glargine 100 unit/mL (3 38 unit subcut HS PRN NEEDED 11/18/18 10/22/24 mL) subcutaneous pen (Lantus PER FAMILY Solostar U-100 Insulin) fenofibrate 54 mg tablet 54 mg PO HS 10/22/24 10/22/24 insulin lispro 200 unit/mL (3 mL) 1 sliding scale dose subcut QPM 10/22/24 10/22/24 subcutaneous pen (Humalog KwikPen PRN NEEDED PER FAMILY(NOT U-200 Insulin) RECENTLY) levofloxacin 250 mg tablet 250 mg PO Q OTHER DAY 10/22/24 10/22/24 levothyroxine 100 mcg tablet 100 mcg PO QAM 10/22/24 10/22/24 melatonin 5 mg tablet 5 mg PO HS 10/22/24 10/22/24 ondansetron HCl 4 mg tablet 4 mg PO Q8H PRN NAUSEA/VOMITING 10/22/24 10/22/24 ropinirole 0.25 mg tablet 0.25 mg PO HS 10/22/24 10/22/24 rosuvastatin 5 mg tablet 5 mg PO HS 10/22/24 10/22/24 vit A 300 mcg-C 200 mg-E 27 1 tab PO BID 10/22/24 10/22/24 mg-lutein 2 mg and minerals tablet (Eye Health Plus Lutein) Previous Rx's Medication Instructions Recorded famotidine 20 mg tablet 20 mg PO HS #30 tabs 07/21/18 apixaban 2.5 mg tablet (Eliquis) 2.5 mg PO BID #180 tabs 02/11/23 Results & Data (ED) Vital Signs Vital Signs - 24 hr 10/22/24 14:08 10/22/24 14:21 10/22/24 14:35 Temperature 36.5 C Temperature Source Temporal Artery Scan Pulse Rate 87 96 H 96 H Pulse Rate [Apical] Pulse Rhythm Regular Respiratory Rate 24 24 Respiratory Effort / Characteristics Short of Breath Respiratory Depth Blood Pressure 104/63 Blood Pressure [Right Arm] Blood Pressure Mean 76 Blood Pressure Mean [Right Arm] Pulse Oximetry 93 93 Oxygen Delivery Method Room Air Room Air Sepsis Recent Fever Within 48 Hours No Sepsis New/Unexplained Change in Mental Status N/A Sepsis Action Taken by Nursing No Action Required 10/22/24 15:29 10/22/24 15:30 Temperature Temperature Source Pulse Rate Pulse Rate [Apical] 85 89 Pulse Rhythm Respiratory Rate 24 22 Respiratory Effort / Characteristics Non-Labored Spontaneous Non-Labored Spontaneous Respiratory Depth Normal Normal Blood Pressure Blood Pressure [Right Arm] 104/56 L 98/65 L Blood Pressure Mean Blood Pressure Mean [Right Arm] 72 76 Pulse Oximetry 93 93 Oxygen Delivery Method Room Air Room Air Sepsis Recent Fever Within 48 Hours Sepsis New/Unexplained Change in Mental Status Sepsis Action Taken by Nursing Laboratory Data 10/22/24 14:28 10/22/24 14:28 Lab Results 10/22/24 10/22/24 Range/Units 14:28 16:04 WBC 5.77 (4.8-10.8) K/ul RBC 4.58 (4.20-5.40) M/uL Hgb 13.1 (12.0-16.0) g/dl Hct 40.5 (37.0-47.0) % MCV 88.4 (80.0-100.0) fL MCH 28.6 (25.0-34.0) pg MCHC 32.3 (32.0-36.0) g/dL RDW Std Deviation 53.5 H (36.4-46.3) fL RDW Coeff of Sathya 16.5 H (11.5-14.5) % Plt Count 329 (130-400) K/uL MPV 10.9 (9.4-12.4) fL Immature Gran % (Auto) 0.3 % Neut % (Auto) 71.8 % Lymph % (Auto) 15.1 % [place] % (Auto) 11.8 % Eos % (Auto) 0.7 % Baso % (Auto) 0.3 % Neut # (Auto) 4.14 (1.40-6.50) K/uL Lymph # (Auto) 0.87 L (1.20-3.40) K/uL [place] # (Auto) 0.68 H (0.11-0.59) K/uL Eos # (Auto) 0.04 (0.00-0.50) K/uL Baso # (Auto) 0.02 (0.00-0.20) K/uL Immature Gran # (Auto) 0.02 (0.01-0.20) K/uL PT Cancelled 13.4 H INR Cancelled 1.3 H APTT Cancelled 34 H PTT Ratio Cancelled 1.3 Sodium 138 (136-145) mmol/L Potassium 4.2 (3.5-5.1) mmol/L Chloride 94 L (98-107) mmol/L Carbon Dioxide 35 H (21-32) mmol/L Anion Gap 9 (3-11) BUN 22 (6-23) mg/dl Creatinine 2.83 H (0.6-1.2) mg/dl Est Cr Clr Drug Dosing Not Reportable eGFR 15.75 BUN/Creatinine Ratio 7.8 L (10-20) Glucose 138 H (70-99(Fasting)) mg/dl Calcium 8.5 L (8.6-10.3) mg/dl Total Bilirubin 1.4 H (0.2-1.0) mg/dl AST 34 (13-39) U/L ALT 9 (7-52) U/L Alkaline Phosphatase 109 H (34-104) U/L Troponin I High Sens 37.9 H 31.0 H (0-14) pg/ml B-Natriuretic Peptide 239 H (0-100) pg/ml Total Protein 7.1 (6.0-8.3) gm/dl Albumin 3.6 (3.4-5.0) gm/dl Globulin 3.5 (2.5-4.0) gm/dl Albumin/Globulin Ratio 1.0 (0.9-2) Imaging Data Radiologist's Impression: Chest X-Ray 10/22/24 14:36 XR chest 1V portable CLINICAL HISTORY: Chest pain, nonspecific COMPARISON STUDY: 11/24/2018 FINDINGS: Stable chest port. Stable moderate cardiomegaly with mild pulmonary vascular congestion. There is an interval moderate to large right pleural effusion and associated right lower lung consolidation. No pneumothorax. IMPRESSION: CHF with right pleural effusion. ACT 112: Negative or not required by law. Electronically signed by: Atilio Mccoy M.D. 10/22/2024 2:58 PM Discharge Plan Visit Data Chief Complaint: Hypotension Stated Complaint: REF BY DOC, EDEMA IN LEGS, HYPOTENSION AT DIALYSIS ED Provider: Carlene Connor Discharge Problem: Hypotension, Pleural effusion, Volume overload, CKD (chronic kidney disease) Patient Disposition: Admitted As Inpatient Condition: Fair Discharge Instructions Interventions: ED Discharge Assessment Last Done: 10/22/24 18:29
--- NOTE | 2024-10-22 16:34 | History & Physical Report ---
Date of Service October 22, 2024 Assessment & Plan (1) Hypotension: Plan: Occurred while in hemodialysis. Amlodipine placed on hold. Will follow (2) Recurrent right pleural effusion: Plan: She has had previous thoracentesis on the right in the past. Eliquis placed on hold. IR requested to repeat therapeutic right thoracentesis (3) End stage renal disease on dialysis: Plan: Continue hemodialysis according to usual schedule. Nephrology consultation requested (4) Chronic atrial fibrillation: Plan: Rate control measures. Telemetry. Eliquis temporarily on hold (5) Type 2 diabetes mellitus: Plan: ADA diet. Avoid nighttime insulin to prevent nocturnal hypoglycemia. Sliding scale coverage for now Plan Hopeful discharge to home sometime later this week History of Present Illness Chief Complaint: Hypotension in dialysis, recurrent right pleural effusion Primary Care Provider: Annmarie Alexandra PA-C 84-year-old white female who developed hypotension while in hemodialysis today, October 22. She was brought to the ED for evaluation. She is alert and oriented without any distress. She denies chest pain or shortness of breath. She has recurrent large right pleural effusion that has been aspirated twice in the past, none recently. Eliquis is placed on hold and IR requested to repeat the right thoracentesis. Nephrology has been consulted to continue hemodialysis. Amlodipine is placed on hold. Nighttime insulin will be avoided due to risk for hypoglycemia during sleep. Sliding scale insulin for now. Allergies Allergy/AdvReac Type Severity Reaction Status Date / Time amoxicillin Allergy Intermediate Hives Verified 11/19/18 19:35 propofol AdvReac Mild Nausea Verified 11/19/18 19:35 Home Medications Medication Instructions Recorded Confirmed Type amlodipine 5 mg tablet 5 mg PO BID 07/15/18 11/18/18 History aspirin 81 mg tablet,delayed 81 mg PO DAILY 07/15/18 11/18/18 History release clopidogrel 75 mg tablet 75 mg PO DAILY 07/15/18 11/18/18 History docusate sodium 100 mg capsule 2 cap PO QAM PRN Constipation 07/15/18 11/18/18 History (Colace) ferrous sulfate 325 mg (65 mg 325 mg PO BID 07/15/18 11/18/18 History iron) tablet hydralazine 25 mg tablet 25 mg PO BID 07/15/18 11/18/18 History isosorbide mononitrate 60 mg 60 mg PO DAILY 07/15/18 11/18/18 History tablet,extended release 24 hr pantoprazole 40 mg tablet,delayed 40 mg PO DAILY 07/15/18 11/18/18 History release pravastatin 10 mg tablet 10 mg PO DAILY 07/15/18 11/18/18 History psyllium husk 0.4 gram capsule 1 g PO Q OTHER DAY PRN Constipation 07/15/18 11/18/18 History (Metamucil) famotidine 20 mg tablet 20 mg PO HS #30 tabs 07/21/18 11/18/18 Rx gabapentin 100 mg capsule 300 mg PO HS #30 caps 11/13/18 11/13/18 History carvedilol 6.25 mg tablet 6.25 mg PO BID 11/18/18 11/18/18 History glimepiride 4 mg tablet 4 mg PO DAILY 11/18/18 11/18/18 History insulin glargine 100 unit/mL (3 18 unit subcut HS 11/18/18 11/18/18 History mL) subcutaneous pen (Lantus Solostar U-100 Insulin) levothyroxine 112 mcg capsule 100 mcg PO QAM 11/18/18 11/18/18 History nitroglycerin 0.4 mg sublingual 0.4 mg sublingual ONCE PRN Chest 11/18/18 11/18/18 History tablet (Nitrostat) Pain apixaban 2.5 mg tablet (Eliquis) 2.5 mg PO BID #180 tabs 02/11/23 Rx erythromycin 5 mg/gram (0.5 %) eye 1 applic ophthalmic (eye) DAILY 14 03/08/24 Rx ointment days #50 grams Past Med/Surg History Problem List (Updated 10/22/24 @ 16:33 by Agustín Copeland MD) Type 2 diabetes mellitus Chronic atrial fibrillation Recurrent right pleural effusion Hypotension Volume overload (Acute) Pleural effusion (Acute) Hypotension (Acute) Status post cardiac pacemaker procedure End stage renal disease on dialysis SSS (sick sinus syndrome) Atrial fibrillation, new onset Complicated UTI (urinary tract infection) Anemia of chronic disease Mitral valve disorder Chronic diastolic CHF (congestive heart failure) Iron deficiency anemia CHF (congestive heart failure) CAD (coronary artery disease) Acute kidney injury Chronic kidney disease, stage V Volume overload Chest heaviness Acute on chronic diastolic heart failure Acute respiratory failure with hypoxia Sinus pause Nausea vomiting and diarrhea GERD (gastroesophageal reflux disease) Hypothyroidism Hyperlipidemia HTN (hypertension), benign Diabetes mellitus Pleural effusion Mediastinal lymphadenopathy CAD (coronary artery disease), [place] coronary artery DVT prophylaxis Vitamin B12 deficiency (dietary) anemia Dyspnea Anemia Metabolic acidosis Chronic kidney disease, stage IV (severe) Shortness of breath Medical History (Updated 10/22/24 @ 16:33 by Agustín Copeland MD) Hypertension Chronic kidney disease Hypothyroidism Diabetes mellitus, type 2 Surgical History (Updated 11/24/18 @ 13:52 by Mian Carrasquillo MD) History of vascular access device History of heart artery stent Social History Smoking Status: Unknown if ever smoked Second Hand Exposure: No; Do You Dip or Chew Tobacco: No; Hx Alcohol Use: No Hx Substance Use: No Preferred Language: Vietnamese Communication Ability: Effective Escort Blind Required: No Beliefs That Will Affect Care: None marital status: / Current Living Situation: Family Feels Safe at Home: Yes Assistive Devices: None and Glasses Review of Systems 2 Review of Systems: Constitutionalno fever or chills ENTno blurred vision, no double vision, no epistaxis, no sore throat Respiratoryno cough, no wheezing. She does have dyspnea on exertion Cardiacno palpitations, no chest pain, no syncope [place] nausea, vomiting, diarrhea, melena, hematochezia GUno urinary retention, no urinary incontinence, no dysuria, no hematuria Musculoskeletalno joint pain, no muscle tenderness Skinno bruising, no rashes, no pruritus Neurono isolated weakness, no paresthesia Psychno depression, no anxiety Physical Exam 2 Physical Exam: General-alert and oriented x3, no fever, no chills HEENT-head atraumatic and normocephalic, pupils equal and reactive to light, extraocular muscles intact Neck-no lymphadenopathy or thyromegaly, trachea midline Chest-illness and diminished breath sounds on the right side. No wheezing. No expiratory rales. No rhonchi Cardiac-irregular rhythm. Controlled rate. Normal S1 and S2 Abdomen-normal bowel sounds, no hepatosplenomegaly Extremities-no cyanosis, clubbing, or edema Neuro-cranial nerves II through XII intact, motor and sensory function within normal limits, strength symmetrical, no focal deficits Psych-normal affect, normal mood Results & Data Results & Data Vital Signs (Past 12 Hours) Vital Signs Temp Pulse Pulse Resp BP BP Pulse Ox 10/22/24 15:30 89 22 98/65 L 93 10/22/24 15:29 85 24 104/56 L 93 10/22/24 14:35 96 H 10/22/24 14:21 96 H 24 93 10/22/24 14:08 36.5 C 87 24 104/63 93 O2 Del Method 10/22/24 15:30 Room Air 10/22/24 15:29 Room Air 10/22/24 14:35 10/22/24 14:21 Room Air 10/22/24 14:08 Room Air Laboratory Results 10/22/24 14:28 10/22/24 14:28 Code Status & VTE Plan Code Status DNR/DNI PG Care Time/CCT Total # of Minutes Spent Total Time Spent with Patient: Total time spent is greater than 50% in coordination of care (as documented) at patient's floor/unit and/or counseling patient: Coding Level of Care Code 08712 INT INP/OBS CARE 3/75MIN Diagnoses Hypotension I95.9 Recurrent right pleural effusion J90 End stage renal disease on dialysis N18.6; Z99.2 Chronic atrial fibrillation I48.20 Type 2 diabetes mellitus E11.9
[2024-10-22 17:04] LABS: INR 1.3 (0.9-1.1); Partial Thromboplastin Time 34 Seconds (21-31); Prothrombin Time 13.4 Seconds (9.0-12.0)
--- NOTE | 2024-10-22 18:00 | Nephrology Consultation ---
Date of Consultation October 22, 2024 Assessment & Plan (1) End stage renal disease on dialysis: ESRD on HD MWF. Completed full treatment today limited by intradialytic hypotension. Additional treatment will be coordinated tomorrow for UF. Orders have been entered into the EHR and reviewed with distributing clerk. AVF functioning well. Medications appropriate for kidney function. Recent history is notable for increasing frailty and difficulty tolerating HD due to intradialytic hypotension. Goals of care continuously updated. Prognosis is unfortunately guarded/poor. (2) Pleural effusion: Transudative by history. Recurrent and symptomatic. IR consulted for thoracentesis. (3) Volume overload: For complete evaluation of intradialytic hypotension and hemodialysis intolerance, an updated TTE has been requested. Did not tolerate midodrine due to itch. May try a dose midodrine with HD tomorrow. History of Present Illness Reason for Consultation: ESKD Requesting Physician: Agustín Copeland MD Attending Physician: Agusítn Copeland MD History of Present Illness Jessenia Ricci is an 84 year-old female with ESRD attributed to DKD and hypertension. She has a chronically atrophic right kidney and significant calcific vascular disease. She has been maintained on hemodialysis at [facility] under my care since 2019. Jessenia dialyzes MWF. She completed a full treatment of HD today and was sent to the ER at [facility] for additional evaluation and management. Jessenia has been struggling with significant fluid retention and edema. She has a recurrent right sided pleural effusion. Jessenia has chronic hypotension and significant intradialytic hypotension. Unfortunately, it has been very difficult to control her volume status. She is struggling with increased frailty and debility. Today, she presented with worsening exertional dyspnea. She also has developed weeping edema and ulcers of the lower extremities. 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 Medical history is notable for coronary artery disease s/p stent x 2 in 2016, tachy-ellie syndrome with pacemaker placement, recurrent UTI with history of ESBL E coli, PVD (carotid endarterectomy 2018), and depression. Jessenia has not been taking any antihypertensives. She had been started on midodrine but she stopped the medication due to itch. She has been able to receive doses intermittently at dialysis without reaction. Her current Rx for HD is MWF on FX CorAL 60 x 3 hours, Qb 350 / Qd 500, 2K, 137Na, 35HCO3. EDW 50 kg. Allergies Allergy/AdvReac Type Severity Reaction Status Date / Time amoxicillin Allergy Intermediate Hives Verified 10/22/24 16:38 propofol AdvReac Mild Nausea Verified 10/22/24 16:38 Home Medications Medication Instructions Recorded Confirmed Type aspirin 81 mg tablet,delayed 81 mg PO DAILY 07/15/18 10/22/24 History release famotidine 20 mg tablet 20 mg PO HS #30 tabs 07/21/18 10/22/24 Rx insulin glargine 100 unit/mL (3 38 unit subcut HS PRN NEEDED 11/18/18 10/22/24 History mL) subcutaneous pen (Lantus PER FAMILY Solostar U-100 Insulin) apixaban 2.5 mg tablet (Eliquis) 2.5 mg PO BID #180 tabs 02/11/23 10/22/24 Rx fenofibrate 54 mg tablet 54 mg PO HS 10/22/24 10/22/24 History insulin lispro 200 unit/mL (3 mL) 1 sliding scale dose subcut QPM 10/22/24 10/22/24 History subcutaneous pen (Humalog KwikPen PRN NEEDED PER FAMILY(NOT U-200 Insulin) RECENTLY) levofloxacin 250 mg tablet 250 mg PO Q OTHER DAY 10/22/24 10/22/24 History levothyroxine 100 mcg tablet 100 mcg PO QAM 10/22/24 10/22/24 History melatonin 5 mg tablet 5 mg PO HS 10/22/24 10/22/24 History ondansetron HCl 4 mg tablet 4 mg PO Q8H PRN NAUSEA/VOMITING 10/22/24 10/22/24 History ropinirole 0.25 mg tablet 0.25 mg PO HS 10/22/24 10/22/24 History rosuvastatin 5 mg tablet 5 mg PO HS 10/22/24 10/22/24 History vit A 300 mcg-C 200 mg-E 27 1 tab PO BID 10/22/24 10/22/24 History mg-lutein 2 mg and minerals tablet (Eye Health Plus Lutein) Patient History Medical History (Updated 10/22/24 @ 16:33 by Agustín Copeland MD) Hypertension Chronic kidney disease Hypothyroidism Diabetes mellitus, type 2 Surgical History (Updated 11/24/18 @ 13:52 by Mian Carrasquillo MD) History of vascular access device History of heart artery stent Social History Smoking Status: Unknown if ever smoked Second Hand Exposure: No; Do You Dip or Chew Tobacco: No; Hx Alcohol Use: No Hx Substance Use: No Preferred Language: [place] Communication Ability: Effective Reproduction Production Manager Required: No Beliefs That Will Affect Care: None marital status: / Current Living Situation: Family Feels Safe at Home: Yes Assistive Devices: None and Glasses Review of Systems Review of Systems: All systems reviewed & are unremarkable except as noted in HPI & below Constitutional: + fatigue, + anorexia and + weight loss Respiratory: + dyspnea and + dyspnea on exertion; no cough Cardiovascular: + edema; no chest pain, no palpitations, no lightheadedness and no syncope Gastrointestinal: no problem reported Genitourinary: no problem reported Musculoskeletal: no problem reported Physical Exam Constitutional: + thin and + frail appearing; no acute d istress Eyes: + anicteric sclerae ENMT: Mouth: no oral mucosal abnormality and oral mucous membranes not dry Neck: normal visual inspection and trachea midline Respiratory: normal respiratory effort Auscultation: lungs clear to auscultation bilaterally, + diminished lung sounds and + rales Cardiovascular: Rate/Rhythm: regular rate and + irregularly irregular Heart Sounds: normal S1, normal S2 and + murmur Extremities: + edema and + AV fistula Musculoskeletal: Extremities: + cyanosis Skin: no jaundice Neurologic: Motor/Sensory: no tremor and no asterixis Psychiatric: Orientation: alert and oriented x 3 Results & Data Vital Signs (Past 12 Hours) Vital Signs Temp Pulse Pulse Resp BP BP Pulse Ox 10/22/24 17:30 93 H 24 104/52 L 95 10/22/24 16:39 88 24 112/55 L 93 10/22/24 15:30 89 22 98/65 L 93 10/22/24 15:29 85 24 104/56 L 93 10/22/24 14:35 96 H 10/22/24 14:21 96 H 24 93 10/22/24 14:08 36.5 C 87 24 104/63 93 O2 Del Method 10/22/24 17:30 Room Air 10/22/24 16:39 Room Air 10/22/24 15:30 Room Air 10/22/24 15:29 Room Air 07/21/25 14:35 10/22/24 14:21 Room Air 10/22/24 14:08 Room Air Laboratory Results Laboratory Results - last 24 hr 10/22/24 10/22/24 10/22/24 14:28 16:04 17:17 WBC 5.77 RBC 4.58 Hgb 13.1 Hct 40.5 MCV 88.4 MCH 28.6 MCHC 32.3 RDW Std Deviation 53.5 H RDW Coeff of Sathya 16.5 H Plt Count 329 MPV 10.9 Immature Gran % (Auto) 0.3 Neut % (Auto) 71.8 Lymph % (Auto) 15.1 [place] % (Auto) 11.8 Eos % (Auto) 0.7 Baso % (Auto) 0.3 Neut # (Auto) 4.14 Lymph # (Auto) 0.87 L [place] # (Auto) 0.68 H Eos # (Auto) 0.04 Baso # (Auto) 0.02 Immature Gran # (Auto) 0.02 PT Cancelled 13.4 H INR Cancelled 1.3 H APTT Cancelled 34 H PTT Ratio Cancelled 1.3 Sodium 138 Potassium 4.2 Chloride 94 L Carbon Dioxide 35 H Anion Gap 9 BUN 22 Creatinine 2.83 H Est Cr Clr Drug Dosing Not Reportable eGFR 15.75 BUN/Creatinine Ratio 7.8 L Glucose 138 H Calcium 8.5 L Total Bilirubin 1.4 H AST 34 ALT 9 Alkaline Phosphatase 109 H Troponin I High Sens 37.9 H 31.0 H B-Natriuretic Peptide 239 H Total Protein 7.1 Albumin 3.6 Globulin 3.5 Albumin/Globulin Ratio 1.0 Nasal Screen MRSA (PCR) Pending Diagnostic Findings XR chest 1V portable COMPARISON STUDY: 11/24/2018 FINDINGS: Stable chest port. Stable moderate cardiomegaly with mild pulmonary vascular congestion. There is an interval moderate to large right pleural effusion and associated right lower lung consolidation. No pneumothorax. IMPRESSION: CHF with right pleural effusion. PG Care Time/CCT Total # of Minutes Spent Total Time Spent with Patient: Total time spent is greater than 50% in coordination of care (as documented) at patient's floor/unit and/or counseling patient: Coding Level of Care Code 30844 IN/OBS CONSULT LVL 4,60M Diagnoses End stage renal disease on dialysis N18.6; Z99.2 Pleural effusion J90 Volume overload E87.70
[2024-10-22] MEDS ORDERED: NITROGLYCERIN SL 0.4 MG/TAB TAB SL PRN (18:29)
[2024-10-22] MEDS ORDERED: GLUCOSE 40% GEL 15 GM TUBE PO PRN (18:29)
[2024-10-22] MEDS ORDERED: CARBOHYDRATES FOR HYPOGLYCEMIA PO PRN (18:29)
[2024-10-22] MEDS ORDERED: GLUCAGON FOR INJ 1 MG VIAL SQ PRN (18:29)
[2024-10-22] MEDS ORDERED: GLUCOSE 10 TAB/TUBE PO PRN (18:29)
[2024-10-22] MEDS: INSULIN ASPART PER UNIT CHARGE SC SCH (20:19)
[2024-10-22] MEDS: FAMOTIDINE 20 MG TAB PO SCH (21:29)
[2024-10-22] MEDS: GABAPENTIN 300 MG CAP PO SCH (21:29)
[2024-10-22] MEDS: FERROUS SULFATE 325 MG TAB PO SCH (21:29)
[2024-10-23] MEDS: ALBUMIN 25% 25 GM/100 ML VIAL IV SCH (00:10)
--- NOTE | 2024-10-23 01:58 | Communication Note ---
Date of Service: October 23, 2024 Alerted by nurse around 23:30 that pt BP was low; 78/49 with repeat 74/46. Pt was resting comfortably at that time, asymptomatic. Went to bedside. Pt was sl eeping on arrival to room, woke up easily to voice but very tired appearing. Pt notes feeling well other than fatigue, no pain anywhere or SOB. She states a history of low blood pressures especially with dialysis, which she had today (but not a full session). Per chart review, pt did get a dose of hydralazine tonight as well around 21:30. Per records and per pt, she did not tolerate midodrine and would not like to try it at this time. Ordered albumin 50 gm of 25% to try to shift fluid intravascular. Deferred IVF bolus in the setting of large R pleural effusion. I put a hold on hydralazine and isosorbide mononitrate for now given hypotension. While in the room, discussed code status with pt as one was not yet ordered. Pt initially states she would want compressions but no shock, intubation, or other ACLS measures, but after further discussion she changes her mind to DNR/DNI. She does have capacity at the time of this discussion with her. Could rediscuss in more detail her wishes beyond ACLS measures during the day given her overall clinical picture appears guarded/poor, when she is more rested and has had time to think further on what we discussed. Re-evaluated later in the shift and still hypotensive; 78/39 when in the room with her. Saturating 90s on RA. Will do oxygen as needed and trial of 250 mL IVF bolus with repeat as needed/tolerated and 1 gm calcium gluconate IV. Resident Activity Tracking Resident Involvement: Resident Care Provided Care Provided: Adult Hospital Medicine
[2024-10-23] MEDS: LACTATED RINGER'S 250 ML IV ONE ×5 (03:30→23:03)
[2024-10-23] MEDS: CALCIUM GLUCONATE 1,000 MG/60 ML BAG IV STA (03:53)
[2024-10-23] MEDS: LEVOTHYROXINE SODIUM 112 MCG TABLET PO SCH (05:43)
[2024-10-23] MEDS: ASPIRIN 81 MG ECTAB PO SCH (08:44)
[2024-10-23] MEDS: CLOPIDOGREL BISULFATE 75 MG TAB PO SCH (08:45)
[2024-10-23] MEDS: ISOSORBIDE MONO EXTENDED REL 60 MG TABCR PO SCH (08:46)
--- NOTE | 2024-10-23 09:01 | Cardiology Consultation ---
Date of Consultation October 23, 2024 Assessment & Plan (1) Hypotension: (2) SSS (sick sinus syndrome): (3) Cardiac pacemaker: Plan 1. Hypotension: This could be multifactorial but does not appear to be cardiac in nature, specifically she has good left ventricular function and no effusion. Decreased preload is a possibility and hard to identify, atrial fibrillation is a possibility, medication treatment could contribute. Agree with discontinuation of blood pressure medications and we can consider conversion of atrial fibrillation in the future. 2. Tachybradycardia syndrome: Her pacemaker was placed about 6 years ago for tachybradycardia syndrome and at that time she had paroxysmal atrial fibrillation and sinus bradycardia. It appears that over the last year she did not have much atrial fibrillation until around 5 to 6 weeks ago and has been in it nearly continuously since. The heart rate is relatively well-controlled. 3. Atrial fibrillation: She has a history of atrial fibrillation but more recently has been in continuous atrial fibrillation for 5 to 6 weeks. The rate is relatively well-controlled but the irregularity can be hemodynamically poorly tolerated, that could contribute to her hypotension. We could consider cardioversion at some point but with her Eliquis on hold we cannot do that now. I do not know how much difference this would make her hemodynamics since her heart rate is controlled but sometimes it can be helpful. I do not know how likely it is that she will maintain sinus rhythm but it seems that she was in sinus rhythm for the most part over the last year until recently so she may maintain it once we convert her. 4. Anticoagulation: Her Eliquis is currently on hold, we cannot cardiovert her without adequate anticoagulation safely. If we can restart anticoagulation in the future we can consider MARCO guided cardioversion but we would have to maintain anticoagulation for a month after. 5. Pacemaker: The pacemaker was interrogated today. The lead characteristics including pacing and sensing characteristics are stable. Battery longevity is acceptable. The stored data was interrogated and reviewed. No significant arrhythmias other than atrial fibrillation have been identified by the device since last interrogation. History of Present Illness Reason for Consultation: Hypotension Attending Physician: Agustín Copeland MD History of Present Illness This is an 84-year-old woman with a history of hypertension, dyslipidemia, diabetes mellitus, chronic kidney disease on dialysis, as well as coronary artery disease including stent placement in 2016. She is followed in the [place] area but we have seen her several times here. She did have tachybradycardia syndrome with rapid paroxysmal atrial fibrillation and sinus node dysfunction with long pauses therefore a dual-chamber pacemaker was implanted here on November 23, 2018. We have not seen her here since, however she was sent to the emergency room here on October 22, 2024, apparently being instructed to come here from the dialysis clinic. Here she was noted to be hypotensive with symptoms of fatigue but also associated with fluid overload. Her blood pressure medications have been withdrawn but her blood pressure remains low. Her Eliquis has been placed on hold I believe for an upcoming thoracentesis. Good morning, I believe you are seeing Abe Ricci. Her echo does not show an effusion, she does have LVH, this is by my reading. She appears to be in atrial fibrillation, I am going to interrogate her pacemaker to see if that is new but that could contribute to hypotension. We could potentially cardiovert her depending on the chronicity of it, I do not have info rmation in that regard. Her Eliquis is on hold however it which makes cardioversion problematic. Can continue we may have to decide on cardioversion versus thoracentesis or we have to do a MARCO guided cardioversion. In addition she has a recurrent right pleural effusion which has been aspirated several times in the past. I do not see details as to why she has this. Her laboratory studies are not terribly abnormal, her creatinine is elevated of course, her blood count and electrolytes are not unreasonable and her high- sensitivity troponin is not significantly elevated under the circumstances (38 followed by 31). A chest x-ray shows mild pulmonary congestion with a large right pleural effusion. Her electrocardiogram shows atrial fibrillation with a controlled heart rate and appropriate pacemaker inhibition. At the time of my evaluation she was in bed, she is not very communicative and she cannot recall how long she has had symptoms or what they are. She denies chest discomfort, she does admit to shortness of breath but cannot describe it. Allergies Allergy/AdvReac Type Severity Reaction Status Date / Time amoxicillin Allergy Intermediate Hives Verified 10/22/24 16:38 propofol AdvReac Mild Nausea Verified 10/22/24 16:38 Home Medications Medication Instructions Recorded Confirmed Type aspirin 81 mg tablet,delayed 81 mg PO DAILY 07/15/18 10/22/24 History release famotidine 20 mg tablet 20 mg PO HS #30 tabs 07/21/18 10/22/24 Rx insulin glargine 100 unit/mL (3 38 unit subcut HS PRN NEEDED 11/18/18 10/22/24 History mL) subcutaneous pen (Lantus PER FAMILY Solostar U-100 Insulin) apixaban 2.5 mg tablet (Eliquis) 2.5 mg PO BID #180 tabs 02/11/23 10/22/24 Rx fenofibrate 54 mg tablet 54 mg PO HS 10/22/24 10/22/24 History insulin lispro 200 unit/mL (3 mL) 1 sliding scale dose subcut QPM 10/22/24 10/22/24 History subcutaneous pen (Humalog KwikPen PRN NEEDED PER FAMILY(NOT U-200 Insulin) RECENTLY) levofloxacin 250 mg tablet 250 mg PO Q OTHER DAY 10/22/24 10/22/24 History levothyroxine 100 mcg tablet 100 mcg PO QAM 10/22/24 10/22/24 History melatonin 5 mg tablet 5 mg PO HS 10/22/24 10/22/24 History ondansetron HCl 4 mg tablet 4 mg PO Q8H PRN NAUSEA/VOMITING 10/22/24 10/22/24 History ropinirole 0.25 mg tablet 0.25 mg PO HS 10/22/24 10/22/24 History rosuvastatin 5 mg tablet 5 mg PO HS 10/22/24 10/22/24 History vit A 300 mcg-C 200 mg-E 27 1 tab PO BID 10/22/24 10/22/24 History mg-lutein 2 mg and minerals tablet ([facility] Plus Lutein) Patient History Medical History Hypertension Chronic kidney disease Hypothyroidism Diabetes mellitus, type 2 Surgical History History of vascular access device History of heart artery stent Social History Smoking Status: Never smoker Second Hand Exposure: No; Do You Dip or Chew Tobacco: No; Hx Alcohol Use: Yes Alcohol type: wine Hx Substance Use: No Preferred Language: Latvian Communication Ability: Effective Transmission And Coordination Engineer Required: No Beliefs That Will Affect Care: None marital status: / Current Living Situation: Family Feels Safe at Home: Yes Assistive Devices: Walker Review of Systems Review of Systems: Unobtainable due to cognitive status Physical Exam Physical Exam: Constitutional: Alert, cooperative and in no distress. She is resting in bed. HEENT: Unremarkable Neck: No jugular venous distention, carotid pulses are normal and equal bilaterally without bruits. Pulmonary: Clear to auscultation bilaterally. Cardiac: Irregular rhythm with a grade 2/6 holosystolic murmur, no gallop or rub. Abdomen: Soft, nontender with normal bowel sounds. Extremities: No edema. Neurologic: No focal findings. Skin: No rash, ecchymoses or petechiae. Results & Data Vital Signs (Past 12 Hours) Vital Signs Temp Pulse Pulse Pulse Resp BP Pulse Ox 10/23/24 07:58 35.6 C L 80 18 84/44 L 98 10/23/24 06:03 73 18 81/42 L 96 10/23/24 05:14 80 17 83/42 L 93 10/23/24 04:30 76 17 88/53 L 98 10/23/24 03:20 92 10/22/24 23:21 36.6 C 88 16 78/49 L 90 10/22/24 21:50 100 H 10/22/24 21:12 10/22/24 21:12 36.3 C L 62 17 104/55 L 98 10/22/24 21:05 95 H O2 Del Method O2 Flow Rate 10/23/24 07:58 Room Air 10/23/24 06:03 Nasal Cannula 2 10/23/24 05:14 Nasal Cannula 2 10/23/24 04:30 Nasal Cannula 2 10/23/24 03:20 Nasal Cannula 2 10/22/24 23:21 Room Air 10/22/24 21:50 10/22/24 21:12 Room Air 10/22/24 21:12 Room Air 10/22/24 21:05 Laboratory Results Cardiac Enzymes 10/22/24 10/22/24 Range/Units 14:28 16:04 AST 34 (13-39) U/L Troponin I High Sens 37.9 H 31.0 H (0-14) pg/ml B-Natriuretic Peptide 239 H (0-100) pg/ml Coagulation 10/22/24 10/22/24 Range/Units 14:28 16:04 PT Cancelled 13.4 H APTT Cancelled 34 H B-Natriuretic Peptide 239 H (0-100) pg/ml CBC 10/22/24 Range/Units 14:28 WBC 5.77 (4.8-10.8) K/ul RBC 4.58 (4.20-5.40) M/uL Hgb 13.1 (12.0-16.0) g/dl Hct 40.5 (37.0-47.0) % Plt Count 329 (130-400) K/uL Neut # (Auto) 4.14 (1.40-6.50) K/uL Lymph # (Auto) 0.87 L (1.20-3.40) K/uL [place] # (Auto) 0.68 H (0.11-0.59) K/uL Eos # (Auto) 0.04 (0.00-0.50) K/uL Baso # (Auto) 0.02 (0.00-0.20) K/uL Comprehensive Metabolic Panel 10/22/24 Range/Units 14:28 Sodium 138 (136-145) mmol/L Potassium 4.2 (3.5-5.1) mmol/L Chloride 94 L (98-107) mmol/L Carbon Dioxide 35 H (21-32) mmol/L BUN 22 (6-23) mg/dl Creatinine 2.83 H (0.6-1.2) mg/dl Glucose 138 H (70-99(Fasting)) mg/dl Calcium 8.5 L (8.6-10.3) mg/dl AST 34 (13-39) U/L ALT 9 (7-52) U/L Alkaline Phosphatase 109 H (34-104) U/L Total Protein 7.1 (6.0-8.3) gm/dl Albumin 3.6 (3.4-5.0) gm/dl Intake and Output 10/22/24 10/23/24 10/23/24 22:59 06:59 14:59 Intake Total 1010 / 1010 Balance 1010 / 1010 Intake: IV 1010 / 1010 Albumin 25% 25 gm In 100 ml @ 200 / 200 50 mls/hr IV Q2H ALEX Rx#: [id number] Calcium Gluconate 1,000 mg In 60 / 60 60 ml @ 240 mls/hr IV NOW STA Rx#:[id number] Lactated Ringer's 250 ml @ 999 750 / 750 mls/hr IV .Q16M ONE Rx#: [id number] Other: Weight 51.1 kg Weight Measurement Method Standing Scale Diagnostic Findings Telemetry: Atrial fibrillation with a heart rate from 80 to 90 bpm on average Pacemaker evaluation: She has been in atrial fibrillation for about 6 weeks based on pacemaker interrogation, she is pacing the minority of the time since. PG Care Time/CCT Total # of Minutes Spent Total Time Spent with Patient: Total time spent is greater than 50% in coordination of care (as documented) at patient's floor/unit and/or counseling patient: Coding Level of Care Code 29896 INT INP/OBS CARE 3/75MIN Diagnoses Hypotension I95.9 SSS (sick sinus syndrome) I49.5 Cardiac pacemaker Z95.0 CPT Codes Dual Lead Pacemaker System - 82282 ([id number])
--- NOTE | 2024-10-23 09:46 | Nephrology Progress Note ---
Date of Service October 23, 2024 Assessment & Plan (1) End stage renal disease on dialysis: Plan: ESRD on HD MWF. Completed full treatment yesterday. Treatments have been complicated by hypotension and significant intradialytic hypotension. Volume management is increasingly difficult. An additional treatment was planned for today but this has been canceled due to persistent hypotension. Jessenia is oxygenating well and breathing relatively comfortably. Next treatment will be planned for tomorrow. AVF functioning well. Medications appropriate for kidney function. Recent history is notable for increasing frailty and difficulty tolerating HD due to intradialytic hypotension. Goals of care continuously updated. Prognosis is unfortunately guarded/poor. Cardiology consultation pending to evaluate for ways to potentially improve cardiac hemodynamics. (2) Pleural effusion: Plan: Transudative by history. Recurrent and symptomatic. IR consulted for thoracentesis. (3) Volume overload: Plan: For complete evaluation of intradialytic hypotension and hemodialysis intolerance, an updated TTE has been requested. Did not tolerate midodrine due to itch. May try a dose midodrine with HD. Cardiology consultation pending. Admission and Anticipated Discharge Date Admission Date: October 22, 2024 Subjective Jessenia is resting comfortably in bed this AM. Atrial fibrillation on monitor, rate is ~80 BPM with some pauses and ventricular escape/paced beats. Hypotension overnight treated with IVF and albumin. BP remains low this AM. Jessenia denies lightheadedness or dizziness. She denies any chest pains or palpitations. She describes persistent orthopnea but is breathing comfortably at rest. Review of Systems Review of Systems: All systems reviewed & are unremarkable except as noted in HPI & below Physical Exam Constitutional: + thin and + frail appearing; no acute d istress Eyes: + anicteric sclerae ENMT: Mouth: no oral mucosal abnormality and oral mucous membranes not dry Neck: normal visual inspection and trachea midline Respiratory: normal respiratory effort Auscultation: lungs clear to auscultation bilaterally, + diminished lung sounds and + rales Cardiovascular: Rate/Rhythm: regular rate and + irregularly irregular Heart Sounds: normal S1, normal S2 and + murmur Extremities: + edema (improved) and + AV fistula Musculoskeletal: Extremities: + cyanosis Skin: no jaundice Left foot with distal ischemia and arterial ulcer on great toe Neurologic: Motor/Sensory: no tremor and no asterixis Psychiatric: Orientation: alert and oriented x 3 Results & Data Vital Signs (Past 12 Hours) Vital Signs Temp Pulse Pulse Resp BP Pulse Ox O2 Del Method 10/23/24 07:58 35.6 C L 80 18 84/44 L 98 Room Air 10/23/24 06:03 73 18 81/42 L 96 Nasal Cannula 10/23/24 05:14 80 17 83/42 L 93 Nasal Cannula 10/23/24 04:30 76 17 88/53 L 98 Nasal Cannula 10/23/24 03:20 92 Nasal Cannula 10/22/24 23:21 36.6 C 88 16 78/49 L 90 Room Air 10/22/24 21:50 100 H O2 Flow Rate 10/23/24 07:58 10/23/24 06:03 2 10/23/24 05:14 2 10/23/24 04:30 2 10/23/24 03:20 2 10/22/24 23:21 10/22/24 21:50 Laboratory Results Laboratory Results - last 24 hr 10/22/24 10/22/24 10/22/24 14:28 16:04 17:17 WBC 5.77 RBC 4.58 Hgb 13.1 Hct 40.5 MCV 88.4 MCH 28.6 MCHC 32.3 RDW Std Deviation 53.5 H RDW Coeff of Sathya 16.5 H Plt Count 329 MPV 10.9 Immature Gran % (Auto) 0.3 Neut % (Auto) 71.8 Lymph % (Auto) 15.1 [place] % (Auto) 11.8 Eos % (Auto) 0.7 Baso % (Auto) 0.3 Neut # (Auto) 4.14 Lymph # (Auto) 0.87 L [place] # (Auto) 0.68 H Eos # (Auto) 0.04 Baso # (Auto) 0.02 Immature Gran # (Auto) 0.02 PT Cancelled 13.4 H INR Cancelled 1.3 H APTT Cancelled 34 H PTT Ratio Cancelled 1.3 Sodium 138 Potassium 4.2 Chloride 94 L Carbon Dioxide 35 H Anion Gap 9 BUN 22 Creatinine 2.83 H Est Cr Clr Drug Dosing Not Reportable eGFR 15.75 BUN/Creatinine Ratio 7.8 L Glucose 138 H POC Glucose Calcium 8.5 L Total Bilirubin 1.4 H AST 34 ALT 9 Alkaline Phosphatase 109 H Troponin I High Sens 37.9 H 31.0 H B-Natriuretic Peptide 239 H Total Protein 7.1 Albumin 3.6 Globulin 3.5 Albumin/Globulin Ratio 1.0 Nasal Screen MRSA (PCR) Negative Hep Bs Antigen Pending Hep Bs Antibody Pending Hep Bs Antibody, Quant Pending 10/22/24 10/22/24 10/23/24 19:37 21:14 07:23 WBC RBC Hgb Hct MCV MCH MCHC RDW Std Deviation RDW Coeff of Sathya Plt Count MPV Immature Gran % (Auto) Neut % (Auto) Lymph % (Auto) [place] % (Auto) Eos % (Auto) Baso % (Auto) Neut # (Auto) Lymph # (Auto) [place] # (Auto) Eos # (Auto) Baso # (Auto) Immature Gran # (Auto) PT INR APTT PTT Ratio Sodium Potassium Chloride Carbon Dioxide Anion Gap BUN Creatinine Est Cr Clr Drug Dosing eGFR BUN/Creatinine Ratio Glucose POC Glucose 93 110 H 96 Calcium Total Bilirubin AST ALT Alkaline Phosphatase Troponin I High Sens B-Natriuretic Peptide Total Protein Albumin Globulin Albumin/Globulin Ratio Nasal Screen MRSA (PCR) Hep Bs Antigen Hep Bs Antibody Hep Bs Antibody, Quant PG Care Time/CCT Total # of Minutes Spent Total Time Spent with Patient: Total time spent is greater than 50% in coordination of care (as documented) at patient's floor/unit and/or counseling patient: Coding Level of Care Code 18541 SUB INP/OBS CARE 3/50MIN Diagnoses End stage renal disease on dialysis N18.6; Z99.2 Pleural effusion J90 Volume overload E87.70
[2024-10-23 09:56] LABS: Hep B Surface Ag with confirm Negative (Negative)
--- NOTE | 2024-10-23 11:00 | Hospitalist Progress Note ---
Date of Service October 23, 2024 Assessment & Plan (1) Hypotension: Plan: Persistent. Midodrine has been ordered. Cardiac echo negative for any evidence of pericardial effusion and as a consequence no cardiac tamponade. Amlodipine remains on hold. Will follow (2) Recurrent right pleural effusion: Plan: She has had previous thoracentesis on the right in the past. Eliquis is on hold. IR requested to repeat therapeutic right thoracentesis which will be performed after she has been off the Eliquis for 3 days. (3) End stage renal disease on dialysis: Plan: Continue hemodialysis according to usual schedule. Nephrology consultation requested) (4) Chronic atrial fibrillation: Plan: Rate control measures. Telemetry. Eliquis temporarily on hold (5) Type 2 diabetes mellitus: Plan: ADA diet. Avoid nighttime insulin to prevent nocturnal hypoglycemia. Sliding scale coverage for now Plan Hopeful discharge to home sometime later this week Admission and Anticipated Discharge Date Admission Date: October 22, 2024 Subjective Alert and oriented. No distress. Blood pressure remains low. Cardiac echo negative for any evidence of pericardial effusion producing any tamponade. She has been started on midodrine. Cardiology consultation appreciated. Eliquis remains on hold for impending right thoracentesis for the large right pleural effusion. Nephrology consultation requested and pending. She is hemodialysis dependent. Review of Systems 2 Review of Systems: Constitutionalno fever or chills ENTno blurred vision, no double vision, no epistaxis, no sore throat Respiratoryno cough, no wheezing. She does have dyspnea on exertion Cardiacno palpitations, no chest pain, no syncope Roque nausea, vomiting, diarrhea, melena, hematochezia GUno urinary retention, no urinary incontinence, no dysuria, no hematuria Musculoskeletalno joint pain, no muscle tenderness Skinno bruising, no rashes, no pruritus Neurono isolated weakness, no paresthesia Psychno depression, no anxiety Physical Exam 2 Physical Exam: General-alert and oriented x3, no fever, no chills HEENT-head atraumatic and normocephalic, pupils equal and reactive to light, extraocular muscles intact Neck-no lymphadenopathy or thyromegaly, trachea midline Chest-illness and diminished breath sounds on the right side. No wheezing. No expiratory rales. No rhonchi Cardiac-irregular rhythm. Controlled rate. Normal S1 and S2 Abdomen-normal bowel sounds, no hepatosplenomegaly Extremities-no cyanosis, clubbing, or edema Neuro-cranial nerves II through XII intact, motor and sensory function within normal limits, strength symmetrical, no focal deficits Psych-normal affect, normal mood Results & Data Results & Data Vital Signs (Past 12 Hours) Vital Signs Temp Pulse Resp BP Pulse Ox O2 Del Method O2 Flow Rate 10/23/24 07:58 35.6 C L 80 18 84/44 L 98 Room Air 10/23/24 06:03 73 18 81/42 L 96 Nasal Cannula 2 10/23/24 05:14 80 17 83/42 L 93 Nasal Cannula 2 10/23/24 04:30 76 17 88/53 L 98 Nasal Cannula 2 10/23/24 03:20 92 Nasal Cannula 2 10/22/24 23:21 36.6 C 88 16 78/49 L 90 Room Air Laboratory Results 10/22/24 14:28 10/22/24 14:28 PG Care Time/CCT Total # of Minutes Spent Total Time Spent with Patient: Total time spent is greater than 50% in coordination of care (as documented) at patient's floor/unit and/or counseling patient: Coding Level of Care Code 44888 SUB INP/OBS CARE 3/50MIN Diagnoses Hypotension I95.9 Recurrent right pleural effusion J90 End stage renal disease on dialysis N18.6; Z99.2 Chronic atrial fibrillation I48.20 Type 2 diabetes mellitus E11.9
[2024-10-23] MEDS: MIDODRINE HCL 2.5 MG TAB PO SCH (11:06)
--- NOTE | 2024-10-23 17:59 | XCELERA ---
[id number] \\[id number]
[2024-10-23] MEDS: ONDANSETRON INJ 2 MG/ML 2 ML VIAL IV STA (20:38)
[2024-10-23] MEDS: DEXTROSE 50% 50 ML SYRINGE IV PRN (22:43)
--- NOTE | 2024-10-23 22:59 | Communication Note ---
Date of Service: October 23, 2024 Nursing staff reached out early in the evening shift to let me know pt's blood pressure once again low, 60-70s/30-40s. Given a 250 mL IVF bolus with very brief mild improvement. Pt at that point was altered, stirs in response to voice or painful stimuli but no meaningful response otherwise. Given clinical decline, I called family. Initially I called primary contact which is pt's son Derrek, called twice but no answer. I then called pts daughter and second contact Liana. She did answer. I updated her on the course the last two nights; last night trial of repeat boluses of IVF, calcium gluc, albumin. Per day notes, was not able to have dialysis today (10/23) due to persistent hypotension. Advised family given mental status change to come in. Liana states she will call her brother Derrek to come in as well. Another 250 mL IVF bolus given. When family arrived, initially it was just Liana and her , whom Jessenia lives with. They tell me that Jessenia has been on the decline for months and shared with them yesterday that she is getting "tired of fighting" and "just wants to be done with everything." They state they take her to dialysis and it has become progressively more poorly tolerated with time and she has begun to get so weak that when they took her camping 1-2 weeks ago they struggled to get her up the stairs into the camper. They state that yesterday she essentially just slept all day and seems to be withering away. [place] through discussions, son Derrek arrives with his significant other. I updated him as well on the current situation of ongoing frailty and acute on chronic decline and hypotension that is borderline if not already to the point of needing pressor support, especially given her altered mentation. Family is in agreement on DNR/DNI which was established with the patient herself when she had capacity yesterday night. I discussed three options for family; 1.) we could continue to attempt to do all we can short of her wishes for DNR/DNI which at this point may mean ICU placement for pressor support, which given her entire clinical picture may just be a temporizing measure 2.) continue current conservative therapy with no escalation and in the event of acute decline of cardiovascular or respiratory function, focus on comfort, or 3.) focus on comfort care and maximizing quality of life. Liana and her state they would like to maximize her quality of life, however Derrek would like to at least continue current therapy and still explore if further dialysis and thoracentesis may be beneficial for the patient at this point. I advised the family to discuss together what their goals for September are, keeping in mind her overall clinical picture and what they believe she would want. Nurse let me know later in the night that family would like to continue further care without escalation to ICU care at this time for overnight. They can discuss further in the morning with day time hospitalist and nephrology. Pt given IV load of steroid and 2gm calcium gluconate as continued efforts to support hemodynamics short of escalating care to the ICU. Discussed with family there is a private room available for pt now if pt is to be without telemetry. Given she is DNR/DNI, family in agreement to downgrade to [facility] and get private room for more access to see her at their comfort throughout this process. Resident Activity Tracking Resident Involvement: Resident Care Provided Care Provided: Adult Hospital Medicine
[2024-10-24] MEDS: HYDROCORTISONE SOD 100 MG in SYRINGE 0 ML IV ONE (01:45)
[2024-10-24] MEDS: CALCIUM GLUCONATE 1,000 MG/60 ML BAG IV SCH (01:46)
[2024-10-24 06:05] LABS: Hematocrit (blood only) 33.0 % (37.0-47.0); Hemoglobin 10.8 g/dl (12.0-16.0); Immature Granulocytes # (auto) 0.03 K/uL (0.01-0.20); Immature Granulocytes % (auto) 0.5 %; Mean Corpuscular Hemoglobin 28.6 pg (25.0-34.0); Mean Corpuscular Volume 87.3 fL (80.0-100.0); Platelet Count 241 K/uL (130-400); RDW Standard Deviation 52.1 fL (36.4-46.3); Red Blood Count 3.78 M/uL (4.20-5.40); White Blood Count 6.18 K/ul (4.8-10.8)
[2024-10-24 06:21] LABS: Anion Gap 10.0 (3-11); Blood Urea Nitrogen 33.0 mg/dl (6-23); Calcium 9.3 mg/dl (8.6-10.3); Carbon Dioxide 30.0 mmol/L (21-32); Chloride 94.0 mmol/L (98-107); Creatinine Clr Calc Pharmacy 7.8 ml/min; Glucose 76.0 mg/dl (70-99(Fasting)); Potassium 4.9 mmol/L (3.5-5.1); Sodium 134.0 mmol/L (136-145)
--- NOTE | 2024-10-24 09:13 | Nephrology Progress Note ---
Date of Service October 24, 2024 Assessment & Plan (1) End stage renal disease on dialysis: Plan: ESRD on HD MWF. Last treatment Tuesday. Due to recent hypotension/hemodynamic instability, treatment will be held today. Unfortunately, Jessenia is not tolerating HD well. Volume status is reasonable and she does not require clearance today. Overall, goals of care conversations are ongoing. Palliative care consultation may be useful. Treatments have been complicated by hypotension and significant intradialytic hypotension. Volume management is increasingly difficult. AVF functioning well. Medications appropriate for kidney function. Recent history is notable for increasing frailty and difficulty tolerating HD due to intradialytic hypotension. Goals of care continuously updated. Prognosis is unfortunately guarded/poor. Cardiology consultation pending to evaluate for ways to potentially improve cardiac hemodynamics. (2) Pleural effusion: Plan: Transudative by history. Recurrent and symptomatic. IR consulted for thoracentesis. (3) Volume overload: Plan: For complete evaluation of intradialytic hypotension and hemodialysis intolerance, an updated TTE was reviewed. Remains in atrial fibrillation. Did not tolerate midodrine due to itch. May try a dose midodrine with HD. Cardiology consultation appreciated. Admission and Anticipated Discharge Date Admission Date: October 22, 2024 Subjective Remains hypotensive overnight. Jessenia states that she feels better this AM. She is on supplemental O2 but reports breathing comfortably. No fevers or chills. She plans to meet with her family today. Jessenia acknowledges the risks and limitations of dialysis. She was agreeable to hold treatment today. Goals of care conversations are ongoing. Review of Systems Review of Systems: All systems reviewed & are unremarkable except as noted in HPI & below Physical Exam Constitutional: + thin and + frail appearing; no acute d istress Eyes: + anicteric sclerae ENMT: Mouth: no oral mucosal abnormality and oral mucous membranes not dry Neck: normal visual inspection and trachea midline Respiratory: normal respiratory effort Auscultation: lungs clear to auscultation bilaterally, + diminished lung sounds and + rales Cardiovascular: Rate/Rhythm: regular rate and + irregularly irregular Heart Sounds: normal S1, normal S2 and + murmur Extremities: + edema (improved) and + AV fistula Musculoskeletal: Extremities: + cyanosis Skin: no jaundice Neurologic: Motor/Sensory: no tremor and no asterixis Psychiatric: Orientation: alert and oriented x 3 Results & Data Vital Signs (Past 12 Hours) Vital Signs Temp Pulse Pulse Pulse Resp BP Pulse Ox 10/24/24 08:30 10/24/24 07:34 36.7 C 107 H 17 79/52 L 94 10/24/24 03:00 81 20 81/42 L 93 10/24/24 02:50 10/24/24 00:21 36.6 C 78 20 62/39 L 97 10/23/24 21:50 75 O2 Del Method O2 Flow Rate 10/24/24 08:30 Nasal Cannula 2 10/24/24 07:34 Nasal Cannula 2 10/24/24 03:00 Nasal Cannula 2 10/24/24 02:50 Nasal Cannula 2 10/24/24 00:21 Nasal Cannula 2 10/23/24 21:50 Laboratory Results Laboratory Results - last 24 hr 10/22/24 10/23/24 10/23/24 16:04 11:07 17:19 WBC RBC Hgb Hct MCV MCH MCHC RDW Std Deviation RDW Coeff of Sathya Plt Count MPV Immature Gran % (Auto) Neut % (Auto) Lymph % (Auto) [place] % (Auto) Eos % (Auto) Baso % (Auto) Neut # (Auto) Lymph # (Auto) [place] # (Auto) Eos # (Auto) Baso # (Auto) Immature Gran # (Auto) Sodium Potassium Chloride Carbon Dioxide Anion Gap BUN Creatinine Est Cr Clr Drug Dosing eGFR BUN/Creatinine Ratio Glucose POC Glucose 144 H 80 Calcium Hep Bs Antigen Negative Hep Bs Antibody Immune Hep Bs Antibody, Quant 70.40 10/23/24 10/23/24 10/23/24 20:43 22:40 23:04 WBC RBC Hgb Hct MCV MCH MCHC RDW Std Deviation RDW Coeff of Sathya Plt Count MPV Immature Gran % (Auto) Neut % (Auto) Lymph % (Auto) [place] % (Auto) Eos % (Auto) Baso % (Auto) Neut # (Auto) Lymph # (Auto) [place] # (Auto) Eos # (Auto) Baso # (Auto) Immature Gran # (Auto) Sodium Potassium Chloride Carbon Dioxide Anion Gap BUN Creatinine Est Cr Clr Drug Dosing eGFR BUN/Creatinine Ratio Glucose POC Glucose 127 H 78 131 H Calcium Hep Bs Antigen Hep Bs Antibody Hep Bs Antibody, Quant 10/24/24 10/24/24 05:26 07:30 WBC 6.18 RBC 3.78 L Hgb 10.8 L Hct 33.0 L MCV 87.3 MCH 28.6 MCHC 32.7 RDW Std Deviation 52.1 H RDW Coeff of Sathya 16.3 H Plt Count 241 MPV 10.9 Immature Gran % (Auto) 0.5 Neut % (Auto) 84.9 Lymph % (Auto) 8.1 [place] % (Auto) 5.7 Eos % (Auto) 0.5 Baso % (Auto) 0.3 Neut # (Auto) 5.25 Lymph # (Auto) 0.50 L [place] # (Auto) 0.35 Eos # (Auto) 0.03 Baso # (Auto) 0.02 Immature Gran # (Auto) 0.03 Sodium 134 L Potassium 4.9 Chloride 94 L Carbon Dioxide 30 Anion Gap 10 BUN 33 H Creatinine 4.18 H D Est Cr Clr Drug Dosing 7.8 eGFR 9.86 BUN/Creatinine Ratio 7.9 L Glucose 76 POC Glucose 108 H Calcium 9.3 Hep Bs Antigen Hep Bs Antibody Hep Bs Antibody, Quant PG Care Time/CCT Total # of Minutes Spent Total Time Spent with Patient: Total time spent is greater than 50% in coordination of care (as documented) at patient's floor/unit and/or counseling patient: Coding Level of Care Code 03423 SUB INP/OBS CARE 3/50MIN Diagnoses End stage renal disease on dialysis N18.6; Z99.2 Pleural effusion J90 Volume overload E87.70
[2024-10-24] MEDS: DIGOXIN 250 MCG in SYRINGE 9 ML IV STA (09:18)
--- NOTE | 2024-10-24 11:00 | Hospitalist Progress Note ---
Date of Service October 24, 2024 Assessment & Plan (1) Hypotension: Plan: Persistent. Midodrine dosage uptitrated today, October 24. Hydralazine and carvedilol have been discontinued. Cardiac echo negative for any evidence of pericardial effusion and as a consequence no cardiac tamponade. (2) Recurrent right pleural effusion: Plan: She has had previous thoracentesis on the right in the past. Eliquis is on hold. IR requested to repeat therapeutic right thoracentesis which will be performed after she has been off the Eliquis for 3 days. (3) End stage renal disease on dialysis: Plan: Nephrology consultation and recommendations noted. Hemodialysis is currently on hold due to hypotension. (4) Chronic atrial fibrillation: Plan: Digoxin has been started for rate control. Coreg has been discontinued due to hypotension. Telemetry. Eliquis temporarily on hold for upcoming right thoracentesis (5) Type 2 diabetes mellitus: Plan: ADA diet. Avoid nighttime insulin to prevent nocturnal hypoglycemia. Sliding scale coverage for now Plan To be determined Admission and Anticipated Discharge Date Admission Date: October 22, 2024 Subjective Alert. Somewhat tearful because she cannot undergo dialysis because of her low blood pressure. I checked her right arm manually and it does match the automatic blood pressure cuff readings. Midodrine uptitrated from 5 to 10 mg 3 times a day. Digoxin started for atrial fibrillation ventricular rate control without aggravating her blood pressure further. Hydralazine and Coreg have been discontinued. Eliquis is also on hold for hopeful right thoracentesis. Nephrology entry noted. Review of Systems 2 Review of Systems: Constitutionalno fever or chills ENTno blurred vision, no double vision, no epistaxis, no sore throat Respiratoryno cough, no wheezing. She does have dyspnea on exertion Cardiacno palpitations, no chest pain, no syncope Roque nausea, vomiting, diarrhea, melena, hematochezia GUno urinary retention, no urinary incontinence, no dysuria, no hematuria Musculoskeletalno joint pain, no muscle tenderness Skinno bruising, no rashes, no pruritus Neurono isolated weakness, no paresthesia. She denies orthostatic symptoms despite low blood pressures Psychno depression, no anxiety Physical Exam 2 Physical Exam: General-alert and oriented x3, no fever, no chills HEENT-head atraumatic and normocephalic, pupils equal and reactive to light, extraocular muscles intact Neck-no lymphadenopathy or thyromegaly, trachea midline Chest-illness and diminished breath sounds on the right side. No wheezing. No expiratory rales. No rhonchi Cardiac-irregular rhythm. Mildly tachycardic rate. Normal S1 and S2 Abdomen-normal bowel sounds, no hepatosplenomegaly Extremities-no cyanosis, clubbing, or edema Neuro-cranial nerves II through XII intact, motor and sensory function within normal limits, strength symmetrical, no focal deficits Psych-normal affect, normal mood Results & Data Results & Data Vital Signs (Past 12 Hours) Vital Signs Temp Pulse Pulse Pulse Resp BP Pulse Ox 10/24/24 09:18 106 H 10/24/24 09:17 106 H 73/44 L 10/24/24 08:30 10/24/24 07:34 36.7 C 107 H 17 79/52 L 94 10/24/24 03:00 81 20 81/42 L 93 10/24/24 02:50 10/24/24 00:21 36.6 C 78 20 62/39 L 97 O2 Del Method O2 Flow Rate 10/24/24 09:18 10/24/24 09:17 10/24/24 08:30 Nasal Cannula 2 10/24/24 07:34 Nasal Cannula 2 10/24/24 03:00 Nasal Cannula 2 10/24/24 02:50 Nasal Cannula 2 10/24/24 00:21 Nasal Cannula 2 Laboratory Results 10/24/24 05:26 10/24/24 05:26 PG Care Time/CCT Total # of Minutes Spent Total Time Spent with Patient: Total time spent is greater than 50% in coordination of care (as documented) at patient's floor/unit and/or counseling patient: Coding Level of Care Code 08459 SUB INP/OBS CARE 3/50MIN Diagnoses Hypotension I95.9 Recurrent right pleural effusion J90 End stage renal disease on dialysis N18.6; Z99.2 Chronic atrial fibrillation I48.20 Type 2 diabetes mellitus E11.9
[2024-10-24] MEDS: MIDODRINE HCL 10 MG TAB PO SCH (12:51)
[2024-10-24] MEDS: DIGOXIN 250 MCG in SYRINGE 9 ML IV ONE (18:20)
[2024-10-25 06:01] LABS: Hematocrit (blood only) 35.5 % (37.0-47.0); Hemoglobin 11.4 g/dl (12.0-16.0); Immature Granulocytes # (auto) 0.06 K/uL (0.01-0.20); Immature Granulocytes % (auto) 0.6 %; Mean Corpuscular Hemoglobin 28.2 pg (25.0-34.0); Mean Corpuscular Volume 87.9 fL (80.0-100.0); Platelet Count 363 K/uL (130-400); RDW Standard Deviation 52.1 fL (36.4-46.3); Red Blood Count 4.04 M/uL (4.20-5.40); White Blood Count 10.72 K/ul (4.8-10.8)
[2024-10-25 06:25] LABS: Anion Gap 12.0 (3-11); Blood Urea Nitrogen 51.0 mg/dl (6-23); Calcium 8.9 mg/dl (8.6-10.3); Carbon Dioxide 27.0 mmol/L (21-32); Chloride 92.0 mmol/L (98-107); Creatinine Clr Calc Pharmacy 6.1 ml/min; Glucose 223.0 mg/dl (70-99(Fasting)); Potassium 5.6 mmol/L (3.5-5.1); Sodium 131.0 mmol/L (136-145)
[2024-10-25 07:17] VITALS: RESP 16
--- NOTE | 2024-10-25 09:16 | Nephrology Progress Note ---
Date of Service October 25, 2024 Assessment & Plan (1) End stage renal disease on dialysis: Plan: ESRD on HD. Last treatment Tuesday. Due to recent hypotension/hemodynamic instability, she has not been able to tolerate HD. Jessenia is increasingly frail and prognosis is poor. Jessenia acknowledges the limitations of dialysis. She is not tolerating dialysis well. She has decided that she will not continue with dialysis. 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 Her family expressed understanding and support. I would not expect continuing dialysis to provide increased quality or quantity of life. Jessenia goals of care focus on comfort and time with her family. Dr. Copeland is aware. Palliative care has been consulted. 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 (2) SSS (sick sinus syndrome): Plan: s/p pacemaker. Cardiology consultation and assistance appreciated. (3) Goals of care, counseling/discussion: Plan: Palliative care consultation requested. Patient discussed with Dr. Wise this AM. Admission and Anticipated Discharge Date Admission Date: October 22, 2024 Subjective I met with Jessenia and her family yesterday evening. Jessenia's daughter (Maryanne) has been with Jessenia all night. I had a follow up conversation with Jessenia and Maryanne this morning. Jessenia is very weak and tired. She denies significant dyspnea. It was an effort for her to eat anything for breakfast. She is having difficulty transitioning without assistance. She slept well last night. This morning she reported double vision. BP remains low. She understands the limitations of dialysis and she expressed that she does not want to continue treatments. She is in the process of transitioning to end-of-life care and understands that her life expectancy is limited. Jessenia's primary goal is to spend as much remaining time as she can with her family. Her children and most of her grandchildren have been in to visit and more family is expected today. I discussed with Dr. Copeland and Dr. Wise. Jessenia request Miralax for constipation. Review of Systems Review of Systems: All systems reviewed & are unremarkable except as noted in HPI & below Physical Exam Constitutional: + thin and + frail appearing; no acute d istress ENMT: Mouth: + dry oral mucous membranes Neck: normal visual inspection and trachea midline Respiratory: normal respiratory effort and + tachypneic Cardiovascular: Rate/Rhythm: + irregularly irregular Heart Sounds: + murmur Extremities: + edema and + AV fistula Musculoskeletal: Extremities: + cyanosis Neurologic: Motor/Sensory: + tremor Psychiatric: Orientation: alert, oriented to person, oriented to place and oriented to time (some difficulty with the date - including month this AM) Results & Data Vital Signs (Past 12 Hours) Vital Signs Temp Pulse Pulse Resp BP Pulse Ox O2 Del Method 10/25/24 07:17 36.6 C 71 16 76/42 L 95 Room Air 10/25/24 06:39 74 20 91/58 L 93 Nasal Cannula O2 Flow Rate 10/25/24 07:17 10/25/24 06:39 2 Laboratory Results Laboratory Results - last 24 hr 10/24/24 10/24/24 10/24/24 11:42 16:30 20:29 WBC RBC Hgb Hct MCV MCH MCHC RDW Std Deviation RDW Coeff of Sathya Plt Count MPV Immature Gran % (Auto) Neut % (Auto) Lymph % (Auto) [place] % (Auto) Eos % (Auto) Baso % (Auto) Neut # (Auto) Lymph # (Auto) [place] # (Auto) Eos # (Auto) Baso # (Auto) Immature Gran # (Auto) Sodium Potassium Chloride Carbon Dioxide Anion Gap BUN Creatinine Est Cr Clr Drug Dosing eGFR BUN/Creatinine Ratio Glucose POC Glucose 84 160 H 142 H Calcium Digoxin 10/25/24 10/25/24 05:31 07:16 WBC 10.72 RBC 4.04 L Hgb 11.4 L Hct 35.5 L MCV 87.9 MCH 28.2 MCHC 32.1 RDW Std Deviation 52.1 H RDW Coeff of Sathya 16.1 H Plt Count 363 D MPV 11.1 Immature Gran % (Auto) 0.6 Neut % (Auto) 79.6 Lymph % (Auto) 8.8 [place] % (Auto) 10.6 Eos % (Auto) 0.1 Baso % (Auto) 0.3 Neut # (Auto) 8.54 H Lymph # (Auto) 0.94 L [place] # (Auto) 1.14 H Eos # (Auto) 0.01 Baso # (Auto) 0.03 Immature Gran # (Auto) 0.06 Sodium 131 L Potassium 5.6 H Chloride 92 L Carbon Dioxide 27 Anion Gap 12 H BUN 51 H Creatinine 5.37 H* D Est Cr Clr Drug Dosing 6.1 eGFR 7.30 BUN/Creatinine Ratio 9.5 L Glucose 223 H POC Glucose 231 H Calcium 8.9 Digoxin 2.4 H PG Care Time/CCT Total # of Minutes Spent Total Time Spent with Patient: Total time spent is greater than 50% in coordination of care (as documented) at patient's floor/unit and/or counseling patient: Coding Level of Care Code 67772 SUB INP/OBS CARE 3/50MIN Diagnoses End stage renal disease on dialysis N18.6; Z99.2 SSS (sick sinus syndrome) I49.5 Goals of care, counseling/discussion Z71.89
[2024-10-25] MEDS ORDERED: POLYETHYLENE (MIRALAX) 17 GM PACK PO PRN (09:29)
[2024-10-25] MEDS: DOCUSATE SODIUM 100 MG CAP PO SCH (09:55)
[2024-10-25] MEDS: POLYETHYLENE (MIRALAX) 17 GM PACK PO SCH (09:55)
[2024-10-25 14:56] VITALS: BP 93/56; TEMP 97.7; O2SAT 92
--- NOTE | 2024-10-25 15:32 | Hospitalist Progress Note ---
Date of Service October 25, 2024 Assessment & Plan (1) Hypotension: Plan: Persistent. Midodrine dosage uptitrated on October 24. It has not been effective to date. Hydralazine and carvedilol have been discontinued. Cardiac echo negative for any evidence of pericardial effusion and as a consequence no cardiac tamponade. (2) Recurrent right pleural effusion: Plan: She has had previous thoracentesis on the right in the past. Eliquis remains on hold. The patient is not interested in having a thoracentesis done at this time nor do I feel it is necessary. Planned procedure has been canceled. (3) End stage renal disease on dialysis: Plan: Nephrology consultation and recommendations noted. Hemodialysis has been terminated due to persistent hypotension. (4) Chronic atrial fibrillation: Plan: Digoxin has been started for rate control. Coreg has been discontinued due to hypotension. Telemetry. Eliquis is currently on hold. (5) Type 2 diabetes mellitus: Plan: ADA diet. Avoid nighttime insulin to prevent nocturnal hypoglycemia. Sliding scale coverage for now Plan Palliative care will be meeting with the family and patient tomorrow morning, October 26 Admission and Anticipated Discharge Date Admission Date: October 22, 2024 Subjective Alert and oriented. Daughters at the bedside. She remains hypotensive despite addition of midodrine. Hydralazine and Coreg have been discontinued. Nephrology entry noted. No further hemodialysis possible with persistent hypotension. Palliative care consultation requested. Family meeting will take place tomorrow morning, October 26. Colace and MiraLAX were added per patient request for constipation. Review of Systems 2 Review of Systems: Constitutionalno fever or chills ENTno blurred vision, no double vision, no epistaxis, no sore throat Respiratoryno cough, no wheezing. She does have dyspnea on exertion Cardiacno palpitations, no chest pain, no syncope Roque nausea, vomiting, diarrhea, melena, hematochezia GUno urinary retention, no urinary incontinence, no dysuria, no hematuria Musculoskeletalno joint pain, no muscle tenderness Skinno bruising, no rashes, no pruritus Neurono isolated weakness, no paresthesia. She denies orthostatic symptoms despite low blood pressures Psychno depression, no anxiety Physical Exam 2 Physical Exam: General-alert and oriented x3, no fever, no chills HEENT-head atraumatic and normocephalic, pupils equal and reactive to light, extraocular muscles intact Neck-no lymphadenopathy or thyromegaly, trachea midline Chest-illness and diminished breath sounds on the right side. No wheezing. No expiratory rales. No rhonchi Cardiac-irregular rhythm. Mildly tachycardic rate. Normal S1 and S2 Abdomen-normal bowel sounds, no hepatosplenomegaly Extremities-no cyanosis, clubbing, or edema Neuro-cranial nerves II through XII intact, motor and sensory function within normal limits, strength symmetrical, no focal deficits Psych-normal affect, normal mood Results & Data Results & Data Vital Signs (Past 12 Hours) Vital Signs Temp Pulse Pulse Pulse Resp BP Pulse Ox 10/25/24 14:55 36.5 C 76 16 93/56 L 92 10/25/24 11:44 70 92/54 L 10/25/24 08:00 10/25/24 07:17 36.6 C 71 16 76/42 L 95 10/25/24 06:39 74 20 91/58 L 93 O2 Del Method O2 Flow Rate 10/25/24 14:55 Nasal Cannula 2 10/25/24 11:44 10/25/24 08:00 Nasal Cannula 2 10/25/24 07:17 Nasal Cannula 2 10/25/24 06:39 Nasal Cannula 2 Laboratory Results 10/25/24 05:31 10/25/24 05:31 PG Care Time/CCT Total # of Minutes Spent Total Time Spent with Patient: Total time spent is greater than 50% in coordination of care (as documented) at patient's floor/unit and/or counseling patient: Coding Level of Care Code 37598 SUB INP/OBS CARE 2/35MIN Diagnoses Hypotension I95.9 Recurrent right pleural effusion J90 End stage renal disease on dialysis N18.6; Z99.2 Chronic atrial fibrillation I48.20 Type 2 diabetes mellitus E11.9
--- NOTE | 2024-10-25 16:29 | Palliative Care Consultation ---
Date of Consultation October 25, 2024 Assessment & Plan (1) Dyspnea and respiratory abnormalities: SOUND [employer] PERSON rx ordered. (2) Weakness generalized: (3) Advanced care planning/counseling discussion: Met with Jessenia and her dtr Maryanne at bedside for a 45min face to face ACP She would like to return home, where she lives with Maryanne and Maryanne's in a one story ranch home, [facility] They are open to getting more help and home and I provided education about the hospice benefit: an interdisciplinary program offered by nurses, nurses aides, social workers, chaplains and a medical technician assistant for patients with a terminal condition and a life expectancy of less than 6 months. This is covered by Medicare at 100%/no out of pocket expense to patient and all meds/supplies needed by patient for the reason they are on hospice are paid for/covered by hospice. The goal is assure quality of life of the patient in their home setting (home, penitentiary, inpatient hospice setting) by providing symptoms management, psychosocial and spiritual support. However, they cannot offer 24 hours care and if the family is unable to provide that care, they will have to consider personal care with out of pocket cost vs. penitentiary placement. We discussed the goals of hospice as a patient service and the goals of care; we discussed EOL trajectories and transitions lore the emotional impact of realizing mortality as a concrete reality from prior abstract considerations. Pt was reassured that no matter where they are along this trajectory, they are not alone - their medical team will remain by their side through their journey. Discussed the pros/cons of accepting help when especially weakened and distressed by pain-which would also help provide relief/decrease caregiver burden/strain. (4) Palliative care by specialist: Introduced Palliative Medicine and explained our role in patient's care. Patient and/or family were receptive to palliative services for goals of care discussions. Reviewed we are different from hospice, a home health nurse visit ing service. Plan As above Thank you for allowing us to participate in the ongoing care of this patient. Please page with any additional concerns. Micah Wise DNP Director, Palliative Medicine History of Present Illness Reason for Consultation: end of life care Attending Physician: Agustín Copeland MD History of Present Illness Jessenia is a 84yo female with very adv ESRD who has been struggling with hypotension and no longer desiring to continue HD She has required suboptimal HD sessions and notes even with shorter durations she is not feeling better and it is not helping.She and her daughter Maryanne met with nephrology over the past few days and have reached decision for no further HD.She is more dyspneic and weak She states she has not been feeling much QOL for a while She Allergies Allergy/AdvReac Type Severity Reaction Status Date / Time amoxicillin Allergy Intermediate Hives Verified 10/22/24 16:38 propofol AdvReac Mild Nausea Verified 10/22/24 16:38 Home Medications Medication Instructions Recorded Confirmed Type aspirin 81 mg tablet,delayed 81 mg PO DAILY 07/15/18 10/22/24 History release famotidine 20 mg tablet 20 mg PO HS #30 tabs 07/21/18 10/22/24 Rx insulin glargine 100 unit/mL (3 38 unit subcut HS PRN NEEDED 11/18/18 10/22/24 History mL) subcutaneous pen (Lantus PER FAMILY Solostar U-100 Insulin) apixaban 2.5 mg tablet (Eliquis) 2.5 mg PO BID #180 tabs 02/11/23 10/22/24 Rx fenofibrate 54 mg tablet 54 mg PO HS 10/22/24 10/22/24 History insulin lispro 200 unit/mL (3 mL) 1 sliding scale dose subcut QPM 10/22/24 10/22/24 History subcutaneous pen (Humalog KwikPen PRN NEEDED PER FAMILY(NOT U-200 Insulin) RECENTLY) levofloxacin 250 mg tablet 250 mg PO Q OTHER DAY 10/22/24 10/22/24 History levothyroxine 100 mcg tablet 100 mcg PO QAM 10/22/24 10/22/24 History melatonin 5 mg tablet 5 mg PO HS 10/22/24 10/22/24 History ondansetron HCl 4 mg tablet 4 mg PO Q8H PRN NAUSEA/VOMITING 10/22/24 10/22/24 History ropinirole 0.25 mg tablet 0.25 mg PO HS 10/22/24 10/22/24 History rosuvastatin 5 mg tablet 5 mg PO HS 10/22/24 10/22/24 History vit A 300 mcg-C 200 mg-E 27 1 tab PO BID 10/22/24 10/22/24 History mg-lutein 2 mg and minerals tablet (Eye [facility] Plus Lutein) Patient History Medical History (Updated 10/25/24 @ 16:38 by Dolores Wise DNP) Hypertension Chronic kidney disease Hypothyroidism Diabetes mellitus, type 2 Surgical History History of vascular access device History of heart artery stent Social History Smoking Status: Never smoker Second Hand Exposure: No; Do You Dip or Chew Tobacco: No; Hx Alcohol Use: Yes Alcohol type: wine Hx Substance Use: No Preferred Language: Gibraltarian Communication Ability: Effective Retail Special Event Associate Required: No Beliefs That Will Affect Care: None marital status: / Current Living Situation: Family Feels Safe at Home: Yes Assistive Devices: Walker Review of Systems Review of Systems: All systems reviewed & are unremarkable except as noted in Subjective Physical Exam Physical Exam: frail appearing AAOx3 fatigued mil to mod conversational dyspnea intermittent lethargy bitemp wasting PERRLA MM sl dry abd scaphoid lungs diminished irreg irreg gen weakness +pallor cool skin +thrill fistula LUE mood subdued and at times anxious/worried Results & Data Vital Signs (Past 12 Hours) Vital Signs Temp Pulse Pulse Pulse Resp BP Pulse Ox 10/25/24 14:55 36.5 C 76 16 93/56 L 92 10/25/24 11:44 70 92/54 L 10/25/24 08:00 10/25/24 07:17 36.6 C 71 16 76/42 L 95 10/25/24 06:39 74 20 91/58 L 93 O2 Del Method O2 Flow Rate 10/25/24 14:55 Nasal Cannula 2 10/25/24 11:44 10/25/24 08:00 Nasal Cannula 2 10/25/24 07:17 Nasal Cannula 2 10/25/24 06:39 Nasal Cannula 2 Laboratory Results 10/25/24 10/25/24 10/25/24 Range/Units 11:41 07:16 05:31 WBC 10.72 (4.8-10.8) K/ul RBC 4.04 L (4.20-5.40) M/uL Hgb 11.4 L (12.0-16.0) g/dl Hct 35.5 L (37.0-47.0) % MCV 87.9 (80.0-100.0) fL MCH 28.2 (25.0-34.0) pg MCHC 32.1 (32.0-36.0) g/dL RDW Std Deviation 52.1 H (36.4-46.3) fL RDW Coeff of Sathya 16.1 H (11.5-14.5) % Plt Count 363 D (130-400) K/uL MPV 11.1 (9.4-12.4) fL Immature Gran % (Auto) 0.6 % Neut % (Auto) 79.6 % Lymph % (Auto) 8.8 % Cole % (Auto) 10.6 % Eos % (Auto) 0.1 % Baso % (Auto) 0.3 % Neut # (Auto) 8.54 H (1.40-6.50) K/uL Lymph # (Auto) 0.94 L (1.20-3.40) K/uL Cole # (Auto) 1.14 H (0.11-0.59) K/uL Eos # (Auto) 0.01 (0.00-0.50) K/uL Baso # (Auto) 0.03 (0.00-0.20) K/uL Immature Gran # (Auto) 0.06 (0.01-0.20) K/uL PT INR APTT PTT Ratio Sodium 131 L (136-145) mmol/L Potassium 5.6 H (3.5-5.1) mmol/L Chloride 92 L (98-107) mmol/L Carbon Dioxide 27 (21-32) mmol/L Anion Gap 12 H (3-11) BUN 51 H (6-23) mg/dl Creatinine 5.37 H* D (0.6-1.2) mg/dl Est Cr Clr Drug Dosing 6.1 eGFR 7.30 BUN/Creatinine Ratio 9.5 L (10-20) Glucose 223 H (70-99(Fasting)) mg/dl POC Glucose 143 H 231 H (70-99) mg/dl Calcium 8.9 (8.6-10.3) mg/dl Total Bilirubin (0.2-1.0) mg/dl AST (13-39) U/L ALT (7-52) U/L Alkaline Phosphatase (34-104) U/L Troponin I High Sens (0-14) pg/ml B-Natriuretic Peptide (0-100) pg/ml Total Protein (6.0-8.3) gm/dl Albumin (3.4-5.0) gm/dl Globulin (2.5-4.0) gm/dl Albumin/Globulin Ratio (0.9-2) Nasal Screen MRSA (PCR) (Negative) Digoxin 2.4 H (0.8-2.0) ng/ml Hep Bs Antigen (Negative) Hep Bs Antibody Hep Bs Antibody, Quant (>or=10mIU/mL Immune) mIU/mL 10/24/24 10/24/24 10/24/24 Range/Units 20:29 16:30 11:42 WBC (4.8-10.8) K/ul RBC (4.20-5.40) M/uL Hgb (12.0-16.0) g/dl Hct (37.0-47.0) % MCV (80.0-100.0) fL MCH (25.0-34.0) pg MCHC (32.0-36.0) g/dL RDW Std Deviation (36.4-46.3) fL RDW Coeff of Sathya (11.5-14.5) % Plt Count (130-400) K/uL MPV (9.4-12.4) fL Immature Gran % (Auto) % Neut % (Auto) % Lymph % (Auto) % Cole % (Auto) % Eos % (Auto) % Baso % (Auto) % Neut # (Auto) (1.40-6.50) K/uL Lymph # (Auto) (1.20-3.40) K/uL Cole # (Auto) (0.11-0.59) K/uL Eos # (Auto) (0.00-0.50) K/uL Baso # (Auto) (0.00-0.20) K/uL Immature Gran # (Auto) (0.01-0.20) K/uL PT INR APTT PTT Ratio Sodium (136-145) mmol/L Potassium (3.5-5.1) mmol/L Chloride (98-107) mmol/L Carbon Dioxide (21-32) mmol/L Anion Gap (3-11) BUN (6-23) mg/dl Creatinine (0.6-1.2) mg/dl Est Cr Clr Drug Dosing eGFR BUN/Creatinine Ratio (10-20) Glucose (70-99(Fasting)) mg/dl POC Glucose 142 H 160 H 84 (70-99) mg/dl Calcium (8.6-10.3) mg/dl Total Bilirubin (0.2-1.0) mg/dl AST (13-39) U/L ALT (7-52) U/L Alkaline Phosphatase (34-104) U/L Troponin I High Sens (0-14) pg/ml B-Natriuretic Peptide (0-100) pg/ml Total Protein (6.0-8.3) gm/dl Albumin (3.4-5.0) gm/dl Globulin (2.5-4.0) gm/dl Albumin/Globulin Ratio (0.9-2) Nasal Screen MRSA (PCR) (Negative) Digoxin (0.8-2.0) ng/ml Hep Bs Antigen (Negative) Hep Bs Antibody Hep Bs Antibody, Quant (>or=10mIU/mL Immune) mIU/mL 10/24/24 10/24/24 10/23/24 Range/Units 07:30 05:26 23:04 WBC 6.18 (4.8-10.8) K/ul RBC 3.78 L (4.20-5.40) M/uL Hgb 10.8 L (12.0-16.0) g/dl Hct 33.0 L (37.0-47.0) % MCV 87.3 (80.0-100.0) fL MCH 28.6 (25.0-34.0) pg MCHC 32.7 (32.0-36.0) g/dL RDW Std Deviation 52.1 H (36.4-46.3) fL RDW Coeff of Sathya 16.3 H (11.5-14.5) % Plt Count 241 (130-400) K/uL MPV 10.9 (9.4-12.4) fL Immature Gran % (Auto) 0.5 % Neut % (Auto) 84.9 % Lymph % (Auto) 8.1 % Cole % (Auto) 5.7 % Eos % (Auto) 0.5 % Baso % (Auto) 0.3 % Neut # (Auto) 5.25 (1.40-6.50) K/uL Lymph # (Auto) 0.50 L (1.20-3.40) K/uL Cole # (Auto) 0.35 (0.11-0.59) K/uL Eos # (Auto) 0.03 (0.00-0.50) K/uL Baso # (Auto) 0.02 (0.00-0.20) K/uL Immature Gran # (Auto) 0.03 (0.01-0.20) K/uL PT INR APTT PTT Ratio Sodium 134 L (136-145) mmol/L Potassium 4.9 (3.5-5.1) mmol/L Chloride 94 L (98-107) mmol/L Carbon Dioxide 30 (21-32) mmol/L Anion Gap 10 (3-11) BUN 33 H (6-23) mg/dl Creatinine 4.18 H D (0.6-1.2) mg/dl Est Cr Clr Drug Dosing 7.8 eGFR 9.86 BUN/Creatinine Ratio 7.9 L (10-20) Glucose 76 (70-99(Fasting)) mg/dl POC Glucose 108 H 131 H (70-99) mg/dl Calcium 9.3 (8.6-10.3) mg/dl Total Bilirubin (0.2-1.0) mg/dl AST (13-39) U/L ALT (7-52) U/L Alkaline Phosphatase (34-104) U/L Troponin I High Sens (0-14) pg/ml B-Natriuretic Peptide (0-100) pg/ml Total Protein (6.0-8.3) gm/dl Albumin (3.4-5.0) gm/dl Globulin (2.5-4.0) gm/dl Albumin/Globulin Ratio (0.9-2) Nasal Screen MRSA (PCR) (Negative) Digoxin (0.8-2.0) ng/ml Hep Bs Antigen (Negative) Hep Bs Antibody Hep Bs Antibody, Quant (>or=10mIU/mL Immune) mIU/mL 10/23/24 10/23/24 10/23/24 Range/Units 22:40 20:43 17:19 WBC (4.8-10.8) K/ul RBC (4.20-5.40) M/uL Hgb (12.0-16.0) g/dl Hct (37.0-47.0) % MCV (80.0-100.0) fL MCH (25.0-34.0) pg MCHC (32.0-36.0) g/dL RDW Std Deviation (36.4-46.3) fL RDW Coeff of Sathya (11.5-14.5) % Plt Count (130-400) K/uL MPV (9.4-12.4) fL Immature Gran % (Auto) % Neut % (Auto) % Lymph % (Auto) % Cole % (Auto) % Eos % (Auto) % Baso % (Auto) % Neut # (Auto) (1.40-6.50) K/uL Lymph # (Auto) (1.20-3.40) K/uL Cole # (Auto) (0.11-0.59) K/uL Eos # (Auto) (0.00-0.50) K/uL Baso # (Auto) (0.00-0.20) K/uL Immature Gran # (Auto) (0.01-0.20) K/uL PT INR APTT PTT Ratio Sodium (136-145) mmol/L Potassium (3.5-5.1) mmol/L Chloride (98-107) mmol/L Carbon Dioxide (21-32) mmol/L Anion Gap (3-11) BUN (6-23) mg/dl Creatinine (0.6-1.2) mg/dl Est Cr Clr Drug Dosing eGFR BUN/Creatinine Ratio (10-20) Glucose (70-99(Fasting)) mg/dl POC Glucose 78 127 H 80 (70-99) mg/dl Calcium (8.6-10.3) mg/dl Total Bilirubin (0.2-1.0) mg/dl AST (13-39) U/L ALT (7-52) U/L Alkaline Phosphatase (34-104) U/L Troponin I High Sens (0-14) pg/ml B-Natriuretic Peptide (0-100) pg/ml Total Protein (6.0-8.3) gm/dl Albumin (3.4-5.0) gm/dl Globulin (2.5-4.0) gm/dl Albumin/Globulin Ratio (0.9-2) Nasal Screen MRSA (PCR) (Negative) Digoxin (0.8-2.0) ng/ml Hep Bs Antigen (Negative) Hep Bs Antibody Hep Bs Antibody, Quant (>or=10mIU/mL Immune) mIU/mL 10/23/24 10/23/24 10/22/24 Range/Units 11:07 07:23 21:14 WBC (4.8-10.8) K/ul RBC (4.20-5.40) M/uL Hgb (12.0-16.0) g/dl Hct (37.0-47.0) % MCV (80.0-100.0) fL MCH (25.0-34.0) pg MCHC (32.0-36.0) g/dL RDW Std Deviation (36.4-46.3) fL RDW Coeff of Asthya (11.5-14.5) % Plt Count (130-400) K/uL MPV (9.4-12.4) fL Immature Gran % (Auto) % Neut % (Auto) % Lymph % (Auto) % Cole % (Auto) % Eos % (Auto) % Baso % (Auto) % Neut # (Auto) (1.40-6.50) K/uL Lymph # (Auto) (1.20-3.40) K/uL Cole # (Auto) (0.11-0.59) K/uL Eos # (Auto) (0.00-0.50) K/uL Baso # (Auto) (0.00-0.20) K/uL Immature Gran # (Auto) (0.01-0.20) K/uL PT INR APTT PTT Ratio Sodium (136-145) mmol/L Potassium (3.5-5.1) mmol/L Chloride (98-107) mmol/L Carbon Dioxide (21-32) mmol/L Anion Gap (3-11) BUN (6-23) mg/dl Creatinine (0.6-1.2) mg/dl Est Cr Clr Drug Dosing eGFR BUN/Creatinine Ratio (10-20) Glucose (70-99(Fasting)) mg/dl POC Glucose 144 H 96 110 H (70-99) mg/dl Calcium (8.6-10.3) mg/dl Total Bilirubin (0.2-1.0) mg/dl AST (13-39) U/L ALT (7-52) U/L Alkaline Phosphatase (34-104) U/L Troponin I High Sens (0-14) pg/ml B-Natriuretic Peptide (0-100) pg/ml Total Protein (6.0-8.3) gm/dl Albumin (3.4-5.0) gm/dl Globulin (2.5-4.0) gm/dl Albumin/Globulin Ratio (0.9-2) Nasal Screen MRSA (PCR) (Negative) Digoxin (0.8-2.0) ng/ml Hep Bs Antigen (Negative) Hep Bs Antibody Hep Bs Antibody, Quant (>or=10mIU/mL Immune) mIU/mL 10/22/24 10/22/24 10/22/24 Range/Units 19:37 17:17 16:04 WBC (4.8-10.8) K/ul RBC (4.20-5.40) M/uL Hgb (12.0-16.0) g/dl Hct (37.0-47.0) % MCV (80.0-100.0) fL MCH (25.0-34.0) pg MCHC (32.0-36.0) g/dL RDW Std Deviation (36.4-46.3) fL RDW Coeff of Sathya (11.5-14.5) % Plt Count (130-400) K/uL MPV (9.4-12.4) fL Immature Gran % (Auto) % Neut % (Auto) % Lymph % (Auto) % Cole % (Auto) % Eos % (Auto) % Baso % (Auto) % Neut # (Auto) (1.40-6.50) K/uL Lymph # (Auto) (1.20-3.40) K/uL Cole # (Auto) (0.11-0.59) K/uL Eos # (Auto) (0.00-0.50) K/uL Baso # (Auto) (0.00-0.20) K/uL Immature Gran # (Auto) (0.01-0.20) K/uL PT 13.4 H INR 1.3 H APTT 34 H PTT Ratio 1.3 Sodium (136-145) mmol/L Potassium (3.5-5.1) mmol/L Chloride (98-107) mmol/L Carbon Dioxide (21-32) mmol/L Anion Gap (3-11) BUN (6-23) mg/dl Creatinine (0.6-1.2) mg/dl Est Cr Clr Drug Dosing eGFR BUN/Creatinine Ratio (10-20) Glucose (70-99(Fasting)) mg/dl POC Glucose 93 (70-99) mg/dl Calcium (8.6-10.3) mg/dl Total Bilirubin (0.2-1.0) mg/dl AST (13-39) U/L ALT (7-52) U/L Alkaline Phosphatase (34-104) U/L Troponin I High Sens 31.0 H (0-14) pg/ml B-Natriuretic Peptide (0-100) pg/ml Total Protein (6.0-8.3) gm/dl Albumin (3.4-5.0) gm/dl Globulin (2.5-4.0) gm/dl Albumin/Globulin Ratio (0.9-2) Nasal Screen MRSA (PCR) Negative (Negative) Digoxin (0.8-2.0) ng/ml Hep Bs Antigen Negative (Negative) Hep Bs Antibody Immune Hep Bs Antibody, Quant 70.40 (>or=10mIU/mL Immune) mIU/mL 10/22/24 Range/Units 14:28 WBC 5.77 (4.8-10.8) K/ul RBC 4.58 (4.20-5.40) M/uL Hgb 13.1 (12.0-16.0) g/dl Hct 40.5 (37.0-47.0) % MCV 88.4 (80.0-100.0) fL MCH 28.6 (25.0-34.0) pg MCHC 32.3 (32.0-36.0) g/dL RDW Std Deviation 53.5 H (36.4-46.3) fL RDW Coeff of Sathya 16.5 H (11.5-14.5) % Plt Count 329 (130-400) K/uL MPV 10.9 (9.4-12.4) fL Immature Gran % (Auto) 0.3 % Neut % (Auto) 71.8 % Lymph % (Auto) 15.1 % Cole % (Auto) 11.8 % Eos % (Auto) 0.7 % Baso % (Auto) 0.3 % Neut # (Auto) 4.14 (1.40-6.50) K/uL Lymph # (Auto) 0.87 L (1.20-3.40) K/uL Cole # (Auto) 0.68 H (0.11-0.59) K/uL Eos # (Auto) 0.04 (0.00-0.50) K/uL Baso # (Auto) 0.02 (0.00-0.20) K/uL Immature Gran # (Auto) 0.02 (0.01-0.20) K/uL PT Cancelled INR Cancelled APTT Cancelled PTT Ratio Cancelled Sodium 138 (136-145) mmol/L Potassium 4.2 (3.5-5.1) mmol/L Chloride 94 L (98-107) mmol/L Carbon Dioxide 35 H (21-32) mmol/L Anion Gap 9 (3-11) BUN 22 (6-23) mg/dl Creatinine 2.83 H (0.6-1.2) mg/dl Est Cr Clr Drug Dosing Not Reportable eGFR 15.75 BUN/Creatinine Ratio 7.8 L (10-20) Glucose 138 H (70-99(Fasting)) mg/dl POC Glucose (70-99) mg/dl Calcium 8.5 L (8.6-10.3) mg/dl Total Bilirubin 1.4 H (0.2-1.0) mg/dl AST 34 (13-39) U/L ALT 9 (7-52) U/L Alkaline Phosphatase 109 H (34-104) U/L Troponin I High Sens 37.9 H (0-14) pg/ml B-Natriuretic Peptide 239 H (0-100) pg/ml Total Protein 7.1 (6.0-8.3) gm/dl Albumin 3.6 (3.4-5.0) gm/dl Globulin 3.5 (2.5-4.0) gm/dl Albumin/Globulin Ratio 1.0 (0.9-2) Nasal Screen MRSA (PCR) (Negative) Digoxin (0.8-2.0) ng/ml Hep Bs Antigen (Negative) Hep Bs Antibody Hep Bs Antibody, Quant (>or=10mIU/mL Immune) mIU/mL Diagnostic Findings Chest X-Ray 10/22/24 14:36 XR chest 1V portable CLINICAL HISTORY: Chest pain, nonspecific COMPARISON STUDY: 11/24/2018 FINDINGS: Stable chest port. Stable moderate cardiomegaly with mild pulmonary vascular congestion. There is an interval moderate to large right pleural effusion and associated right lower lung consolidation. No pneumothorax. IMPRESSION: CHF with right pleural effusion. ACT 112: Negative or not required by law. Electronically signed by: Atilio Mccoy M.D. 10/22/2024 2:58 PM PG Care Time/CCT Total # of Minutes Spent Total Time Spent with Patient: Total time spent is greater than 50% in coordination of care (as documented) at patient's floor/unit and/or counseling patient: I spent 110 minutes overall addressing this case: 15 min in medical data review/discussion with referring provider(s) and/or preparation for the visit incl d/w staff 15 min in direct interaction with the patient/exam 45 min in Advance Care Planning/Goals of Care discussions as detailed above in note (must be >16min) 15 min in subsequent review and synthesis of assessment and plan 20 min communicating with other providers regarding the patient's case: primary , nephro, care mgt, nursing Advanced Care Planning 86102 Advanced Care Planning 30 Min 45866 Advanced Care Planning Additional 30 [place] [address] IN/OBS CONSULT LVL 4,60M (25 - SIGNIFICANT, SEPARATELY IDENTIFIABLE ) Patient Type New Medical Decision Making High Complexity Diagnoses Dyspnea and respiratory abnormalities R06.00; R06.89 Weakness generalized R53.1 Advanced care planning/counseling discussion Z71.89 Palliative care by specialist Z51.5 Additional Codes Advanced Care Planning - 18167 Advanced Care Planning 30 Min: 80202 Advanced Care Planning 30 Min ([id number]) Advanced Care Planning - 71906 Advanced Care Planning Additional 30 Min: 49555 Advanced Care Planning Additional 30 Min ([id number]) Comment [id number], [id number]
[2024-10-25] MEDS: DIGOXIN 0.125 MG TAB PO SCH (16:43)
--- NOTE | 2024-10-26 11:51 | Nephrology Progress Note ---
Date of Service October 26, 2024 Assessment & Plan (1) End stage renal disease on dialysis: Plan: ESRD on HD. Jessenia has opted to transition to [facility] and hospice care. HD discontinued. Palliative care is following. No additional nephrology recommendations at this time. I will sign-off. Please call with questions or concerns. Admission and Anticipated Discharge Date Admission Date: October 22, 2024 Subjective No acute events overnight. Jessenia has transitioned to [facility]. I discussed the plan of care with Dr. Wise this AM. Jessenia is resting comfortably in bed. Family would like to bring her home on hospice. Jessenia reports some discomfort in her right leg and foot but otherwise she feels well. Review of Systems Review of Systems: All systems reviewed & are unremarkable except as noted in HPI & below Physical Exam Constitutional: no acute distress ENMT: Mouth: + dry oral mucous membranes Neck: normal visual inspection and trachea midline Respiratory: normal respiratory effort and + tachypneic Cardiovascular: Rate/Rhythm: regular rate and + irregularly irregular Heart Sounds: normal S1, normal S2 and + murmur Extremities: + edema and + AV fistula Musculoskeletal: Extremities: + cyanosis Skin: no jaundice Neurologic: Motor/Sensory: + tremor; no asterixis Psychiatric: Orientation: alert, oriented to person and oriented to place Results & Data Vital Signs (Past 12 Hours) Vital Signs O2 Del Method O2 Flow Rate 10/26/24 07:42 Nasal Cannula 2 Laboratory Results Laboratory Results - last 24 hr 10/25/24 16:43 POC Glucose 120 H PG Care Time/CCT Total # of Minutes Spent Total Time Spent with Patient: Total time spent is greater than 50% in coordination of care (as documented) at patient's floor/unit and/or counseling patient: Coding Level of Care Code 11927 SUB INP/OBS CARE 3/50MIN Diagnoses End stage renal disease on dialysis N18.6; Z99.2
--- NOTE | 2024-10-26 13:41 | Palliative Family Discussion ---
Date of Service October 26, 2024 Patient Directed Conference Time of Meetin-1030am Participants: Dolores Wise DNP Patient participation: intermittent Patient Support System: daughter and son in law Other Healthcare Provider Participation: Anitra Alonzo/care mgt Meeting Location: bedside Advanced Directive available:pt does not want CPR, desires home hospice The patient's surrogate medical decision maker participated: malena Madden A face to face ACP family meeting was held for ILIANA Cecy ORTEGA. This meeting was necessary for determining the appropriate course of treatment. Topics of Discussion Topics of Discussion: 1. Opportunity given for participants to speak and ask questions. 2. Participants were assured of attention to patient comfort. 3. Reassurance provided. 4. Support was provided for informed, good-grace decisions. 5. Emotions expressed by family were acknowledged and addressed. 6. Plan of Care: dc home with [facility]. Care mgt is coordinating dispo for family, limited DME requests for now. 7. Son in law asked about what to expected/what will happen - discussed changes pt may move through in the dying process including but not limited to sleeping more, disorientation when awake, restlessness, diminished senses/inability to respond to stimulus although ability to be aware of them remains intact longer, and changes in body temperatures, skin changes/mottling/cyanosis, respiratory pattern changes, and oral secretions. Family verbalized understanding. The goal is to assure a peaceful . Oxygen at EOL: For patients at the end of life, oxygen delivered by a nasal cannula provides no additional symptomatic benefit for relief of refractory dyspnea in patients with life-limiting illness compared with room air: there's a point at which that the oxygen level gets so low that it's no longer compatible with life. By providing supplemental oxygen, the dying process will be unnecessarily prolonged. Please use less burdensome but more effective strategies such as comfort care meds, oscillating fan, massage, repositioning, etc. TS 30min Thank you for allowing us to participate in the ongoing care of this patient. Please page with any additional concerns. Micah Wise DNP Director, Palliative Medicine
[2024-10-26] MEDS: HYDROmorphone INJ 0.5 MG/0.5 ML SYR IV PRN (16:16)
[2024-10-26 16:18] VITALS: PULSE 69
--- NOTE | 2024-10-26 16:18 | Hospitalist Progress Note ---
Date of Service October 26, 2024 Assessment & Plan (1) Hypotension: Plan: Persistent. Midodrine dosage uptitrated on October 24. It has not been effective to date. 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 Hydralazine and carvedilol have previously been discontinued. Cardiac echo negative for any evidence of pericardial effusion and as a consequence no cardiac tamponade. (2) Recurrent right pleural effusion: Plan: She has had previous thoracentesis on the right in the past. Juanitaquis remains on hold. The patient is not interested in having a thoracentesis done at this time nor do I feel it is necessary. Planned procedure has been canceled. (3) End stage renal disease on dialysis: Plan: Nephrology consultation and recommendations noted. Hemodialysis has been terminated due to persistent hypotension. (4) Chronic atrial fibrillation: Plan: Digoxin has been started for rate control but will be discontinued due to ANALYTICAL CLERK status. Coreg has previously been discontinued due to hypotension. Telemetry. Jesenia is currently on hold. (5) Type 2 diabetes mellitus: Plan: ADA diet. 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 Plan Anticipate discharge to home with hospice care tomorrow, October 27 Admission and Anticipated Discharge Date Admission Date: October 22, 2024 Subjective The patient is currently sleeping at the time of my rounds. Family is in attendance. She is now comfort measures only. Anticipate discharge to home tomorrow, October 27, with hospice services Review of Systems 2 Review of Systems: Cannot assess. The patient is currently sleeping Physical Exam 2 Physical Exam: General-currently sleeping. No fever HEENT-head atraumatic and normocephalic Neck-no lymphadenopathy or thyromegaly, trachea midline Chest-dullness and diminished breath sounds on the right side. No wheezing. No expiratory rales. No rhonchi Cardiac-irregular rhythm. Mildly tachycardic rate. Normal S1 and S2 Abdomen-normal bowel sounds, no hepatosplenomegaly Extremities-no cyanosis, clubbing, or edema Neuro-sleeping. Cannot assess Psych-sleeping. Cannot assess Results & Data Results & Data Vital Signs (Past 12 Hours) Vital Signs O2 Del Method O2 Flow Rate 10/26/24 07:42 Nasal Cannula 2 Laboratory Results 10/25/24 05:31 10/25/24 05:31 PG Care Time/CCT Total # of Minutes Spent Total Time Spent with Patient: Total time spent is greater than 50% in coordination of care (as documented) at patient's floor/unit and/or counseling patient: Coding Level of Care Code 14810 SUB INP/OBS CARE 2/35MIN Diagnoses Hypotension I95.9 Recurrent right pleural effusion J90 End stage renal disease on dialysis N18.6; Z99.2 Chronic atrial fibrillation I48.20 Type 2 diabetes mellitus E11.9
--- NOTE | 2024-10-27 07:23 | Electrocardiogram Report ---
Test Reason : Blood Pressure : */* mmHG Vent. Rate : 90 BPM Atrial Rate : * BPM P-R Int : * ms QRS Dur : 90 ms QT Int : 358 ms P-R-T Axes : * -45 145 degrees QTcB Int : 437 ms Atrial fibrillation with premature ventricular or aberrantly conducted complexes with occasional vent ricular paced complexes Left axis deviation Inferior infarct , age undetermined Anterior infarct , age undetermined Abnormal ECG When compared with ECG of 23-Nov-2018 10:47, Atrial fibrillation has replaced Sinus rhythm Inferior infarct is now Present Nonspecific T wave abnormality now evident in Lateral leads Confirmed by Mian Carrasquillo ([id number]) on 10/27/2024 7:22:37 AM Referred By: Antelmo Beltran Confirmed By: Mian Carrasquillo
[2024-10-27] MEDS: LORazepam 0.5 MG TAB PO PRN (08:22)
[2024-10-27] MEDS ORDERED: HYDROmorphone INJ 0.5 MG/0.5 ML SYR IV PRN (08:33)
[2024-10-27] MEDS: HYDROmorphone INJ 0.5 MG/0.5 ML SYR ONE (08:40)
[2024-10-27] MEDS: HYDROmorphone INJ 0.5 MG/0.5 ML SYR IV STA (08:44)
[2024-10-27] MEDS ORDERED: LORazepam 1 MG TAB PO PRN (08:44)
[2024-10-27] MEDS ORDERED: GLYCOPYRROLATE 0.2 MG/ML VIAL IV PRN (08:45)
--- NOTE | 2024-10-27 08:49 | Communication Note ---
Date of Service: October 27, 2024 Palliative Medicine Credit Reference Clerk Notified by staff Jessenia is having increasing resp distress and anxiety Likely beginning transition to more active EOL, given morbidity of her illnesses. I have modified IV Dilaudid and added 1mg option q1h prn for severe/refractory distress and added IV Ativan in case panic/signif distress increases. This can also be used for myoclonus which may occur with ESRD and dying. While not necessarily distressing to the patient, it may be traumatic for families. D/w nursing. Plan of care is comfort. if /when she loses ability to take PO, would dc all PO meds which at that time will no longer add to comfort of QOL. TS 20min NO charge submitted Pt not seen Thank you for allowing us to participate in the ongoing care of this patient. Please page with any additional concerns. Micah Wise DNP Palliative Medicine
--- NOTE | 2024-10-27 15:49 | Hospitalist Progress Note ---
Date of Service October 27, 2024 Assessment & Plan (1) Hypotension: Plan: Persistent. Midodrine dosage was started this admission but was ineffective and subsequently discontinued. Hydralazine and carvedilol have previously been discontinued. Cardiac echo negative for any evidence of pericardial effusion and as a consequence no cardiac tamponade. (2) Recurrent right pleural effusion: Plan: She has had previous thoracentesis on the right in the past. Eliquis has been discontinued. Right thoracentesis will not be pursued because of MANAGER OF CLINICAL status. (3) End stage renal disease on dialysis: Plan: Nephrology consultation and recommendations noted. Hemodialysis has been terminated due to persistent hypotension. (4) Chronic atrial fibrillation: Plan: Digoxin had been started for rate control but has been discontinued due to MANAGER OF CLINICAL status. Coreg has previously been discontinued due to hypotension. Eliquis has also been discontinued (5) Type 2 diabetes mellitus: Plan: Discontinued diabetic management and Accu-Cheks due to MANAGER OF CLINICAL status. Plan Continue MANAGER OF CLINICAL status. The patient will remain here since her appears to be imminent. Admission and Anticipated Discharge Date Admission Date: October 22, 2024 Subjective The patient is unresponsive. Dilaudid dosage uptitrated to help control her occasional moaning. She appears to be actively dying at this time. I do not think home hospice will be needed. Will keep her hospitalized here since this appears to be a short-term terminal case. Review of Systems 2 Review of Systems: Cannot assess. The patient is unresponsive Physical Exam 2 Physical Exam: General-unresponsive. No fever HEENT-head atraumatic and normocephalic Neck-no lymphadenopathy or thyromegaly, trachea midline Chest-dullness and diminished breath sounds on the right side. No wheezing. No expiratory rales. No rhonchi Cardiac-irregular rhythm. Mildly tachycardic rate. Normal S1 and S2 Abdomen-normal bowel sounds, no hepatosplenomegaly Extremities-no cyanosis, clubbing, or edema Neuro-unresponsive. Cannot assess Psych-unresponsive. Cannot assess Results & Data Results & Data Vital Signs (Past 12 Hours) Vital Signs O2 Del Method O2 Flow Rate 10/27/24 08:45 Nasal Cannula 2 10/27/24 08:12 Nasal Cannula 2 10/27/24 08:12 Nasal Cannula 2 Laboratory Results 10/25/24 05:31 10/25/24 05:31 PG Care Time/CCT Total # of Minutes Spent Total Time Spent with Patient: Total time spent is greater than 50% in coordination of care (as documented) at patient's floor/unit and/or counseling patient: Coding Level of Care Code 52066 SUB INP/OBS CARE 2/35MIN Diagnoses Hypotension I95.9 Recurrent right pleural effusion J90 End stage renal disease on dialysis N18.6; Z99.2 Chronic atrial fibrillation I48.20 Type 2 diabetes mellitus E11.9
[2024-10-27] MEDS: HYDROmorphone INJ 0.5 MG/0.5 ML SYR IV PRN (21:08)
--- NOTE | 2024-10-28 10:02 | Death Pronouncement Note ---
Date of Service October 28, 2024 Pronouncement Note Admission Date October 22, 2024 Preliminary Cause of (1) Hypotension: (2) Recurrent right pleural effusion: (3) End stage renal disease on dialysis: (4) Chronic atrial fibrillation: (5) Type 2 diabetes mellitus: Summary Nursing staff notified me that the patient sees Aziza at 09 25 this morning, October 28. She was pronounced at 09 33. Pupils are fixed and dilated, absent heart tones, no respiratory activity. The nurse notified the family by phone. They are not at the bedside. Additional Data Pronouncement Performed By: Attending Physician Attending physician: Agustín Copeland MD Was code activated?: No Coding Level of Care Code 64828 IN/OBS DISCH 30 MIN/LESS Diagnoses Hypotension I95.9 Recurrent right pleural effusion J90 End stage renal disease on dialysis N18.6; Z99.2 Chronic atrial fibrillation I48.20 Type 2 diabetes mellitus E11.9
--- NOTE | 2024-10-28 10:04 | Discharge Summary ---
Discharge Summary Date of Service October 28, 2024 Principal Dx & Hospital Course #1 = Principal Diagnosis (1) Hypotension: Persistent. Midodrine dosage was started this admission but was ineffective and subsequently discontinued. Hydralazine and carvedilol have previously been discontinued. Cardiac echo negative for any evidence of pericardial effusion and as a consequence no cardiac tamponade. (2) Recurrent right pleural effusion: She has had previous thoracentesis on the right in the past. Eliquis has been discontinued. 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 (3) End stage renal disease on dialysis: Nephrology consultation and recommendations noted. Hemodialysis has been terminated due to persistent hypotension. (4) Chronic atrial fibrillation: Digoxin had been started for rate control but has been discontinued due to SENIOR COMPUTER SPECIALIST status. Coreg has previously been discontinued due to hypotension. Eliquis has also been discontinued (5) Type 2 diabetes mellitus: Discontinued diabetic management and Accu-Cheks due to SENIOR COMPUTER SPECIALIST status. Plan The patient at 09 25 this morning, October 28 Admission HPI Per Admitting Provider 84-year-old white female who developed hypotension while in hemodialysis today, October 22. She was brought to the ED for evaluation. She is alert and oriented without any distress. She denies chest pain or shortness of breath. She has recurrent large right pleural effusion that has been aspirated twice in the past, none recently. Eliquis is placed on hold and IR requested to repeat the right thoracentesis. Nephrology has been consulted to continue hemodialysis. Amlodipine is placed on hold. Nighttime insulin will be avoided due to risk for hypoglycemia during sleep. Sliding scale insulin for now. Discharge Exam Not applicable Discharge Plan Discharge Items Patient Disposition: Reason For Visit: RECURRENT RIGHT PLEYRAL EFFUSION, HYPOTENSION Condition on Discharge: Fair Follow-up/Referrals: Annmarie Alexandra PA-C [Primary Care Provider] - Addtl Attending Provider Instructions: Not applicable Medications and DC Order Prescriptions: No Action Eliquis 2.5 mg tablet 2.5 mg PO BID Qty: 180 3RF aspirin 81 mg Tablet,Delayed Release (Dr/Ec) 81 mg PO DAILY famotidine 20 mg tablet 20 mg PO HS Qty: 30 0RF insulin glargine [Lantus Solostar U-100 Insulin] 100 unit/mL (3 mL) insulin pen 38 unit subcut HS PRN (Reason: NEEDED PER FAMILY) ondansetron HCl 4 mg tablet 4 mg PO Q8H PRN (Reason: NAUSEA/VOMITING) levofloxacin 250 mg tablet 250 mg PO Q OTHER DAY Rx Instructions: STARTED 10/10/24, ENDED 10/22/24 LAST DOSE levothyroxine 100 mcg tablet 100 mcg PO QAM ropinirole 0.25 mg tablet 0.25 mg PO HS rosuvastatin 5 mg tablet 5 mg PO HS [facility] Plus Lutein 300 mcg-200 mg-27 mg-2 mg Tablet 1 tab PO BID melatonin 5 mg Tablet 5 mg PO HS fenofibrate 54 mg tablet 54 mg PO HS Humalog KwikPen Insulin 200 unit/mL (3 mL) Insulin Pen 1 sliding scale dose SUBCUT QPM PRN (Reason: NEEDED PER FAMILY(NOT RECENTLY)) Rx Instructions: BSG-200-250=2 UNITS, 251-300=4 UNITS, 301-350=6 UNITS, 351-400=8 UNITS, 401- 450=10 UNITS. Admission Data Admit Date/Time: 10/22/24 16:20 Attending Provider: Agustín Copeland Admit Provider: Agustín Copeland Primary Care Provider: Annmarie Alexandra Other Providers: Agustín Copeland; Pato Peres; Stefano Casas Kevin C.; Payton Ibanez; Jc Patel; Addison Godoy; Duy Gregorio; Mian Carrasquillo; Reed Herrera Jr; Axel Bahena; Serenity Spivey; Kaela Hamm; Beni Marley; Beni Luo; Jesika Velarde; Chiki Beaulieu; Sally Fuentes; Chiki Allan; Thony Hobson; Sean Doyle; Arnoldo Stallworth; Maximino Irving; Ambrose Maya; Tracie Lindquist; Liana Bhandari; Dolores Wise; [facility] Hospital Stay Data Consultations 10/22/24 16:13 ED Decision to Admit Stat 07/21/25 18:29 Consult Nephrology Routine 10/23/24 08:43 Consult Cardiology Routine 10/25/24 09:10 Consult Palliative Care Routine Discharge Instructions Given to Patient (Per Discharging Provider) Not applicable Total Time Total Time Spent Total Time Spent (In Minutes): 25 minutes Coding Level of Care Code 43175 IN/OBS DISCH 30 MIN/LESS Diagnoses Hypotension I95.9 Recurrent right pleural effusion J90 End stage renal disease on dialysis N18.6; Z99.2 Chronic atrial fibrillation I48.20 Type 2 diabetes mellitus E11.9
== END 2024-10-28 10:19 | disposition expired | DRG 314 ==
LOC: SUATTDRO → ED 14:02 → EDINP 16:20 → 2N 18:29 → 3E 10-24 02:50